=== PATIENT | male | born 1960 | race Hispanic/Latino ===

== ENCOUNTER 2018-05-03 11:16 | Emergency (ER) | payer OTHER ==
--- OUTSIDE RECORDS SUMMARY | 2018-05-03 11:19 | XMS REPORT | Continuity of Care Document ---
:1960 Author Organization Interface Problems Problem Status Onset Classification Date Comments Source Date Reported CVA ISCHEMIC Active 09/13/20 [place] [id number] CVA Active 09/13/[address] Final: Cerebral 09/27/2017 [facility] infarction, unspecified CAD (<span Resolved Problem 09/27/2017 [facility] ID="[id number]">Confirmed</s de la cruz>) Diabetes Resolved Problem 09/27/2017 [facility] mellitus, insulin dependent , controlled(<spa n ID="[id number]">Confirmed&lt ;/span>) Chronic Resolved Problem 09/27/2017 [facility] hypertension Post PTCA Resolved Problem 09/27/2017 [facility] CEREBRAL Active [facility] INFARCTION, UNSPECIFIED Medications Medication Details Route Status Patient Ordering Order Source Instructions Provider Date Metformin 500 mg=1 tab, Active hydrochloride PO, Daily, 2017 [facility] 500 MG Oral take with a Tablet meal, # 30 tab, 1 Refill(s) docusate sodium 100 mg=10 mL, Active 150 mg/15 mL PO, Q12H, # 2016 [facility] oral liquid 600 mL, 0 Refill(s) atorvastatin 40 40 mg=1 tab, Active mg oral tablet PO, Bedtime, # 2016 [facility] 30 tab, 0 Refill(s) Aspirin 81 MG 81 mg=1 tab, Active Chewable Tablet PO, Daily, 2016 [facility] 30 tab, 0 Refill(s) Haldol 2 mg, 0.4 mL, Inactive Route: IV, 2016 [facility] Drug form: INJ, ONCE, Dosing Weight 122.008, kg, Start date: 09/23/17 4:26:00 [employer], Stop date: 09/23/17 4:26:00 CSTNotes: (Same as: Haldol) Omnipaque 350 125 mL, Route: Inactive injectable IVP, Drug 2016 [facility] solution Form: SOLN, Dosing Weight 122.008, kg, ONCALL, For CTA exam with GFR > 45 mL/min, STAT, Start date: 09/22/17 17:14:00 [employer], Duration: 1 doses or timesNotes: (same as:Omnipaque 350). WASTE: F/P - Black; E - Municipal Trash Bin vancomycin 2.5 gm, 500 No Longer mL, Route: Active 2016 [facility] IVPB, Drug form: SOLN, [id number], Start date: 09/22/17 5:00:00 [employer], Stop date: 09/25/17 17:00:00 [employer], ABX Indication: PneumoniaNotes : TIME CRITICAL MEDICATION Same as: Vancocin Infusion rate 2000 mg: infuse over 2.5 hours Haldol 2 mg, 0.4 mL, Inactive Route: IV, 2016 [facility] Drug form: INJ, ONCE, Dosing Weight 122.008, kg, PRN Agitation, Start date: 09/22/17 3:53:00 CSTNotes: (Same as: Haldol) vancomycin + 500 mg, Route: Inactive Sodium Chloride IVPB, ONCE, 2016 [facility] 0.9% IV 100 mL Start date: 09/21/17 17:19:00 [employer], Stop date: 09/21/17 17:19:00 [employer], ABX Indication: PneumoniaNotes : TIME CRITICAL MEDICATION (Same As: Vancocin) vancomycin + 2,500 mg, Inactive Sodium Chloride Route: IVPB, 2016 [facility] 0.9% IV 500 mL [id number], Start date: 09/21/17 5:00:00 [employer], Stop date: 09/25/17 17:00:00 [employer], ABX Indication: PneumoniaNotes : TIME CRITICAL MEDICATION (Same As: Vancocin) Infusion rate 2000 mg: infuse over 2.5 hours MEDICATION WASTE Product Size: 1000 mg Product Wasted: ___ mg vancomycin 2 gm, 500 mL, No Longer Route: IVPB, Active 2016 [facility] Drug form: SOLN, [id number], Start date: 09/20/17 15:00:00 [employer], Duration: 6 day, Stop date: 09/26/17 3:00:00 [employer], ABX Indication: PneumoniaNotes : TIME CRITICAL MEDICATION Same as: Vancocin Infusion rate 2001 mg: infuse over 2.5 hours Ativan 1 mg, 0.5 mL, Inactive Route: IVP, 2016 [facility] Drug form: INJ, ONCE, Dosing Weight 122.008, kg, PRN Agitation, Priority: NOW, Start date: 09/20/17 2:57:00 CSTNotes: (Same as: Ativan) vancomycin + 1,500 mg, No Longer Sodium Chloride Route: IVPB, Active 2016 [facility] 0.9% IV 250 mL [id number], Start date: 09/18/17 14:00:00 [employer], Duration: 7 day, Stop date: 09/25/17 2:00:00 [employer], ABX Indication: PneumoniaNotes : TIME CRITICAL MEDICATION (Same As: Vancocin) Infusion rate 2001 mg: infuse over 2.5 hours MEDICATION WASTE Product Size: 1000 mg Product Wasted: ___ mg Vancomycin Vancomycin No Longer Pharmacy Pharmacy Active 2016 [facility] Protocol Protocol, 1 dose, Drug form: MISC, Route: [place], 09/18/17 12:00:00 [employer], Duration: 7 day, Stop date: 09/25/17 11:59:00 [employer] vancomycin + 1,500 mg, Inactive Sodium Chloride Route: IVPB2016 [facility] 0.9% IV 250 mL [id number], Start date: 09/18/17 12:00:00 [employer], Duration: 7 day, Stop date: 09/25/17 0:00:00 [employer], ABX Indication: PneumoniaNotes : TIME CRITICAL MEDICATION (Same As: Vancocin) Infusion rate 2001 mg: infuse over 2.5 hours MEDICATION WASTE Product Size: 1000 mg Product Wasted: ___ mg NS (Bolus) IV 500 mL, 500 No Longer ml/hr, Infuse Active 2016 [facility] Over: 1 hr, Route: IV, 500, Drug form: INJ, ONCE, Priority: STAT, Dosing Weight 122.008 kg, Start date: 09/18/17 10:01:00 [employer], Stop date: 09/18/17 10:01:00 [employer] Vancomycin 1 ea, Route: Inactive [place], 2016 [facility] Dosing Weight 122.008, kg, Start date: 09/18/17 10:00:00 [employer], Duration: 7 day, Stop date: 09/25/17 9:59:00 [employer], Pharmacy to dose, ABX Indication: Pneumonia Acetaminophen 650 mg, 1 No Longer supp, Route: Active 2016 [facility] MA, Drug form: SUPP, Q6H, Dosing Weight 122.008, kg, PRN For Temp > 100.4 F, Start date: 09/18/17 4:35:00 [employer], Duration: 30 day, Stop date: 10/18/17 4:34:00 CSTNotes: Max acetaminophen= 4000 mg/day (4 gm/day). (Same as: Tylenol) Zosyn 3.375 gm, No Longer Route: IVPB, Active 2016 [facility] [id number], Dosing Weight 122.008, kg, CrCl >=20 ml/min infuse over 4 hours, Start date: 09/17/17 10:00:00 [employer], Duration: 7 day, Stop date: 09/24/17 4:00:00 [employer], ABX Indication: PneumoniaNotes : (Same as: Zosyn) Dosing based on Piperacillin component MEDICATION WASTE Product Size: 3375 mg Product Wasted: ___ mg Rocephin 1 gm, Route: No Longer IVPB, [id number], Active 2016 [facility] Dosing Weight 122.008, kg, Start date: 09/16/17 13:00:00 [employer], Duration: 7 day, Stop date: 09/22/17 13:00:00 [employer], ABX Indication: PneumoniaNotes : (Same As: Rocephin). Use with 100 mL NS and infuse over 30 min MEDICATION WASTE Product Size: 1000 mg Product Wasted: ___ mg Albuterol / 3 mL, Route: No Longer Ipratropium NEB, Drug Active 2016 [facility] Form: SOLN, Dosing Weight 122.008, kg, RQ6H, Start date: 09/15/17 14:00:00 [employer], Duration: 30 day, Stop date: 10/15/17 8:00:00 CSTNotes: (Same as: Duoneb) Lasix 40 mg, 4 mL, Inactive Route: IVP, 2016 [facility] Drug form: INJ, ONCE, Dosing Weight 122.008, kg, Start date: 09/15/17 10:14:00 [employer], Stop date: 09/15/17 10:14:00 CSTNotes: (Same as: Lasix) MEDICATION WASTE Product Size: 40 mg Product Wasted: ___ mg Insulin Lispro 15 unit, 0.15 No Longer mL, Route: Active 2016 [facility] SUB-Q, Drug form: SOLN, Sliding Scale, Dosing Weight 122.008, kg, PRN Blood Glucose Results, Start date: 09/14/17 12:28:00 [employer], Duration: 30 day, Stop date: 10/14/17 12:27:00 CSTNotes: Roll in palms of hands gently; Do not shake `vigorously. (Same as: Humalog ) "Single Patient Use Only " WASTE: F/P - Black; E - Municipal Trash Bin Stable for 28 days at room temperature. Expires in days from Date Dextrose 50% 25 gm, 50 mL, No Longer Syringe Route: IVP, Active 2016 [facility] Drug Form: INJ, Dosing Weight 122.008, kg, PRN, PRN Blood Glucose Results, Start date: 09/14/17 12:28:00 [employer], Duration: 30 day, Stop date: 10/14/17 12:27:00 [employer] Glucagon 1 mg, Route: No Longer IM, Drug form: Active 2016 [facility] PDR/INJ, PRN, Dosing Weight 122.008, kg, PRN Blood Glucose Results, Start date: 09/14/17 12:28:00 [employer], Duration: 30 day, Stop date: 10/14/17 12:27:00 [employer] Docusate 100 mg, 10 mL, No Longer Route: PO, Active 2016 [facility] Drug form: LIQ, Q12H, kg, Start date: 09/13/17 21:00:00 [employer], Stop date: 10/13/17 9:00:00 CSTNotes: (Same as: Colace) atorvastatin 40 mg, 1 tab, No Longer Route: PO, Active 2016 [facility] Drug form: TAB, Bedtime, kg, Start date: 09/13/17 21:00:00 [employer], Stop date: 10/12/17 21:00:00 CSTNotes: (Same as: Lipitor) Saline Flush 10 ml, Route: No Longer 0.9% IVP, Drug Active 2016 [facility] Form: INJ, kg, Q12H, Start date: 09/13/17 21:00:00 [employer], Duration: 30 day, Stop date: 10/13/17 9:00:00 CSTNotes: (Same as: BD Posiflush) Aspirin 81 mg, 1 tab, No Longer Route: PO, Active 2016 [facility] Drug form: CHEWTAB, Daily, Dosing Weight 122.008, kg, Priority: NOW, Start date: 09/13/17 16:57:00 ASS[employer], Duration: 30 day, Stop date: 10/13/17 9:00:00 CSTNotes: Take with food. heparin 7,500 unit, No Longer 1.5 mL, Route: Active 2016 [facility] SUB-Q, Drug form: INJ, Q8H, kg, Start date: 09/13/17 16:00:00 [employer], Duration: 30 day, Stop date: 10/13/17 2:00:00 CSTNotes: porcine heparin Visipaque 320 100 mL, Route: Inactive mg/mL injectable IVP, Drug 2016 [facility] solution Form: SOLN, Dosing Weight 122.008, kg, ONCALL, For CTA exam with GFR Notes: (Same as: Visipaque). WASTE: F/P - Black; E - Municipal Trash Bin Glipizide 10 MG 10 mg=1 tab, No Longer Oral Tablet PO, Before Active 2016 [facility] Breakfast, # 90 tab, 0 Refill(s) Insulin Lispro 2 unit, 0.02 No Longer mL, Route: Active 2016 [facility] SUB-Q, Drug form: SOLN, Sliding Scale, kg, PRN Blood Glucose Results, Start date: 09/13/17 9:09:00 ASS[employer], Duration: 30 day, Stop date: 10/13/17 9:08:00 CSTNotes: Roll in palms of hands gently; Do not shake `vigorously. (Same as: Humalog ) "Single Patient Use Only " WASTE: F/P - Black; E - Municipal Trash Bin Stable for 28 days at room temperature. Expires in days from Date Calcium 1,000 mg, 2 No Longer Carbonate 500 MG tab, Route: Active 2016 [facility] Chewable Tablet PO, Drug form: CHEWTAB, PRN, kg, PRN Abnormal Lab Result, FOR ICU USE ONLY, Start date: 09/13/17 9:09:00 [employer], Duration: 30 day, Stop date: 10/13/17 9:08:00 CSTNotes: (Same As: Tums) Calcium Carbonate 500 cx=805 mg elemental calcium Dose= mg calcium carbonate ( mg elemental calcium) Magnesium Oxide 800 mg, 2 tab, No Longer Route: PO, Active 2016 [facility] Drug form: TAB, PRN, kg, PRN Abnormal Lab Result, FOR ICU USE ONLY, Start date: 09/13/17 9:09:00 ASS[employer], Duration: 30 day, Stop date: 10/13/17 9:08:00 CSTNotes: (Same as: Mag-Ox 400) Magnesium oxide 165te=110ip elemental magnesium Dose=____mg magnesium oxide (___mg elemental magnesium) Calcium 1 gm, 50 mL, No Longer Gluconate Route: IVPB, Active 2016 [facility] Drug form: INJ, PRN, kg, PRN Abnormal Lab Result, Start date: 09/13/17 9:09:00 ASS[employer], Duration: 30 day, Stop date: 10/13/17 9:08:00 ASSISTANT PROF[employer], FOR ICU USE ONLYNotes: WASTE: F/P - Sink; E - Municipal Trash Bin potassium 2 pkt, Route: No Longer phosphate-sodium PO, Drug Form: Active 2016 [facility] phosphate 250 PDR/REC, kg, mg-280 mg-160 mg PRN, PRN oral powder for Abnormal Lab reconstitution Result, FOR ICU USE ONLY, Start date: 09/13/17 9:09:00 ASS[employer], Duration: 30 day, Stop date: 10/13/17 9:08:00 CSTNotes: (Same as: Phos-NaK) Each 1.5 gm pkt has 250mg phosphorous. Mix w/2.5oz water and stir. potassium 30 mmol, 10 No Longer 09/13/ MH phosphate mL, Route: Active 2016 [facility] IVPB, PRN, kg, PRN Abnormal Lab Result, Start date: 09/13/17 9:09:00 ASSISTANT [employer], Duration: 30 day, Stop date: 10/13/17 9:08:00 ASSISTANT PROF[employer], FOR ICU USE ONLYNotes: (Same as: K Phosphate.) 1 mMol phoshate has 1.47 mEq potassium Infuse over 4 hours Magnesium 2 gm, 50 mL, No Longer 09/13/ MH Sulfate Route: IVPB, Active 2016 [facility] Drug form: INJ, PRN, kg, PRN Abnormal Lab Result, Start date: 09/13/17 9:09:00 ASSISTANT PROF[employer], Duration: 30 day, Stop date: 10/13/17 9:08:00 ASSISTANT PROF[employer], FOR ICU USE ONLYNotes: WASTE: F/P - Sink; E - Municipal Trash Bin sodium phosphate 30 mmol, 10 No Longer 09/13/ MH mL, Route: Active 2016 [facility] IVPB, PRN, kg, PRN Abnormal Lab Result, Start date: 09/13/17 9:09:00 ASSISTANT [employer], Duration: 30 day, Stop date: 10/13/17 9:08:00 ASSISTANT PROF[employer], FOR ICU USE ONLY Potassium 20 mEq, 15 mL, No Longer Chloride Route: NJ, Active 2016 [facility] Drug form: LIQ, PRN, kg, PRN Abnormal Lab Result, Start date: 09/13/17 9:09:00 ASSISTANT PROF[employer], Duration: 30 day, Stop date: 10/13/17 9:08:00 ASSISTANT PROF[employer], FOR ICU USE ONLYNotes: (Same as: Potassium Chloride) Dextrose 50% 12.5 gm, 25 No Longer 09/13/ MH Syringe mL, Route: Active 2016 [facility] IVP, Drug Form: INJ, kg, PRN, PRN Blood Glucose Results, Start date: 09/13/17 9:09:00 ASSIST[employer], Duration: 30 day, Stop date: 10/13/17 9:08:00 ASSIST[employer] Glucagon 1 mg, Route: No Longer IM, Drug form: Active 2016 [facility] PDR/INJ, PRN, kg, PRN Blood Glucose Results, Start date: 09/13/17 9:09:00 ASSISTANT [employer], Duration: 30 day, Stop date: 10/13/17 9:08:00 ASSIST[employer] normal saline 1,000 mL, No Longer 0.9% IV 1,000 mL Rate: 75 2016 [facility] ml/hr, Infuse over: 13.3 hr, Route: IV, Total Volume: 1,000, Start date: 09/13/17 9:05:00 ASSISTANT PROF[employer], Duration: 30 day, Stop date: 10/13/17 9:04:00 ASSISTANT PROF[employer] Hydralazine 20 mg, 1 mL, No Longer Route: IVP, 2016 [facility] Drug form: INJ, Q2H, kg, PRN Hypertension, Start date: 09/13/17 9:05:00 ASSISTANT PROF[employer], Duration: 30 day, Stop date: 10/13/17 9:04:00 CSTNotes: (Same as: Apresoline) Push over 5 minutes Labetalol 10 mg, 2 mL, No Longer Route: IVP, 2016 [facility] Drug form: INJ, Q10Min, kg, PRN Hypertension, For SBP > 180 mmHg and/or DBP > 105 mmHg, Priority: Routine, Start date: 09/13/17 9:01:00 ASSISTANT PROF[employer], Duration: 30 day, Stop date: 10/13/17 9:00:00 CSTNotes: (Same as: Normodyne, Trandate) Push over 2 minutes Give bolus over 2-3 minutes. Ondansetron 4 mg, 2 mL, No Longer Route: IVP, 2016 [facility] Drug form: INJ, Q8H, kg, PRN Nausea & Vomiting, Start date: 09/13/17 9:01:00 ASSIST[employer], Duration: 30 day, Stop date: 10/13/17 9:00:00 CSTNotes: (Same as: Zofran) MEDICATION WASTE Product Size: 4 mg Product Wasted: ___ mg Bisacodyl 10 mg, 1 supp, No Longer Route: MA, Active 2016 [facility] Drug form: SUPP, Daily, kg, PRN Constipation, Start date: 09/13/17 9:01:00 ASSIST[employer], Duration: 30 day, Stop date: 10/13/17 9:00:00 CSTNotes: (Same As: Dulcolax, Bisco-Lax) Acetaminophen 650 mg, 2 tab, No Longer Route: PO, Active 2016 [facility] Drug form: TAB, Q4H, kg, PRN Pain 1-3/Temp > 99.5 F, Start date: 09/13/17 9:01:00 ASSISTANT PROF[employer], Duration: 30 day, Stop date: 10/13/17 9:00:00 CSTNotes: Do not exceed 4 gm/day. (Same as: Tylenol) Saline Flush 10 ml, Route: No Longer 0.9% IVP, Drug Active 2016 [facility] Form: INJ, kg, PRN, PRN Line Flush, Start date: 09/13/17 9:01:00 ASSISTANT PROF[employer], Duration: 30 day, Stop date: 10/13/17 9:00:00 CSTNotes: (Same as: BD Posiflush) Allergies, Adverse Reactions, Alerts Substance Category Reaction Severity Reaction Status Date Comments Source type Reported NKDA Assertion No known Drug Active drug allergy [facility] allergies (context-d ependent category) Immunizations Immunization Date Given Site Status Last Updated Comments Source Results Order Name Results Value Reference Date Interpretation Comments Source Range ELECTROLYT AGAP 15.0 meq/L 10.0 - 09/24 ES 20.0 [facility] ELECTROLYT Calcium Lvl 9.1 mg/dL 8.5 - 10.5 09/24 [facility] ELECTROLYT CO2 24 meq/L 24 - 32 09/24 [facility] ELECTROLYT Potassium 4.0 meq/L 3.5 - 5.1 09/24 ES Lvl [facility] ELECTROLYT Chloride Lvl 103 meq/L 95 - 109 09/24 [facility] ELECTROLYT eGFR 98 09/24 Result Comment: The eGFR is calculated using the CKD-EPI formula. In most young, healthy individuals the eGFR will be >90 mL/ min/1.73m2. The eGFR declines with age. An eGFR of 60-89 may be normal in mL/min/1.7 /2016 some populations, particularly the elderly, for whom the CKD-EPI formula has not been extensively validated. Use of the eGFR is not recommended in the following populations: [facility] 3m2 Individuals with unstable creatinine concentrations, including patients and those with serious co-morbid conditions. Patients with extremes in muscle mass or diet. The data above are obtained from the National Kidney Disease Education Program (NKDEP) which additionally recommends that when the eGFR is used in patients with extremes of body mass index for purposes of drug dosing, the eGFR should be multiplied by the estimated BMI. ELECTROLYT BUN 27 mg/dL 7 - 22 09/24 [facility] ELECTROLYT Creatinine 0.80 mg/dL 0.50 - 09/24 ES Lvl 1.40 /2016 [facility] ELECTROLYT Sodium Lvl 138 meq/L 135 - 145 09/24 [facility] ELECTROLYT Glucose Lvl 188 mg/dL 70 - 99 09/24 [facility] HEMATOLOGY RBC Morph Normal 09/24 [facility] (09/24/17 5:19 AM) HEMATOLOGY Plt Morph Normal 09/24 [facility] (09/24/17 5:19 AM) HEMATOLOGY Bands 1.0 % 0.0 - 11.0 09/24 [facility] HEMATOLOGY Lymphocytes 13.0 % 20.0 - 09/24 40.0 [facility] HEMATOLOGY Atypical 2.0 % <=0.0 % 09/24 Lymphs [facility] HEMATOLOGY Eosinophils 3.0 % 0.0 - 4.0 09/24 [facility] HEMATOLOGY Metamyelocyt 5.0 % 0.0 - 1.0 09/24 es [facility] HEMATOLOGY Monocytes 3.0 % 2.0 - 12.0 09/24 [facility] HEMATOLOGY Segs 73.0 % 45.0 - 09/24 75.0 /2017 [facility] HEMATOLOGY Eosinophils 0.5 K/CMM 0.0 - 0.5 09/24 MH # /2017 [facility] HEMATOLOGY Monocytes # 0.5 K/CMM 0.0 - 0.8 09/24 [facility] HEMATOLOGY Lymphocytes 2.6 K/CMM 1.0 - 5.5 09/24 MH # /2016 [facility] HEMATOLOGY Segs-Bands # 12.7 K/CMM 1.5 - 8.1 09/24 [facility] HEMATOLOGY MCV 88.3 fL 80.0 - 09/24 94.0 [facility] HEMATOLOGY Hct 45.4 % 42.0 - 09/24 MH 54.0 /2016 [facility] HEMATOLOGY Hgb 15.0 g/dL 14.0 - 09/24 18.0 [facility] HEMATOLOGY RBC 5.15 M/CMM 4.70 - 09/24 MH 6.10 [facility] HEMATOLOGY MPV 9.2 fL 7.4 - 10.4 09/24 [facility] HEMATOLOGY MCHC 33.0 g/dL 32.0 - 12 MH 36.0 /2016 [facility] HEMATOLOGY MCH 29.2 pg 27.0 - 09/24 MH 31.0 [facility] HEMATOLOGY Platelet 259 K/CMM 133 - 450 09/24 [facility] HEMATOLOGY RDW 14.0 % 11.5 - 09/24 MH 14.5 [facility] HEMATOLOGY WBC 17.1 K/CMM 3.7 - 10.4 09/24 [facility] CHEM PANEL Procalcitoni null 0.00 - 09/23 n Lvl 0.10 [facility] ELECTROLYT AGAP 14.0 meq/L 10.0 - 09/23 ES 20.0 [facility] ELECTROLYT eGFR 94 09/23 Result Comment: The eGFR is calculated using the CKD-EPI formula. In most young, healthy individuals the eGFR will be >90 mL/ min/1.73m2. The eGFR declines with age. An eGFR of 60-89 may be normal in ES mL/min/1.7 some populations, particularly the elderly, for whom the CKD-EPI formula has not been extensively validated. Use of the eGFR is not recommended in the following populations: [facility] 3m2 Individuals with unstable creatinine concentrations, including patients and those with serious co-morbid conditions. Patients with extremes in muscle mass or diet. The data above are obtained from the National Kidney Disease Education Program (NKDEP) which additionally recommends that when the eGFR is used in patients with extremes of body mass index for purposes of drug dosing, the eGFR should be multiplied by the estimated BMI. ELECTROLYT Potassium 4.0 meq/L 3.5 - 5.1 09/23 ES Lvl /2016 [facility] ELECTROLYT Sodium Lvl 139 meq/L 135 - 145 09/23 MH ES [facility] ELECTROLYT BUN 26 mg/dL 7 - 22 09/23 ES [facility] ELECTROLYT Glucose Lvl 188 mg/dL 70 - 99 09/23 ES [facility] ELECTROLYT Creatinine 0.90 mg/dL 0.50 - 09/23 ES Lvl 1.40 /2016 [facility] ELECTROLYT CO2 24 meq/L 24 - 32 09/23 [facility] ELECTROLYT Chloride Lvl 105 meq/L 95 - 109 09/23 [facility] ELECTROLYT Calcium Lvl 9.2 mg/dL 8.5 - 10.5 09/23 [facility] HEMATOLOGY Basophils # 0.1 K/CMM 0.0 - 0.2 09/23 [facility] HEMATOLOGY Eosinophils 0.3 K/CMM 0.0 - 0.5 09/23 # /2016 [facility] HEMATOLOGY Monocytes # 1.3 K/CMM 0.0 - 0.8 09/23 [facility] HEMATOLOGY Lymphocytes 15.8 % 20.0 - 09/23 MH 40.0 [facility] HEMATOLOGY Plt Morph Normal 09/23 [facility] (09/23/17 5:42 AM) HEMATOLOGY RBC Morph Normal 09/23 [facility] (09/23/17 5:42 AM) HEMATOLOGY Monocytes 6.9 % 2.0 - 12.0 09/23 [facility] HEMATOLOGY Basophils 0.5 % 0.0 - 1.0 09/23 [facility] HEMATOLOGY Eosinophils 1.5 % 0.0 - 4.0 09/23 [facility] HEMATOLOGY Segs 75.3 % 45.0 - 09/23 75.0 [facility] HEMATOLOGY Lymphocytes 2.9 K/CMM 1.0 - 5.5 09/23 [facility] HEMATOLOGY Segs-Bands # 13.9 K/CMM 1.5 - 8.1 09/23 [facility] HEMATOLOGY MCH 28.9 pg 27.0 - 09/23 MH 31.0 [facility] HEMATOLOGY MCV 88.9 fL 80.0 - 09/23 94.0 [facility] HEMATOLOGY Hct 46.4 % 42.0 - 12 MH 54.0 [facility] HEMATOLOGY Hgb 15.1 g/dL 14.0 - 09/23 MH 18.0 [facility] HEMATOLOGY RBC 5.22 M/CMM 4.70 - 09/23 MH 6.10 [facility] HEMATOLOGY MPV 9.5 fL 7.4 - 10.4 09/23 [facility] HEMATOLOGY Platelet 269 K/CMM 133 - 450 09/23 [facility] HEMATOLOGY RDW 14.4 % 11.5 - 09/23 MH 14. [facility] HEMATOLOGY MCHC 32.5 g/dL 32.0 - 09/23 MH 36.0 [facility] HEMATOLOGY WBC 18.4 K/CMM 3.7 - 10.4 09/23 [facility] Chest Chest Study: Chest Pulmonary Embolism CTA 09/22 - Pulmonary Pulmonary /2016 - [facility] Embolism Embolism CTA CTA Clinical Indication: - resp failure.sob. injected 100ml of omnipaque 350 via IV. DLP: 847.79 mGy-cm; Read by: Beau Ramirez MD Dictated Date/time: 09/22/17 20:09 Electronically Signed by: Beau Ramirez MD 09/22/17 20:12 FINAL REPORT Comparison: Chest x-ray performed on 09/18/2017 TECHNIQUE: Multiple axial CT images of the chest were acquired following the administration of intravenous contrast according to the pulmonary embolism protocol. Multiplanar and three-dimensional reformatted images were performed. Dose: AXB=228.79 mGy-cm FINDINGS: The cardiac chambers and pericardium are unremarkable. Aortic arch calcification is present. There are no segmental pulmonary emboli noted. The main, right, and left pulmonary arteries are nor mal. No thoracic aortic aneurysm or dissection is seen. No pathologic mediastinal, hilar, or axillary adenopathy is seen. No endobronchial lesions are identified within the central airways. Dependent consolidations in the bilateral lower lobes as well as right middle lobe are seen, compatible with atelectasis. Asymmetric elevation of the right hemidiaphragm is seen.No pleural effusion or pneumothora x is seen. The superficial soft tissues of the chest wall are unremarkable. No suspicious osseous lesions are seen. Limited views of the upper abdomen show a percutaneous gastrostomy tube tip in the stomach. Changes of cholecystectomy are seen. IMPRESSION: 1. No evidence of pulmonary emboli. 2. Bibasilar and right middle lobe atelectasis. SL: SLEE-PC CHEM PANEL Procalcitoni 0.05 ng/mL 0.00 - 09/21 n Lvl 0.10 [facility] ELECTROLYT AGAP 12.1 meq/L 10.0 - 09/21 ES 20.0 [facility] ELECTROLY eGFR 94 09/21 Result Comment: The eGFR is calculated using the CKD-EPI formula. In most young, healthy individuals the eGFR will be >90 mL/ min/1.73m2. The eGFR declines with age. An eGFR of 60-89 may be normal in ES mL/min/1.7 some populations, particularly the elderly, for whom the CKD-EPI formula has not been extensively validated. Use of the eGFR is not recommended in the following populations: [facility] 3m2 Individuals with unstable creatinine concentrations, including patients and those with serious co-morbid conditions. Patients with extremes in muscle mass or diet. The data above are obtained from the National Kidney Disease Education Program (NKDEP) which additionally recommends that when the eGFR is used in patients with extremes of body mass index for purposes of drug dosing, the eGFR should be multiplied by the estimated BMI. ELECTROLYT Chloride Lvl 105 meq/L 95 - 109 09/21 [facility] ELECTROLYT CO2 26 meq/L 24 - 32 09/21 [facility] ELECTROLYT Potassium 4.1 meq/L 3.5 - 5.1 09/21 [facility] Lvl [facility] ELECTROLYT Creatinine 0.90 mg/dL 0.50 - 09/21 [facility] Lvl 1.40 /2016 [facility] ELECTROLYT Sodium Lvl 139 meq/L 135 - 145 09/21 [facility] ELECTROLYT Calcium Lvl 8.8 mg/dL 8.5 - 10.5 09/21 [facility] ELECTROLYT BUN 27 mg/dL 7 - 22 09/21 [facility] ELECTROLYT Glucose Lvl 189 mg/dL 70 - 99 09/21 [facility] HEMATOLOGY RDW 14.6 % 11.5 - 09/21 14. [facility] HEMATOLOGY MPV 9.7 fL 7.4 - 10.4 09/21 [facility] HEMATOLOGY Platelet 238 K/CMM 133 - 450 09/21 [facility] HEMATOLOGY Hgb 15.1 g/dL 14.0 - 09/21 18.0 [facility] HEMATOLOGY Hct 45.7 % 42.0 - 09/21 54.0 [facility] HEMATOLOGY MCHC 33.1 g/dL 32.0 - 09/21 36.0 [facility] HEMATOLOGY MCH 29.5 pg 27.0 - 09/21 31.0 [facility] HEMATOLOGY MCV 89.1 fL 80.0 - 09/21 94.0 [facility] HEMATOLOGY RBC 5.13 M/CMM 4.70 - 09/21 6.10 [facility] HEMATOLOGY WBC 16.7 K/CMM 3.7 - 10.4 09/21 [facility] HEMATOLOGY Basophils # 0.1 K/CMM 0.0 - 0.2 09/21 [facility] HEMATOLOGY Eosinophils 0.2 K/CMM 0.0 - 0.5 09/21 # [facility] HEMATOLOGY Segs 74.2 % 45.0 - 09/21 75.0 /2016 [facility] HEMATOLOGY Eosinophils 1.5 % 0.0 - 4.0 09/21 [facility] HEMATOLOGY Monocytes 7.9 % 2.0 - 12.0 09/21 [facility] HEMATOLOGY Segs-Bands # 12.4 K/CMM 1.5 - 8.1 09/21 [facility] HEMATOLOGY Basophils 0.5 % 0.0 - 1.0 09/21 [facility] HEMATOLOGY Monocytes # 1.3 K/CMM 0.0 - 0.8 09/21 [facility] HEMATOLOGY Lymphocytes 2.7 K/CMM 1.0 - 5.5 09/21 # [facility] HEMATOLOGY Lymphocytes 15.9 % 20.0 - 09/21 40.0 [facility] CHEM PANEL Lactic Acid 1.3 mMol/L 0.5 - 2.2 09/18 [facility] Chest Chest 1view Clinical Indication: Pneumonia - PNA; 09/18 - 1view DX DX - [facility] Comparison: 09/15/2017 Read by: Andrade Hou MD Dictated Date/time: 09/18/17 18:27 FINDINGS: Electronically Signed by: Andrade Hou MD 09/18/17 18:30 FINAL REPORT Single AP chest radiograph shows decreased lung volumes with newly appearing left perihilar opacity. No pleural effusions or pneumothorax. Cardiac silhouette size remains enlarged. The trachea is midline. There are no clinically significant osseous abnormalities noted. Previously described enteric feeding tube has been removed. IMPRESSION: Newly appearing left perihilar opacity. In the appropriate clinical context , infection may be considered SL: SACHI CHEM PANEL Lactic Acid 1.3 mMol/L 0.5 - 2.2 09/18 Lvl [facility] URINE AND UA Blood Moderate Negative 09/16 STOOL [facility] *ABN* (09/15/17 11:10 PM) URINE AND UA Bili Negative Negative 09/16 STOOL [facility] *NA* (09/15/17 11:10 PM) URINE AND UA Glucose Negative Negative 09/16 STOOL mg/dL mg/dL [facility] URINE AND UA Protein 30 mg/dL Negative 09/16 STOOL mg/dL [facility] URINE AND UA Ketones Negative Negative 09/16 STOOL mg/dL mg/dL [facility] URINE AND UA pH 5.0 5.0 - 8.0 09/16 [facility] URINE AND UA Spec Grav 1.021 <=1.030 09/16 [facility] URINE AND UA Turbidity Slight Clear 09/16 [facility] *ABN* (09/15/17 11:10 PM) URINE AND UA Nitrite Negative Negative 09/16 STOOL [facility] (09/15/17 11:10 PM) URINE AND UA 2.0 mg/dL 0.1 - 1.0 09/16 [facility] Urobilinogen [facility] URINE AND UA Leuk Est Negative Negative 09/16 [facility] (09/15/17 11:10 PM) URINE AND UA Color Yellow 09/16 [facility] URINE AND Micro? Performed 09/16 [facility] *NA* (09/15/17 11:10 PM) URINE AND UA Hyal Cast 1 /LPF 0 - 2 09/16 [facility] URINE AND UA RBC 56 /HPF 0 - 2 09/16 [facility] URINE AND UA Mucus Few /LPF None Seen 09/16 STOOL /LPF [facility] URINE AND UA WBC 5 /HPF 0 - 5 09/16 [facility] URINE AND UA Sq Epi Occasional Few /LPF 09/16 STOOL /LPF [facility] Chest Chest 1view Study: Frontal chest x-ray compared to prior study from the same day 09/15 1view DX DX - [facility] History: Abnormal chest sounds Read by: Kayleigh Thomson MD Dictated Date/time: 09/15/17 23:43 Electronically Signed by: Kayleigh Thomson MD 09/15/17 23:44 FINAL REPORT Comments: The trachea is midline. The cardiomediastinal silhouette is enlarged. Perihilar and right lung lung base interstitial opacities are unchanged. No pleural effusions or pneumothorax. Feeding tube tip in the stomach Impression: Perihilar and right lung lung base interstitial opacities are unchanged. Brain wo Brain wo Patient Name: ROBERT HARDY 09/15 - contrast contrast CT /2016 - [facility] CT : 1960; Age: 57 years y/o Male MR: [id number] Read by: Marjorie Lindap Dictated Date/time: 09/15/17 14:10 Electronically Signed by: Marjorie Lind 09/15/17 14:14 FINAL REPORT Study: Brain wo contrast CT 09/15/2017 8:29 AM [employer] Ordering Physician: Flaco Rocha MD Clinical Indication: Stroke, f/u stroke, rt side weakness,hx of CAD, diabetes, [id number] - Stroke, f/u stroke, rt side weakness,hx of CAD, diabetes , [id number]; Comparison: 09/13/2017 TECHNIQUE: CT images were obtained from the foramen magnum to the vertex without the use of intravenous contrast on a multidetector CT. Coronal and sagittal reconstructions were obtained. CT radiation dose DLP: 759 mGy-cm FINDINGS: Evolving nonhemorrhagic infarct in the left MCA distribution involving cortex and white matter of left posterior frontal lobe, left parietal lobe, insula and patchy involvement of the posterior parietal lobe and the temporal lobe. No evidence of hemorrhagic transformation. There are patchy hypodensities in the left caudate head, region of the posterior left lentiform nucleus and internal capsule. Loca l mass effect is seen with sulcal effacement. No midline shift or herniation. The ventricles are stable. The posterior fossa is unremarkable. The paranasal sinuses and mastoids are clear. If there is further concern, reassessment with an MRI of the brain should be considered. IMPRESSION: Evolving large left MCA infarct without hemorrhagic transformation. SL: WR4-M CHEM PANEL Phosphorus 3.1 mg/dL 2.5 - 4.5 09/15 [facility] CHEM PANEL Magnesium 2.1 mg/dL 1.8 - 2.4 09/15 Lvl [facility] HEMATOLOGY Basophils 0.6 % 0.0 - 1.0 09/15 [facility] HEMATOLOGY Basophils # 0.1 K/CMM 0.0 - 0.2 09/15 [facility] PARATHYROI Ca Ion WB 1.02 1.05 - 09/15 D PROFILE mMol/L 1.25 [facility] PARATHYROI Ca Norm WB 1.05 1.05 - 09/15 MH D PROFILE mMol/L . [facility] Chest Chest 1view Patient Name: ROBERT HARDY 09/15 - 1view DX DX /2016 - [facility] : 1960; Age: 57 years Male MR: [id number] Read by: Elder Sifuentes MD Dictated Date/time: 09/15/17 09:19 Study: Chest 1view DX Order Time: 09/15/2017 8:30 AM [employer] Electronically Signed by: Elder Sifuentes MD 09/15/17 09 :20 FINAL REPORT CLINICAL INDICATION: Rhonchi - Rhonchi COMPARISON: Chest radiograph on 09/13/2017 FINDINGS: Lines: Dobbhoff tube tip projects off the [id number]. Lungs: The perihilar and right lung base interstitial opacities are unchanged, which may represent interstitial edema or pneumonia. No significant effusion or pneumothorax. Mediastinum: The cardiac silhouette is moderately enlarged. Midline trachea. Bones and soft tissues: No acute abnormalities. IMPRESSION: Interval placement of a Dobbhoff tube. Otherwise, no significant change since 09/13/2017. SL: [id number] CARDIAC Troponin-I null 0.00 - 09/14 ENZYMES 0.40 [facility] CHEM PANEL Phosphorus 2.8 mg/dL 2.5 - 4.5 09/14 [facility] CHEM PANEL Magnesium 2.3 mg/dL 1.8 - 2.4 09/14 Lvl /2016 [facility] PARATHYROI Ca Norm WB 1.08 1.05 - 09/14 MH D PROFILE mMol/L . [facility] PARATHYROI Ca Ion WB 1.08 1.05 - 09/14 MH D PROFILE mMol/L . [facility] BACTERIAL MRSA by PCR Negative 09/14 MH - SEROLOGY /2016 [facility] (09/13/17 6:11 PM) DRUG U Lisa Scr Negative Negative 09/14 MH SCREEN /2016 [facility] *NA* (09/13/17 6:11 PM) DRUG U Amph Scr Negative Negative 09/14 MH SCREEN /2016 [facility] *NA* (09/13/17 6:11 PM) DRUG U Benzodia Negative Negative 09/14 SCREEN Scr /2016 [facility] *NA* (09/13/17 6:11 PM) DRUG U Opiate Scr Negative Negative 09/14 SCREEN [facility] *NA* (09/13/17 6:11 PM) DRUG U Cannab Scr Negative Negative 09/14 SCREEN [facility] *NA* (09/13/17 6:11 PM) DRUG U Cocaine Positive Negative 09/14 SCREEN Scr [facility] *ABN* (09/13/17 6:11 PM) DRUG UDS Note See Note 09/14 [facility] (09/13/17 6:11 PM) DRUG U Propoxyph Negative Negative 09/14 SCREEN Scr [facility] *NA* (09/13/17 6:11 PM) DRUG U Phencyc Negative Negative 09/14 SCREEN Scr [facility] *NA* (09/13/17 6:11 PM) DRUG U Methadone Negative Negative 09/14 SCREEN Scr [facility] *NA* (09/13/17 6:11 PM) Abdomen AP Abdomen AP Clinical Indication: bee placement - bee placement. 09/13 - [facility] - [facility] Comparison: None. Read by: John Lowe MD Dictated Date/time: 09/13/17 19:45 Electronically Signed by: John Lowe MD 09/13/17 19:45 FINAL REPORT FINDINGS: The AP supine view of the abdomen shows a non-obstructive bowel gas pattern. There is no abnormal dilatation of bowel loops. There is no pneumatosis or mass effect. There are no radiopaque densities not ed. There are no acute osseous abnormalities noted. Feeding tube extends into the gastric fundus. IMPRESSION: 1. Unremarkable 1 view abdomen. SL: MGLASER-M CARDIAC Troponin-I null 0.00 - 09/13 ENZYMES 0.40 /2016 [facility] CHEM PANEL Bili Direct 0.1 mg/dL 0.0 - 0.3 09/13 [facility] CHEM PANEL AST 11 unit/L 0 - 37 09/13 [facility] CHEM PANEL Alk Phos 83 unit/L 39 - 136 09/13 [facility] CHEM PANEL Albumin Lvl 3.2 g/dL 3.5 - 5.0 09/13 [facility] CHEM PANEL Bili Total 0.4 mg/dL 0.2 - 1.3 09/13 [facility] CHEM PANEL ALT 26 unit/L 0 - 65 09/13 [facility] CHEM PANEL Total 7.5 g/dL 6.4 - 8.4 09/13 Protein [facility] CHEM PANEL A/G Ratio 0.7 0.7 - 1.6 09/13 [facility] CHEM PANEL Globulin 4.3 g/dL 2.7 - 4.2 09/13 [facility] CHEM PANEL B/C Ratio 16 6 - 25 09/13 [facility] LIPIDS VLDL 18 09/13 [facility] LIPIDS Chol 118 mg/dL <=199 09/13 mg/dL [facility] LIPIDS HDL 58 mg/dL >=61 mg/dL 09/13 [facility] LIPIDS Trig 92 mg/dL <=149 09/13 mg/dL [facility] LIPIDS LDL 42 mg/dL <=99 mg/dL 09/13 (Calculated) [facility] LIPIDS CHD Risk 2.03 4.00 - 09/13 7.30 [facility] SPECIAL Hgb A1C 8.8 % <=5.6 % 09/13 CHEMISTRY [facility] URINE AND UA Color Ltyellow 09/13 STOOL [facility] URINE AND UA null 0.1 - 1.0 09/13 STOOL Urobilinogen [facility] URINE AND UA Ketones Negative Negative 09/13 STOOL mg/dL mg/dL [facility] URINE AND UA Protein Negative Negative 09/13 STOOL mg/dL mg/dL [facility] URINE AND UA Glucose 500 mg/dL Negative 09/13 STOOL mg/dL [facility] URINE AND UA Spec Grav 1.022 <=1.030 09/13 STOOL [facility] URINE AND UA pH 5.0 5.0 - 8.0 09/13 STOOL [facility] URINE AND UA Turbidity Clear Clear 09/13 STOOL [facility] (09/13/17 10:40 AM) URINE AND UA Mucus Few /LPF None Seen 09/13 STOOL /LPF [facility] URINE AND UA Leuk Est Small Negative 09/13 STOOL [facility] *ABN* (09/13/17 10:40 AM) URINE AND UA Sq Epi Occasional Few /LPF 09/13 STOOL /LPF [facility] URINE AND UA WBC 13 /HPF 0 - 5 09/13 STOOL [facility] URINE AND UA RBC 81 /HPF 0 - 2 09/13 STOOL [facility] URINE AND UA Bili Negative Negative 09/13 STOOL [facility] *NA* (09/13/17 10:40 AM) URINE AND UA Blood Large Negative 09/13 [facility] *ABN* (09/13/17 10:40 AM) URINE AND UA Nitrite Negative Negative 09/13 STOOL /2016 [facility] (09/13/17 10:40 AM) Brain wo Brain wo Patient Name: ROBERT HARDY 09/13 - contrast contrast MRI - [facility] MRI : 1988; Age: 29 years y/o Male MR: [id number] Read by: Shaheed Gonzalez MD Dictated Date/time: 09/13/17 15:02 Electronically Signed by: Shaheed Gonzalez MD 09/13/17 15:08 FINAL REPORT Study: Brain wo contrast MRI 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 Contrast: None. FINDINGS: BRAIN PARENCHYMA: Increased signal is seen about the left sylvian fissure , left lateral temporal lobe and throughout large portion of the left lateral frontal parietal lobe. There are also areas of inc reased signal on diffusion-weighted imaging in the posterior left basal ganglia, posterior lateral left occipital lobe and posterior parietal occipital lobe. Findings are consistent with large area of a cute left MCA infarct. Acute infarction is also seen on diffusion-weighted imaging in the left caudate head. No other evidence for an acute infarction. No other abnormal areas of signal intensity identi fied about the brain. No significant extra-axial fluid collection, mass effect or shift. CEREBELLOPONTINE REGIONS AND SKULL BASE: The craniocervical junction, skull base and pituitary gland are unremarkable. Cerebellar pontine angles unremarkable bilaterally. VENTRICLES: The ventricles are within normal limits for the patient's age. VESSELS: Poor flow void is seen to the left internal carotid artery consistent with slow flow or occlusion. Otherwise normal flow-voids identified in the major vessels at the base of the brain. ORBITS, VISUALIZED PARANASAL SINUSES AND MASTOIDS: Small amount of left maxillary and bilateral ethmoid sinus disease. IMPRESSION: 1. Large acute left MCA infarct with acute infarct to the left caudate head. 2. Poor flow void left internal carotid artery consistent with slow flow or occlusion. 3. Small amount of left maxillary and bilateral ethmoid sinus disease. SL: CSODERSTROM-SHARON Brain/Neck Brain/Neck STUDY: Brain/Neck CTA 09/13/2017 9:01 AM [facility] 09/13 [facility] CTA CTA /2016 - [facility] Ordering Physician: Arnulfo Chun MD Read by: Marvel Ferrari MD Dictated Date/time: 09/13/17 15:14 Patient Name: ROBERT HARDY MR: [id number] Electronically Signed by: Marevl Ferrari MD 09/13/17 15:32 FINAL REPORT : 1988; Age: 29 years y/o Male Clinical Indication: - Acute left MCA stroke. Altered mental status./ DLP 1284.21 mGycm, gave 100 ml visipaque 320 IV injection Comparison: None TECHNIQUE: Sequential trans-axial images of the head and neck were obtained with a multi-detector helical CT after iodinated contrast administration. Additionally, two-dimensional and three-dimensional reformatted images were prepared. CTA NECK: VASCULAR EVALUATION Aortic arch and great vessel origins: No significant atherosclerosis, narrowing, aneurysm, or dissection. Brachiocephalic trunk: No significant atherosclerosis, narrowing, aneurysm , or dissection. Subclavian arteries: No significant narrowing in the visualized portions after accounting for mild artifact. Right carotid artery: Normal caliber right common carotid artery. Mild calcified plaque at the right carotid bifurcation and internal carotid artery origin causing mild narrowing estimated at 20% at max imum. The remaining cervical portions of the right internal carotid artery are normal. Left carotid artery: The left common carotid artery is normal. Mild calcified plaque is seen at the left carotid bifurcation. The left internal carotid artery is occluded at the origin Vertebral arteries: No significant atherosclerosis, narrowing, or dissection. Any reported ICA stenosis directly references the distal internal carotid diameter as the denominator for stenosis measurement. NON-VASCULAR STRUCTURES: Soft tissues: No significant abnormality or mass. Lymphadenopathy: Scattered subcentimeter bilateral cervical lymph nodes without lymphadenopathy. Airway: Clear. Visualized lung apices: Clear. Osseous structures: Moderate cervical spondylosis and facet arthrosis. CTA HEAD: ANTERIOR CIRCULATION Internal carotid arteries: The right internal carotid artery siphon is normal. Mild flow is seen distally in the left carotid siphon likely representing crossflow through the [place] of [place]. Middle cerebral arteries: The right MCA is normal. The M1 segment of the left MCA is smaller in caliber than the right MCA likely related to poor inflow and/or true stenosis. Decreased arborization is s een within the left MCA distribution with occlusion of some small M2 and M3 branches at the site of acute infarction. Anterior cerebral arteries: No focal stenosis or aneurysm. Normal anterior communicating artery. POSTERIOR CIRCULATION Vertebrobasilar system: No focal stenosis or aneurysm. Posterior cerebral arteries: No focal stenosis or aneurysm. Superior cerebellar arteries: Normal in appearance. AICA: Normal in appearance. PICA: Normal in appearance. BRAIN PARENCHYMA: 1. The brain volume and ventricle size remain appropriate for age. A large area of low-attenuation is seen at the site of known acute left MCA distribution infarction confirmed on recent MR. 2. No evidence of acute intracranial hemorrhage, mass lesion, mass effect , midline shift, or extra-axial fluid collection. 3. Postcontrast images demonstrate no abnormal enhancement. VENTRICLES: The lateral ventricles, third ventricle, fourth ventricle, and basilar cisterns are appropriate for degree of atrophy present. PARANASAL SINUSES: Mild mucoperiosteal thickening in the ethmoid sinus and left maxillary. The visualized portions of the remaining paranasal sinuses are clear. MASTOIDS: Clear. ORBITS: The visualized portions of the orbits are normal. SOFT TISSUES: No significant abnormality. SKULL: No acute fracture or suspicious osseous lesion. IMPRESSION: 1. Occlusion of the left internal carotid artery at the origin possibly representing underlying dissection. Mild flow is seen distally in the left internal carotid artery siphon related to cross flow through the [place] of [place]. 2. Reduced size mildly irregular left M1 segment consistent with poor inflow and/or stenosis. Decreased arborization is seen more peripherally in the left MCA with loss of small M2 and M3 branches at the site of known infarction. 3. Acute left MCA distribution infarction. 4. Mild chronic sinusitis. SL: [id number] Chest Chest 1view Clinical Indication: CVA - CVA; 09/13 - 1view DX DX /2016 - [facility] Comparison: None Read by: Sergio Connolly MD Dictated Date/time: 09/13/17 10:26 Electronically Signed by: Sergio Connolly MD 09/13/17 10:27 FINAL REPORT FINDINGS: The portable AP single view radiograph provided for review. The exam demonstrates limited decreased lung volumes with the accentuated vascular as well as bibasilar interstitial hazy opacity right greater than left. No effusions or pneumothorax. Heart appears mil dly enlarged. Osseous structures are unremarkable. IMPRESSION: Limited decreased lung volumes with mild cardiac enlargement and accentuated vascular and bibasilar interstitial opacities right greater than left possibly of atelectasis, correlate for superimposed process SL: [id number] Vital Signs Vital Sign Value Date Comments Source Heart Rate 73 09/24/2017 [facility] Respitory Rate 24 09/24/2017 [facility] Systolic (mm Hg) 135 09/24/2017 [facility] Diastolic (mm Hg) 85 09/24/2017 [facility] Respitory Rate 26 09/24/2017 [facility] Heart Rate 76 09/24/2017 [facility] Systolic (mm Hg) 150 09/24/2017 [facility] Diastolic (mm Hg) 74 09/24/2017 [facility] Systolic (mm Hg) 132 09/24/2017 [facility] Diastolic (mm Hg) 82 09/24/2017 [facility] Heart Rate 71 09/24/2017 [facility] Respitory Rate 18 09/24/2017 [facility] Temperature Oral (F) 98.1 F 09/24/2017 [facility] Temperature Oral (F) 98.6 F 09/24/2017 [facility] Temperature Oral (F) 98.2 F 09/23/2017 [facility] Height 180.34 cm 09/13/2017 [facility] BMI Calculated 37.51 09/13/2017 [facility] Weight 122.008 09/13/2017 [facility] Weight 122.008 09/13/2017 [facility] BMI Calculated 38.59 09/13/2017 [facility] Height 177.8 cm 09/13/2017 [facility] Encounters Location Location Encounter Encounter Reason Attending ADM DC Status Source Details Type Number For Provider Date Date Visit [facility] Inpatient [id number] Murad 09/13 09/25 Michael Aslam /2016 [facility] Procedures Procedure Code Date Perfomer Comments Source Coronary heart [id number] [facility] disease monitoring DIGAMI - diabetes [id number] [facility] mellitus insulin-glucose infusion in acute myocardial infarction On treatment for [id number] [facility] hypertension PTCA - [id number] [facility] Percutaneous transluminal coronary angioplasty
[2018-05-03 12:46] LABS: Absolute Lymphocytes (CBC) 2.6 K/uL (0.7-4.9); Absolute Monocytes 0.6 K/uL (0.1-1.3); Absolute Neutrophil 7.5 K/uL (1.8-8.0); Basophils % 0.2 % (0-1.3); Eosinophils % 0.5 % (0-4.4); Hematocrit 50.4 % (39.6-49.0); Lymphocytes % 23.9 % (15.3-44.8); MCH 31.4 pg (27.0-35.0); MCV 92.9 fL (80-100); MPV 8.9 fL (7.6-11.3); Monocytes % 5.7 % (3.3-12.3); RBC Red Blood Cell Count 5.42 M/uL (4.33-5.43)
[2018-05-03 12:56] LABS: ALT/SGPT 23 U/L (12-78); AST/SGOT 15 U/L (15-37); Albumin 3.7 g/dL (3.4-5.0); Alkaline Phosphatase 79 U/L (45-117); Amylase Level 45 U/L (25-115); BUN Blood Urea Nitrogen 9 mg/dL (7-18); Bicarbonate 27 mmol/L (21-32); Bilirubin Direct 0.3 mg/dL (0-0.2); Bilirubin Total 1.1 mg/dL (0.2-1.0); Glucose Level 87 mg/dL (74-106); Lipase 117 U/L (73-393); Potassium 4.2 mmol/L (3.5-5.1); Protein, Total 7.8 g/dL (6.4-8.2); Sodium Level 131 mmol/L (136-145)
--- NOTE | 2018-05-03 14:33 | RAD REPORT ---
EXAM DESCRIPTION: CT - Abdomen Pelvis W Contrast - 05/03/2018 1:56 pm CLINICAL HISTORY: Abdominal pain, abdominal distention, decreased bowel movement, prior history of P EG tube placement and cholecystectomy COMPARISON: CT study October 2017 TECHNIQUE: Biphasic, helical CT imaging of the abdomen and pelvis was performed following 100 ml non -ionic IV contrast. Oral contrast was given. All CT scans are performed using dose optimization technique as appropriate and may include automated exposure control or mA/KV adjustment according to patient size. FINDINGS: No suspicious findings in the lung bases. The liver, spleen, and pancreas show no suspicious findings. Liver is borderline fatty infiltrated. C holecystectomy clips are present. Biliary tree within normal limits for a post cholecystectomy patien t. Symmetric renal function is seen with no hydronephrosis or suspicious renal mass. No pyelonephritis o r acute renal parenchymal process. No adrenal abnormality. Mostly contracted urinary bladder shows no suspicious finding. PEG tube is in place and appears properly positioned. All contrast remains within the lumen of bowel. No suspicious findings along the course of the PEG tube to the skin surface. No small bowel acute fi ndings. The appendix is normal. Large stool volume is present throughout the colon more pronounced in the rectum sigmoid region. Cesar of the distal rectum are mildly prominent but no masslike thickenin g identifiable. No free air, free fluid or inflammatory stranding in the peritoneal or retroperitoneal spaces. . No hernia, mass or bulky lymphadenopathy. Advanced for age disc and bony degenerative changes are present. There is questionable erosive change in the posterior right aspect of a coccygeal body. There is some stranding in the soft tissues of th is region. Correlation is needed with any decubitus ulcer or skin changes for this patient. On physic al exam this would be approximately 4 cm right lateral to the gluteal crease. IMPRESSION: Large stool volume is present primarily in the rectum and sigmoid portions of the colon. A discrete rectal mass or significant colon wall thickening not identified. Peg tube is well positioned. No extravasation of oral contrast. Advanced for age disc and bony degenerative change. Suspected bone loss change posterior right side of a coccygeal segment. If the patient is non ambula tory, this could be secondary to decubitus ulcer changes and possibly osteomyelitis.
[2018-05-03] MEDS ORDERED: BISACODYL 10 MG RECTAL SUPP ONE ×2 (15:06→16:30)
[2018-05-03] MEDS ORDERED: LACTULOSE 20 GM/30 ML UCUP ONE (15:06)
--- NOTE | 2018-05-03 16:35 | EDPHYS ---
Physician Documentation [facility] Name: El Ventura Age: 57 yrs Sex: Male : 1960 Arrival Date: 05/03/2018 Time: 11:20 Bed 8 Private MD: ED Physician Eliot Washington HPI: 05/03 11:55 This 57 yrs old Male presents to ER via Wheelchair with complaints of jmm Constipation. 11:55 Onset: The symptoms/episode began/occurred 12 day(s) ago. jmm 11:55 This is a 57 year old male with a history of CVA with right sided weakness, DM, HLP, jmm HTN that presents to the ED due to constipation. According to the family the patient has been unable to defecate in 12 days. Denies fever, denies vomiting. Historical: - Allergies: 11:56 PENICILLINS; iw - Home Meds: 11:56 aspirin 81 mg Oral chew 1 tab once daily [Active]; atorvastatin 40 mg Oral tab 1 tab iw nightly [Active]; metformin 500 mg Oral Tb24 1 tab once daily [Active]; Silace 50 mg/5 mL Oral liqd 10 mL 2 times per day [Active]; - PMHx: 11:56 CAD; CVA; Diabetes - NIDDM; heart stents; High Cholesterol; Hypertension; iw - PSHx: 11:56 PEG tube placement; Cholecystectomy; iw - Immunization history:: Adult Immunizations. - Social history:: Smoking status: Patient/guardian denies using tobacco. - Ebola Screening: : Patient negative for fever greater than or equal to 101.5 degrees Fahrenheit, and additional compatible Ebola Virus Disease symptoms Patient denies exposure to infectious person Patient denies travel to an Ebola-affected area in the 21 days before illness onset No symptoms or risks identified at this time. ROS: 13:13 Unable to obtain ROS due to Post CVA, non verbal. [facility] Exam: 13:13 Head/Face: atraumatic. Chest/axilla: Normal chest wall appearance and motion. [facility] Cardiovascular: Regular rate and rhythm. No edema appreciated Respiratory: Normal respirations, no respiratory distress appreciated Abdomen/GI: Non distended, soft 13:13 Constitutional: The patient appears alert, awake. 13:13 Skin: Appearance: Color: normal in color. Vital Signs: 11:56 BP 127 / 96; Pulse 87; Resp 16 S; Temp 97.8(TE); Pulse Ox 97% on R/A; Weight 74.84 kg; iw Height 5 ft. 9 in. (175.26 cm); Pain 7/10; 12:53 BP 122 / 89; Pulse 72; Resp 18 S; Pulse Ox 99% on R/A; aa5 14:00 BP 127 / 85; Pulse 70; Resp 16 S; Pulse Ox 99% on R/A; aa5 15:00 BP 122 / 82; Pulse 76; Resp 18 S; Pulse Ox 97% on R/A; aa5 16:39 BP 122 / 84; Pulse 91; Resp 16 S; Pulse Ox 99% on R/A; aa5 17:45 BP 122 / 82; Pulse 88; Resp 18 S; Temp 97.5(TE); Pulse Ox 99% on R/A; aa5 11:56 Body Mass Index 24.37 (74.84 kg, 175.26 cm) iw Procedures: 16:34 Fecal disimpaction: digital disimpaction was performed, with a moderate amount of stool ricardo expressed. The patient tolerated the intervention well. MDM: 11:55 Patient medically screened. leann 16:31 Data reviewed: vital signs, nurses notes. Counseling: I had a detailed discussion with ricardo the patient and/or guardian regarding: the historical points, exam findings, and any diagnostic results supporting the discharge/admit diagnosis, radiology results, the need for outpatient follow up, to return to the emergency department if symptoms worsen or persist or if there are any questions or concerns that arise at home. 05/03 12:03 Order name: Amylase, Serum; Complete Time: 13:46 [facility] 05/03 12:03 Order name: Basic Metabolic Panel; Complete Time: 13:46 [facility] 05/03 12:03 Order name: CBC with Diff; Complete Time: 13:46 [facility] 05/03 12:03 Order name: Creatinine for Radiology; Complete Time: 13:46 [facility] 05/03 12:03 Order name: Hepatic Function; Complete Time: 13:46 [facility] 05/03 12:03 Order name: Lipase; Complete Time: 13:46 [facility] 05/03 12:03 Order name: IV Saline Lock; Complete Time: 12:19 [facility] 05/03 12:03 Order name: Labs collected and sent; Complete Time: 12:19 [facility] 05/03 12:04 Order name: CT Abd/Pelvis - W/Contrast; Complete Time: 14:37 [facility] Administered Medications: 15:03 Drug: Lactulose 60 grams {Note: given via PEG tube per PA.} Volume: 45 ml; Route: PO; aa5 16:00 Follow up: Response: No adverse reaction aa5 15:03 Drug: Dulcolax Suppository 10 mg Route: HI; aa5 16:00 Follow up: Response: No improvement of symptoms, no BM noted, PA notified aa5 16:30 Drug: Dulcolax Suppository 10 mg {Note: given by PA.} Route: HI; aa5 17:30 Follow up: Response: Marked relief of symptoms aa5 Disposition: 05/04 15:20 Co-signature as Attending Physician, Eliot Washington MD I agree with the assessment and leann plan of care. Disposition: 05/03/18 16:35 Discharged to Home. Impression: Constipation, unspecified. - Condition is Stable. - Discharge Instructions: Constipation, Adult. - Medication Reconciliation Form, Thank You Letter, Antibiotic Education, Prescription Opioid Use form. - Follow up: Private Physician; When: 2 - 3 days; Reason: Continuance of care. Signatures: Dispatcher [employer] EDEliot Yip MD MD cha Mickail, Joel, PA PA Denise Castillo, RN RN Yary Bermudez RN RN aa5 Corrections: (The following items were deleted from the chart) 05/03 16:43 12:03 Urine Dipstick-Ancillary ordered. dany aa 18:06 16:35 05/03/2018 16:35 Discharged to Home. Impression: Constipation, unspecified. aa5 Condition is Stable. Forms are Medication Reconciliation Form, Thank You Letter, Antibiotic Education, Prescription Opioid Use. Follow up: Private Physician; When: 2 - 3 days; Reason: Continuance of care. [facility]
--- NOTE | 2018-05-03 16:35 | ER ---
Nurse's Notes [facility] Name: El Ventura Age: 57 yrs Sex: Male : 1960 Arrival Date: 05/03/2018 Time: 11:20 Bed 8 Private MD: Diagnosis: Constipation, unspecified Presentation: 05/03 11:50 Presenting complaint: states: pt has not had BM in 12 day, hx of CVA in September, iw right sided paralysis, states he has tennis ball sized BM, hard and painful, has been taking milk of Magnesia, no relief. Transition of care: patient was not received from another setting of care. Onset of symptoms was April 21, 2018. Risk Assessment: Do you want to hurt yourself or someone else? Patient reports no desire to harm self or others. Initial Sepsis Screen: Does the patient meet any 2 criteria? No. Patient's initial sepsis screen is negative. Does the patient have a suspected source of infection? No. Patient's initial sepsis screen is negative. Care prior to arrival: None. 11:50 Method Of Arrival: Wheelchair iw 11:50 Acuity: ROBERT 3 iw Historical: - Allergies: 11:56 PENICILLINS; iw - Home Meds: 11:56 aspirin 81 mg Oral chew 1 tab once daily [Active]; atorvastatin 40 mg Oral tab 1 tab iw nightly [Active]; metformin 500 mg Oral Tb24 1 tab once daily [Active]; Silace 50 mg/5 mL Oral liqd 10 mL 2 times per day [Active]; - PMHx: 11:56 CAD; CVA; Diabetes - NIDDM; heart stents; High Cholesterol; Hypertension; iw - PSHx: 11:56 PEG tube placement; Cholecystectomy; iw - Immunization history:: Adult Immunizations. - Social history:: Smoking status: Patient/guardian denies using tobacco. - Ebola Screening: : Patient negative for fever greater than or equal to 101.5 degrees Fahrenheit, and additional compatible Ebola Virus Disease symptoms Patient denies exposure to infectious person Patient denies travel to an Ebola-affected area in the 21 days before illness onset No symptoms or risks identified at this time. Screenin:30 Abuse screen: No signs of abuse noted. aa5 12:30 Nutritional screening: Pt is NPO. Pt's reports all intake is via PEG tube . aa5 Tuberculosis screening: No symptoms or risk factors identified. Fall Risk Fall in past 12 months (25 points). Secondary diagnosis (15 points) CVA, IV access (20 points). Mental Status- Overestimates/Forgets Limitations (15 pts.). Total Perez Fall Scale indicates High Risk Score (45 or more points). Fall prevention measures have been instituted. Side Rails Up X 2 Placed Close to Nursing Station. Assessment: 12:15 General: Appears uncomfortable, Behavior is calm, cooperative. Pain: Unable to use pain aa5 scale. FLACC scale score is 8 out of 10. Neuro: Level of Consciousness is awake, Pt's reports pt is non-verbal but is able to follow some commands. . Oriented to none Sorter/Assay Tech are strong to left hand. 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 Cardiovascular: Heart tones S1 S2 present Rhythm is regular. Respiratory: Airway is patent Respiratory effort is even, unlabored, Respiratory pattern is regular, symmetrical. GI: Abdomen is flat, non-distended, Bowel sounds present X 4 quads. Abd is soft X 4 quads Pt's reports last BM was 12 days ago and it was only a small amount and it was hard. Pt's denies vomiting. : Brief noted, pt's reports urinary incontinence. EENT: No signs and/or symptoms were reported regarding the EENT system. Derm: Skin is pink, warm \\T\\ dry. Musculoskeletal: Right-sided paralysis. 12:20 Reassessment: CT oral contrast given to pt via PEG tube, CT notified . aa5 13:56 Reassessment: Pt currently in CT. Pt's at bedside . aa5 14:15 Reassessment: Patient and/or family updated on plan of care and expected duration. Pain aa5 level reassessed. Neuro: Level of Consciousness is awake, Oriented to none. Respiratory: Airway is patent Respiratory effort is even, unlabored, Respiratory pattern is regular, symmetrical. Derm: Skin is pink, warm \\T\\ dry. 15:20 Reassessment: Patient and/or family updated on plan of care and expected duration. Pain aa5 level reassessed. 15:20 Neuro: Level of Consciousness is awake, Oriented to none. Respiratory: Airway is patent aa5 Respiratory effort is even, unlabored, Respiratory pattern is regular, symmetrical. Derm: Skin is pink, warm \\T\\ dry. 16:30 Reassessment: Fecal disimpaction completed by PA, tennis ball sized stool noted that is aa5 hard and small golf ball sized stool noted. Pt also given another Dulcolax suppository by PA after disimpaction. Pt tolerated poorly. Pt's states "he always fights when people try do a Mooney or something like that, he is very particular" . 17:10 Reassessment: Large BM noted that is light brown and watery. Pt still having BM. Pt's aa5 notified that I will let pt finish and will come to clean him and place clean brief for d/c home after that, pt's verbalized understanding. . 17:30 Reassessment: Pt was cleaned, large amount of watery stool was noted. Clean brief aa5 applied. . 17:55 Neuro: Level of Consciousness is awake, Oriented to none. Respiratory: Airway is patent aa5 Respiratory effort is even, unlabored, Respiratory pattern is regular, symmetrical. Derm: Skin is pink, warm \\T\\ dry. Vital Signs: 11:56 BP 127 / 96; Pulse 87; Resp 16 S; Temp 97.8(TE); Pulse Ox 97% on R/A; Weight 74.84 kg; iw Height 5 ft. 9 in. (175.26 cm); Pain 7/10; 12:53 BP 122 / 89; Pulse 72; Resp 18 S; Pulse Ox 99% on R/A; aa5 14:00 BP 127 / 85; Pulse 70; Resp 16 S; Pulse Ox 99% on R/A; aa5 15:00 BP 122 / 82; Pulse 76; Resp 18 S; Pulse Ox 97% on R/A; aa5 16:39 BP 122 / 84; Pulse 91; Resp 16 S; Pulse Ox 99% on R/A; aa5 17:45 BP 122 / 82; Pulse 88; Resp 18 S; Temp 97.5(TE); Pulse Ox 99% on R/A; aa5 11:56 Body Mass Index 24.37 (74.84 kg, 175.26 cm) iw ED Course: 11:20 Patient arrived in ED. mr 11:50 Arthur Willis PA is PHCP. jmm 11:50 Eliot Washington MD is Attending Physician. jmm 11:54 Triage completed. iw 11:56 Arm band placed on. iw 12:01 Yary Carreon, RN is Primary Nurse. aa5 12:05 Patient has correct armband on for positive identification. Placed in gown. Bed in low aa5 position. Call light in reach. Side rails up X2. Pulse ox on. NIBP on. 12:18 Initial lab(s) drawn, by me, sent to lab. Inserted saline lock: 22 gauge in left jb1 forearm, using aseptic technique. Blood collected. 13:48 CT completed. Patient moved to CT via stretcher. Patient moved back from CT. cw1 13:57 CT Abd/Pelvis - W/Contrast In Process Unspecified. EDMS 17:30 No provider procedures requiring assistance completed. aa5 17:30 IV discontinued, intact, bleeding controlled, No redness/swelling at site. Pressure aa5 dressing applied. Administered Medications: 15:03 Drug: Lactulose 60 grams {Note: given via PEG tube per PA.} Volume: 45 ml; Route: PO; aa5 16:00 Follow up: Response: No adverse reaction aa5 15:03 Drug: Dulcolax Suppository 10 mg Route: [place]; aa5 16:00 Follow up: Response: No improvement of symptoms, no BM noted, PA notified aa5 16:30 Drug: Dulcolax Suppository 10 mg {Note: given by PA.} Route: AZ; aa5 17:30 Follow up: Response: Marked relief of symptoms aa5 Outcome: 16:35 Discharge ordered by . [facility] 17:58 Discharged to home via wheelchair, with significant other. aa5 17:58 Condition: improved 17:58 Discharge instructions given to significant other, Instructed on discharge instructions, follow up and referral plans. Demonstrated understanding of instructions, follow-up care. 18:06 Patient left the ED. aa5 Signatures: Dispatcher [employer] EDMS Eh Carbajal jb1 Arthur Willis PA PA jmm Rivera, Maria mr Williams, Irene, TRI RN Yary Carreon, RN RN aa5 Jo Hernandez cw1 Corrections: (The following items were deleted from the chart) 16:36 16:30 Reassessment: Fecal disimpaction completed by PA, tennis sized stool noted that aa5 is hard and small golf-sized stool noted. Pt also given another Dulcolax suppository by PA after disimpaction. Pt tolerated poorly. Pt's states "he always fights when people try do a Mooney or something like that, he is very particular" . aa5
[2018-05-03 18:16] VITALS: O2SAT 99
[2018-05-03 18:17] VITALS: BP 122/82; TEMP 97.5
== END 2018-05-03 18:06 | disposition home or self-care (01) ==
LOC: ER 11:16
DX: K59.00 Constipation, unspecified (principal); I10 Essential (primary) hypertension; E11.9 Type 2 diabetes mellitus without complications; E78.00 Pure hypercholesterolemia, unspecified; Z79.82 Long term (current) use of aspirin; Z88.0 Allergy status to penicillin; Z86.73 Personal history of transient ischemic attack (TIA), and cerebral infarction without residual deficits; Z95.818 Presence of other cardiac implants and grafts
CPT/HCPCS: 36415; 74177; 80048; 80076; 82150; 83690; 85025; 99284; Q9967

== ENCOUNTER 2019-01-26 13:04 | Emergency (ER) | payer OTHER ==
--- OUTSIDE RECORDS SUMMARY | 2019-01-26 13:08 | XMS REPORT | Continuity of Care Document ---
:1960 Author Organization Interface Problems Problem Status Onset Classification Date Comments Source Date Reported CVA ISCHEMIC Active 09/13/20 [place] [address] CVA Active 09/13/[address] Final: Cerebral 09/27/2017 [facility] infarction, unspecified CAD (<span Resolved Problem 09/27/2017 [facility] ID="[id number]">Confirmed</s de la cruz>) Diabetes Resolved Problem 09/27/2017 [facility] mellitus, insulin dependent , controlled(<spa n ID="[id number]">Confirmed&lt ;/span>) Chronic Resolved Problem 09/27/2017 [facility] hypertension Post PTCA Resolved Problem 09/27/2017 [facility] CEREBRAL Active [facility] INFARCTION, UNSPECIFIED Medications Medication Details Route Status Patient Ordering Order Source Instructions Provider Date Metformin 500 mg=1 tab, Active hydrochloride PO, Daily, 2017 [facility] 500 MG Oral take with a Tablet meal, # 30 tab, 1 Refill(s) docusate sodium 100 mg=10 mL, Active 150 mg/15 mL PO, Q12H, # 2016 [facility] oral liquid 600 mL, 0 Refill(s) atorvastatin 40 40 mg=1 tab, Active mg oral tablet PO, Bedtime, # 2016 [facility] 30 tab, 0 Refill(s) Aspirin 81 MG 81 mg=1 tab, Active Chewable Tablet PO, Daily, 2016 [facility] 30 tab, 0 Refill(s) Haldol 2 mg, 0.4 mL, Inactive Route: IV, 2016 [facility] Drug form: INJ, ONCE, Dosing Weight 122.008, kg, Start date: 09/23/17 4:26:00 INSOLVENCY PRACTITIONER, Stop date: 09/23/17 4:26:00 CSTNotes: (Same as: Haldol) Omnipaque 350 125 mL, Route: Inactive injectable IVP, Drug 2016 [facility] solution Form: SOLN, Dosing Weight 122.008, kg, ONCALL, For CTA exam with GFR > 45 mL/min, STAT, Start date: 09/22/17 17:14:00 INSOLVENCY PRACTITIONER, Duration: 1 doses or timesNotes: (same as:Omnipaque 350). WASTE: F/P - Black; E - Municipal Trash Bin vancomycin 2.5 gm, 500 No Longer mL, Route: Active 2016 [facility] IVPB, Drug form: SOLN, [id number], Start date: 09/22/17 5:00:00 INSOLVENCY PRACTITIONER, Stop date: 09/25/17 17:00:00 INSOLVENCY PRACTITIONER, ABX Indication: PneumoniaNotes : TIME CRITICAL MEDICATION Same as: Vancocin Infusion rate 2000 mg: infuse over 2.5 hours Haldol 2 mg, 0.4 mL, Inactive Route: IV, 2016 [facility] Drug form: INJ, ONCE, Dosing Weight 122.008, kg, PRN Agitation, Start date: 09/22/17 3:53:00 CSTNotes: (Same as: Haldol) vancomycin + 500 mg, Route: Inactive Sodium Chloride IVPB, ONCE, 2016 [facility] 0.9% IV 100 mL Start date: 09/21/17 17:19:00 INSOLVENCY PRACTITIONER, Stop date: 09/21/17 17:19:00 INSOLVENCY PRACTITIONER, ABX Indication: PneumoniaNotes : TIME CRITICAL MEDICATION (Same As: Vancocin) vancomycin + 2,500 mg, Inactive Sodium Chloride Route: IVPB, 2016 [facility] 0.9% IV 500 mL [id number], Start date: 09/21/17 5:00:00 INSOLVENCY PRACTITIONER, Stop date: 09/25/17 17:00:00 INSOLVENCY PRACTITIONER, ABX Indication: PneumoniaNotes : TIME CRITICAL MEDICATION (Same As: Vancocin) Infusion rate 2000 mg: infuse over 2.5 hours MEDICATION WASTE Product Size: 1000 mg Product Wasted: ___ mg vancomycin 2 gm, 500 mL, No Longer Route: IVPB, Active 2016 [facility] Drug form: SOLN, [id number], Start date: 09/20/17 15:00:00 INSOLVENCY PRACTITIONER, Duration: 6 day, Stop date: 09/26/17 3:00:00 INSOLVENCY PRACTITIONER, ABX Indication: PneumoniaNotes : TIME CRITICAL MEDICATION Same as: Vancocin Infusion rate 2001 mg: infuse over 2.5 hours Ativan 1 mg, 0.5 mL, Inactive Route: IVP, 2016 [facility] Drug form: INJ, ONCE, Dosing Weight 122.008, kg, PRN Agitation, Priority: NOW, Start date: 09/20/17 2:57:00 CSTNotes: (Same as: Ativan) vancomycin + 1,500 mg, No Longer Sodium Chloride Route: IVPB, Active 2016 [facility] 0.9% IV 250 mL [id number], Start date: 09/18/17 14:00:00 INSOLVENCY PRACTITIONER, Duration: 7 day, Stop date: 09/25/17 2:00:00 INSOLVENCY PRACTITIONER, ABX Indication: PneumoniaNotes : TIME CRITICAL MEDICATION (Same As: Vancocin) Infusion rate 2001 mg: infuse over 2.5 hours MEDICATION WASTE Product Size: 1000 mg Product Wasted: ___ mg Vancomycin Vancomycin No Longer Pharmacy Pharmacy Active 2016 [facility] Protocol Protocol, 1 dose, Drug form: MISC, Route: [place], 09/18/17 12:00:00 INSOLVENCY PRACTITIONER, Duration: 7 day, Stop date: 09/25/17 11:59:00 INSOLVENCY PRACTITIONER vancomycin + 1,500 mg, Inactive Sodium Chloride Route: IVPB2016 [facility] 0.9% IV 250 mL [id number], Start date: 09/18/17 12:00:00 INSOLVENCY PRACTITIONER, Duration: 7 day, Stop date: 09/25/17 0:00:00 INSOLVENCY PRACTITIONER, ABX Indication: PneumoniaNotes : TIME CRITICAL MEDICATION (Same As: Vancocin) Infusion rate 2001 mg: infuse over 2.5 hours MEDICATION WASTE Product Size: 1000 mg Product Wasted: ___ mg NS (Bolus) IV 500 mL, 500 No Longer ml/hr, Infuse Active 2016 [facility] Over: 1 hr, Route: IV, 500, Drug form: INJ, ONCE, Priority: STAT, Dosing Weight 122.008 kg, Start date: 09/18/17 10:01:00 INSOLVENCY PRACTITIONER, Stop date: 09/18/17 10:01:00 INSOLVENCY PRACTITIONER Vancomycin 1 ea, Route: Inactive [place], 2016 [facility] Dosing Weight 122.008, kg, Start date: 09/18/17 10:00:00 INSOLVENCY PRACTITIONER, Duration: 7 day, Stop date: 09/25/17 9:59:00 INSOLVENCY PRACTITIONER, Pharmacy to dose, ABX Indication: Pneumonia Acetaminophen 650 mg, 1 No Longer supp, Route: Active 2016 [facility] MA, Drug form: SUPP, Q6H, Dosing Weight 122.008, kg, PRN For Temp > 100.4 F, Start date: 09/18/17 4:35:00 INSOLVENCY PRACTITIONER, Duration: 30 day, Stop date: 10/18/17 4:34:00 CSTNotes: Max acetaminophen= 4000 mg/day (4 gm/day). (Same as: Tylenol) Zosyn 3.375 gm, No Longer Route: IVPB, Active 2016 [facility] [id number], Dosing Weight 122.008, kg, CrCl >=20 ml/min infuse over 4 hours, Start date: 09/17/17 10:00:00 INSOLVENCY PRACTITIONER, Duration: 7 day, Stop date: 09/24/17 4:00:00 INSOLVENCY PRACTITIONER, ABX Indication: PneumoniaNotes : (Same as: Zosyn) Dosing based on Piperacillin component MEDICATION WASTE Product Size: 3375 mg Product Wasted: ___ mg Rocephin 1 gm, Route: No Longer IVPB, [id number], Active 2016 [facility] Dosing Weight 122.008, kg, Start date: 09/16/17 13:00:00 INSOLVENCY PRACTITIONER, Duration: 7 day, Stop date: 09/22/17 13:00:00 INSOLVENCY PRACTITIONER, ABX Indication: PneumoniaNotes : (Same As: Rocephin). Use with 100 mL NS and infuse over 30 min MEDICATION WASTE Product Size: 1000 mg Product Wasted: ___ mg Albuterol / 3 mL, Route: No Longer Ipratropium NEB, Drug Active 2016 [facility] Form: SOLN, Dosing Weight 122.008, kg, RQ6H, Start date: 09/15/17 14:00:00 INSOLVENCY PRACTITIONER, Duration: 30 day, Stop date: 10/15/17 8:00:00 CSTNotes: (Same as: Duoneb) Lasix 40 mg, 4 mL, Inactive Route: IVP, 2016 [facility] Drug form: INJ, ONCE, Dosing Weight 122.008, kg, Start date: 09/15/17 10:14:00 INSOLVENCY PRACTITIONER, Stop date: 09/15/17 10:14:00 CSTNotes: (Same as: Lasix) MEDICATION WASTE Product Size: 40 mg Product Wasted: ___ mg Insulin Lispro 15 unit, 0.15 No Longer mL, Route: Active 2016 [facility] SUB-Q, Drug form: SOLN, Sliding Scale, Dosing Weight 122.008, kg, PRN Blood Glucose Results, Start date: 09/14/17 12:28:00 INSOLVENCY PRACTITIONER, Duration: 30 day, Stop date: 10/14/17 12:27:00 CSTNotes: Roll in palms of hands gently; Do not shake `vigorously. (Same as: Humalog ) "Single Patient Use Only " WASTE: F/P - Black; E - Municipal Trash Bin Stable for 28 days at room temperature. Expires in days from Date Dextrose 50% 25 gm, 50 mL, No Longer Syringe Route: IVP, Active 2016 [facility] Drug Form: INJ, Dosing Weight 122.008, kg, PRN, PRN Blood Glucose Results, Start date: 09/14/17 12:28:00 INSOLVENCY PRACTITIONER, Duration: 30 day, Stop date: 10/14/17 12:27:00 INSOLVENCY PRACTITIONER Glucagon 1 mg, Route: No Longer IM, Drug form: Active 2016 [facility] PDR/INJ, PRN, Dosing Weight 122.008, kg, PRN Blood Glucose Results, Start date: 09/14/17 12:28:00 INSOLVENCY PRACTITIONER, Duration: 30 day, Stop date: 10/14/17 12:27:00 INSOLVENCY PRACTITIONER Docusate 100 mg, 10 mL, No Longer Route: PO, Active 2016 [facility] Drug form: LIQ, Q12H, kg, Start date: 09/13/17 21:00:00 INSOLVENCY PRACTITIONER, Stop date: 10/13/17 9:00:00 CSTNotes: (Same as: Colace) atorvastatin 40 mg, 1 tab, No Longer Route: PO, Active 2016 [facility] Drug form: TAB, Bedtime, kg, Start date: 09/13/17 21:00:00 INSOLVENCY PRACTITIONER, Stop date: 10/12/17 21:00:00 CSTNotes: (Same as: Lipitor) Saline Flush 10 ml, Route: No Longer 0.9% IVP, Drug Active 2016 [facility] Form: INJ, kg, Q12H, Start date: 09/13/17 21:00:00 INSOLVENCY PRACTITIONER, Duration: 30 day, Stop date: 10/13/17 9:00:00 CSTNotes: (Same as: BD Posiflush) Aspirin 81 mg, 1 tab, No Longer Route: PO, Active 2016 [facility] Drug form: CHEWTAB, Daily, Dosing Weight 122.008, kg, Priority: NOW, Start date: 09/13/17 16:57:00 INSOLVENCY PRACTITIONER, Duration: 30 day, Stop date: 10/13/17 9:00:00 CSTNotes: Take with food. heparin 7,500 unit, No Longer 1.5 mL, Route: Active 2016 [facility] SUB-Q, Drug form: INJ, Q8H, kg, Start date: 09/13/17 16:00:00 INSOLVENCY PRACTITIONER, Duration: 30 day, Stop date: 10/13/17 2:00:00 CSTNotes: porcine heparin Visipaque 320 100 mL, Route: Inactive mg/mL injectable IVP, Drug 2016 [facility] solution Form: SOLN, Dosing Weight 122.008, kg, ONCALL, For CTA exam with GFR Notes: (Same as: Visipaque). WASTE: F/P - Black; E - Municipal Trash Bin Glipizide 10 MG 10 mg=1 tab, No Longer Oral Tablet PO, Before Active 2016 [facility] Breakfast, # 90 tab, 0 Refill(s) Insulin Lispro 2 unit, 0.02 No Longer mL, Route: Active 2016 [facility] SUB-Q, Drug form: SOLN, Sliding Scale, kg, PRN Blood Glucose Results, Start date: 09/13/17 9:09:00 INSOLVENCY PRACTITIONER, Duration: 30 day, Stop date: 10/13/17 9:08:00 CSTNotes: Roll in palms of hands gently; Do not shake `vigorously. (Same as: Humalog ) "Single Patient Use Only " WASTE: F/P - Black; E - Municipal Trash Bin Stable for 28 days at room temperature. Expires in days from Date Calcium 1,000 mg, 2 No Longer Carbonate 500 MG tab, Route: Active 2016 [facility] Chewable Tablet PO, Drug form: CHEWTAB, PRN, kg, PRN Abnormal Lab Result, FOR ICU USE ONLY, Start date: 09/13/17 9:09:00 INSOLVENCY PRACTITIONER, Duration: 30 day, Stop date: 10/13/17 9:08:00 CSTNotes: (Same As: Tums) Calcium Carbonate 500 rp=048 mg elemental calcium Dose= mg calcium carbonate ( mg elemental calcium) Magnesium Oxide 800 mg, 2 tab, No Longer Route: PO, Active 2016 [facility] Drug form: TAB, PRN, kg, PRN Abnormal Lab Result, FOR ICU USE ONLY, Start date: 09/13/17 9:09:00 INSOLVENCY PRACTITIONER, Duration: 30 day, Stop date: 10/13/17 9:08:00 CSTNotes: (Same as: Mag-Ox 400) Magnesium oxide [id number] elemental magnesium Dose=____mg magnesium oxide (___mg elemental magnesium) Calcium 1 gm, 50 mL, No Longer Gluconate Route: IVPB, Active 2016 [facility] Drug form: INJ, PRN, kg, PRN Abnormal Lab Result, Start date: 09/13/17 9:09:00 INSOLVENCY PRACTITIONER, Duration: 30 day, Stop date: 10/13/17 9:08:00 INSOLVENCY PRACTITIONER, FOR ICU USE ONLYNotes: WASTE: F/P - Sink; E - Municipal Trash Bin potassium 2 pkt, Route: No Longer phosphate-sodium PO, Drug Form: Active 2016 [facility] phosphate 250 PDR/REC, kg, mg-280 mg-160 mg PRN, PRN oral powder for Abnormal Lab reconstitution Result, FOR ICU USE ONLY, Start date: 09/13/17 9:09:00 INSOLVENCY PRACTITIONER, Duration: 30 day, Stop date: 10/13/17 9:08:00 CSTNotes: (Same as: Phos-NaK) Each 1.5 gm pkt has 250mg phosphorous. Mix w/2.5oz water and stir. potassium 30 mmol, 10 No Longer 09/13/ MH phosphate mL, Route: Active 2016 [facility] IVPB, PRN, kg, PRN Abnormal Lab Result, Start date: 09/13/17 9:09:00 INSOLVENCY PRACTITIONER, Duration: 30 day, Stop date: 10/13/17 9:08:00 INSOLVENCY PRACTITIONER, FOR ICU USE ONLYNotes: (Same as: K Phosphate.) 1 mMol phoshate has 1.47 mEq potassium Infuse over 4 hours Magnesium 2 gm, 50 mL, No Longer 09/13/ MH Sulfate Route: IVPB, Active 2016 [facility] Drug form: INJ, PRN, kg, PRN Abnormal Lab Result, Start date: 09/13/17 9:09:00 INSOLVENCY PRACTITIONER, Duration: 30 day, Stop date: 10/13/17 9:08:00 INSOLVENCY PRACTITIONER, FOR ICU USE ONLYNotes: WASTE: F/P - Sink; E - Municipal Trash Bin sodium phosphate 30 mmol, 10 No Longer 09/13/ MH mL, Route: Active 2016 [facility] IVPB, PRN, kg, PRN Abnormal Lab Result, Start date: 09/13/17 9:09:00 INSOLVENCY PRACTITIONER, Duration: 30 day, Stop date: 10/13/17 9:08:00 INSOLVENCY PRACTITIONER, FOR ICU USE ONLY Potassium 20 mEq, 15 mL, No Longer Chloride Route: NJ, Active 2016 [facility] Drug form: LIQ, PRN, kg, PRN Abnormal Lab Result, Start date: 09/13/17 9:09:00 INSOLVENCY PRACTITIONER, Duration: 30 day, Stop date: 10/13/17 9:08:00 INSOLVENCY PRACTITIONER, FOR ICU USE ONLYNotes: (Same as: Potassium Chloride) Dextrose 50% 12.5 gm, 25 No Longer 09/13/ MH Syringe mL, Route: Active 2016 [facility] IVP, Drug Form: INJ, kg, PRN, PRN Blood Glucose Results, Start date: 09/13/17 9:09:00 INSOLVENCY PRACTITIONER, Duration: 30 day, Stop date: 10/13/17 9:08:00 INSOLVENCY PRACTITIONER Glucagon 1 mg, Route: No Longer IM, Drug form: Active 2016 [facility] PDR/INJ, PRN, kg, PRN Blood Glucose Results, Start date: 09/13/17 9:09:00 INSOLVENCY PRACTITIONER, Duration: 30 day, Stop date: 10/13/17 9:08:00 INSOLVENCY PRACTITIONER normal saline 1,000 mL, No Longer 0.9% IV 1,000 mL Rate: 75 2016 [facility] ml/hr, Infuse over: 13.3 hr, Route: IV, Total Volume: 1,000, Start date: 09/13/17 9:05:00 INSOLVENCY PRACTITIONER, Duration: 30 day, Stop date: 10/13/17 9:04:00 INSOLVENCY PRACTITIONER Hydralazine 20 mg, 1 mL, No Longer Route: IVP, 2016 [facility] Drug form: INJ, Q2H, kg, PRN Hypertension, Start date: 09/13/17 9:05:00 INSOLVENCY PRACTITIONER, Duration: 30 day, Stop date: 10/13/17 9:04:00 CSTNotes: (Same as: Apresoline) Push over 5 minutes Labetalol 10 mg, 2 mL, No Longer Route: IVP, 2016 [facility] Drug form: INJ, Q10Min, kg, PRN Hypertension, For SBP > 180 mmHg and/or DBP > 105 mmHg, Priority: Routine, Start date: 09/13/17 9:01:00 INSOLVENCY PRACTITIONER, Duration: 30 day, Stop date: 10/13/17 9:00:00 CSTNotes: (Same as: Normodyne, Trandate) Push over 2 minutes Give bolus over 2-3 minutes. Ondansetron 4 mg, 2 mL, No Longer Route: IVP, 2016 [facility] Drug form: INJ, Q8H, kg, PRN Nausea & Vomiting, Start date: 09/13/17 9:01:00 INSOLVENCY PRACTITIONER, Duration: 30 day, Stop date: 10/13/17 9:00:00 CSTNotes: (Same as: Zofran) MEDICATION WASTE Product Size: 4 mg Product Wasted: ___ mg Bisacodyl 10 mg, 1 supp, No Longer Route: MA, Active 2016 [facility] Drug form: SUPP, Daily, kg, PRN Constipation, Start date: 09/13/17 9:01:00 INSOLVENCY PRACTITIONER, Duration: 30 day, Stop date: 10/13/17 9:00:00 CSTNotes: (Same As: Dulcolax, Bisco-Lax) Acetaminophen 650 mg, 2 tab, No Longer Route: PO, Active 2016 [facility] Drug form: TAB, Q4H, kg, PRN Pain 1-3/Temp > 99.5 F, Start date: 09/13/17 9:01:00 INSOLVENCY PRACTITIONER, Duration: 30 day, Stop date: 10/13/17 9:00:00 CSTNotes: Do not exceed 4 gm/day. (Same as: Tylenol) Saline Flush 10 ml, Route: No Longer 0.9% IVP, Drug Active 2016 [facility] Form: INJ, kg, PRN, PRN Line Flush, Start date: 09/13/17 9:01:00 INSOLVENCY PRACTITIONER, Duration: 30 day, Stop date: 10/13/17 9:00:00 CSTNotes: (Same as: BD Posiflush) Allergies, Adverse Reactions, Alerts Substance Category Reaction Severity Reaction Status Date Comments Source type Reported Immunizations Immunization Date Given Site Status Last Updated Comments Source Results Order Name Results Value Reference Date Interpretation Comments Source Range ELECTROLYT AGAP 15.0 meq/L 10.0 - 09/24 ES 20.0 [facility] ELECTROLYT Calcium Lvl 9.1 mg/dL 8.5 - 10.5 09/24 [facility] ELECTROLYT CO2 24 meq/L 24 - 32 09/24 [facility] ELECTROLYT Potassium 4.0 meq/L 3.5 - 5.1 09/24 ES Lvl [facility] ELECTROLYT Chloride Lvl 103 meq/L 95 - 109 09/24 [facility] ELECTROLYT eGFR 98 09/24 Result Comment: The eGFR is calculated using the CKD-EPI formula. In most young, healthy individuals the eGFR will be >90 mL/ min/1.73m2. The eGFR declines with age. An eGFR of 60-89 may be normal in [place] mL/min/1.7 /2016 some populations, particularly the elderly, for whom the CKD-EPI formula has not been extensively validated. Use of the eGFR is not recommended in the following populations: [facility] 3m2 Individuals with unstable creatinine concentrations, including [...] BUN 27 mg/dL 7 - 22 09/24 [facility] ELECTROLYT Creatinine 0.80 mg/dL 0.50 - 09/24 ES Lvl 1.40 /2016 [facility] ELECTROLYT Sodium Lvl 138 meq/L 135 - 145 09/24 [facility] ELECTROLYT Glucose Lvl 188 mg/dL 70 - 99 09/24 [facility] HEMATOLOGY RBC Morph Normal 09/24 [facility] (09/24/17 5:19 AM) HEMATOLOGY Plt Morph Normal 09/24 [facility] (09/24/17 5:19 AM) HEMATOLOGY Bands 1.0 % 0.0 - 11.0 09/24 [facility] HEMATOLOGY Lymphocytes 13.0 % 20.0 - 09/24 40.0 [facility] HEMATOLOGY Atypical 2.0 % <=0.0 % 09/24 Lymphs [facility] HEMATOLOGY Eosinophils 3.0 % 0.0 - 4.0 09/24 [facility] HEMATOLOGY Metamyelocyt 5.0 % 0.0 - 1.0 09/24 es [facility] HEMATOLOGY Monocytes 3.0 % 2.0 - 12.0 09/24 [facility] HEMATOLOGY Segs 73.0 % 45.0 - 09/24 75.0 [facility] HEMATOLOGY Eosinophils 0.5 K/CMM 0.0 - 0.5 09/24 MH # /2017 [facility] HEMATOLOGY Monocytes # 0.5 K/CMM 0.0 - 0.8 09/24 [facility] HEMATOLOGY Lymphocytes 2.6 K/CMM 1.0 - 5.5 09/24 MH # /2016 [facility] HEMATOLOGY Segs-Bands # 12.7 K/CMM 1.5 - 8.1 09/24 [facility] HEMATOLOGY MCV 88.3 fL 80.0 - 09/24 94.0 [facility] HEMATOLOGY Hct 45.4 % 42.0 - 09/24 54.0 [facility] HEMATOLOGY Hgb 15.0 g/dL 14.0 - 09/24 18.0 /2016 [facility] HEMATOLOGY RBC 5.15 M/CMM 4.70 - 09/24 MH 6.10 [facility] HEMATOLOGY MPV 9.2 fL 7.4 - 10.4 09/24 [facility] HEMATOLOGY MCHC 33.0 g/dL 32.0 - 09/24 MH 36.0 [facility] HEMATOLOGY MCH 29.2 pg 27.0 - 09/24 MH 31.0 [facility] HEMATOLOGY Platelet 259 K/CMM 133 - 450 09/24 [facility] HEMATOLOGY RDW 14.0 % 11.5 - 09/24 MH 14.5 [facility] HEMATOLOGY WBC 17.1 K/CMM 3.7 - 10.4 09/24 [facility] CHEM PANEL Procalcitoni null 0.00 - 09/23 n Lvl 0.10 [facility] ELECTROLYT AGAP 14.0 meq/L 10.0 - 09/23 ES 20.0 [facility] ELECTROLYT eGFR 94 09/23 Result Comment: The [...] is not recommended in the following populations: [facility] 3m2 Individuals with unstable creatinine concentrations, including [...] 3.5 - 5.1 09/23 ES Lvl /2016 [facility] ELECTROLYT Sodium Lvl 139 meq/L 135 - 145 09/23 ES [facility] ELECTROLYT BUN 26 mg/dL 7 - 22 09/23 ES [facility] ELECTROLYT Glucose Lvl 188 mg/dL 70 - 99 09/23 ES [facility] ELECTROLYT Creatinine 0.90 mg/dL 0.50 - 09/23 ES Lvl 1.40 /2016 [facility] ELECTROLYT CO2 24 meq/L 24 - 32 09/23 [facility] ELECTROLYT Chloride Lvl 105 meq/L 95 - 109 09/23 [facility] ELECTROLYT Calcium Lvl 9.2 mg/dL 8.5 - 10.5 09/23 ES /2016 [facility] HEMATOLOGY Basophils # 0.1 K/CMM 0.0 - 0.2 09/23 [facility] HEMATOLOGY Eosinophils 0.3 K/CMM 0.0 - 0.5 09/23 MH # /2016 [facility] HEMATOLOGY Monocytes # 1.3 K/CMM 0.0 - 0.8 09/23 [facility] HEMATOLOGY Lymphocytes 15.8 % 20.0 - 09/23 MH 40.0 [facility] HEMATOLOGY Plt Morph Normal 09/23 [facility] (09/23/17 5:42 AM) HEMATOLOGY RBC Morph Normal 09/23 [facility] (09/23/17 5:42 AM) HEMATOLOGY Monocytes 6.9 % 2.0 - 12.0 09/23 [facility] HEMATOLOGY Basophils 0.5 % 0.0 - 1.0 09/23 [facility] HEMATOLOGY Eosinophils 1.5 % 0.0 - 4.0 09/23 [facility] HEMATOLOGY Segs 75.3 % 45.0 - 09/23 MH 75.0 [facility] HEMATOLOGY Lymphocytes 2.9 K/CMM 1.0 - 5.5 09/23 # /2016 [facility] HEMATOLOGY Segs-Bands # 13.9 K/CMM 1.5 - 8.1 09/23 [facility] HEMATOLOGY MCH 28.9 pg 27.0 - 09/23 MH 31.0 [facility] HEMATOLOGY MCV 88.9 fL 80.0 - 09/23 MH 94.0 [facility] HEMATOLOGY Hct 46.4 % 42.0 - 09/23 MH 54.0 [facility] HEMATOLOGY Hgb 15.1 g/dL 14.0 - 09/23 MH 18.0 [facility] HEMATOLOGY RBC 5.22 M/CMM 4.70 - 09/23 MH 6.10 [facility] HEMATOLOGY MPV 9.5 fL 7.4 - 10.4 09/23 [facility] HEMATOLOGY Platelet 269 K/CMM 133 - 450 09/23 [facility] HEMATOLOGY RDW 14.4 % 11.5 - 09/23 MH 14. [facility] HEMATOLOGY MCHC 32.5 g/dL 32.0 - 09/23 MH 36.0 [facility] HEMATOLOGY WBC 18.4 K/CMM 3.7 - 10.4 09/23 [facility] TOXICOLOGY Vanco Tr TND [id number] 09/22 [facility] TOXICOLOGY Vanco Tr 14.1 ug/ml 09/22 [facility] Chest Chest Study: Chest Pulmonary Embolism CTA 09/22 - Pulmonary Pulmonary /2016 - [facility] Embolism Embolism CTA CTA Clinical Indication: - [...] and three-dimensional reformatted images were performed. Dose: RZC=332.79 mGy-cm FINDINGS: The cardiac chambers and pericardium [...] and right middle lobe atelectasis. SL: [facility] TOXICOLOGY Vanco Tr TND [id number] 09/21 [facility] TOXICOLOGY Vanco Tr 10.3 ug/ml 09/21 [facility] CHEM PANEL Procalcitoni 0.05 ng/mL 0.00 - 09/21 MH n Lvl 0. [facility] ELECTROLYT AGAP 12.1 meq/L 10.0 - 09/21 ES 20.0 [facility] ELECTROLYT eGFR 94 09/21 Result Comment: The eGFR is calculated using the CKD-EPI formula. In most young, healthy individuals the eGFR will be >90 mL/ min/1.73m2. The eGFR declines with age. An eGFR of 60-89 may be normal in [facility] mL/min/1.7 some populations, particularly the elderly, for whom the CKD-EPI formula has not been extensively validated. Use of the eGFR is not recommended in the following populations: [address] Individuals with unstable creatinine concentrations, including patients [...] Lvl 105 meq/L 95 - 109 09/21 [facility] ELECTROLYT CO2 26 meq/L 24 - 32 09/21 [facility] ELECTROLYT Potassium 4.1 meq/L 3.5 - 5.1 09/21 [facility] Lvl [facility] ELECTROLYT Creatinine 0.90 mg/dL 0.50 - 09/21 [facility] Lvl 1.40 [facility] ELECTROLYT Sodium Lvl 139 meq/L 135 - 145 09/21 [facility] ELECTROLYT Calcium Lvl 8.8 mg/dL 8.5 - 10.5 09/21 [facility] ELECTROLYT BUN 27 mg/dL 7 - 22 09/21 [facility] ELECTROLYT Glucose Lvl 189 mg/dL 70 - 99 09/21 [facility] HEMATOLOGY RDW 14.6 % 11.5 - 09/21 14. [facility] HEMATOLOGY MPV 9.7 fL 7.4 - 10.4 09/21 [facility] HEMATOLOGY Platelet 238 K/CMM 133 - 450 09/21 [facility] HEMATOLOGY Hgb 15.1 g/dL 14.0 - 09/21 18.0 [facility] HEMATOLOGY Hct 45.7 % 42.0 - 09/21 54.0 [facility] HEMATOLOGY MCHC 33.1 g/dL 32.0 - 09/21 36.0 [facility] HEMATOLOGY MCH 29.5 pg 27.0 - 09/21 31.0 [facility] HEMATOLOGY MCV 89.1 fL 80.0 - 09/21 94.0 /2016 [facility] HEMATOLOGY RBC 5.13 M/CMM 4.70 - 09/21 MH 6.10 [facility] HEMATOLOGY WBC 16.7 K/CMM 3.7 - 10.4 09/21 [facility] HEMATOLOGY Basophils # 0.1 K/CMM 0.0 - 0.2 09/21 [facility] HEMATOLOGY Eosinophils 0.2 K/CMM 0.0 - 0.5 09/21 # [facility] HEMATOLOGY Segs 74.2 % 45.0 - 09/21 MH 75.0 /2016 [facility] HEMATOLOGY Eosinophils 1.5 % 0.0 - 4.0 09/21 [facility] HEMATOLOGY Monocytes 7.9 % 2.0 - 12.0 09/21 [facility] HEMATOLOGY Segs-Bands # 12.4 K/CMM 1.5 - 8.1 09/21 [facility] HEMATOLOGY Basophils 0.5 % 0.0 - 1.0 09/21 [facility] HEMATOLOGY Monocytes # 1.3 K/CMM 0.0 - 0.8 09/21 [facility] HEMATOLOGY Lymphocytes 2.7 K/CMM 1.0 - 5.5 09/21 # [facility] HEMATOLOGY Lymphocytes 15.9 % 20.0 - 09/21 40.0 [facility] TOXICOLOGY Vanco Tr 9.0 ug/ml 09/20 [facility] TOXICOLOGY Vanco Tr TND [id number] 09/20 [facility] CHEM PANEL Lactic Acid 1.3 mMol/L 0.5 - 2.2 09/18 Lvl [facility] Chest Chest 1view Clinical Indication: Pneumonia - PNA; 09/18 - 1view DX DX /2016 - [facility] Comparison: 09/15/2017 Read by: Andrade Hou MD [...] context , infection may be considered SL: [facility] CHEM PANEL Lactic Acid 1.3 mMol/L 0.5 - 2.2 09/18 Lvl [facility] URINE AND UA Blood Moderate Negative 09/16 STOOL [facility] *ABN* (09/15/17 11:10 PM) URINE AND UA Bili Negative Negative 09/16 [facility] *NA* (09/15/17 11:10 PM) URINE AND UA Glucose Negative Negative 09/16 STOOL mg/dL mg/dL [facility] URINE AND UA Protein 30 mg/dL Negative 09/16 STOOL mg/dL [facility] URINE AND UA Ketones Negative Negative 09/16 STOOL mg/dL mg/dL [facility] URINE AND UA pH 5.0 5.0 - 8.0 09/16 STOOL [facility] URINE AND UA Spec Grav 1.021 <=1.030 09/16 STOOL [facility] URINE AND UA Turbidity Slight Clear 09/16 STOOL [facility] *ABN* (09/15/17 11:10 PM) URINE AND UA Nitrite Negative Negative 09/16 STOOL [facility] (09/15/17 11:10 PM) URINE AND UA 2.0 mg/dL 0.1 - 1.0 09/16 STOOL Urobilinogen [facility] URINE AND UA Leuk Est Negative Negative 09/16 STOOL [facility] (09/15/17 11:10 PM) URINE AND UA Color Yellow 09/16 [facility] URINE AND Micro? Performed 09/16 [facility] *NA* (09/15/17 11:10 PM) URINE AND UA Hyal Cast 1 /LPF 0 - 2 09/16 [facility] URINE AND UA RBC 56 /HPF 0 - 2 09/16 [facility] URINE AND UA Mucus Few /LPF None Seen 09/16 STOOL /LPF [facility] URINE AND UA WBC 5 /HPF 0 - 5 09/16 [facility] URINE AND UA Sq Epi Occasional Few /LPF 09/16 STOOL /LPF [facility] Chest Chest 1view Study: Frontal chest x-ray compared to prior study from the same day 09/15 - 1view DX - [facility] History: Abnormal chest sounds Read by: Kayleigh [...] 09/15 - contrast contrast CT /2016 - [facility] CT : 1960; Age: 57 years y/o Male MR: [id number] Read by: Marjorie Lindap Dictated Date/time: 09/15/17 14:10 Electronically Signed by: Marjorie Lind 09/15/17 14:14 FINAL REPORT Study: Brain wo contrast CT 09/15/2017 8:29 AM INSOLVENCY PRACTITIONER Ordering Physician: Flaco Rocha MD Clinical Indication: Stroke, f/u stroke, rt side weakness,hx of CAD, diabetes, [id number] - Stroke, f/u stroke, rt side weakness,hx of CAD, diabetes , [id number]; Comparison: 09/13/2017 TECHNIQUE: CT images were obtained [...] Phosphorus 3.1 mg/dL 2.5 - 4.5 09/15 [facility] CHEM PANEL Magnesium 2.1 mg/dL 1.8 - 2.4 09/15 Lvl /2017 [facility] HEMATOLOGY Basophils 0.6 % 0.0 - 1.0 09/15 [facility] HEMATOLOGY Basophils # 0.1 K/CMM 0.0 - 0.2 09/15 [facility] PARATHYROI Ca Ion WB 1.02 1.05 - 09/15 MH D PROFILE mMol/L . [facility] PARATHYROI Ca Norm WB 1.05 1.05 - 09/15 MH D PROFILE mMol/L . [facility] Chest Chest 1view Patient Name: ROBERT HARDY 09/15 - 1view DX DX /2016 - [facility] : 1960; Age: 57 years Male MR: [id number] Read by: Elder Sifuentes MD Dictated Date/time: 09/15/17 09:19 Study: Chest 1view DX Order Time: 09/15/2017 8:30 AM INSOLVENCY PRACTITIONER Electronically Signed by: Elder Sifuentes MD 09/15/17 09 :20 FINAL REPORT CLINICAL INDICATION: Rhonchi - Rhonchi COMPARISON: Chest radiograph on 09/13/2017 FINDINGS: Lines: Dobbhoff tube tip projects off the [id number]. Lungs: The perihilar and right lung base interstitial opacities are unchanged, which may represent interstitial edema or pneumonia. No significant effusion or pneumothorax. Mediastinum: The cardiac silhouette is moderately enlarged. Midline trachea. Bones and soft tissues: No acute abnormalities. IMPRESSION: Interval placement of a Dobbhoff tube. Otherwise, no significant change since 09/13/2017. SL: [id number] CARDIAC Troponin-I null 0.00 - 09/14 ENZYMES 0.40 [facility] CHEM PANEL Phosphorus 2.8 mg/dL 2.5 - 4.5 09/14 [facility] CHEM PANEL Magnesium 2.3 mg/dL 1.8 - 2.4 09/14 Lvl [facility] PARATHYROI Ca Norm WB 1.08 1.05 - 09/14 MH D PROFILE mMol/L 11.06 [facility] PARATHYROI Ca Ion WB 1.08 1.05 - 09/14 MH D PROFILE mMol/L . [facility] BACTERIAL MRSA by PCR Negative 09/14 - [facility] (09/13/17 6:11 PM) DRUG U Lisa Scr Negative Negative 09/14 SCREEN [facility] *NA* (09/13/17 6:11 PM) DRUG U Amph Scr Negative Negative 09/14 SCREEN [facility] *NA* (09/13/17 6:11 PM) DRUG U Benzodia Negative Negative 09/14 SCREEN Scr [facility] *NA* (09/13/17 6:11 PM) DRUG U Opiate Scr Negative Negative 09/14 [facility] *NA* (09/13/17 6:11 PM) DRUG U Cannab Scr Negative Negative 09/14 [facility] *NA* (09/13/17 6:11 PM) DRUG U Cocaine Positive Negative 09/14 SCREEN Scr [facility] *ABN* (09/13/17 6:11 PM) DRUG UDS Note See Note 09/14 [facility] (09/13/17 6:11 PM) DRUG U Propoxyph Negative Negative 09/14 SCREEN Scr [facility] *NA* (09/13/17 6:11 PM) DRUG U Phencyc Negative Negative 09/14 SCREEN Scr [facility] *NA* (09/13/17 6:11 PM) DRUG U Methadone Negative Negative 09/14 SCREEN Scr [facility] *NA* (09/13/17 6:11 PM) Abdomen AP Abdomen AP Clinical Indication: bee placement - bee placement. 09/13 - DX - [facility] Comparison: None. Read by: John Lowe MD [...] Troponin-I null 0.00 - 09/13 ENZYMES 0.40 [facility] CHEM PANEL Bili Direct 0.1 mg/dL 0.0 - 0.3 09/13 [facility] CHEM PANEL AST 11 unit/L 0 - 37 09/13 [facility] CHEM PANEL Alk Phos 83 unit/L 39 - 136 09/13 [facility] CHEM PANEL Albumin Lvl 3.2 g/dL 3.5 - 5.0 09/13 [facility] CHEM PANEL Bili Total 0.4 mg/dL 0.2 - 1.3 09/13 [facility] CHEM PANEL ALT 26 unit/L 0 - 65 09/13 [facility] CHEM PANEL Total 7.5 g/dL 6.4 - 8.4 09/13 Protein [facility] CHEM PANEL A/G Ratio 0.7 0.7 - 1.6 09/13 [facility] CHEM PANEL Globulin 4.3 g/dL 2.7 - 4.2 09/13 [facility] CHEM PANEL B/C Ratio 16 6 - 25 09/13 [facility] LIPIDS VLDL 18 09/13 [facility] LIPIDS Chol 118 mg/dL <=199 09/13 mg/dL [facility] LIPIDS HDL 58 mg/dL >=61 mg/dL 09/13 [facility] LIPIDS Trig 92 mg/dL <=149 09/13 mg/dL [facility] LIPIDS LDL 42 mg/dL <=99 mg/dL 09/13 (Calculated) [facility] LIPIDS CHD Risk 2.03 4.00 - 09/13 7.30 [facility] SPECIAL Hgb A1C 8.8 % <=5.6 % 09/13 CHEMISTRY [facility] URINE AND UA Color Ltyellow 09/13 STOOL [facility] URINE AND UA null 0.1 - 1.0 09/13 STOOL Urobilinogen /2016 [facility] URINE AND UA Ketones Negative Negative 09/13 STOOL mg/dL mg/dL [facility] URINE AND UA Protein Negative Negative 09/13 STOOL mg/dL mg/dL [facility] URINE AND UA Glucose 500 mg/dL Negative 09/13 STOOL mg/dL [facility] URINE AND UA Spec Grav 1.022 <=1.030 09/13 STOOL [facility] URINE AND UA pH 5.0 5.0 - 8.0 09/13 STOOL [facility] URINE AND UA Turbidity Clear Clear 09/13 STOOL [facility] (09/13/17 10:40 AM) URINE AND UA Mucus Few /LPF None Seen 09/13 STOOL /LPF /2016 [facility] URINE AND UA Leuk Est Small Negative 09/13 [facility] *ABN* (09/13/17 10:40 AM) URINE AND UA Sq Epi Occasional Few /LPF 09/13 STOOL /LPF /2016 [facility] URINE AND UA WBC 13 /HPF 0 - 5 09/13 [facility] URINE AND UA RBC 81 /HPF 0 - 2 09/13 [facility] URINE AND UA Bili Negative Negative 09/13 [facility] *NA* (09/13/17 10:40 AM) URINE AND UA Blood Large Negative 09/13 [facility] *ABN* (09/13/17 10:40 AM) URINE AND UA Nitrite Negative Negative 09/13 [facility] (09/13/17 10:40 AM) Brain wo Brain wo Patient Name: ROBERT HARDY 09/13 - contrast contrast MRI - [facility] MRI : 1988; Age: 29 years y/o Male MR: [id number] Read by: Shaheed Gonzalez MD Dictated Date/time: 09/13/17 15:02 Electronically Signed by: Shaheed Gonzalez MD 09/13/17 15:08 FINAL REPORT Study: Brain wo contrast MRI 09/13/2017 9:01 AM INSOLVENCY PRACTITIONER Ordering Physician: Arnulfo Chun MD Clinical Indication: [...] maxillary and bilateral ethmoid sinus disease. SL: VALENTINODEVIVEKOM-SHARON Brain/Neck Brain/Neck STUDY: Brain/Neck CTA 09/13/2017 9:01 AM INSOLVENCY PRACTITIONER 09/13 [facility] CTA CTA /2016 - [facility] Ordering Physician: Arnulfo Chun MD Read by: Marvel Ferrari MD Dictated Date/time: 09/13/17 15:14 Patient Name: ROBERT HARDY MR: [id number] Electronically Signed by: Marvel Ferrari MD 09/13/17 15:32 FINAL REPORT : [...] carotid siphon likely representing crossflow through the [place]. Middle cerebral arteries: The right [...] siphon related to cross flow through the [place]. 2. Reduced size mildly irregular left M1 segment consistent with poor inflow and/or stenosis. Decreased arborization is seen more peripherally in the left MCA with loss of small M2 and M3 branches at the site of known infarction. 3. Acute left MCA distribution infarction. 4. Mild chronic sinusitis. SL: [id number] Chest Chest 1view Clinical Indication: CVA - CVA; 09/13 - 1view DX DX - [facility] Comparison: None Read by: Sergio Connolly MD [...] of atelectasis, correlate for superimposed process SL: [id number] Vital Signs Vital Sign Value Date Comments Source Heart Rate 73 09/24/2017 [facility] Respitory Rate 24 09/24/2017 [facility] Systolic (mm Hg) 135 09/24/2017 [facility] Diastolic (mm Hg) 85 09/24/2017 [facility] Respitory Rate 26 09/24/2017 [facility] Heart Rate 76 09/24/2017 [facility] Systolic (mm Hg) 150 09/24/2017 [facility] Diastolic (mm Hg) 74 09/24/2017 [facility] Systolic (mm Hg) 132 09/24/2017 [facility] Diastolic (mm Hg) 82 09/24/2017 [facility] Heart Rate 71 09/24/2017 [facility] Respitory Rate 18 09/24/2017 [facility] Temperature Oral (F) 98.1 F 09/24/2017 [facility] Temperature Oral (F) 98.6 F 09/24/2017 [facility] Temperature Oral (F) 98.2 F 09/23/2017 [facility] Height 180.34 cm 09/13/2017 [facility] BMI Calculated 37.51 09/13/2017 [facility] Weight 122.008 09/13/2017 [facility] Weight 122.008 09/13/2017 [facility] BMI Calculated 38.59 09/13/2017 [facility] Height 177.8 cm 09/13/2017 [facility] Encounters Location Location Encounter Encounter Reason Attending ADM DC Status Source Details Type Number For Provider Date Date Visit [facility] Inpatient [id number] [place] 09/13 09/25 Michael Aslam /2016 [facility] Procedures Procedure Code Date Perfomer Comments Source Coronary heart [id number] [facility] disease monitoring DIGAMI - diabetes [id number] [facility] mellitus insulin-glucose infusion in acute myocardial infarction On treatment for [id number] [facility] hypertension PTCA - [id number] [facility] Percutaneous transluminal coronary angioplasty
--- OUTSIDE RECORDS SUMMARY | 2019-01-26 13:10 | XMS REPORT ---
:1960 Author Organization eClinicalWorks Care Team Providers Name Role Phone Ajay Hdz Provider Role Unavailable Allergies, Adverse Reactions, Alerts Substance Reaction Event Type PCN Info Not Available Drug Allergy Problems Problem Type Condition Code Onset Dates Condition Status Assessment Pure hypercholesterolemia E78.00 Active Assessment PEG (percutaneous endoscopic Z93.1 Active gastrostomy) status Assessment Essential hypertension I10 Active Problem Pure hypercholesterolemia E78.00 Active Problem PEG (percutaneous endoscopic Z93.1 Active gastrostomy) status Problem Essential hypertension I10 Active Assessment 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) Assessment Diabetes 1.5, 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 Problem Diabetes 1.5, 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 Problem 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) Medications Medication Code Code Instructions Start End Status Dosage System Date Date Omeprazole [facility] 59804265538 40 MG Orally Active 1 capsule Once a day Aspirin ND 01790363876 81 MG Orally Active 1 tablet Once a day Lisinopril ND 79277305869 5 MG Orally Once March 30, Active 1 tablet a day 2017 atorvastatin ND 86616335828 20mg orally March 30Sep 26, Active 1 tablet before bed 2017 2018 by mouth at bedtime Metformin HCl ND 04769827162 500 MG Orally Active 1 tablet Once a day with a meal Silace [facility] 09530529165 60 MG/15ML via G Active 7.5 ml as tube Twice a day needed Results No Known Results Summary Purpose eClinicalWorks Submission
--- OUTSIDE RECORDS SUMMARY | 2019-01-26 13:10 | XMS REPORT ---
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) Problem Essential hypertension I10 Active Problem Type 2 diabetes mellitus without E11.9 Active complication, without long-term current use of insulin Problem Diabetes 1.5, 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 Assessment Other sequelae of cerebral I69.398 Active infarction Assessment 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 Assessment Cerebrovascular accident (CVA), I63.9 Active unspecified mechanism Assessment Diabetes 1.5, 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 Assessment Pure hypercholesterolemia E78.00 Active Assessment 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) Assessment PEG (percutaneous endoscopic Z93.1 Active gastrostomy) status Assessment Essential (primary) hypertension I10 Active Medications Medication Code Code Instructions Start End Status Dosage System Date Date atorvastatin ND 32960873634 20mg orally March 30Sep 26, Active 1 tablet before bed 2017 2017 by mouth at bedtime Aspirin ND 67325389918 81 MG Orally Active 1 tablet Once a day Omeprazole ND 81773455849 40 MG Orally Active 1 capsule Once a day Lisinopril ND 70881372988 5 MG Orally March 30, Active 1 tablet Once a day 2017 Metformin HCl ND 55564897512 500 MG Orally Inactive 1 tablet Once a day with a meal Seroquel ND 77722914199 25 MG Orally May 29, Active 1 tablet Once a day 2017 Silace ND 09946260658 60 MG/15ML via Active 7.5 ml as G tube Twice a needed day Results No Known Results Summary Purpose eClinicalWorks Submission
--- OUTSIDE RECORDS SUMMARY | 2019-01-26 13:10 | XMS REPORT ---
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) Problem Other sequelae of cerebral I69.398 Active infarction Problem Cerebrovascular accident (CVA), I63.9 Active unspecified mechanism Problem Essential (primary) hypertension I10 Active Problem 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) Problem Essential hypertension I10 Active Problem Type 2 diabetes mellitus without E11.9 Active complication, without long-term current use of insulin Problem Diabetes 1.5, 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 Medications Medication Code Code Instructions Start End Status Dosage System Date Date Bactroban [facility] 05849018658 2 % Externally Oct 24 Apply to BID 2018 affected area Lisinopril ND 14000872123 5 Orally Once a Active 1 tablet day Silace ND 99217647533 60 MG/15ML via Active 7.5 ml as G tube Twice a needed day Aspirin ND 14256010080 81 MG Orally Active 1 tablet Once a day Lisinopril ND 14190797576 5 MG Orally March 30, Active 1 tablet Once a day 2017 Seroquel ND 69905950115 25 MG Orally May 29, Active 1 tablet Once a day 2017 Atorvastatin ND 97817660496 20 Active TAKE 1 Calcium TABLET BY MOUTH AT BEDTIME BEFORE BEDTIME Omeprazole ND 38644148337 40 MG Orally Active 1 capsule Once a day Results No Known Results Summary Purpose eClinicalWorks Submission
--- OUTSIDE RECORDS SUMMARY | 2019-01-26 13:10 | XMS REPORT ---
:1960 Author Organization eClinicalWorks Care Team Providers Name Role Phone Richy Valeria Provider Role Unavailable Allergies, Adverse Reactions, Alerts Substance Reaction Event Type PCN Info Not Available Drug Allergy Problems Problem Type Condition Code Onset Dates Condition Status Problem PEG (percutaneous endoscopic Z93.1 Active gastrostomy) status Problem Pure hypercholesterolemia E78.00 Active Assessment Superficial abrasion T14.8XXA Active Problem Other sequelae of cerebral I69.398 [...] Start End Status Dosage System Date Date Aspirin ND 38519431575 81 MG Orally Active 1 tablet Once a day Omeprazole ND 88871176731 40 MG Orally Active 1 capsule Once a day Lisinopril ND 09718538605 5 MG Orally March 30, Active 1 tablet Once a day 2018 Seroquel ND 27522361756 25 MG Orally May 29, Active 1 tablet Once a day 2018 Lisinopril ND 55885435093 5 Orally Once a Active 1 tablet day Bactroban ND 74679128993 2 % Externally Oct 24, Active Apply to BID 2019 affected area Silace ND 39438709810 60 MG/15ML via Active 7.5 ml as G tube Twice a needed day Atorvastatin ND 18290349554 20 Active TAKE 1 Calcium TABLET BY MOUTH AT BEDTIME BEFORE BEDTIME Results No Known Results Summary Purpose eClinicalWorks Submission
--- OUTSIDE RECORDS SUMMARY | 2019-01-26 13:10 | XMS REPORT ---
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
--- OUTSIDE RECORDS SUMMARY | 2019-01-26 13:10 | XMS REPORT ---
[...] 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 Medications No Known Medications Results No Known Results Summary Purpose eClinicalWorks Submission
--- OUTSIDE RECORDS SUMMARY | 2019-01-26 13:10 | XMS REPORT ---
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 81095664345 60 MG/15ML via Active 7.5 ml as G tube Twice a needed day Aspirin ND 00965107699 81 MG Orally Active 1 tablet Once a day Metformin HCl ND 53347694019 500 MG Orally December Active 1 tablet Once a day 2018 with a meal Bactroban ND 78959886856 2 % Externally Oct 24, Active Apply to BID 2019 affected area Atorvastatin ND 33290402452 20 Active TAKE 1 Calcium TABLET BY MOUTH AT BEDTIME BEFORE BEDTIME Lisinopril ND 10766034456 5 MG Orally March 30, Active 1 tablet Once a day 2017 Omeprazole ND 50611723629 40 MG Orally Active 1 capsule Once a day Lisinopril ND 62432450709 5 Orally Once a Active 1 tablet day Seroquel ND 07232780221 25 MG Orally May 29, Active 1 tablet Once a day 2017 Results No Known Results Summary Purpose eClinicalWorks Submission
--- OUTSIDE RECORDS SUMMARY | 2019-01-26 13:10 | XMS REPORT ---
:1960 Author Organization eClinicalWorks Care Team Providers Name Role Phone Valeria Salgado Provider Role Unavailable Allergies No Known Allergies [...]
[2019-01-26 14:23] LABS: Absolute Lymphocytes (CBC) 2.3 K/uL (0.7-4.9); Absolute Monocytes 0.6 K/uL (0.1-1.3); Absolute Neutrophil 4.7 K/uL (1.8-8.0); Basophils % 0.4 % (0-1.3); Eosinophils % 0.8 % (0-4.4); Hematocrit 44.1 % (39.6-49.0); Lymphocytes % 30.3 % (15.3-44.8); MPV 9.5 fL (7.6-11.3); Monocytes % 7.2 % (3.3-12.3)
[2019-01-26 14:24] LABS: Protime INR 0.99
--- NOTE | 2019-01-26 14:39 | RAD REPORT ---
EXAM DESCRIPTION: Steven Single View01/26/2019 2:32 pm CLINICAL HISTORY: Chest pain COMPARISON: October 2017 FINDINGS: The lungs appear clear of acute infiltrate. The heart is normal size IMPRESSION: No acute abnormalities displayed
[2019-01-26 14:49] LABS: ALT/SGPT 50 U/L (12-78); AST/SGOT 27 U/L (15-37); Albumin 3.7 g/dL (3.4-5.0); Alkaline Phosphatase 114 U/L (45-117); BUN Blood Urea Nitrogen 12 mg/dL (7-18); Bicarbonate 30 mmol/L (21-32); Bilirubin Direct 0.3 mg/dL (0-0.2); Glucose Level 72 mg/dL (74-106); Magnesium 2.3 mg/dL (1.8-2.4); NT PRO-BNP 180 pg/mL (<125); Potassium 4.4 mmol/L (3.5-5.1); Protein, Total 7.6 g/dL (6.4-8.2); Sodium Level 134 mmol/L (136-145); Troponin (Emerg Dept Use Only) < 0.02 ng/mL (0.0-0.045)
[2019-01-26] MEDS ORDERED: NA CHLORIDE 0.9% 1,000 ML ONE (15:40)
--- NOTE | 2019-01-26 16:40 | ER ---
Nurse's Notes [facility] Name: El Ventura Age: 58 yrs Sex: Male : 1960 Arrival Date: 01/26/2019 Time: 13:12 Bed 19 Private MD: Diagnosis: Syncope and collapse Presentation: 01/26 13:13 Presenting complaint: EMS states: family called because he wasn't breathing, states she tw2 did mouth to mouth and then he started breathing, when we arrived he was as he is now, his baseline, he is non verbal but will respond with grunts and eye movements, states he might have had a seizure, for our exam he was not postictal, his BGL was 67, we gave 1 tab of oral glucose. Transition of care: patient was not received from another setting of care. Onset of symptoms was January 26, 2019. Risk Assessment: Do you want to hurt yourself or someone else? Patient reports no desire to harm self or others. Initial Sepsis Screen: Does the patient meet any 2 criteria? No. Patient's initial sepsis screen is negative. Does the patient have a suspected source of infection? No. Patient's initial sepsis screen is negative. Care prior to arrival: Glucose check: 67. 13:13 Method Of Arrival: EMS: [facility] tw2 13:13 Acuity: ROBERT 3 tw2 Triage Assessment: 13:15 General: Appears in no apparent distress. Behavior is cooperative. Neuro: Level of tw2 Consciousness is awake, alert, obeys commands, Oriented to person. 15:26 Neuro: Reports. tw2 Historical: - Allergies: 15:24 PENICILLINS; tw2 - Home Meds: 15:24 aspirin 81 mg Oral chew 1 tab once daily [Active]; atorvastatin 40 mg Oral tab 1 tab tw2 nightly [Active]; metformin 500 mg Oral Tb24 1 tab once daily [Active]; Silace 50 mg/5 mL Oral liqd 10 mL 2 times per day [Active]; - PMHx: 15:24 CAD; CVA; Diabetes - NIDDM; heart stents; High Cholesterol; Hypertension; tw2 - PSHx: 15:24 PEG tube placement; Cholecystectomy; tw2 - Immunization history:: Adult Immunizations. - Social history:: Smoking status: . - Ebola Screening: : Patient denies travel to an Ebola-affected area in the 21 days before illness onset. Screenin:26 Abuse screen: Denies threats or abuse. Nutritional screening: No deficits noted. tw2 Tuberculosis screening: No symptoms or risk factors identified. Fall Risk Secondary diagnosis (15 points) impaired mobility, CVA. Assessment: 13:30 General: Appears in no apparent distress. Behavior is cooperative. Pain: Denies pain. tw2 Neuro: Level of Consciousness is awake, alert, obeys commands, Oriented to person. Cardiovascular: Heart tones S1 S2 Capillary refill < 3 seconds Patient's skin is warm and dry. Rhythm is regular. Respiratory: Airway is patent Respiratory effort is even, unlabored, Respiratory pattern is regular, symmetrical, Breath sounds are clear bilaterally. GI: No signs and/or symptoms were reported involving the gastrointestinal system. peg tube in place for feedings. : No signs and/or symptoms were reported regarding the genitourinary system. EENT: No signs and/or symptoms were reported regarding the EENT system. Derm: No signs and/or symptoms reported regarding the dermatologic system. Musculoskeletal: Range of motion: intact in all extremities. 14:06 Reassessment: Patient appears in no apparent distress at this time. No changes from tw2 previously documented assessment. Patient and/or family updated on plan of care and expected duration. Pain level reassessed. 15:22 Reassessment: Patient appears in no apparent distress at this time. No changes from tw2 previously documented assessment. Patient and/or family updated on plan of care and expected duration. Pain level reassessed. 16:22 Reassessment: Patient appears in no apparent distress at this time. No changes from tw2 previously documented assessment. Patient and/or family updated on plan of care and expected duration. Pain level reassessed. 17:23 Reassessment: Patient appears in no apparent distress at this time. No changes from tw2 previously documented assessment. Patient and/or family updated on plan of care and expected duration. Pain level reassessed. Vital Signs: 13:15 BP 126 / 73; Pulse 72; Resp 17; Temp 98(TE); Pulse Ox 100% on R/A; tw2 14:06 BP 102 / 63; Pulse 73; Resp 22; Pulse Ox 96% on R/A; tw2 15:22 BP 93 / 56 Supine; Pulse 91; Resp 17; Pulse Ox 100% on R/A; tw2 16:23 BP 110 / 70; Pulse 76; Resp 17; Pulse Ox 100% on R/A; tw2 17:23 BP 104 / 66; Pulse 79; Resp 17; Pulse Ox 97% on R/A; tw2 ED Course: 13:12 Patient arrived in ED. tw2 13:13 Ashish Palmer MD is Attending Physician. gs 13:15 Triage completed. tw2 13:15 Bed in low position. Call light in reach. Side rails up X2. court monitor on. Pulse tw2 ox on. NIBP on. Warm blanket given. 13:44 Michell Pacheco, RN is Primary Nurse. tw2 14:14 Initial lab(s) drawn, by me, sent to lab. EKG done, by ED staff, reviewed by Ashish Palmer MD. Inserted saline lock: 22 gauge in left antecubital area, using aseptic technique. Blood collected. 14:18 XRAY Chest (1 view) In Process Unspecified. EDMS 14:19 EKG done, by tree trimming line technician. reviewed by Ashish Palmer MD. 3 14:20 X-ray completed. Portable x-ray completed in exam room. Patient tolerated procedure jb2 well. 15:26 Arm band placed on. tw2 17:22 No provider procedures requiring assistance completed. IV discontinued, intact, tw2 bleeding controlled, No redness/swelling at site. Pressure dressing applied. Administered Medications: 15:32 Drug: NS 0.9% 1000 ml Route: IV; Rate: 1 bolus; Site: left antecubital; tw2 16:30 Follow up: Response: No adverse reaction; IV Status: Completed infusion; IV Intake: tw2 1000ml Point of Care Testing: Blood Glucose: 13:15 Blood Glucose: 93 mg/dL; tw2 Ranges: Intake: 16:30 IV: 1000ml; Total: 1000ml. tw2 Outcome: 16:39 Discharge ordered by . gs 17:22 Discharged to home via wheelchair, with family. tw2 17:22 Condition: stable 17:22 Discharge instructions given to patient, family, Instructed on discharge instructions, follow up and referral plans. Demonstrated understanding of instructions, follow-up care. 17:24 Patient left the ED. tw2 Signatures: Dispatcher [employer] EDMS Eh Carbajal Jesse jb2 Wise, Tara, RN RN tw2 Ashish Palmer MD MD Antonina Garcia 3 Corrections: (The following items were deleted from the chart) 13:44 13:15 BP 126 / 73; Pulse 72bpm; Resp 17bpm; Pulse Ox 100% RA; tw2 tw2 17:23 17:22 Discharge instructions given to patient, family, Instructed on discharge tw2 instructions, follow up and referral plans. Demonstrated understanding of instructions, follow-up care, medications, tw2
--- NOTE | 2019-01-26 16:40 | EDPHYS ---
Physician Documentation [facility] Name: El Ventura Age: 58 yrs Sex: Male : 1960 Arrival Date: 01/26/2019 Time: 13:12 Bed 19 Private MD: ED Physician Ashish Palmer HPI: 01/26 16:36 This 58 yrs old Male presents to ER via EMS with complaints of Syncope. gs 16:36 Onset: The symptoms/episode began/occurred acutely, just prior to arrival. Duration: gs This was a single episode, that lasted 1 minute(s). Associated injury: The patient did not suffer any apparent associated injury. Associated signs and symptoms: Pertinent negatives: abdominal pain. Current symptoms: Currently, the patient is not experiencing any symptoms, the patient feels back to baseline. The patient has experienced similar episodes in the past, a few times. Historical: - Allergies: 15:24 PENICILLINS; tw2 - Home Meds: 15:24 aspirin 81 mg Oral chew 1 tab once daily [Active]; atorvastatin 40 mg Oral tab 1 tab tw2 nightly [Active]; metformin 500 mg Oral Tb24 1 tab once daily [Active]; Silace 50 mg/5 mL Oral liqd 10 mL 2 times per day [Active]; - PMHx: 15:24 CAD; CVA; Diabetes - NIDDM; heart stents; High Cholesterol; Hypertension; tw2 - PSHx: 15:24 PEG tube placement; Cholecystectomy; tw2 - Immunization history:: Adult Immunizations. - Social history:: Smoking status: . - Ebola Screening: : Patient denies travel to an Ebola-affected area in the 21 days before illness onset. ROS: 16:36 All other systems are negative. gs Exam: 16:36 Head/Face: Normocephalic, atraumatic. Eyes: Pupils equal round and reactive to light, gs extra-ocular motions intact. Lids and lashes normal. Conjunctiva and sclera are non-icteric and not injected. Cornea within normal limits. Periorbital areas with no swelling, redness, or edema. ENT: Nares patent. No nasal discharge, no septal abnormalities noted. Tympanic membranes are normal and external auditory canals are clear. Oropharynx with no redness, swelling, or masses, exudates, or evidence of obstruction, uvula midline. Mucous membranes moist. Neck: Trachea midline, no thyromegaly or masses palpated, and no cervical lymphadenopathy. Supple, full range of motion without nuchal rigidity, or vertebral point tenderness. No Meningismus. Chest/axilla: Normal chest wall appearance and motion. Nontender with no deformity. No lesions are appreciated. Cardiovascular: Regular rate and rhythm with a normal S1 and S2. No gallops, murmurs, or rubs. Normal PMI, no JVD. No pulse deficits. Respiratory: Lungs have equal breath sounds bilaterally, clear to auscultation and percussion. No rales, rhonchi or wheezes noted. No increased work of breathing, no retractions or nasal flaring. Abdomen/GI: Soft, non-tender, with normal bowel sounds. No distension or tympany. No guarding or rebound. No evidence of tenderness throughout. Back: No spinal tenderness. No costovertebral tenderness. Full range of motion. Skin: Warm, dry with normal turgor. Normal color with no rashes, no lesions, and no evidence of cellulitis. MS/ Extremity: Pulses equal, no cyanosis. Neurovascular intact. Full, normal range of motion. 16:36 Constitutional: The patient appears awake. 16:36 Neuro: Exam negative for acute changes, Orientation: to person, Mentation: does talk much, sp cva. 16:36 ECG was reviewed by the Attending Physician. Vital Signs: 13:15 BP 126 / 73; Pulse 72; Resp 17; Temp 98(TE); Pulse Ox 100% on R/A; tw2 14:06 BP 102 / 63; Pulse 73; Resp 22; Pulse Ox 96% on R/A; tw2 15:22 BP 93 / 56 Supine; Pulse 91; Resp 17; Pulse Ox 100% on R/A; tw2 16:23 BP 110 / 70; Pulse 76; Resp 17; Pulse Ox 100% on R/A; tw2 17:23 BP 104 / 66; Pulse 79; Resp 17; Pulse Ox 97% on R/A; tw2 MDM: 14:23 Patient medically screened. 16:36 Differential Diagnosis: cardiac arrhythmia, idiopathic syncope, vasovagal episode. Data reviewed: vital signs, nurses notes, lab test result(s), EKG, radiologic studies. Counseling: I had a detailed discussion with the patient and/or guardian regarding: the historical points, exam findings, and any diagnostic results supporting the discharge/admit diagnosis. Response to treatment: the patient's symptoms have markedly improved after treatment, the patient's condition has returned to base line, and as a result, I will discharge patient. 01/26 13:41 Order name: Basic Metabolic Panel; Complete Time: 15:01 01/26 13:41 Order name: CBC with Diff; Complete Time: 15: 01/26 13:41 Order name: LFT's; Complete Time: 15: 01/26 13:41 Order name: Magnesium; Complete Time: 15: 01/26 13:41 Order name: NT PRO-BNP; Complete Time: 15: 01/26 13:41 Order name: PT-INR; Complete Time: 15: 01/26 13:41 Order name: Troponin (emerg Dept Use Only); Complete Time: 15: 01/26 13:41 Order name: XRAY Chest (1 view); Complete Time: 15: 01/26 13:41 Order name: EKG; Complete Time: 13:42 01/26 13:41 Order name: Cardiac monitoring; Complete Time: 13:44 01/26 13:41 Order name: EKG - Nurse/Tech; Complete Time: 13:44 01/26 13:41 Order name: IV Saline Lock; Complete Time: 14:15 01/26 15:32 Order name: Glucose, Ancillary Testing; Complete Time: 15:56 EDMS 01/26 13:41 Order name: Labs collected and sent; Complete Time: 14:15 01/26 13:41 Order name: O2 Per Protocol; Complete Time: 13:44 01/26 13:41 Order name: O2 Sat Monitoring; Complete Time: 13:44 gs EC:36 Rate is 68 beats/min. Rhythm is regular. MA interval is normal. QRS interval is gs prolonged. T waves are Normal. No ST changes noted. Clinical impression: Abnormal EKG without significant change. Interpreted by me. Administered Medications: 15:32 Drug: NS 0.9% 1000 ml Route: IV; Rate: 1 bolus; Site: left antecubital; tw2 16:30 Follow up: Response: No adverse reaction; IV Status: Completed infusion; IV Intake: tw2 1000ml Point of Care Testing: Blood Glucose: 13:15 Blood Glucose: 93 mg/dL; tw2 Ranges: Critical Glucose Levels:Adult <50 mg/dl or >400 mg/dl <40 mg/dl or >180 mg/dl Disposition: 01/26/19 16:39 Discharged to Home. Impression: Syncope and collapse. - Condition is Stable. - Discharge Instructions: Syncope. - Work release form, Medication Reconciliation Form, Thank You Letter, Antibiotic Education, Prescription Opioid Use form. - Follow up: Private Physician; When: 1 - 2 days; Reason: Re-evaluation by your physician. Signatures: Dispatcher [employer] EDMichell Anne RN RN tw2 Ashish Palmer MD MD gs Corrections: (The following items were deleted from the chart) 17:24 16:39 01/26/2019 16:39 Discharged to Home. Impression: Syncope and collapse. Condition tw2 is Stable. Forms are Medication Reconciliation Form, Thank You Letter, Antibiotic Education, Prescription Opioid Use. Follow up: Private Physician; When: 1 - 2 days; Reason: Re-evaluation by your physician. gs
--- NOTE | 2019-01-26 17:10 | EKG ---
Test Date: 2019-01-26 Test Time: 13:53:44 Settlement Agent: RENETTA MEASUREMENT RESULTS: Intervals: Rate: 68 SC: 152 QRSD: 134 QT: 428 QTc: 455 [place]: P: 68 SC: 152 QRS: -70 T: 56 INTERPRETIVE STATEMENTS: Normal sinus rhythm Right bundle branch block Left axis Septal infarct, age undetermined Abnormal ECG Compared to ECG 10/23/2017 14:55:10 Myocardial infarct finding now present Electronically Signed On 01-26-19 17:10:17 CDT by Sergio Harden
[2019-01-26 17:33] VITALS: TEMP 98
[2019-01-26 17:37] VITALS: BP 104/66; O2SAT 97
== END 2019-01-26 17:24 | disposition home or self-care (01) ==
LOC: ER 13:04
DX: R55 Syncope and collapse (principal); I10 Essential (primary) hypertension; E78.00 Pure hypercholesterolemia, unspecified; E11.9 Type 2 diabetes mellitus without complications; I25.10 Atherosclerotic heart disease of native coronary artery without angina pectoris; Z79.82 Long term (current) use of aspirin; Z88.0 Allergy status to penicillin; Z95.818 Presence of other cardiac implants and grafts
CPT/HCPCS: 36415; 71045; 80048; 80076; 82962; 83735; 83880; 84484; 85025; 85610; 93005; 96360; 99285; J7030

== ENCOUNTER 2020-02-21 12:06 | Emergency (ER) | payer OTHER ==
--- OUTSIDE RECORDS SUMMARY | 2020-02-21 12:11 | XMS REPORT | Continuity of Care Document ---
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/27/2017 arteriosclerosis [facility] (disorder) Diabetes mellitus Resolved Problem 09/27/2017 M H (disorder) [facility] Hypertensive Resolved Problem 09/27/2017 disorder, systemic [place] arterial (disorder) Patient post Resolved Problem 09/27/2017 percutaneous [facility] transluminal coronary angioplasty (finding) CEREBRAL Active INFARCTION, [facility] t UNSPECIFIED Medications Medication Details Route Status Patient Ordering Order Source Instructions Provider Date Metformin 500 mg = 1 tab, Active hydrochloride PO, Daily, take 2017 [place] 500 MG Oral with a meal, # Tablet 30 tab, 1 Refill(s) docusate sodium 100 mg = 10 mL, Active 150 mg/15 mL PO, Q12H, # 600 2017 [facility] oral liquid mL, 0 Refill(s) atorvastatin 40 40 mg = 1 tab, Active H mg oral tablet PO, Bedtime, # 2017 [place] 30 tab, 0 Refill(s) Aspirin 81 MG 81 mg = 1 tab, Active Chewable Tablet PO, Daily, # 30 2017 [facility] tab, 0 Refill(s) Haldol Notes: (Same Inactive as: Haldol) 2016 [facility] Omnipaque 350 Notes: (same Inactive injectable as:Omnipaque 2016 solution 350). WASTE: F/P - Black; E - [facility] vancomycin 2001 mg: No Longer infuse over 2.5 Active 2016 [facility] hours Haldol Notes: (Same Inactive as: Haldol) 2016 [facility] vancomycin + Notes: TIME Inactive Sodium Chloride CRITICAL 2016 [facility] 0.9% IV 100 mL MEDICATION (Same As: Vancocin) vancomycin + 2001 mg: Inactive Sodium Chloride infuse over 2.5 2016 [facility] 0.9% IV 500 mL hours MEDICATION WASTE Product Size: 1000 mg Product Wasted: ___ mg vancomycin 2001 mg: No Longer infuse over 2.5 Active 2016 [facility] t hours Ativan Notes: (Same Inactive as: Ativan) 2016 [facility] vancomycin + 2001 mg: No Longer Sodium Chloride infuse over 2.5 Active 2016 [facility] 0.9% IV 250 mL hours MEDICATION WASTE Product Size: 1000 mg Product Wasted: ___ mg Vancomycin Vancomycin No Longer Pharmacy Pharmacy Active 2016 [facility] Protocol Protocol, 1 dose, Drug form: MISC, Route: [place]ENG [place], 09/18/17 12:00:00 CUSTOMS DIRECTOR, Duration: 7 day, Stop date: 09/25/17 11:59:00 CUSTOMS DIRECTOR vancomycin + 2001 mg: Inactive Sodium Chloride infuse over 2.5 2016 [facility] 0.9% IV 250 mL hours MEDICATION WASTE Product Size: 1000 mg Product Wasted: ___ mg NS (Bolus) IV 500 mL, 500 No Longer ml/hr, Infuse Active 2016 [facility] Over: 1 hr, Route: IV, 500, Drug form: INJ, ONCE, Priority: STAT, Dosing Weight 122.008 kg, Start date: 09/18/17 10:01:00 CUSTOMS DIRECTOR, Stop date: 09/18/17 10:01:00 CUSTOMS DIRECTOR Vancomycin 1 ea, Route: Inactive PENG [place], 2016 [facility] Dosing Weight 122.008, kg, Start date: 09/18/17 10:00:00 CUSTOMS DIRECTOR, Duration: 7 day, Stop date: 09/25/17 9:59:00 CUSTOMS DIRECTOR, Pharmacy to dose, ABX Indication: Pneumonia Acetaminophen Notes: Max No Longer acetaminophen = Active 2016 [facility] t 4000 mg/day (4 gm/day). (Same as: Tylenol) Zosyn Notes: (Same No Longer as: Zosyn) Active 2016 [facility] Dosing based on Piperacillin component MEDICATION WASTE Product Size: 3375 mg Product Wasted: ___ mg Rocephin Notes: (Same No Longer As: Rocephin). Active 2016 [facility] Use with 100 mL NS and infuse over 30 min MEDICATION WASTE Product Size: 1000 mg Product Wasted: ___ mg Albuterol / Notes: (Same No Longer Ipratropium as: Duoneb) [facility] Lasix Notes: (Same Inactive as: Lasix) 2016 [facility] MEDICATION WASTE Product Size: 40 mg Product Wasted: ___ mg Insulin Lispro Notes: Roll in No Longer palms of hands Active 2016 [facility] gently; Do not shake `vigorously. (Same as: Humalog ) "Single Patient Use Only " WASTE: F/P - Black; E - Municipal Trash Bin Stable for 28 days at room temperature. Expires in days from D ate Dextrose 50% 25 gm, 50 mL, No Longer Syringe Route: IVP, Active 2016 [facility] Drug Form: INJ, Dosing Weight 122.008, kg, PRN, PRN Blood Glucose Results, Start date: 09/14/17 12:28:00 CUSTOMS DIRECTOR, Duration: 30 day, Stop date: 10/14/17 12:27:00 CUSTOMS DIRECTOR Glucagon 1 mg, Route: No Longer IM, Drug form: Active 2016 [facility] PDR/INJ, PRN, Dosing Weight 122.008, kg, PRN Blood Glucose Results, Start date: 09/14/17 12:28:00 CUSTOMS DIRECTOR, Duration: 30 day, Stop date: 10/14/17 12:27:00 CUSTOMS DIRECTOR Docusate Notes: (Same No Longer as: Colace) Active 2016 [facility] atorvastatin Notes: (Same No Longer as: Lipitor) Active 2016 [facility] Saline Flush Notes: (Same No Longer 0.9% as: BD Active 2016 [facility] Posiflush) Aspirin Notes: Take No Longer with food. Active 2016 [facility] heparin Notes: porcine No Longer heparin Active 2016 [facility] Visipaque 320 Notes: (Same Inactive mg/mL injectable as: Visipaque). 2016 [facility] solution WASTE: F/P - Black; E - Municipal Trash Bin Glipizide 10 MG 10 mg = 1 tab, No Longer Oral Tablet PO, Before Active 2016 [facility] Breakfast, # 90 tab, 0 Refill(s) Insulin Lispro Notes: Roll in No Longer palms of hands Active 2016 [facility] gently; Do not shake `vigorously. (Same as: Humalog ) "Single Patient Use Only " WASTE: F/P - Black; E - Municipal Trash Bin Stable for 28 days at room temperature. Expires in days from D ate Calcium Notes: (Same No Longer Carbonate 500 MG As: Tums) Active 2016 [facility] Chewable Tablet Calcium Carbonate 500 mg = 200 mg elemental calcium Dose = mg calcium carbonate ( mg elemental calcium) Magnesium Oxide Notes: (Same No Longer 09/13/ H as: Mag-Ox 400) Active 2016 [facility] Magnesium oxide [id number] elemental magnesium Dose=____mg magnesium oxide (___mg elemental magnesium) Calcium Notes: WASTE: No Longer Gluconate F/P - Sink; E - Active 2016 [facility] Municipal Trash Bin potassium Notes: (Same No Longer phosphate-sodium as: Phos-NaK) Active 2016 [place] phosphate 250 Each 1.5 gm pkt mg-280 mg-160 mg has 250mg oral powder for phosphorous. reconstitution Mix w/2.5oz water and stir. potassium Notes: (Same No Longer phosphate as: K Active 2016 [facility] Phosphate.) 1 mMol phoshate has 1.47 mEq potassium Infuse over 4 hours Magnesium Notes: WASTE: No Longer Sulfate F/P - Sink; E - Active 2016 [facility] Municipal Trash Bin sodium phosphate 30 mmol, 10 mL, No Longer 09/13 Route: IVPB, Active 2016 [facility] PRN, kg, PRN Abnormal Lab Result, Start date: 09/13/17 9:09:00 CUSTOMS DIRECTOR, Duration: 30 day, Stop date: 10/13/17 9:08:00 CUSTOMS DIRECTOR, FOR ICU USE ONLY Potassium Notes: (Same No Longer Chloride as: Potassium Active 2016 [facility] Chloride) Dextrose 50% 12.5 gm, 25 mL, No Longer 12/ H Syringe Route: IVP, Active 2016 [facility] Drug Form: INJ, kg, PRN, PRN Blood Glucose Results, Start date: 09/13/17 9:09:00 CUSTOMS DIRECTOR, Duration: 30 day, Stop date: 10/13/17 9:08:00 CUSTOMS DIRECTOR Glucagon 1 mg, Route: No Longer IM, Drug form: [facility] 2016 [facility] PDR/INJ, PRN, kg, PRN Blood Glucose Results, Start date: 09/13/17 9:09:00 CUSTOMS DIRECTOR, Duration: 30 day, Stop date: 10/13/17 9:08:00 CUSTOMS DIRECTOR normal saline 1,000 mL, Rate: No Longer 0.9% IV 1,000 mL 75 ml/hr, Active 2016 [facility] Infuse over: 13.3 hr, Route: IV, Total Volume: 1,000, Start date: 09/13/17 9:05:00 CUSTOMS DIRECTOR, Duration: 30 day, Stop date: 10/13/17 9:04:00 CUSTOMS DIRECTOR Hydralazine Notes: (Same No Longer as: Apresoline) Active 2016 [facility] t Push over 5 minutes Labetalol Notes: (Same No Longer as: Normodyne, 2016 [facility] Trandate) Push over 2 minutes Give bolus over 2-3 minutes. Ondansetron Notes: (Same No Longer as: Zofran) [facility] 2016 [facility] MEDICATION WASTE Product Size: 4 mg Product Wasted: ___ mg Bisacodyl Notes: (Same No Longer As: Dulcolax, [facility] 2016 [facility] Bisco-Lax) Acetaminophen Notes: Do not No Longer exceed 4 Active 2016 [facility] gm/day. (Same as: Tylenol) Saline Flush Notes: (Same No Longer 0.9% as: BD Active 2017 [facility] Posiflush) Allergies, Adverse Reactions, Alerts No Known Medication Allergies Immunizations No Data Provided for This Section Results Order Name Results Value Reference Date Interpretation Comments Shana rce Range ELECTROLYT AGAP 15.0 10.0 - 09/24 ES 20.0 [facility] ELECTROLYT Calcium Lvl 9.1 8.5 - 10.5 09/24 [facility] ELECTROLYT CO2 24 24 - 32 09/24 [facility] ELECTROLYT Potassium 4.0 3.5 - 5.1 09/24 ES Lvl /2016 [facility] ELECTROLYT Chloride Lvl 103 95 - 109 09/24 [facility] ELECTROLYT eGFR 98 09/24 Comment: The [facility] eGFR is calculated using the CKD-EPI formula. In most young, healthy individuals the eGFR will be >90 mL/min/1.73m2 . The eGFR declines with age. An eGFR of 60-89 may be normal in some populations, particularly the elderly, for whom the CKD-EPI formula has not been extensively validated. Use of the eGFR is not recommended in the following populations:< br/>
Padmini viduals with unstable creatinine concentration s, including patients and those with serious co-morbid conditions.<b r/>
Patie nts with extremes in muscle mass or diet.

The data above are obtained from the National Kidney Disease Education Program (NKDEP) which additionally recommends that when the eGFR is used in patients with extremes of body mass index for purposes of drug dosing, the eGFR should be multiplied by the estimated BMI. ELECTROLYT BUN 27 7 - 22 09/24 [facility] ELECTROLYT Creatinine 0.80 0.50 - 09/24 ES Lvl 1.40 [facility] ELECTROLYT Sodium Lvl 138 135 - 145 09/24 ES [facility] ELECTROLYT Glucose Lvl 188 70 - 99 09/24 [facility] HEMATOLOGY RBC Morph Normal 09/24 (09/24/17 5:19 AM) [facility] HEMATOLOGY Plt Morph Normal 09/24 (09/24/17 5:19 AM) [facility] HEMATOLOGY Bands 1.0 0.0 - 11.0 09/24 [facility] HEMATOLOGY Lymphocytes 13.0 20.0 - 09/24 MH 40.0 [facility] HEMATOLOGY Atypical 2.0 <=0.0 % 09/24 Lymphs /2016 [facility] HEMATOLOGY Eosinophils 3.0 0.0 - 4.0 09/24 [facility] HEMATOLOGY Metamyelocyt 5.0 0.0 - 1.0 09/24 es /2016 [facility] HEMATOLOGY Monocytes 3.0 2.0 - 12.0 09/24 [facility] HEMATOLOGY Segs 73.0 45.0 - 09/24 MH 75.0 /2016 [facility] HEMATOLOGY Eosinophils 0.5 0.0 - 0.5 09/24 MH # /2017 [facility] HEMATOLOGY Monocytes # 0.5 0.0 - 0.8 09/24 [facility] HEMATOLOGY Lymphocytes 2.6 1.0 - 5.5 09/24 MH # /2016 [facility] HEMATOLOGY Segs-Bands # 12.7 1.5 - 8.1 09/24 [facility] HEMATOLOGY MCV 88.3 80.0 - 09/24 94.0 [facility] HEMATOLOGY Hct 45.4 42.0 - 09/24 MH 54.0 /2016 [facility] HEMATOLOGY Hgb 15.0 14.0 - 09/24 18.0 [facility] HEMATOLOGY RBC 5.15 4.70 - 09/24 MH 6.10 [facility] HEMATOLOGY MPV 9.2 7.4 - 10.4 09/24 [facility] HEMATOLOGY MCHC 33.0 32.0 - 09/24 36.0 /2016 [facility] HEMATOLOGY MCH 29.2 27.0 - 09/24 31.0 [facility] HEMATOLOGY Platelet 259 133 - 450 09/24 [facility] HEMATOLOGY RDW 14.0 11.5 - 09/24 14.5 [facility] HEMATOLOGY WBC 17.1 3.7 - 10.4 09/24 [facility] CHEM PANEL Procalcitoni <0.05 0.00 - 09/23 n Lvl 0.10 [facility] ELECTROLYT AGAP 14.0 10.0 - 09/23 ES 20.0 [facility] ELECTROLYT eGFR 94 09/23 ES Comment: The [facility] eGFR is calculated using the CKD-EPI formula. In most young, healthy individuals the eGFR will be >90 mL/min/1.73m2 . The eGFR declines with age. An eGFR of 60-89 may be normal in some populations, particularly the elderly, for whom the CKD-EPI formula has not been extensively validated. Use of the eGFR is not recommended in the following populations:< br/>
Padmini viduals with unstable creatinine concentration s, including patients and those with serious co-morbid conditions.<b r/>
Patie nts with extremes in muscle mass or diet.

The data above are obtained from the National Kidney Disease Education Program (NKDEP) which additionally recommends that when the eGFR is used in patients with extremes of body mass index for purposes of drug dosing, the eGFR should be multiplied by the estimated BMI. ELECTROLYT Potassium 4.0 3.5 - 5.1 / MH ES Lvl /2017 [facility] ELECTROLYT Sodium Lvl 139 135 - 145 09/23 ES /2016 [facility] ELECTROLYT BUN 26 7 - 22 09/23 ES /2016 [facility] ELECTROLYT Glucose Lvl 188 70 - 99 09/23 ES [facility] ELECTROLYT Creatinine 0.90 0.50 - 09/23 MH ES Lvl 1.40 /2016 [facility] ELECTROLYT CO2 24 24 - 32 09/23 ES /2016 [facility] ELECTROLYT Chloride Lvl 105 95 - 109 09/23 ES [facility] ELECTROLYT Calcium Lvl 9.2 8.5 - 10.5 09/23 ES [facility] HEMATOLOGY Basophils # 0.1 0.0 - 0.2 09/23 [facility] HEMATOLOGY Eosinophils 0.3 0.0 - 0.5 09/23 MH # /2016 [facility] HEMATOLOGY Monocytes # 1.3 0.0 - 0.8 09/23 [facility] HEMATOLOGY Lymphocytes 15.8 20.0 - 09/23 MH 40.0 /2017 [facility] HEMATOLOGY Plt Morph Normal 09/23 (09/23/17 5:42 AM) [facility] HEMATOLOGY RBC Morph Normal 09/23 (09/23/17 5:42 AM) [facility] HEMATOLOGY Monocytes 6.9 2.0 - 12.0 09/23 [facility] HEMATOLOGY Basophils 0.5 0.0 - 1.0 09/23 [facility] HEMATOLOGY Eosinophils 1.5 0.0 - 4.0 09/23 [facility] HEMATOLOGY Segs 75.3 45.0 - / MH 75.0 /2017 [facility] HEMATOLOGY Lymphocytes 2.9 1.0 - 5.5 09/23 MH # /2016 [facility] HEMATOLOGY Segs-Bands # 13.9 1.5 - 8.1 09/23 [facility] HEMATOLOGY MCH 28.9 27.0 - 09/23 MH 31.0 [facility] HEMATOLOGY MCV 88.9 80.0 - 12 MH 94.0 [facility] HEMATOLOGY Hct 46.4 42.0 - 12 MH 54.0 [facility] HEMATOLOGY Hgb 15.1 14.0 - 09/23 MH 18.0 [facility] HEMATOLOGY RBC 5.22 4.70 - 12 MH 6.10 [facility] HEMATOLOGY MPV 9.5 7.4 - 10.4 09/23 [facility] HEMATOLOGY Platelet 269 133 - 450 09/23 [facility] HEMATOLOGY RDW 14.4 11.5 - 09/23 MH 14. [facility] HEMATOLOGY MCHC 32.5 32.0 - 09/23 MH 36.0 [facility] HEMATOLOGY WBC 18.4 3.7 - 10.4 09/23 [facility] TOXICOLOGY Vanco Tr TND [id number] 09/22 [facility] TOXICOLOGY Vanco Tr 14.1 09/22 [facility] TOXICOLOGY Vanco Tr TND [id number] 09/21 [facility] TOXICOLOGY Vanco Tr 10.3 09/21 [facility] CHEM PANEL Procalcitoni 0.05 0.00 - 09/21 n Lvl 0.10 [facility] ELECTROLYT AGAP 12.1 10.0 - 09/21 MH ES 20.0 [facility] ELECTROLYT eGFR 94 09/21 Comment: The [facility] eGFR is calculated using the CKD-EPI formula. In most young, healthy individuals the eGFR will be >90 mL/min/1.73m2 . The eGFR declines with age. An eGFR of 60-89 may be normal in some populations, particularly the elderly, for whom the CKD-EPI formula has not been extensively validated. Use of the eGFR is not recommended in the following populations:< br/>
Padmini viduals with unstable creatinine concentration s, including patients and those with serious co-morbid conditions.<b r/>
Patie nts with extremes in muscle mass or diet.

The data above are obtained from the National Kidney Disease Education Program (NKDEP) which additionally recommends that when the eGFR is used in patients with extremes of body mass index for purposes of drug dosing, the eGFR should be multiplied by the estimated BMI. ELECTROLYT Chloride Lvl 105 95 - 109 / ES /2016 [facility] ELECTROLYT CO2 26 24 - 32 12/ ES /2016 [facility] ELECTROLYT Potassium 4.1 3.5 - 5.1 12/10 ES Lvl /2016 [facility] ELECTROLYT Creatinine 0.90 0.50 - 09/21 ES Lvl 1.40 /2016 [facility] ELECTROLYT Sodium Lvl 139 135 - 145 / ES /2016 [facility] ELECTROLYT Calcium Lvl 8.8 8.5 - 10.5 12 ES /2016 [facility] ELECTROLYT BUN 27 7 - 22 12/ ES /2016 [facility] ELECTROLYT Glucose Lvl 189 70 - 99 09/21 ES /2016 [facility] HEMATOLOGY RDW 14.6 11.5 - 09/21 14.5 /2016 [facility] HEMATOLOGY MPV 9.7 7.4 - 10.4 09/21 [facility] HEMATOLOGY Platelet 238 133 - 450 09/21 [facility] HEMATOLOGY Hgb 15.1 14.0 - 09/21 18.0 /2016 [facility] HEMATOLOGY Hct 45.7 42.0 - 12 54.0 /2017 [facility] HEMATOLOGY MCHC 33.1 32.0 - 12 36.0 /2016 [facility] HEMATOLOGY MCH 29.5 27.0 - 09/21 31.0 /2017 [facility] HEMATOLOGY MCV 89.1 80.0 - 09/21 94.0 /2017 [facility] HEMATOLOGY RBC 5.13 4.70 - 09/21 MH 6.10 /2016 [facility] HEMATOLOGY WBC 16.7 3.7 - 10.4 09/21 [facility] HEMATOLOGY Basophils # 0.1 0.0 - 0.2 09/21 [facility] HEMATOLOGY Eosinophils 0.2 0.0 - 0.5 /10 MH # /2017 [facility] HEMATOLOGY Segs 74.2 45.0 - 12 MH 75.0 /2016 [facility] HEMATOLOGY Eosinophils 1.5 0.0 - 4.0 09/21 [facility] HEMATOLOGY Monocytes 7.9 2.0 - 12.0 09/21 [facility] HEMATOLOGY Segs-Bands # 12.4 1.5 - 8.1 09/21 [facility] HEMATOLOGY Basophils 0.5 0.0 - 1.0 09/21 [facility] HEMATOLOGY Monocytes # 1.3 0.0 - 0.8 09/21 [facility] HEMATOLOGY Lymphocytes 2.7 1.0 - 5.5 09/21 # /2017 [facility] HEMATOLOGY Lymphocytes 15.9 20.0 - 09/21 40.0 /2017 [facility] TOXICOLOGY Vanco Tr 9.0 09/20 [facility] TOXICOLOGY Vanco Tr TND [id number] 09/20 [facility] CHEM PANEL Lactic Acid 1.3 0.5 - 2.2 09/18 Lvl [facility] CHEM PANEL Lactic Acid 1.3 0.5 - 2.2 09/18 Lvl [facility] URINE AND UA Blood Moderate Negative 09/16 STOOL *ABN* /2016 [facility] (09/15/17 11:10 PM) URINE AND UA Bili Negative Negative 09/16 STOOL *NA* /2016 [facility] (09/15/17 11:10 PM) URINE AND UA Glucose Negative Negative 09/16 STOOL mg/dL mg/dL [facility] URINE AND UA Protein 30 mg/dL Negative 09/16 STOOL mg/dL [facility] URINE AND UA Ketones Negative Negative 09/16 STOOL mg/dL mg/dL [facility] URINE AND UA pH 5.0 5.0 - 8.0 09/16 STOOL [facility] URINE AND UA Spec Grav 1.021 <=1.030 09/16 STOOL [facility] URINE AND UA Turbidity Slight Clear 09/16 STOOL *ABN* /2016 [facility] (09/15/17 11:10 PM) URINE AND UA Nitrite Negative Negative 09/16 STOOL (09/15/17 11:10 PM) [facility] URINE AND UA 2.0 0.1 - 1.0 09/16 STOOL Urobilinogen /2016 [facility] URINE AND UA Leuk Est Negative Negative 09/16 STOOL (09/15/17 11:10 PM) /2016 [facility] URINE AND UA Color Yellow 09/16 STOOL [facility] URINE AND Micro? Performed 09/16 STOOL *NA* /2016 [facility] (09/15/17 11:10 PM) URINE AND UA Hyal Cast 1 0 - 2 09/16 STOOL [facility] URINE AND UA RBC 56 0 - 2 09/16 STOOL [facility] URINE AND UA Mucus Few /LPF None Seen 09/16 STOOL /LPF /2016 [facility] URINE AND UA WBC 5 0 - 5 09/16 MH STOOL [facility] URINE AND UA Sq Epi Occasional Few /LPF 09/16 MH STOOL /LPF /2016 [facility] CHEM PANEL Phosphorus 3.1 2.5 - 4.5 09/15 [facility] CHEM PANEL Magnesium 2.1 1.8 - 2.4 09/15 MH Lvl [facility] HEMATOLOGY Basophils 0.6 0.0 - 1.0 09/15 [facility] HEMATOLOGY Basophils # 0.1 0.0 - 0.2 09/15 [facility] PARATHYROI Ca Ion WB 1.02 1.05 - 09/15 MH D PROFILE . [facility] PARATHYROI Ca Norm WB 1.05 1.05 - 09/15 MH D PROFILE 11.06 [facility] CARDIAC Troponin-I <0.02 0.00 - 09/14 MH ENZYMES 0. [facility] CHEM PANEL Phosphorus 2.8 2.5 - 4.5 09/14 [facility] CHEM PANEL Magnesium 2.3 1.8 - 2.4 09/14 Lvl [facility] PARATHYROI Ca Norm WB 1.08 1.05 - 09/14 MH D PROFILE . [facility] PARATHYROI Ca Ion WB 1.08 1.05 - 09/14 MH D PROFILE . [facility] BACTERIAL MRSA by PCR Negative 09/14 MH - SEROLOGY (09/13/17 6:11 PM) /2016 [facility] DRUG U Lisa Scr Negative Negative 09/14 MH SCREEN *NA* [facility] (09/13/17 6:11 PM) DRUG U Amph Scr Negative Negative 09/14 MH SCREEN *NA* [facility] (09/13/17 6:11 PM) DRUG U Benzodia Negative Negative 09/14 MH SCREEN Scr *NA* [facility] (09/13/17 6:11 PM) DRUG U Opiate Scr Negative Negative 09/14 MH SCREEN *NA* [facility] (09/13/17 6:11 PM) DRUG U Cannab Scr Negative Negative 09/14 MH SCREEN *NA* [facility] (09/13/17 6:11 PM) DRUG U Cocaine Positive Negative 09/14 MH SCREEN Scr *ABN* [facility] (09/13/17 6:11 PM) DRUG UDS Note See Note 09/14 MH SCREEN (09/13/17 6:11 PM) /[facility] [place] [facility] Propoxyph Negative Negative 09/14 SCREEN Scr *NA* /2016 [facility] (09/13/17 6:11 PM) DRUG U Phencyc Negative Negative 09/14 SCREEN Scr *NA* /2016 [facility] (09/13/17 6:11 PM) DRUG U Methadone Negative Negative 09/14 SCREEN Scr *NA* /2016 [facility] (09/13/17 6:11 PM) CARDIAC Troponin-I <0.02 0.00 - 09/13 ENZYMES 0.40 [facility] CHEM PANEL Bili Direct 0.1 0.0 - 0.3 09/13 [facility] CHEM PANEL AST 11 0 - 37 09/13 [facility] CHEM PANEL Alk Phos 83 39 - 136 09/13 [facility] CHEM PANEL Albumin Lvl 3.2 3.5 - 5.0 09/13 [facility] CHEM PANEL Bili Total 0.4 0.2 - 1.3 09/13 [facility] CHEM PANEL ALT 26 0 - 65 09/13 [facility] CHEM PANEL Total 7.5 6.4 - 8.4 09/13 Protein [facility] CHEM PANEL A/G Ratio 0.7 0.7 - 1.6 09/13 [facility] CHEM PANEL Globulin 4.3 2.7 - 4.2 09/13 [facility] CHEM PANEL B/C Ratio 16 6 - 25 09/13 [facility] LIPIDS VLDL 18 09/13 [facility] LIPIDS Chol 118 <=199 09/13 mg/dL [facility] LIPIDS HDL 58 >=61 mg/dL 09/13 [facility] LIPIDS Trig 92 <=149 09/13 mg/dL [facility] LIPIDS LDL 42 <=99 mg/dL 09/13 (Calculated) [facility] LIPIDS CHD Risk 2.03 4.00 - 09/13 7.30 /2016 [facility] SPECIAL Hgb A1C 8.8 <=5.6 % 09/13 CHEMISTRY /2016 [facility] URINE AND UA Color Ltyellow 09/13 STOOL [facility] URINE AND UA <=1.0 0.1 - 1.0 09/13 STOOL Urobilinogen [facility] URINE AND UA Ketones Negative Negative 09/13 STOOL mg/dL mg/dL [facility] URINE AND UA Protein Negative Negative 09/13 STOOL mg/dL mg/dL [facility] URINE AND UA Glucose 500 mg/dL Negative 09/13 STOOL mg/dL [facility] URINE AND UA Spec Grav 1.022 <=1.030 09/13 STOOL [facility] URINE AND UA pH 5.0 5.0 - 8.0 09/13 STOOL [facility] URINE AND UA Turbidity Clear Clear 09/13 STOOL (09/13/17 10:40 AM) [facility] URINE AND UA Mucus Few /LPF None Seen 09/13 STOOL /LPF [facility] URINE AND UA Leuk Est Small Negative 09/13 STOOL *ABN* /2016 [facility] [facility] (09/13/17 10:40 AM) URINE AND UA Sq Epi Occasional Few /LPF 09/13 STOOL /LPF [facility] URINE AND UA WBC 13 0 - 5 09/13 STOOL [facility] URINE AND UA RBC 81 0 - 2 09/13 [facility] URINE AND UA Bili Negative Negative 09/13 STOOL *NA* [facility] (09/13/17 10:40 AM) URINE AND UA Blood Large Negative 09/13 STOOL *ABN* [facility] (09/13/17 10:40 AM) URINE AND UA Nitrite Negative Negative 09/13 [facility] (09/13/17 10:40 AM) [facility] Pathology Reports No Data Provided for This Section Diagnostic Reports Report Value Date Source Chest Pulmonary Study: Chest Pulmonary Embolism CTA 09/22/2017 [facility] Embolism CTA Clinical Indication: - resp failure.sob. injected 100ml of omnipaque 350 via IV. DLP: 847.79 mGy-cm; Comparison: Chest x-ray performed on 09/18/2017 TECHNIQUE: Multiple axial CT images of the chest were acquired following the administration of intravenous contrast according to the pulmonary embolism protocol. Multiplanar and three-dimensional reformatted images were performed. Dose: DLP = 847.79 mGy-cm FINDINGS: The cardiac chambe rs and pericardium are unremarkable. Aortic arch calcification is present. There are no segmental pulmonary emboli noted. The main, right, and left pulmonary arteries are nor mal. No thoracic aortic ane urysm or dissection is seen. No pathologic mediastinal, hilar, or axillary adenopathy is seen. No endobronchial lesions are identified within the central airways. Dependent consolidations in the bilate ral lower lobes as well as right middle lobe are seen, compatible with atelectasis. Asymmetric elevation of the right hemidiaphragm is seen.No pleural effusion or pneumothora x is seen. The superficial s oft tissues of the chest wall are unremarkable. No suspicious osseous lesions are seen. Limited views of the upper a bdomen show a percutaneous gastrostomy tube tip in the stomach. Changes of cholecystectomy are seen. IMPRESSION: 1. No evidence of pulmonary emboli. 2. Bibasilar and right middle lobe atelectasis. SL: SLEE-PC Chest 1view DX Clinical Indication: Pneumonia - PNA; 09/18/2017 [facility] Comparison: 09/15/2017 FINDINGS: Single AP chest radiograph s hows decreased lung volumes with newly appearing left perihilar opacity. No pleural effusions or pneumothorax. Cardiac silhouette size chloé ins enlarged. The trachea is midline. There are no clinically significant osseous abnormalities noted. Previously described enteric feeding tube has been removed. IMPRESSION: Newly appearing left perihil ar opacity. In the appropriate clinical context, infection may be considered SL: WHWANG-PC Chest 1view DX Study: Frontal chest x-ray c ompared to prior study from the same day 09/15/2017 [facility] History: Abnormal chest sounds Comments: The trachea is midline. The cardiomediastinal si lhouette is enlarged. Perihilar and right lung lung base interstitial opacities are unchanged. No pleural effusions or pneumothorax. Feeding tu be tip in the stomach Impression: Perihilar and right lung lung base interstitial opacities are unchanged. Brain wo contrast CT Patient Name: ROBERT HARDY 09/15/2017 [facility] : 1960; Age: 57 years y/o Male MR: [id number] Study: Brain wo contrast CT 09/15/2017 8:29 AM CS T Ordering Physician: Flaco Rocha MD Clinical Indication: Stroke, f/u stroke, rt side weakness,hx of CAD, diabetes, [id number] - Stroke, f/u stroke, rt side weakness,hx of CAD, diabetes, [id number]; Comparison: 09/13/2017 TECHNIQUE: CT images were ob tained from the foramen magnum to the vertex without the use of intravenous contrast on a multidetector CT. Coronal and sagittal reconstructions were obtained. CT radiation dose DLP: 759 mGy-cm FINDINGS: Evolving nonhemorrhagic infa rct in the left MCA distribution involving cortex [...] The ventricles are stable. The posterior fossa i s unremarkable. The paranasal sinuses and mastoids are clear. If there is further concern, reassessment with an MRI of the brain should be considered. IMPRESSION: Evolving large left MCA infarct without hemorrha gic transformation. 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 Lungs: The perihilar and rig ht lung base interstitial opacities are unchanged, which may represent interstitial edema or pneumonia. No significant effusion or pneumothorax. Mediastinum: The cardiac silhouette is moderatel y enlarged. Midline trachea. Bones and soft tissues: No acute abnormalities. IMPRESSION: Interval placement of a Dobb bee tube. Otherwise, no significant change since 09/13/2017. SL: [id number] Abdomen AP DX Clinical Indication: bee placement - bee placement. 09/13/2017 [facility] Comparison: None. FINDINGS: The AP supine view of the ab domen shows a non-obstructive bowel gas pattern. There is no abnormal dilatation of bowel loops. There is no pneumatosis or mass effect. There are no radiopaque densities not ed. There are no acute osseo us abnormalities noted. Feeding tube extends into the gastric fundus. IMPRESSION: 1. Unremarkable 1 view abdomen. SL: MGLASER-M Brain wo contrast MRI Patient Name: ROBERT HARDY 09/13/2017 [facility] : 1988; Age: 29 years y/o Male MR: [id number] Study: Brain wo contrast MRI 09/13/2017 9:[address] Ordering Physician: Arnulfo Chun MD Clinical Indication: stroke; pt confused, pt moved, repeated Sag T1 Flair Blade Comparison: None TECHNIQUE: Multiplanar MRI o f the brain is performed on a 1.5 Rosa magnet. Contrast: None. FINDINGS: BRAIN PARENCHYMA: Increased signal is seen about the left sylvian fissure, left lateral temporal lobe and throughout large portion of the left lateral frontal parietal lobe. There are also areas of inc reased signal on diffusion-w eighted imaging in the posterior left basal ganglia, posterior lateral left occipital lobe and posterior parietal occipital lobe. Findings are consistent with large area of a cute left MCA infarct. Acute infarction is also seen on diffusion-weighted imaging in the left caudate head. No other evidence for an acute infarction. No other abnormal areas of signal intensity identi fied about the brain. No si gnificant extra-axial fluid collection, mass effect or shift. CEREBELLOPONTINE REGIONS AND SKULL BASE: The craniocervical junction, skull base and pituitary gland are unremarkable. Cerebellar pontine angles unremarkable bilaterally. VENTRICLES: The ventricles are within normal [place] its for the patient's age. VESSELS: Poor flow void is s een to the left internal carotid artery consistent with slow flow or occlusion. Otherwise normal flow-voids identified in the major vessels at the base of the brain. ORBITS, VISUALIZED PARANASAL SINUSES AND MASTOIDS: Small amount of left maxillary and bilateral ethmoid sinus disease. IMPRESSION: 1. Large acute left MCA infarct with acute infar ct to the left caudate head. 2. Poor flow void left inter nal carotid artery consistent with slow flow or occlusion. 3. Small amount of left maxillary and bilateral ethmoid sinus disease. SL: CSODERSBRITTANYOM-SHARON Brain/Neck CTA STUDY: Brain/Neck CTA 09/13/2017 9:01 AM CUSTOMS DIRECTOR 11/2016 [facility] Ordering Physician: Arnulfo Chun MD Patient Name: ROBERT HARDY MR: [id number] : 1988; Age: 29 years y/o Male Clinical Indication: - Acut e left MCA stroke. Altered mental status./ DLP 1284.21 mGycm, gave 100 ml visipaque 320 IV injection Comparison: None TECHNIQUE: Sequential trans- axial images of the head and neck were obtained with a multi-detector helical CT after iodinated contrast administration. Additionally, two-dimensional and three-dimensional reformatted images were prepared. CTA NECK: VASCULAR EVALUATION Aortic arch and great vessel origins: No significant atherosclerosis, narrowing, aneurysm, or dissection. Brachiocephalic trunk: No si gnificant atherosclerosis, narrowing, aneurysm, or dissection. Subclavian arteries: No sign ificant narrowing in the visualized portions after accounting for mild artifact. Right carotid artery: Normal caliber right common carotid artery. Mild calcified plaque at the right carotid bifurcation and internal carotid artery origin causing mild narrowing estimated at 20% at max imum. The remaining cervical portions of the right internal carotid artery are normal. Left carotid artery: The lef t common carotid artery is normal. Mild calcified plaque is seen at the left carotid bifurcation. The left internal carotid artery is occluded at the origin Vertebral arteries: No significant atheroscleros is, narrowing, or dissection. Any reported ICA stenosis di rectly references the distal internal carotid diameter as the denominator for stenosis measurement. NON-VASCULAR STRUCTURES: Soft tissues: No significant abnormality or mass . Lymphadenopathy: Scattered s ubcentimeter bilateral cervical lymph nodes without lymphadenopathy. Airway: Clear. Visualized lung apices: Clear. Osseous structures: Moderate cervical spondylosi s and facet arthrosis. CTA HEAD: ANTERIOR CIRCULATION Internal carotid arteries: T he right internal carotid artery siphon is normal. Mild flow is seen distally in the left carotid siphon likely representing crossflow through the [place] of [place]. Middle cerebral arteries: Th e right MCA is normal. The M1 segment of the left MCA is smaller in caliber than the right MCA likely related to poor inflow and/or true stenosis. Decreased arborization is s een within the left MCA dist ribution with occlusion of some small M2 and M3 branches at the site of acute infarction. Anterior cerebral arteries: No focal stenosis or aneurysm. Normal anterior communicating artery. POSTERIOR CIRCULATION Vertebrobasilar system: No focal stenosis or ane urysm. Posterior cerebral arteries: No focal stenosis o r aneurysm. Superior cerebellar arteries: Normal in appearan ce. AICA: Normal in appearance. PICA: Normal in appearance. BRAIN PARENCHYMA: 1. The brain volume and davon tricle size remain appropriate for age. A large area of low-attenuation is seen at the site of known acute left MCA distribution infarction confirmed on recent MR. 2. No evidence of acute int racranial hemorrhage, mass lesion, mass effect, midline shift, or extra-axial fluid collection. 3. Postcontrast images demonstrate no abnormal enhancement. VENTRICLES: The lateral vent ricles, third ventricle, fourth ventricle, and basilar cisterns are appropriate for degree of atrophy present. PARANASAL SINUSES: Mild muco periosteal thickening in the ethmoid sinus and left maxillary. The visualized portions of the remaining paranasal sinuses are clear. MASTOIDS: Clear. ORBITS: The visualized portions of the orbits ar e normal. SOFT TISSUES: No significant abnormality. SKULL: No acute fracture or suspicious osseous l esion. IMPRESSION: 1. Occlusion of the left in ternal carotid artery at the origin possibly representing underlying dissection. Mild flow is seen distally in the left internal carotid artery siphon related to cross flow through the [place] of [place]. 2. Reduced size mildly irre gular left M1 segment consistent with poor inflow and/or stenosis. Decreased arborization is seen more peripherally in the left MCA with loss of small M2 and M3 branches at the site of known infarction. 3. Acute left MCA distribution infarction. 4. Mild chronic sinusitis. SL: [id number] Chest 1view DX Clinical Indication: CVA - CVA; 09/13/2017 [facility] Comparison: None FINDINGS: The portable AP single view radiograph provided for review. The exam demonstrates limite d decreased lung volumes with the accentuated vascular as well as bibasilar interstitial hazy opacity right greater than left. No effusions or pneumothorax. Heart appears mil dly enlarged. Osseous structures are unremarkabl e. IMPRESSION: Limited decreased lung volum es with mild cardiac enlargement and accentuated vascular and bibasilar interstitial opacities right greater than left possibly of atelectasis, correlate for superimposed process SL: [id number] Consultation Notes No Data Provided for This Section Discharge Summaries No Data Provided for This Section History and Physicals No Data Provided for This Section Vital Signs Vital Sign Value Date Comments Source Heart Rate 73 09/24/2017 [facility] Respitory Rate 24 09/24/2017 [facility] Systolic (mm Hg) 135 09/24/2017 [facility] Diastolic (mm Hg) 85 09/24/2017 [facility] Respitory Rate 26 09/24/2017 [facility] Heart Rate 76 09/24/2017 [facility] Systolic (mm Hg) 150 09/24/2017 [facility] Diastolic (mm Hg) 74 09/24/[address] [facility] Systolic (mm Hg) 132 09/24/2017 [facility] t Diastolic (mm Hg) 82 09/24/2017 [facility] Heart Rate 71 09/24/2017 [facility] Respitory Rate 18 09/24/2017 [facility] Temperature Oral (F) 98.1 F 09/24/2017 [facility] Temperature Oral (F) 98.6 F 09/24/2017 [facility] Temperature Oral (F) 98.2 F 09/23/2017 [facility] Height 180.34 cm 09/13/2017 [facility] BMI Calculated 37.51 09/13/2017 [facility] Weight 122.008 09/13/2017 [facility] Weight 122.008 09/13/2017 [facility] BMI Calculated 38.59 09/13/2017 [facility] Height 177.8 cm 09/13/2017 [facility] Encounters Location Location Encounter Encounter Reason Attending ADM DC Stat us Source Details Type Number For Provider Date Date Visit [facility] [id number] [place] 09/13 09/25 [place] [facility]2016 [facility] Procedures Procedure Code Date Perfomer Comments Source Coronary heart [id number] [facility] disease monitoring DIGAMI - diabetes [id number] [facility] mellitus insulin-glucose infusion in acute myocardial infarction On treatment for [id number] [facility] hypertension PTCA - [id number] [facility] Percutaneous transluminal coronary angioplasty Assessment and Plan Assessment and Plan Date Source Extracted from:Title: Clinical Document 09/25/2017 [facility] Author: Eric Dukes MD Date: 09/24/17 * Final Report * Interval hx: Discussed with spouse at bedside No vomiting Tolerating tube feeds. HISTORY OF PRESENT ILLNESS: Patient is a 57-year-old male with past medical history of hypertension, morbid obesity, PTCA with stent, who was brought in because of right-sided extremity weakness. Patient was noted to have slow sp eech. Initially EMS was called and arri hal, the patient was to be taken to the hospital. He refused to go to the ER. The , while he slept, he had another episode of slow speech and weakness of th e extremities. He therefore called 911 and was brought into the hospital. Reason for GI consult is PEG tube placement, dysphagia. The patient has no fever, no chills, no overt bleed. PAST MEDICAL HISTORY: Hypertension, diabetes, PTCA with stent. MEDICATIONS: Hydralazine, insulin, labetalol. FAMILY HISTORY: None. SOCIAL HISTORY: No history of smoking or alcohol abuse. REVIEW OF SYSTEMS: A 14-point review normal except as documented. PHYSICAL EXAMINATION: GENERAL: He was afebrile. HEENT: Anic teric. No jugular venous distention. OROPHARYNX AND NECK: Supple. CHEST: Clear. CARDIOVASCULAR SYSTEM: S1, S2. ABDOMEN: Soft, nondistended, no organomegaly. CENTRAL NERVOUS SYSTEM: Alert. LABORATORY DATA: Hemoglobin was 16.1, hematocrit 48.0, wh ite count of 17.9. Repeat white count was 15.5 . ASSESSMENT AND PLAN: 1. Patient is a 57-year-old male with h istory of drug abuse. The patient's cocaine was positive in the urine, comes in with acute CVA. S/p pEG 2. Hypertension. Continue antihypertensives. 3. Diabetes mellitus. Continue current management. : Extracted from:Title: neuro ICU HPI Author: Radha Artis MD Date: 09/13/17 Impression and Plan IMPRESSION: Acute left MCA ischemic stroke L ICA occlusion Cerebral edema Brain compression R hemiparesis Global aphasia Hypertension CAD s/p stents DM, uncontrolled Medication noncompliance Cocaine abuse Obesity NEURO: - Close neuromonitoring in ICU - At risk for life threatening neurologic deterioration - Q1H neurochecks - start HTS if develops worsening cerebral edema - HOB elevated - premissive HTN <220/120 - MRI brain - CTA head/neck - Aspirin - statin - PT/OT/ Speech - EKG/CE X 2/ ECHO - lIPID PANEL/ Hba1c CV: h/o cardiac stents, not compliant with aspirin HTN Cocaine abuse - Permissive HTN - BP goal < 220/120 mm hg - Labetalol prn - ekg/ echo Resp: - Maintaining good O2 sats on RA - o2 per protocol - monitor airway protection, at risk for intubation GI: - DHT - Speech eval - start TF - bowel regimen Renal: - Na 139 - Cr 1.1 - IVF 75/hr - maintain normonatremia Heme: - Hgb 15.5 - sq heparin ID: - afebrile - No abx Endo: - HgbA1C - SSI - normoglycemia goal The patient is critically ill and at [facility] for life threatening organ failure. I personally spent 85 minutes examining, assessing, reviewing labs and images, discussing with family and administering treatment. Plan of Care No Data Provided for This Section Social History Social History Date Source Social History TypeResponse 09/13/2017 [facility] Alcohol Never Smoking Status Heavy tobacco smoker; Type: Cigarettes; Previous treatment: None; Ready to change: No; Concerns about tobacco use in household: No; Exposure to Tobacco Smoke None; Cigarette Smoking Last 365 Days Yes; R eg Smoking Cessation Counseling No; Number of years: 20; Family History No Data Provided for This Section Advance Directives No Data Provided for This Section Functional Status No Data Provided for This Section
--- OUTSIDE RECORDS SUMMARY | 2020-02-21 12:12 | XMS REPORT ---
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 Problem Pure hypercholesterolemia E78.00 Ac tive Problem History of CVA (cerebrovascular Z86.73 Active accident) Problem Urinary incontinence, unspecified R32 Active type Problem Elevated alkaline phosphatase level R74.8 Active Problem Pressure injury of right ankle, L89.512 Active stage 2 Problem Type 2 diabetes mellitus without E11.9 Active complication, without long-term current use of insulin Problem Incontinence of feces, unspecified R15.9 Active fecal incontinence type Problem Abnormal liver function tests R94.5 Active Medications Medication Code Code Instructions Start End Date Status Dosage System Date Lancets [facility] [id number] - as directed Oct 21, Active as dir ected test bs once 2019 daily Blood Glucose ND 87885282138 w/Device use Oct 21, Active as directed Monitor System once daily 2019 blood glucose ND 0 n/s as directed Oct 21January Active on e test strip once a day 2019 Results No Known Results Summary Purpose [employer] Submission
--- OUTSIDE RECORDS SUMMARY | 2020-02-21 12:12 | XMS REPORT ---
:1960 Author Organization [employer] Care Team Providers Name Role Phone Valeria Salgado Provider Role Unavailable Allergies, Adverse Reactions, Alerts Substance Reaction Event Type PCN Info Not Available Drug Allergy Problems Problem Type Condition Code Onset Dates Condition Statu s Problem Essential hypertension I10 Activ e Problem Cerebrovascular accident (CVA), I63.9 Active unspecified mechanism Problem Other sequelae of cerebral I69.398 A ctive infarction Problem History of CVA (cerebrovascular Z86.73 Active accident) Assessment Incontinence of feces, unspecified R15.9 Active fecal incontinence type Problem Urinary incontinence, unspecified R32 Active type Assessment Hemiplegia following CVA I69.359 Act diana (cerebrovascular accident) Assessment History of CVA (cerebrovascular Z86.73 Active accident) Problem Elevated alkaline phosphatase level R74.8 Active Problem Pressure injury of right ankle, L89.512 Active stage 2 Problem Type 2 diabetes mellitus without E11.9 Active complication, without long-term current use of insulin Problem Incontinence of feces, unspecified R15.9 Active fecal incontinence type Problem Abnormal liver function tests R94.5 Active Assessment Abnormal liver function tests R94.5 Active Assessment Type 2 diabetes mellitus without E11.9 Active complication, without long-term current use of insulin Assessment Urinary incontinence, unspecified R32 Active type Assessment Elevated alkaline phosphatase level R74.8 Active Problem PEG (percutaneous endoscopic Z93.1 Active gastrostomy) status Problem Hemiplegia following CVA I69.359 Act diana (cerebrovascular accident) Assessment Essential hypertension I10 Activ e Problem Diabetes 1.5, 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 Assessment Other sequelae of cerebral I69.398 A ctive infarction Problem Pure hypercholesterolemia E78.00 Ac tive Medications Medication Code Code Instructions Start End Status Dosage System Date Date Lisinopril ND 02153752237 5 Orally Once a Active 1 tablet day Bactroban ND 93763421895 2 % Externally Oct 24, Active Jeremie ly to BID 2018 affected area Atorvastatin ND 15060960638 20 mg Active TAKE 1 Calcium TABLET BY MOUTH EVERY NIGHT AT BEDTIME Aspirin ND 31069875634 81 MG Orally Active 1 table t Once a day Silace [facility][NOTE 3] 89936747510 60 MG/15ML via Active 7.5 m l as G tube Twice a needed day Lisinopril [facility][NOTE 3] 30477880749 5 MG Orally March 30, Active 1 ta blet Once a day 2018 Seroquel [facility][NOTE 3] 49198098264 25 MG Orally May 29, Active 1 tabl et Once a day in 2018 evening Atorvastatin [facility][NOTE 3] 55093059549 20 MG Orally Active 1 tablet Calcium Once daily in evening Omeprazole [facility][NOTE 3] 02168681407 40 MG Orally Active 1 ca psule Once a day Results Name Result Date Reference Range Unit Abnormali ty Flag GLUCOSE FINGER ----Result 81--RBS [id number] Summary Purpose eClinicalWorks Submission
--- OUTSIDE RECORDS SUMMARY | 2020-02-21 12:12 | XMS REPORT ---
[...] function tests R94.5 Active Medications Medication Code System Code Instructions Start Date End Date Status Dosage Glucometer [facility] [id number] n/s n/s use as Oct 15, Active on e 2019 Results No Known Results Summary Purpose [facility]
--- OUTSIDE RECORDS SUMMARY | 2020-02-21 12:12 | XMS REPORT ---
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 Problem Hemiplegia following CVA I69.359 Act diana (cerebrovascular accident) Assessment Type 2 diabetes mellitus without E11.9 Active complication, without long-term current use of insulin Assessment Essential (primary) hypertension I10 Active Assessment Hemiplegia following CVA I69.359 Act diana (cerebrovascular accident) Assessment Cerebrovascular accident (CVA), I63.9 Active unspecified mechanism Problem Type 2 diabetes mellitus without E11.9 Active complication, without long-term current use of insulin Problem Essential (primary) hypertension I10 Active Problem Pressure injury of right ankle, L89.512 Active stage 2 Problem PEG (percutaneous endoscopic Z93.1 Active gastrostomy) status Problem Pure hypercholesterolemia E78.00 Ac tive Problem Other sequelae of cerebral I69.398 A ctive infarction Problem Cerebrovascular accident (CVA), I63.9 Active unspecified mechanism Medications Medication Code Code Instructions Start End Status Dosage System Date Date Lisinopril ND 44381466721 5 Orally Once a Active 1 tablet day Atorvastatin ND 12474893134 20 Active TAKE 1 Calcium TABLET BY MOUTH AT BEDTIME BEFORE BEDTIME Aspirin ND 91048208889 81 MG Orally Active 1 table t Once a day Bactroban ND 26981606387 2 % Externally Oct 24, Active Jeremie ly to BID 2019 affected area Omeprazole ND 94026716019 40 MG Orally Active 1 ca psule Once a day Seroquel ND 76042483755 25 MG Orally May 29, Active 1 tabl et Once a day 2018 Silace ND 19212437917 60 MG/15ML via Active 7.5 m l as G tube Twice a needed day Lisinopril ND 61465482007 5 MG Orally March 30, Active 1 ta blet Once a day 2018 Results No Known Results Summary Purpose eClinicalWorks Submission
--- OUTSIDE RECORDS SUMMARY | 2020-02-21 12:12 | XMS REPORT ---
:1960 Author Organization [facility] t Address [facility] [address] [place] [address] Care Team Providers Name Role Phone Unavailable Unavailable Unavailable Problems Condition Condition Condition Status Onset Resolution Last Treatin g Comments Name Details Category Date Date Treatment Clinician Date Pure Pure Problem Active hypercholes hypercholes terolemia terolemia PEG PEG Problem Active (percutaneo (percutaneo 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 Other Other Problem Active sequelae of sequelae of cerebral cerebral infarction infarction Cerebrovasc Cerebrovasc Problem Active ular ular accident accident (CVA), (CVA), unspecified unspecified mechanism mechanism Type 2 Type 2 Diagnosis Active diabetes diabetes mellitus mellitus without without complicatio complicatio n, without n, without long-term long-term current use current use of insulin of insulin Pressure Pressure Problem Active injury of injury of right right ankle, ankle, stage 2 stage 2 History of History of Problem Active CVA CVA (cerebrovas (cerebrovas cular cular accident) accident) Incontinenc Incontinenc Problem Active e of feces, e of feces, unspecified unspecified fecal fecal incontinenc incontinenc e type e type Urinary Urinary Problem Active incontinenc incontinenc e, e, unspecified unspecified type type Elevated Elevated Problem Active alkaline alkaline phosphatase phosphatase level level Abnormal Abnormal Problem Active liver liver function function tests tests Discolorati Discolorati Diagnosis Active on of skin on of skin of foot of foot Onychomycos Onychomycos Problem Active is is Cold feet Cold feet Problem Active Allergies, Adverse Reactions, Alerts Allergy Allergy Status Severity Reaction(s) Onset Inactive Treating C omments Name Type Date Date Clinician PCN Adverse Active Info Not Reaction Available Medications Ordered Filled Start Stop Current Ordering Indication Dosage Frequency Signature Comments Components Medication Medication Date Date Medication? Clinician (SIG) Name Name Metformin Metformin Yes Valeria 1 tablet HCl HCl 1-31 Millender with a 00:00: meal 00 Lancets Lancets Yes Valeria as 1-09 Millender directed 00:00: 00 Blood Blood 2019-0 Yes Valeria as Glucose Glucose 1-09 Millender directed Monitor Monitor 00:00: System System 00 blood blood 2019-0 2020- No Valeria one glucose glucose 10-21 04-03 Millender test strip test strip 00:00: 00:00 00 :00 Glucometer Glucometer 2019-0 Yes Valeria one 1-03 Millender 00:00: 00 Bactroban Bactroban 2018-0 Yes Valeria Apply to 1-12 Millender affected 00:00: area 00 Seroquel Seroquel 2018-0 Yes Valeria 1 tablet 8-17 Millender 00:00: 00 Lisinopril Lisinopril 2017-0 Yes Valeria 1 tablet 6-18 Millender 00:00: 00 Aspirin Aspirin Yes Valeria 1 tablet Millender Silace Silace Yes Vaelria 7.5 ml as Millender needed Omeprazole Omeprazole Yes Valeria 1 capsule Millender Lisinopril Lisinopril Yes Valeria 1 tablet Millender Atorvastati Atorvastati Yes Valeria TAKE 1 n Calcium n Calcium Millender TABLET B Y MOUTH EVERY NIGHT AT BEDTIME Atorvastati Atorvastati Yes Valeria 1 tablet n Calcium n Calcium Millender Encounters Start End Encounter Admission Attending Care Care Encounter Date/Time Date/Time Type Type Clinicians Facility Department ID 2019-12-15 2019-12-15 [id number] 11:30:00 11:30:00 [facility] 2019-11-30 2019-11-30 [id number] 10:40:00 10:40:00 [facility] 2019-11-29 2019-11-29 [facility] [id number] 02:06:00 02:06:00 [facility] 2019-11-09 2019-11-09 [facility] [id number] 10:00:00 10:00:00 [facility] 2019-11-05 2019-11-05 [facility] [id number] 10:15:00 10:15:00 [facility] 2019-10-21 2019-10-21 [facility] [id number] 15:46:00 15:46:00 [facility] 2019-10-20 2019-10-20 [facility] [id number] 10:55:00 10:55:00 [facility] 2019-10-14 2019-10-14 [facility] [id number] 13:30:00 13:30:00 [facility] 2019-10-10 2019-10-10 [facility] [id number] 18:31:00 18:31:00 [facility] 2019-10-08 2019-10-08 [facility] [id number] 14:30:00 14:30:00 [facility] 2019-08-09 2019-08-09 [id number] 09:45:00 09:45:00 [facility] 2019-07-06 2019-07-06 [facility] [id number] 10:45:00 10:45:00 [facility] 2019-04-02 2019-04-02 [facility] [id number] 13:15:00 13:15:00 [facility] 2018-12-11 2018-12-11 [facility] [id number] 10:30:00 10:30:00 [facility] 2018-10-30 2018-10-30 [facility] [id number] 10:15:00 10:15:00 [facility] 2018-10-24 2018-10-24 [facility] [id number] 17:45:00 17:45:00 [facility] 2018-09-24 2018-09-24 [facility] [id number] 13:30:00 13:30:00 [facility] 2018-07-21 2018-07-21 [facility] [id number] 10:13:00 10:13:00 [facility] 2018-05-29 2018-05-29 [facility] [id number] 09:00:00 09:00:00 [facility] 2018-04-07 2018-04-07 [facility] [id number] 13:04:00 13:04:00 [facility] 2018-03-30 2018-03-30 [facility] [id number] 09:30:00 09:30:00 [facility]
--- OUTSIDE RECORDS SUMMARY | 2020-02-21 12:13 | XMS REPORT ---
:1960 Author Organization eClinicalWorks Care Team Providers Name Role Phone Damian Valeria Provider Role Unavailable Allergies No Known Allergies [...] Abnormal liver function tests R94.5 Active Medications No Known Medications Results No Known Results Summary Purpose eClinicalWorks Submission
--- OUTSIDE RECORDS SUMMARY | 2020-02-21 12:13 | XMS REPORT ---
:1960 Author Organization eClinicalWorks Care Team Providers Name Role Phone Valeria Salgado Provider Role Unavailable Allergies No Known Allergies Problems Problem Type Condition Code Onset Dates Condition Statu s Problem Type 2 diabetes mellitus without E11.9 Active complication, without long-term current use of insulin Problem Abnormal liver function tests R94.5 Active Problem Pressure injury of right ankle, L89.512 Active stage 2 Problem Discoloration of skin of foot L81.9 Active Problem Cold feet R20.9 Active Problem Onychomycosis B35.1 Active Problem Elevated alkaline phosphatase level R74.8 Active Problem History of CVA (cerebrovascular Z86.73 Active accident) Problem Urinary incontinence, unspecified R32 Active type Problem Incontinence of feces, unspecified R15.9 Active fecal incontinence type Problem 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
--- OUTSIDE RECORDS SUMMARY | 2020-02-21 12:13 | XMS REPORT ---
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 00710796958 - as directed Oct 21, Active as dir ected test bs once 2019 daily blood glucose NDC 0 n/s as directed Oct 21January Active on e test strip once a day 2019 Bactroban ND 28807737287 2 % Externally Oct 24, Active Jeremie ly to BID 2018 affected area Metformin HCl ND 88858761869 500 MG Orally Nov 12, Active 1 tablet Once a day 2019 with a meal Aspirin ND 21304842384 81 MG Orally Active 1 table t Once a day Silace [facility] 12814489840 60 MG/15ML via Active 7.5 m l as G tube Twice a needed day Omeprazole [facility] 66838717488 40 MG Orally Active 1 ca psule Once a day Lisinopril [facility] 98160781310 5 MG Orally March 30, Active 1 ta blet Once a day 2018 Lisinopril [facility] 27035137079 5 Orally Once a Active 1 tablet day Atorvastatin [facility] 30040355666 20 mg Active TAKE 1 Calcium TABLET BY MOUTH EVERY NIGHT AT BEDTIME Atorvastatin [facility] 20041892211 20 MG Orally Active 1 tablet Calcium Once daily in evening Seroquel [facility] 24800958290 25 MG Orally May 29, Active 1 tabl et Once a day in 2017 evening Glucometer [facility] 81473035080 n/s n/s use as Oct 15, Active on e directed 2019 Blood Glucose [facility] 35574744981 w/Device use Oct 21, Active as directed Monitor System once daily 2019 Results Name Result Date Reference Range Unit Abnormali ty Flag HEMOGLOBIN A1C ----A1C 5.0% [id number] GLUCOSE FINGER ----Result 74--RBS [id number] Summary Purpose eClinicalWorks Submission
--- OUTSIDE RECORDS SUMMARY | 2020-02-21 12:13 | XMS REPORT ---
[...] Start End Date Status Dosage System Date Metformin HCl [facility] 78533408891 500 MG Orally Nov 12, Active 1 tablet Once a day 2019 with a meal Results No Known Results Summary Purpose eClinicalWorks Submission
--- OUTSIDE RECORDS SUMMARY | 2020-02-21 12:13 | XMS REPORT ---
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 Act diana (cerebrovascular accident) Assessment Cold feet R20.9 Active Assessment Discoloration of skin of foot L81.9 [...] Start End Date Status Dosage System Date Lisinopril ND 71043027768 5 Orally Once a Active 1 tablet day Lisinopril ND 87269745835 5 MG Orally March 30, Active 1 ta blet Once a day 2017 Glucometer [facility] 88154715452 n/s n/s use as Oct 15, Active on e directed 2019 Aspirin ND 40566026683 81 MG Orally Active 1 table t Once a day Omeprazole ND 27117406207 40 MG Orally Active 1 ca psule Once a day Bactroban ND 56508705038 2 % Externally Oct 24, Active Jeremie ly to BID 2019 affected area Atorvastatin [facility] 65736913589 20 mg Active TAKE 1 Calcium TABLET BY MOUTH EVERY NIGHT AT BEDTIME Blood Glucose [facility] 62637233071 w/Device use Oct 21, Active as directed Monitor System once daily 2019 Lancets ND 04335557535 - as directed Oct 21, Active as dir ected test bs once 2019 daily Seroquel [facility] 89040424767 25 MG Orally May 29, Active 1 tabl et Once a day in 2017 evening Silace [facility] 66331790381 60 MG/15ML via Active 7.5 m l as G tube Twice a needed day blood glucose ND 0 n/s as directed Oct 21January Active on e test strip once a day 2019 Atorvastatin [facility] 78760481845 20 MG Orally Active 1 tablet Calcium Once daily in evening Results No Known Results Summary Purpose eClinicalWorks Submission
--- OUTSIDE RECORDS SUMMARY | 2020-02-21 12:13 | XMS REPORT ---
:1960 Author Organization eClinicalWorks Care Team Providers Name Role Phone Kian Salgadoen Provider Role Unavailable Allergies No Known Allergies [...]
[2020-02-21 14:54] LABS: Absolute Lymphocytes (CBC) 1.9 K/uL (0.7-4.9); Basophils % 0.4 % (0-1.3); Hematocrit 49.5 % (39.6-49.0); Lymphocytes % 23.2 % (15.3-44.8); MPV 9.8 fL (7.6-11.3); RBC Red Blood Cell Count 5.27 M/uL (4.33-5.43)
[2020-02-21 15:01] LABS: ALT/SGPT 22 U/L (12-78); AST/SGOT 18 U/L (15-37); Alkaline Phosphatase 143 U/L (45-117); BUN Blood Urea Nitrogen 11 mg/dL (7-18); Bicarbonate 29 mmol/L (21-32); Bilirubin Direct 0.3 mg/dL (0-0.2); Glucose Level 73 mg/dL (74-106); Lipase 79 U/L (73-393); Protein, Total 9.2 g/dL (6.4-8.2); Sodium Level 137 mmol/L (136-145)
--- NOTE | 2020-02-21 16:14 | RAD REPORT ---
EXAM DESCRIPTION: CT - Abdomen Pelvis W Contrast - 02/21/2020 3:42 pm CLINICAL HISTORY: Abdominal pain COMPARISON: 2017 TECHNIQUE: Computed axial tomography of the abdomen pelvis was obtained. 100 cc Isovue-300 was admin istered intravenously. Oral contrast was not requested which limits evaluation of bowel. All CT scans are performed using dose optimization technique as appropriate and may include automated exposure control or mA/KV adjustment according to patient size. FINDINGS: The liver, spleen, pancreas, adrenal and kidneys appear unremarkable. There is no evidence of diverticulitis. Normal appendix. Prostate gland is moderately to markedly enlarged . Spondylosis involves lumbar spine resulting in spinal stenosis The wall of the rectum appears thickened Cholecystectomy. Percutaneous tube within stomach IMPRESSION: Apparent rectal wall thickening may be secondary to incomplete distention or pathology s uch as colitis
--- NOTE | 2020-02-21 16:30 | ER ---
Nurse's Notes [facility] Name: El Ventura Age: 59 yrs Sex: Male : 1960 Arrival Date: 02/21/2020 Time: 12:08 Bed 20 Private MD: Diagnosis: Constipation;Colitis Presentation: 02/20 12:23 Chief complaint: Spouse and/or significant other states: He's had a blockage before ca1 about 2 years ago. Medication and water goes through his peg tube. He eats through his mouth. He has had a BM x 10 days. Denies N.V. Denies abdl pain. Coronavirus screen: Proceed with normal triage. Patient denies a cough. Patient denies shortness of breath or difficulty breathing. Patient denies measured and/or subjective temperature greater than 100.4F prior to today's visit. Patient denies travel on a cruise ship or to a country the [facility] currently lists as an affected area. Patient denies contact with known and/or suspected case of COVID-19. Ebola Screen: Patient negative for fever greater than or equal to 101.5 degrees Fahrenheit, and additional compatible Ebola Virus Disease symptoms Patient denies exposure to infectious person. Patient denies travel to an Ebola-affected area in the 21 days before illness onset. No symptoms or risks identified at this time. Initial Sepsis Screen: Does the patient meet any 2 criteria? No. Patient's initial sepsis screen is negative. Does the patient have a suspected source of infection? No. Patient's initial sepsis screen is negative. Risk Assessment: Do you want to hurt yourself or someone else? Patient reports no desire to harm self or others. Onset of symptoms was February 21, 2020. 12:23 Method Of Arrival: Wheelchair ca1 12:23 Acuity: ROBERT 3 ca1 Historical: - Allergies: 12:26 PENICILLINS; ca1 - PMHx: 12:26 CAD; CVA; Diabetes - NIDDM; heart stents; High Cholesterol; Hypertension; ca1 - PSHx: 12:26 PEG tube placement; Cholecystectomy; ca1 - Immunization history:: Adult Immunizations up to date. - Social history:: Smoking status: Patient/guardian denies using tobacco, the patient reports quitting approximately 3 years ago. Screenin:53 Abuse screen: Denies threats or abuse. Denies injuries from another. Nutritional ls4 screening: No deficits noted. Tuberculosis screening: No symptoms or risk factors identified. Fall Risk None identified. Assessment: 14:00 General: Appears in no apparent distress. well groomed, Behavior is cooperative, spouse tw2 and caregiver reports "he normally doesn't talk after his stroke but we communicate and he lets me know what he wants by shaking his head". Pain: Noted to be quiet/stoic. Neuro: Level of Consciousness is awake, alert, Oriented to person. Cardiovascular: Heart tones S1 S2 Patient's skin is warm and dry. Respiratory: Airway is patent Respiratory effort is even, unlabored, Respiratory pattern is regular, symmetrical, Breath sounds are clear bilaterally. GI: PEG tube present, no s/s of infection noted around insertion site Bowel sounds present X 4 quads. Abd is soft X 4 quads Parent/caregiver reports the patient having constipation, "no BM in 10 days besides a small amount". : No signs and/or symptoms were reported regarding the genitourinary system. EENT: No signs and/or symptoms were reported regarding the EENT system. Derm: Skin is fragile, is thin, with poor turgor Skin is dry. Musculoskeletal: Circulation, motion, and sensation intact. Range of motion: limited in right shoulder, right elbow, right wrist, right hip and right knee. 15:55 Reassessment: Patient appears in no apparent distress at this time. No changes from tw2 previously documented assessment. Patient and/or family updated on plan of care and expected duration. Pain level reassessed. 16:54 Reassessment: Patient appears in no apparent distress at this time. No changes from tw2 previously documented assessment. Patient and/or family updated on plan of care and expected duration. Pain level reassessed. pt spouse states "i think he may have had a bm but i will clean him up", offered assistance at this time, pts spouse refused, "no honey thank you but i got it". Vital Signs: 12:23 BP 129 / 73; Pulse 64; Resp 18 S; Temp 98.6(TE); Pulse Ox 100% on R/A; Weight 68.04 kg ca1 (R); Height 5 ft. 8 in. (172.72 cm) (R); Pain 0/10; 15:55 BP 128 / 71; Pulse 68; Resp 16; Pulse Ox 100% on R/A; tw2 16:55 BP 133 / 66; Pulse 69; Resp 17; Pulse Ox 100% on R/A; tw2 12:23 Body Mass Index 22.81 (68.04 kg, 172.72 cm) ca1 ED Course: 12:08 Patient arrived in ED. ag5 12:26 Triage completed. ca1 12:26 Arm band placed on right wrist. ca1 13:50 Rudy Zapata NP is PHCP. pm1 13:50 Eliot [place] MD is Attending Physician. pm1 13:53 Patient has correct armband on for positive identification. Bed in low position. Call ls4 light in reach. Side rails up X 1. 14:32 Initial lab(s) drawn, by me, sent to lab. Inserted saline lock: 20 gauge in left lt1 forearm, using aseptic technique. 15:42 CT Abd/Pelvis - IV Contrast Only In Process Unspecified. EDMS 15:44 Michell Pacheco RN is Primary Nurse. tw2 17:26 No provider procedures requiring assistance completed. IV discontinued, intact, tw2 bleeding controlled, No redness/swelling at site. Pressure dressing applied. Administered Medications: 16:45 Drug: Cipro 500 mg {Note: via peg tube at this time, flushed with 500 ml water after tw2 administration..} Route: PO; 19:39 Follow up: Response: No adverse reaction tw2 16:52 Drug: Flagyl 500 mg Volume: 100 ml; Route: IVPB; Rate: 200 ml/hr; Infused Over: 30 tw2 mins; Site: left hand; 17:22 Follow up: Response: No adverse reaction; IV Status: Completed infusion tw2 16:54 Not Given (Duplicate Order; via peg): Cipro 500 mg PO once tw2 Outcome: 16:30 Discharge ordered by . pm1 17:26 Discharged to home via wheelchair, with family. tw2 17:26 Condition: stable 17:26 Discharge instructions given to patient, family, Instructed on discharge instructions, follow up and referral plans. medication usage, Demonstrated understanding of instructions, follow-up care, medications, Prescriptions given X 3. 17:27 Patient left the ED. tw2 Signatures: Dispatcher [employer] EDMS Rudy Zapata NP [employer] pm1 Michell Pacheco RN RN tw2 Leyla Yip RN RN ls4 Carlene Gilbert RN RN ca1 Adi, Beba ag5 Moira Eason lt1
--- NOTE | 2020-02-21 16:31 | EDPHYS ---
Physician Documentation [facility] Name: El Ventura Age: 59 yrs Sex: Male : 1960 Arrival Date: 02/21/2020 Time: 12:08 Bed 20 Private MD: SHANNAN Physician Eliot Washington HPI: 02/20 14:09 This 59 yrs old Male presents to ER via Wheelchair with complaints of pm1 Constipation. 14:09 The patient presents with Constipation. Onset: The symptoms/episode began/occurred 10 pm1 day(s) ago. Associated signs and symptoms: Pertinent negatives: nausea, vomiting, and diarrhea, chest pain, dysuria, fever, headache, shortness of breath, Abdominal pain. Modifying factors: The symptoms are alleviated by nothing, the symptoms are aggravated by nothing. Severity of pain: At its worst the pain was a 0 / 10 in the emergency department the pain is a 0 / 10. Patient eats food by mouth and takes medications and fluids by PEG tube. Reports constipation for 10 days. Patient is eating well and has good appetite per . No abdominal pain. Patient has been having small pellets of feces for the past few days. Historical: - Allergies: 12:26 PENICILLINS; ca1 - PMHx: 12:26 CAD; CVA; Diabetes - NIDDM; heart stents; High Cholesterol; Hypertension; ca1 - PSHx: 12:26 PEG tube placement; Cholecystectomy; ca1 - Immunization history:: Adult Immunizations up to date. - Social history:: Smoking status: Patient/guardian denies using tobacco, the patient reports quitting approximately 3 years ago. ROS: 14:09 Constitutional: Negative for fever, chills, and weight loss, Cardiovascular: Negative pm1 for chest pain, palpitations, and edema, Respiratory: Negative for shortness of breath, cough, wheezing, and pleuritic chest pain. 14:09 Back: Negative for injury and pain, MS/Extremity: Negative for injury and deformity, Skin: Negative for injury, rash, and discoloration, Neuro: Negative for headache, weakness, numbness, tingling, and seizure. 14:09 Abdomen/GI: Positive for constipation, Negative for abdominal pain, nausea and vomiting, diarrhea. Exam: 14:09 Constitutional: This is a well developed, well nourished patient who is awake, alert, pm1 and in no acute distress. Head/Face: Normocephalic, atraumatic. Neck: Trachea midline, no thyromegaly or masses palpated, and no cervical lymphadenopathy. Supple, full range of motion without nuchal rigidity, or vertebral point tenderness. No Meningismus. Chest/axilla: Normal chest wall appearance and motion. Nontender with no deformity. No lesions are appreciated. 14:09 Back: No spinal tenderness. No costovertebral tenderness. Full range of motion. Skin: Warm, dry with normal turgor. Normal color with no rashes, no lesions, and no evidence of cellulitis. MS/ Extremity: Pulses equal, no cyanosis. Neurovascular intact. 14:09 Cardiovascular: Exam negative for acute changes, Rate: normal, Rhythm: regular, Pulses: no pulse deficits are appreciated. 14:09 Respiratory: Exam negative for acute changes, respiratory distress, shortness of breath. 14:09 Abdomen/GI: Exam negative for acute changes, Inspection: abdomen appears normal, Palpation: abdomen is soft and non-tender, in all quadrants, mass, is not appreciated, rebound tenderness, is not appreciated. Vital Signs: 12:23 BP 129 / 73; Pulse 64; Resp 18 S; Temp 98.6(TE); Pulse Ox 100% on R/A; Weight 68.04 kg ca1 (R); Height 5 ft. 8 in. (172.72 cm) (R); Pain 0/10; 15:55 BP 128 / 71; Pulse 68; Resp 16; Pulse Ox 100% on R/A; tw2 16:55 BP 133 / 66; Pulse 69; Resp 17; Pulse Ox 100% on R/A; tw2 12:23 Body Mass Index 22.81 (68.04 kg, 172.72 cm) ca1 MDM: 13:50 Patient medically screened. pm1 16:28 Data reviewed: vital signs. Data interpreted: Pulse oximetry: on room air is 100 %. pm1 Interpretation: normal. Counseling: I had a detailed discussion with the patient and/or guardian regarding: the historical points, exam findings, and any diagnostic results supporting the discharge/admit diagnosis, lab results, radiology results, the need for outpatient follow up, a family practitioner, a applications systems analyst, to return to the emergency department if symptoms worsen or persist or if there are any questions or concerns that arise at home. 02/20 14:01 Order name: Basic Metabolic Panel; Complete Time: 15:04 pm1 02/20 14:01 Order name: CBC with Diff; Complete Time: 14:59 pm1 02/20 14:01 Order name: Creatinine for Radiology; Complete Time: 15:04 pm1 02/20 14:01 Order name: Hepatic Function; Complete Time: 15:04 pm1 02/20 14:01 Order name: Lipase; Complete Time: 15:04 pm1 02/20 14:01 Order name: CT Abd/Pelvis - IV Contrast Only; Complete Time: 16:24 pm1 02/20 14:01 Order name: IV Saline Lock; Complete Time: 14:35 pm1 02/20 14:01 Order name: Labs collected and sent; Complete Time: 14:35 pm1 Administered Medications: 16:45 Drug: Cipro 500 mg {Note: via peg tube at this time, flushed with 500 ml water after tw2 administration..} Route: PO; 19:39 Follow up: Response: No adverse reaction tw2 16:52 Drug: Flagyl 500 mg Volume: 100 ml; Route: IVPB; Rate: 200 ml/hr; Infused Over: 30 tw2 mins; Site: left hand; 17:22 Follow up: Response: No adverse reaction; IV Status: Completed infusion tw2 16:54 Not Given (Duplicate Order; via peg): Cipro 500 mg PO once tw2 Disposition: 20:10 Co-signature as Attending Physician, Eliot COPELAND I agree with the assessment and leann plan of care. Disposition: 02/21/20 16:30 Discharged to Home. Impression: Constipation, Colitis. - Condition is Stable. - Discharge Instructions: Constipation, Adult, Colitis. - Prescriptions for Flagyl 500 mg Oral Tablet - take 1 tablet by ORAL route every 8 hours for 10 days; 30 tablet. Cipro 500 mg Oral Tablet - take 1 tablet by ORAL route every 12 hours for 10 days; 20 tablet. Miralax 17 gram/dose Oral - take 1 packet by ORAL route once daily As needed dilute powder in 8 ounces of water or juice; 7 packet. - Medication Reconciliation Form, Thank You Letter, Antibiotic Education, Prescription Opioid Use form. - Follow up: Emergency Department; When: As needed; Reason: Worsening of condition. Follow up: Private Physician; When: 2 - 3 days; Reason: Recheck today's complaints, Continuance of care, Re-evaluation by your physician. - Problem is new. - Symptoms have improved. Signatures: Dispatcher [employer] EDEliot Yip, Rudy Zayas MD, cha, [employer] pm1 Michell Pacheco, TRI RN tw2 Carlene Gilbert RN RN ca1 Corrections: (The following items were deleted from the chart) 17:27 16:30 02/21/2020 16:30 Discharged to Home. Impression: Constipation; Colitis. Condition tw2 is Stable. Forms are Medication Reconciliation Form, Thank You Letter, Antibiotic Education, Prescription Opioid Use. Follow up: Emergency Department; When: As needed; Reason: Worsening of condition. Follow up: Private Physician; When: 2 - 3 days; Reason: Recheck today's complaints, Continuance of care, Re-evaluation by your physician. Problem is new. Symptoms have improved. pm1
[2020-02-21] MEDS ORDERED: METRONIDAZOLE 500mg IVPB 500 MG/100 ML BAG IV ONE (16:47)
[2020-02-21] MEDS ORDERED: CIPROFLOXACIN HCL 500 MG TAB ONE (16:47)
[2020-02-21 17:35] VITALS: TEMP 98.6; O2SAT 100
[2020-02-21 17:38] VITALS: BP 133/66
== END 2020-02-21 17:27 | disposition home or self-care (01) ==
LOC: ER 12:06
DX: K52.9 Noninfective gastroenteritis and colitis, unspecified (principal); I10 Essential (primary) hypertension; Z95.818 Presence of other cardiac implants and grafts; Z88.0 Allergy status to penicillin; Z86.73 Personal history of transient ischemic attack (TIA), and cerebral infarction without residual deficits
CPT/HCPCS: 96365; 85025; 80048; 36415; 80076; 83690; 74177; 99284; Q9967

== ENCOUNTER 2020-06-13 08:44 | Emergency (ER) | payer OTHER ==
--- OUTSIDE RECORDS SUMMARY | 2020-06-13 20:48 | XMS REPORT | Continuity of Care Document ---
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 arteriosclerosis [facility] (disorder) Diabetes mellitus Resolved Problem 09/27/2017 M H (disorder) [facility] Hypertensive Resolved Problem 09/27/2017 disorder, systemic [place] arterial (disorder) Patient post Resolved Problem 09/27/2017 percutaneous [facility] transluminal coronary angioplasty (finding) CEREBRAL Active INFARCTION, [facility] t UNSPECIFIED Medications Medication Details Route [...] Chewable Tablet PO, Daily, # 30 2017 [facility] tab, 0 Refill(s) Haldol Notes: (Same Inactive as: Haldol) 2016 [facility] Omnipaque 350 Notes: (same Inactive injectable as:Omnipaque 2016 solution 350). WASTE: F/P - Black; E - Municipal Trash Bin vancomycin 2001 mg: No Longer infuse over 2.5 Active 2016 [facility] hours Haldol Notes: (Same Inactive as: Haldol) 2016 [facility] vancomycin + Notes: TIME Inactive Sodium Chloride CRITICAL 2016 [facility] 0.9% IV 100 mL MEDICATION (Same As: Vancocin) vancomycin + 2001 mg: Inactive Sodium Chloride infuse over 2.5 2016 [facility] 0.9% IV 500 mL hours MEDICATION WASTE Product Size: 1000 mg Product Wasted: ___ mg vancomycin 2001 mg: No Longer infuse over 2.5 Active 2016 [facility] t hours Ativan Notes: (Same Inactive as: Ativan) 2016 [facility] vancomycin + 2001 mg: No Longer Sodium Chloride infuse over 2.5 Active 2016 [facility] 0.9% IV 250 mL hours MEDICATION WASTE Product Size: 1000 mg Product Wasted: ___ mg Vancomycin Vancomycin No Longer Pharmacy Pharmacy Active 2016 [facility] Protocol Protocol, 1 dose, Drug form: MISC, Route: [place]ENG [place], 09/18/17 12:00:00 [facility], Duration: 7 day, Stop date: 09/25/17 11:59:00 [facility] vancomycin + 2001 mg: Inactive Sodium Chloride infuse over 2.5 2016 [facility] 0.9% IV 250 mL hours MEDICATION WASTE Product Size: 1000 mg Product Wasted: ___ mg NS (Bolus) IV 500 mL, 500 No Longer ml/hr, Infuse Active 2016 [facility] Over: 1 hr, Route: IV, 500, Drug form: INJ, ONCE, Priority: STAT, Dosing Weight 122.008 kg, Start date: 09/18/17 10:01:00 [facility], Stop date: 09/18/17 10:01:00 [facility] Vancomycin 1 ea, Route: Inactive [place]ENG [place], 2016 [facility] Dosing Weight 122.008, kg, Start date: 09/18/17 10:00:00 [facility] HAND, Duration: 7 day, Stop date: 09/25/17 9:59:00 [facility], Pharmacy to dose, ABX Indication: Pneumonia Acetaminophen Notes: Max No Longer acetaminophen = Active 2016 [facility] t 4000 mg/day (4 gm/day). (Same as: Tylenol) Zosyn Notes: (Same No Longer as: Zosyn) Active 2016 [facility] Dosing based on Piperacillin component MEDICATION WASTE Product Size: 3375 mg Product Wasted: ___ mg Rocephin Notes: (Same No Longer As: Rocephin). Active 2016 [facility] Use with 100 mL NS and infuse over 30 min MEDICATION WASTE Product Size: 1000 mg Product Wasted: ___ mg Albuterol / Notes: (Same No Longer Ipratropium as: Duoneb) Active 2016 [facility] t Lasix Notes: (Same Inactive as: Lasix) 2016 [facility] MEDICATION WASTE Product Size: 40 mg Product Wasted: ___ mg Insulin Lispro Notes: Roll in No Longer palms of hands Active 2016 [facility] gently; Do not shake `vigorously. (Same as: Humalog ) "Single Patient Use Only " WASTE: F/P - Black; E - Municipal Trash Bin Stable for 28 days at room temperature. Expires in days from D ate Dextrose 50% 25 gm, 50 mL, No Longer Syringe Route: IVP, Active 2016 [facility] Drug Form: INJ, Dosing Weight 122.008, kg, PRN, PRN Blood Glucose Results, Start date: 09/14/17 12:28:00 RO[facility], Duration: 30 day, Stop date: 10/14/17 12:27:00 [facility] Glucagon 1 mg, Route: No Longer IM, Drug form: Active 2016 [facility] PDR/INJ, PRN, Dosing Weight 122.008, kg, PRN Blood Glucose Results, Start date: 09/14/17 12:28:00 RO[facility] HAND, Duration: 30 day, Stop date: 10/14/17 12:27:00 [facility] Docusate Notes: (Same No Longer as: Colace) Active 2016 [facility] atorvastatin Notes: (Same No Longer as: Lipitor) Active 2016 [facility] Saline Flush Notes: (Same No Longer 0.9% as: BD Active 2016 [facility] Posiflush) Aspirin Notes: Take No Longer with food. Active 2016 [facility] heparin Notes: porcine No Longer heparin Active 2016 [facility] Visipaque 320 Notes: (Same Inactive mg/mL injectable as: Visipaque). 2016 [facility] solution WASTE: F/P - Black; E - Municipal Trash Bin Glipizide 10 MG 10 mg = 1 tab, No Longer Oral Tablet PO, Before Active 2016 [facility] Breakfast, # 90 tab, 0 Refill(s) Insulin Lispro Notes: Roll in No Longer palms of hands Active 2016 [facility] gently; Do not shake `vigorously. (Same as: Humalog ) "Single Patient Use Only " WASTE: F/P - Black; E - Municipal Trash Bin Stable for 28 days at room temperature. Expires in days from D ate Calcium Notes: (Same No Longer Carbonate 500 MG As: Tums) Active 2016 [facility] Chewable Tablet Calcium Carbonate 500 mg = 200 mg elemental calcium Dose = mg calcium carbonate ( mg elemental calcium) Magnesium Oxide Notes: (Same No Longer 09/13/ H as: Mag-Ox 400) Active 2016 [facility] Magnesium oxide [id number] elemental magnesium Dose=____mg magnesium oxide (___mg elemental magnesium) Calcium Notes: WASTE: No Longer Gluconate F/P - Sink; E - Active 2016 [facility] Municipal Trash Bin potassium Notes: (Same No Longer phosphate-sodium as: Phos-NaK) Active 2016 [place] phosphate 250 Each 1.5 gm pkt mg-280 mg-160 mg has 250mg oral powder for phosphorous. reconstitution Mix w/2.5oz water and stir. potassium Notes: (Same No Longer phosphate as: K Active 2016 [facility] Phosphate.) 1 mMol phoshate has 1.47 mEq potassium Infuse over 4 hours Magnesium Notes: WASTE: No Longer Sulfate F/P - Sink; E - Active 2016 [facility] Municipal Trash Bin sodium phosphate 30 mmol, 10 mL, No Longer 09/13 Route: IVPB, Active 2016 [facility] PRN, kg, PRN Abnormal Lab Result, Start date: 09/13/17 9:09:00 ROLLER HAND, Duration: 30 day, Stop date: 10/13/17 9:08:00 ROLLER HAND, FOR ICU USE ONLY Potassium Notes: (Same No Longer Chloride as: Potassium Active 2016 [facility] Chloride) Dextrose 50% 12.5 gm, 25 mL, No Longer 12/ H Syringe Route: IVP, Active 2016 [facility] Drug Form: INJ, kg, PRN, PRN Blood Glucose Results, Start date: 09/13/17 9:09:00 ROLLER HAND, Duration: 30 day, Stop date: 10/13/17 9:08:00 [facility] Glucagon 1 mg, Route: No Longer IM, Drug form: [facility] 2016 [facility] PDR/INJ, PRN, kg, PRN Blood Glucose Results, Start date: 09/13/17 9:09:00 ROLLER HAND, Duration: 30 day, Stop date: 10/13/17 9:08:00 ROLLER HAND normal saline 1,000 mL, Rate: No Longer 0.9% IV 1,000 mL 75 ml/hr, Active 2016 [facility] Infuse over: 13.3 hr, Route: IV, Total Volume: 1,000, Start date: 09/13/17 9:05:00 ROLLER HAND, Duration: 30 day, Stop date: 10/13/17 9:04:00 [facility] Hydralazine Notes: (Same No Longer as: Apresoline) Active 2016 [facility] t Push over 5 minutes Labetalol Notes: (Same No Longer as: Normodyne, 2016 [facility] Trandate) Push over 2 minutes Give bolus over 2-3 minutes. Ondansetron Notes: (Same No Longer as: Zofran) [facility] 2016 [facility] MEDICATION WASTE Product Size: 4 mg Product Wasted: ___ mg Bisacodyl Notes: (Same No Longer As: Dulcolax, [facility] 2016 [facility] Bisco-Lax) Acetaminophen Notes: Do not No Longer exceed 4 Active 2016 [facility] gm/day. (Same as: Tylenol) Saline Flush Notes: (Same No Longer 0.9% as: BD Active 2017 [facility] Posiflush) Allergies, Adverse Reactions, Alerts No Known Medication Allergies Immunizations No Data Provided for This Section Results Order Name Results Value Reference Date Interpretation Comments Shana rce Range ELECTROLYT AGAP 15.0 10.0 - 09/24 ES 20.0 [facility] ELECTROLYT Calcium Lvl 9.1 8.5 - 10.5 09/24 [facility] ELECTROLYT CO2 24 24 - 32 09/24 [facility] ELECTROLYT Potassium 4.0 3.5 - 5.1 09/24 ES Lvl /2016 [facility] ELECTROLYT Chloride Lvl 103 95 - 109 09/24 [facility] ELECTROLYT eGFR 98 09/24 Comment: The [facility] eGFR is calculated using the CKD-EPI [...] ELECTROLYT BUN 27 7 - 22 09/24 [facility] ELECTROLYT Creatinine 0.80 0.50 - 09/24 ES Lvl 1.40 [facility] ELECTROLYT Sodium Lvl 138 135 - 145 09/24 ES [facility] ELECTROLYT Glucose Lvl 188 70 - 99 09/24 [facility] HEMATOLOGY RBC Morph Normal 09/24 (09/24/17 5:19 AM) [facility] HEMATOLOGY Plt Morph Normal 09/24 (09/24/17 5:19 AM) [facility] HEMATOLOGY Bands 1.0 0.0 - 11.0 09/24 [facility] HEMATOLOGY Lymphocytes 13.0 20.0 - 09/24 MH 40.0 [facility] HEMATOLOGY Atypical 2.0 <=0.0 % 09/24 Lymphs /2016 [facility] HEMATOLOGY Eosinophils 3.0 0.0 - 4.0 09/24 [facility] HEMATOLOGY Metamyelocyt 5.0 0.0 - 1.0 09/24 es /2016 [facility] HEMATOLOGY Monocytes 3.0 2.0 - 12.0 09/24 [facility] HEMATOLOGY Segs 73.0 45.0 - 09/24 MH 75.0 /2016 [facility] HEMATOLOGY Eosinophils 0.5 0.0 - 0.5 09/24 MH # /2017 [facility] HEMATOLOGY Monocytes # 0.5 0.0 - 0.8 09/24 [facility] HEMATOLOGY Lymphocytes 2.6 1.0 - 5.5 09/24 MH # /2016 [facility] HEMATOLOGY Segs-Bands # 12.7 1.5 - 8.1 09/24 [facility] HEMATOLOGY MCV 88.3 80.0 - 09/24 94.0 [facility] HEMATOLOGY Hct 45.4 42.0 - 09/24 MH 54.0 /2016 [facility] HEMATOLOGY Hgb 15.0 14.0 - 09/24 18.0 [facility] HEMATOLOGY RBC 5.15 4.70 - 09/24 MH 6.10 [facility] HEMATOLOGY MPV 9.2 7.4 - 10.4 09/24 [facility] HEMATOLOGY MCHC 33.0 32.0 - 09/24 36.0 /2016 [facility] HEMATOLOGY MCH 29.2 27.0 - 09/24 31.0 [facility] HEMATOLOGY Platelet 259 133 - 450 09/24 [facility] HEMATOLOGY RDW 14.0 11.5 - 09/24 14.5 [facility] HEMATOLOGY WBC 17.1 3.7 - 10.4 09/24 [facility] CHEM PANEL Procalcitoni <0.05 0.00 - 09/23 n Lvl 0.10 [facility] ELECTROLYT AGAP 14.0 10.0 - 09/23 ES 20.0 [facility] ELECTROLYT eGFR 94 09/23 ES Comment: The [facility] eGFR is calculated using the CKD-EPI [...] - 5.1 / MH ES Lvl /2017 [facility] ELECTROLYT Sodium Lvl 139 135 - 145 09/23 ES /2016 [facility] ELECTROLYT BUN 26 7 - 22 09/23 ES /2016 [facility] ELECTROLYT Glucose Lvl 188 70 - 99 09/23 ES [facility] ELECTROLYT Creatinine 0.90 0.50 - 09/23 MH ES Lvl 1.40 /2016 [facility] ELECTROLYT CO2 24 24 - 32 09/23 ES /2016 [facility] ELECTROLYT Chloride Lvl 105 95 - 109 09/23 ES [facility] ELECTROLYT Calcium Lvl 9.2 8.5 - 10.5 09/23 ES [facility] HEMATOLOGY Basophils # 0.1 0.0 - 0.2 09/23 [facility] HEMATOLOGY Eosinophils 0.3 0.0 - 0.5 09/23 MH # /2016 [facility] HEMATOLOGY Monocytes # 1.3 0.0 - 0.8 09/23 [facility] HEMATOLOGY Lymphocytes 15.8 20.0 - 09/23 MH 40.0 /2017 [facility] HEMATOLOGY Plt Morph Normal 09/23 (09/23/17 5:42 AM) [facility] HEMATOLOGY RBC Morph Normal 09/23 (09/23/17 5:42 AM) [facility] HEMATOLOGY Monocytes 6.9 2.0 - 12.0 09/23 [facility] HEMATOLOGY Basophils 0.5 0.0 - 1.0 09/23 [facility] HEMATOLOGY Eosinophils 1.5 0.0 - 4.0 09/23 [facility] HEMATOLOGY Segs 75.3 45.0 - / MH 75.0 /2017 [facility] HEMATOLOGY Lymphocytes 2.9 1.0 - 5.5 09/23 MH # /2016 [facility] HEMATOLOGY Segs-Bands # 13.9 1.5 - 8.1 09/23 [facility] HEMATOLOGY MCH 28.9 27.0 - 09/23 MH 31.0 [facility] HEMATOLOGY MCV 88.9 80.0 - 12 MH 94.0 [facility] HEMATOLOGY Hct 46.4 42.0 - 12 MH 54.0 [facility] HEMATOLOGY Hgb 15.1 14.0 - 09/23 MH 18.0 [facility] HEMATOLOGY RBC 5.22 4.70 - 12 MH 6.10 [facility] HEMATOLOGY MPV 9.5 7.4 - 10.4 09/23 [facility] HEMATOLOGY Platelet 269 133 - 450 09/23 [facility] HEMATOLOGY RDW 14.4 11.5 - 09/23 MH 14. [facility] HEMATOLOGY MCHC 32.5 32.0 - 09/23 MH 36.0 [facility] HEMATOLOGY WBC 18.4 3.7 - 10.4 09/23 [facility] TOXICOLOGY Vanco Tr TND [id number] 09/22 [facility] TOXICOLOGY Vanco Tr 14.1 09/22 [facility] TOXICOLOGY Vanco Tr TND [id number] 09/21 [facility] TOXICOLOGY Vanco Tr 10.3 09/21 [facility] CHEM PANEL Procalcitoni 0.05 0.00 - 09/21 n Lvl 0.10 [facility] ELECTROLYT AGAP 12.1 10.0 - 09/21 MH ES 20.0 [facility] ELECTROLYT eGFR 94 09/21 Comment: The [facility] eGFR is calculated using the CKD-EPI [...] 105 95 - 109 / ES /2016 [facility] ELECTROLYT CO2 26 24 - 32 12/ ES /2016 [facility] ELECTROLYT Potassium 4.1 3.5 - 5.1 12/10 ES Lvl /2016 [facility] ELECTROLYT Creatinine 0.90 0.50 - 09/21 ES Lvl 1.40 /2016 [facility] ELECTROLYT Sodium Lvl 139 135 - 145 / ES /2016 [facility] ELECTROLYT Calcium Lvl 8.8 8.5 - 10.5 12 ES /2016 [facility] ELECTROLYT BUN 27 7 - 22 12/ ES /2016 [facility] ELECTROLYT Glucose Lvl 189 70 - 99 09/21 ES /2016 [facility] HEMATOLOGY RDW 14.6 11.5 - 09/21 14.5 /2016 [facility] HEMATOLOGY MPV 9.7 7.4 - 10.4 09/21 [facility] HEMATOLOGY Platelet 238 133 - 450 09/21 [facility] HEMATOLOGY Hgb 15.1 14.0 - 09/21 18.0 /2016 [facility] HEMATOLOGY Hct 45.7 42.0 - 12 54.0 /2017 [facility] HEMATOLOGY MCHC 33.1 32.0 - 12 36.0 /2016 [facility] HEMATOLOGY MCH 29.5 27.0 - 09/21 31.0 /2017 [facility] HEMATOLOGY MCV 89.1 80.0 - 09/21 94.0 /2017 [facility] HEMATOLOGY RBC 5.13 4.70 - 09/21 MH 6.10 /2016 [facility] HEMATOLOGY WBC 16.7 3.7 - 10.4 09/21 [facility] HEMATOLOGY Basophils # 0.1 0.0 - 0.2 09/21 [facility] HEMATOLOGY Eosinophils 0.2 0.0 - 0.5 /10 MH # /2017 [facility] HEMATOLOGY Segs 74.2 45.0 - 12 MH 75.0 /2016 [facility] HEMATOLOGY Eosinophils 1.5 0.0 - 4.0 09/21 [facility] HEMATOLOGY Monocytes 7.9 2.0 - 12.0 09/21 [facility] HEMATOLOGY Segs-Bands # 12.4 1.5 - 8.1 09/21 [facility] HEMATOLOGY Basophils 0.5 0.0 - 1.0 09/21 [facility] HEMATOLOGY Monocytes # 1.3 0.0 - 0.8 09/21 [facility] HEMATOLOGY Lymphocytes 2.7 1.0 - 5.5 09/21 # /2017 [facility] HEMATOLOGY Lymphocytes 15.9 20.0 - 09/21 40.0 /2017 [facility] TOXICOLOGY Vanco Tr 9.0 09/20 [facility] TOXICOLOGY Vanco Tr TND [id number] 09/20 [facility] CHEM PANEL Lactic Acid 1.3 0.5 - 2.2 09/18 Lvl [facility] CHEM PANEL Lactic Acid 1.3 0.5 - 2.2 09/18 Lvl [facility] URINE AND UA Blood Moderate Negative 09/16 STOOL *ABN* /2016 [facility] (09/15/17 11:10 PM) URINE AND UA Bili Negative Negative 09/16 STOOL *NA* /2016 [facility] (09/15/17 11:10 PM) URINE AND UA Glucose Negative Negative 09/16 STOOL mg/dL mg/dL [facility] URINE AND UA Protein 30 mg/dL Negative 09/16 STOOL mg/dL [facility] URINE AND UA Ketones Negative Negative 09/16 STOOL mg/dL mg/dL [facility] URINE AND UA pH 5.0 5.0 - 8.0 09/16 STOOL [facility] URINE AND UA Spec Grav 1.021 <=1.030 09/16 STOOL [facility] URINE AND UA Turbidity Slight Clear 09/16 STOOL *ABN* /2016 [facility] (09/15/17 11:10 PM) URINE AND UA Nitrite Negative Negative 09/16 STOOL (09/15/17 11:10 PM) [facility] URINE AND UA 2.0 0.1 - 1.0 09/16 STOOL Urobilinogen /2016 [facility] URINE AND UA Leuk Est Negative Negative 09/16 STOOL (09/15/17 11:10 PM) /2016 [facility] URINE AND UA Color Yellow 09/16 STOOL [facility] URINE AND Micro? Performed 09/16 STOOL *NA* /2016 [facility] (09/15/17 11:10 PM) URINE AND UA Hyal Cast 1 0 - 2 09/16 STOOL [facility] URINE AND UA RBC 56 0 - 2 09/16 STOOL [facility] URINE AND UA Mucus Few /LPF None Seen 09/16 STOOL /LPF /2016 [facility] URINE AND UA WBC 5 0 - 5 09/16 MH STOOL [facility] URINE AND UA Sq Epi Occasional Few /LPF 09/16 MH STOOL /LPF /2016 [facility] CHEM PANEL Phosphorus 3.1 2.5 - 4.5 09/15 [facility] CHEM PANEL Magnesium 2.1 1.8 - 2.4 09/15 MH Lvl [facility] HEMATOLOGY Basophils 0.6 0.0 - 1.0 09/15 [facility] HEMATOLOGY Basophils # 0.1 0.0 - 0.2 09/15 [facility] PARATHYROI Ca Ion WB 1.02 1.05 - 09/15 MH D PROFILE . [facility] PARATHYROI Ca Norm WB 1.05 1.05 - 09/15 MH D PROFILE 11.06 [facility] CARDIAC Troponin-I <0.02 0.00 - 09/14 MH ENZYMES 0. [facility] CHEM PANEL Phosphorus 2.8 2.5 - 4.5 09/14 [facility] CHEM PANEL Magnesium 2.3 1.8 - 2.4 09/14 Lvl [facility] PARATHYROI Ca Norm WB 1.08 1.05 - 09/14 MH D PROFILE . [facility] PARATHYROI Ca Ion WB 1.08 1.05 - 09/14 MH D PROFILE . [facility] BACTERIAL MRSA by PCR Negative 09/14 MH - SEROLOGY (09/13/17 6:11 PM) /2016 [facility] DRUG U Lisa Scr Negative Negative 09/14 MH SCREEN *NA* [facility] (09/13/17 6:11 PM) DRUG U Amph Scr Negative Negative 09/14 MH SCREEN *NA* [facility] (09/13/17 6:11 PM) DRUG U Benzodia Negative Negative 09/14 MH SCREEN Scr *NA* [facility] (09/13/17 6:11 PM) DRUG U Opiate Scr Negative Negative 09/14 MH SCREEN *NA* [facility] (09/13/17 6:11 PM) DRUG U Cannab Scr Negative Negative 09/14 MH SCREEN *NA* [facility] (09/13/17 6:11 PM) DRUG U Cocaine Positive Negative 09/14 MH SCREEN Scr *ABN* [facility] (09/13/17 6:11 PM) DRUG UDS Note See Note 09/14 MH SCREEN (09/13/17 6:11 PM) /2016 [place] [facility] Propoxyph Negative Negative 09/14 SCREEN Scr *NA* /2016 [facility] (09/13/17 6:11 PM) DRUG U Phencyc Negative Negative 09/14 SCREEN Scr *NA* /2016 [facility] (09/13/17 6:11 PM) DRUG U Methadone Negative Negative 09/14 SCREEN Scr *NA* /2016 [facility] (09/13/17 6:11 PM) CARDIAC Troponin-I <0.02 0.00 - 09/13 ENZYMES 0.40 [facility] CHEM PANEL Bili Direct 0.1 0.0 - 0.3 09/13 [facility] CHEM PANEL AST 11 0 - 37 09/13 [facility] CHEM PANEL Alk Phos 83 39 - 136 09/13 [facility] CHEM PANEL Albumin Lvl 3.2 3.5 - 5.0 09/13 [facility] CHEM PANEL Bili Total 0.4 0.2 - 1.3 09/13 [facility] CHEM PANEL ALT 26 0 - 65 09/13 [facility] CHEM PANEL Total 7.5 6.4 - 8.4 09/13 Protein [facility] CHEM PANEL A/G Ratio 0.7 0.7 - 1.6 09/13 [facility] CHEM PANEL Globulin 4.3 2.7 - 4.2 09/13 [facility] CHEM PANEL B/C Ratio 16 6 - 25 09/13 [facility] LIPIDS VLDL 18 09/13 [facility] LIPIDS Chol 118 <=199 09/13 mg/dL [facility] LIPIDS HDL 58 >=61 mg/dL 09/13 [facility] LIPIDS Trig 92 <=149 09/13 mg/dL [facility] LIPIDS LDL 42 <=99 mg/dL 09/13 (Calculated) [facility] LIPIDS CHD Risk 2.03 4.00 - 09/13 7.30 /2016 [facility] SPECIAL Hgb A1C 8.8 <=5.6 % 09/13 CHEMISTRY /2016 [facility] URINE AND UA Color Ltyellow 09/13 STOOL [facility] URINE AND UA <=1.0 0.1 - 1.0 09/13 STOOL Urobilinogen [facility] URINE AND UA Ketones Negative Negative 09/13 STOOL mg/dL mg/dL [facility] URINE AND UA Protein Negative Negative 09/13 STOOL mg/dL mg/dL [facility] URINE AND UA Glucose 500 mg/dL Negative 09/13 STOOL mg/dL [facility] URINE AND UA Spec Grav 1.022 <=1.030 09/13 STOOL [facility] URINE AND UA pH 5.0 5.0 - 8.0 09/13 STOOL [facility] URINE AND UA Turbidity Clear Clear 09/13 STOOL (09/13/17 10:40 AM) [facility] URINE AND UA Mucus Few /LPF None Seen 09/13 STOOL /LPF [facility] URINE AND UA Leuk Est Small Negative 09/13 STOOL *ABN* /2016 [facility] (09/13/17 10:40 AM) URINE AND UA Sq Epi Occasional Few /LPF 09/13 STOOL /LPF [facility] URINE AND UA WBC 13 0 - 5 09/13 STOOL [facility] URINE AND UA RBC 81 0 - 2 09/13 [facility] URINE AND UA Bili Negative Negative 09/13 STOOL *NA* [facility] (09/13/17 10:40 AM) URINE AND UA Blood Large Negative 09/13 STOOL *ABN* [facility] (09/13/17 10:40 AM) URINE AND UA Nitrite Negative Negative 09/13 [facility] (09/13/17 10:40 AM) [facility] Pathology Reports No Data Provided for This Section Diagnostic Reports Report Value Date Source Chest Pulmonary Study: Chest Pulmonary Embolism CTA 09/22/2017 [facility] Embolism CTA Clinical Indication: - resp [...] DX Clinical Indication: Pneumonia - PNA; 09/18/2017 [facility] Comparison: 09/15/2017 FINDINGS: Single AP chest [...] prior study from the same day 09/15/2017 [facility] History: Abnormal chest sounds Comments: The trachea is midline. The cardiomediastinal si lhouette is enlarged. Perihilar and right lung lung base interstitial opacities are unchanged. No pleural effusions or pneumothorax. Feeding tu be tip in the stomach Impression: Perihilar and right lung lung base interstitial opacities are unchanged. Brain wo contrast CT Patient Name: ROBERT HARDY 09/15/2017 [facility] : 1960; Age: 57 years y/o Male MR: [id number] Study: Brain wo contrast CT 09/15/2017 8:29 AM CS T Ordering Physician: Flaco Rocha MD Clinical Indication: Stroke, f/u stroke, rt side weakness,hx of CAD, diabetes, [id number] - Stroke, f/u stroke, rt side weakness,hx of CAD, diabetes, [id number]; Comparison: 09/13/2017 TECHNIQUE: CT images were ob [...] 1view DX Patient Name: ROBERT HARDY 09/15/2017 [facility] : 1960; Age: 57 years Male MR: [id number] Study: Chest 1view DX Order Time: 09/15/2017 8:3 0 AM [facility] CLINICAL INDICATION: Rhonchi - Rhonchi COMPARISON: Chest [...] Otherwise, no significant change since 09/13/2017. SL: [id number] Abdomen AP DX Clinical Indication: bee placement - bee placement. 09/13/2017 [facility] Comparison: None. FINDINGS: The AP supine [...] contrast MRI Patient Name: ROBERT HARDY 09/13/2017 [facility] : 1988; Age: 29 years y/o Male MR: [id number] Study: Brain wo contrast MRI 09/13/2017 9:01 [...] CTA STUDY: Brain/Neck CTA 09/13/2017 9:01 AM [facility] 11/2016 [facility] Ordering Physician: Arnulfo Chun MD Patient Name: ROBERT HARDY MR: [id number] : 1988; Age: 29 years y/o Male [...] carotid siphon likely representing crossflow through the [place] de[place] of [place]. Middle cerebral arteries: Th e [...] siphon related to cross flow through the [place] de[place] of [place]. 2. Reduced size mildly irre gular left M1 segment consistent with poor inflow and/or stenosis. Decreased arborization is seen more peripherally in the left MCA with loss of small M2 and M3 branches at the site of known infarction. 3. Acute left MCA distribution infarction. 4. Mild chronic sinusitis. SL: [id number] Chest 1view DX Clinical Indication: CVA - CVA; 09/13/2017 [facility] Comparison: None FINDINGS: The portable AP [...] of atelectasis, correlate for superimposed process SL: [id number] Consultation Notes No Data Provided for This Section Discharge Summaries No Data Provided for This Section History and Physicals No Data Provided for This Section Vital Signs Vital Sign Value Date Comments Source Heart Rate 73 09/24/2017 [facility] Respitory Rate 24 09/24/2017 [facility] Systolic (mm Hg) 135 09/24/2017 [facility] Diastolic (mm Hg) 85 09/24/2017 [facility] Respitory Rate 26 09/24/2017 [facility] Heart Rate 76 09/24/2017 [facility] Systolic (mm Hg) 150 09/24/2017 [facility] Diastolic (mm Hg) 74 09/24/[address] [address] Systolic (mm Hg) 132 09/24/2017 [facility] t Diastolic (mm Hg) 82 09/24/2017 [facility] Heart Rate 71 09/24/2017 [facility] Respitory Rate 18 09/24/2017 [facility] Temperature Oral (F) 98.1 F 09/24/2017 [facility] Temperature Oral (F) 98.6 F 09/24/2017 [facility] Temperature Oral (F) 98.2 F 09/23/2017 [facility] Height 180.34 cm 09/13/2017 [facility] BMI Calculated 37.51 09/13/2017 [facility] Weight 122.008 09/13/2017 [facility] Weight 122.008 09/13/2017 [facility] BMI Calculated 38.59 09/13/2017 [facility] Height 177.8 cm 09/13/2017 [facility] Encounters Location Location Encounter Encounter Reason Attending ADM DC Stat us Source Details Type Number For Provider Date Date [facility] [id number] [place] 09/13 09/25 Michael Asl /2016 [facility] Procedures Procedure Code Date Perfomer Comments Source Coronary heart [id number] [facility] disease monitoring DIGAMI - diabetes [id number] [facility] mellitus insulin-glucose infusion in acute myocardial infarction On treatment for [id number] [facility] hypertension PTCA - [id number] [facility] Percutaneous transluminal coronary angioplasty Assessment and Plan Assessment and Plan Date Source Extracted from:Title: Clinical Document 09/25/2017 [facility] Author: Eric Dukes MD Date: 09/24/17 [...] The patient is critically ill and at [facility] for life threatening organ failure. I personally spent 85 minutes examining, assessing, reviewing labs and images, discussing with family and administering treatment. Plan of Care No Data Provided for This Section Social History Social History Date Source Social History TypeResponse 09/13/2017 [facility] Alcohol Never Smoking Status Heavy tobacco [...]
--- OUTSIDE RECORDS SUMMARY | 2020-06-13 20:49 | XMS REPORT | Continuity of Care Document ---
:1960 Author Organization [facility] Address [address] [place] [address] Care Team Providers Name Role Phone Aslam Attending Clinician Aslam Admitting Clinician Problems Condition Condition Condition Status Onset Resolution Last Treating Co mments Source Name Details Category Date Date Treatment Clinician Date CVA Diagnosis Active 2016-102017-09-13 Mem oria 2-02 05:31:00 l CVA 00:00: Valentine 00 Active 09/13/2017 [facility] CVA Diagnosis Active 2016-102018-03-11 Mem oria ISCHEMIC 2- 13:29:00 l CVA 00:00: Valentine ISCHEMIC 00 Active 09/13/2017 [facility] Pure Pure Problem Active [facility]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 Celeste kes - sterolemia sterolemia Me moria l Outpati ent Clinics PEG PEG Problem Active [facility] (percutane (percutane Celeste kes - ous ous Memoria endoscopic endoscopic l gastrostom gastrostom Ou tpati y) status y) status ent Clinics Essential Essential Problem Active [facility] hypertensi hypertensi Celeste kes - on on Memoria l Outpati ent Clinics Hemiplegia Hemiplegia Problem Active [facility] following following Luke s - CVA CVA Memoria (cerebrova (cerebrova l scular scular Outpati accident) accident) ent Clinics 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 Outpati ent Clinics Other Other Problem Active [facility] sequelae sequelae [facility] - of of Memoria cerebral cerebral l infarction infarction Ou tpati ent Clinics Cerebrovas Cerebrovas Problem Active [facility] cular cular [facility] - accident accident Memori a (CVA), (CVA), l unspecifie unspecifie Ou tpati d d ent mechanism mechanism Clin ics Type 2 Type [address] [facility] diabetes diabetes [facility] - mellitus mellitus Memori a without without l complicati complicati Ou tpati on, on, ent without without Clinics long-term long-term current current use of use of insulin insulin Pressure Pressure Problem [facility] injury of injury of Luke s - right right Memoria ankle, ankle, l stage 2 stage 2 Outpati ent Clinics History of History of Problem Active [facility] CVA CVA [facility] - (cerebrova (cerebrova Me moria scular scular l accident) accident) Outp ati ent Clinics Incontinen Incontinen Problem Active [facility] ce of ce of [facility]ukes - feces, feces, Memoria unspecifie unspecifie l d fecal d fecal Outpati incontinen incontinen en t ce type ce type Clinics Urinary Urinary Problem Active [facility] incontinen incontinen Celeste kes - ce, ce, Memoria unspecifie unspecifie l d type d type Outpati ent Clinics Elevated Elevated Problem Active [facility] alkaline alkaline [facility] - phosphatas phosphatas Me moria e level e level l Outpati ent Clinics Abnormal Abnormal Problem Active [facility] liver liver [facility] - function function Memori a tests tests l Outpati ent Clinics Discolorat Discolorat Problem Active [facility] ion of ion of [facility] - skin of skin of Memoria foot foot l Outpati ent Clinics Onychomyco Onychomyco Problem Active [facility] sis sis [facility] Clinics Cold feet Cold feet Problem Active [facility] Encounter Encounter Diagnosis Active [facility] for other for other Luke s - preprocedu preprocedu Me moria ral ral l examinatio examinatio Ou tpati n n ent Clinics Cerebral Problem 2017-09-27 Mem oria infarction 02:25:05 l , Cerebral Edvin harper unspecifie infarction d , unspecifie d 09/27/2017 [facility] Coronary Problem Resolve 2017-09-27 Nh moria arterioscl d 02:25:05 l erosis Coronary Edvin n (disorder) arterioscl erosis (disorder) Resolved Problem 09/27/2017 [facility] Diabetes Problem Resolve 2017-09-27 Nh moria mellitus d 02:25:05 l (disorder) Diabetes He rmann mellitus (disorder) Resolved Problem 09/27/2017 [facility] Hypertensi Problem Resolve 2017-09-27 Memoria ve d 02:25:05 l disorder, Michael systemic Hypertensi arterial ve (disorder) disorder, systemic arterial (disorder) Resolved Problem 09/27/2017 [facility] Patient Problem Resolve 2017-09-27 Mem oria post d 02:25:05 l percutaneo Patient Her veronica us post translumin percutaneo al us coronary translumin angioplast al y coronary (finding) angioplast y (finding) Resolved Problem 09/27/2017 [facility] CEREBRAL Diagnosis Active 2018-03-11 M emoria INFARCTION 13:29:00 l , CEREBRAL Edvin n UNSPECIFIE INFARCTION D , UNSPECIFIE D Active [facility] Allergies, Adverse Reactions, Alerts Allergy Allergy Status Severity Reaction(s) Onset Inactive Treating Comm ents Source Name Type Date Date Clinician PCN Adverse Active Info Not [facility] Reaction Available [facility] - Memoria [facility] Social History Social Habit Start Date Stop Date Quantity Comments Source Social History 2017-09-13 2017-09-13 Marycarmen draper 19:10:21 19:10:21 Medications Ordered Filled Start Stop Current Ordering Indication Dosage Frequency Signature Comments Components Source Medication Medication Date Date Medication? Clinician (SIG) Name Name Metformin Metformin Yes Valeria [address] [facility] HCl HCl 1-31 Millender with a [facility] - 00:00: meal Memoria 00 [facility] Blood Blood 2020-0 Yes Valeria as [facility] Glucose Glucose 1-09 Millender directed [facility] - Monitor Monitor 00:00: [facility] System 00 [facility] Lancets Lancets 2019-0 Yes Valeria as [facility] 1-09 Millender directed [facility] - 00:00: Memoria 00 [facility] blood blood 2020-0 2020- No Valeria one [facility] glucose glucose 1-09 04-03 Millender Pauline es - test strip test strip 00:00: 00:00 Memoria 00 :00 [facility] Glucometer Glucometer 2019-0 Yes Valeria one [facility] 1-03 Millender [facility] - 00:00: Memoria 00 [facility] Bactroban Bactroban Yes Valeria Apply to [facility] 1-12 Millender affected [facility] - 00:00: area Memoria 00 l Outpati ent Clinics Seroquel Seroquel Yes Valeria [address] [facility] 8-17 Millender [facility] - 00:00: Memoria 00 l Outpati ent Clinics Lisinopril Lisinopril Yes Valeria [address] [facility] 6-18 Millender [facility] - 00:00: Memoria 00 l Outpati ent Clinics Metformin 2016-10 Yes 500 mg = 1 Me moria hydrochlori 2-12 tab, PO, l de 500 MG 21:28: Daily, Edvin n Oral Tablet 00 take with a meal, # 30 tab, 1 Refill(s) docusate 2016-10 Yes 100 mg = Memor ia sodium 150 2-12 10 mL, PO, l mg/15 mL 21:28: Q12H, # Edvin n oral liquid 00 600 mL, 0 Refill(s) atorvastati 2016-10 Yes 40 mg = 1 M emoria n 40 mg 2-12 tab, PO, l oral tablet 21:28: Bedtime, # Michael 00 30 tab, 0 Refill(s) Aspirin 81 2016-10 Yes 81 mg = 1 Me moria MG Chewable 2-12 tab, PO, l Tablet 21:28: Daily, # Valentine 00 30 tab, 0 Refill(s) Haldol 2016-10 No Notes: Memoria 2-12 (Same as: l 10:26: Haldol) Michael 00 Omnipaque 2016-10 No Notes: Memori a 350 2-11 (same l injectable 23:14: as:Omnipaq H ermann solution 00 ue 350). WASTE: F/P - Black; E - Municipal Trash Bin vancomycin 2016-10 No 2000 mg: Me moria 2-11 infuse l 11:00: over 2.5 Valentine 00 hours Haldol 2016-10 No Notes: Memoria 2-11 (Same as: l 09:53: Haldol) Valentine 00 vancomycin 2016-10 No Notes: Memor ia + Sodium 2-10 TIME l Chloride 23:19: CRITICAL Tahira nn 0.9% IV 100 00 MEDICATION mL (Same As: Vancocin) vancomycin 2016-10 No 2000 mg: Me moria + Sodium 2-10 infuse l Chloride 11:00: over 2.5 Tahira nn 0.9% IV 500 00 hours mL MEDICATION WASTE Product Size: 1000 mg Product Wasted: ___ mg vancomycin 2016-10 No 2000 mg: Me moria 2- infuse l 21:00: over 2.5 Valentine 00 hours Ativan 2016-10 No Notes: Memoria 2- (Same as: l 08:57: Ativan) Valentine vancomycin 2016-10 No 2001 mg: Me moria + Sodium 2-07 infuse l Chloride 20:00: over 2.5 Tahira nn 0.9% IV 250 00 hours mL MEDICATION WASTE Product Size: 1000 mg Product Wasted: ___ mg Vancomycin 2016-10 No Vancomycin M [facility] 11-19 Pharmacy l Protocol 18:00: Protocol, Herm bhavana 1 dose, Drug form: MISC, Route: MISC, ONCALL, 09/18/17 12:00:00 [employer]CHE[employer], Duration: 7 day, Stop date: 09/25/17 11:59:00 [employer] TE[employer] vancomycin 2016-10 No 2000 mg: Me moria + Sodium 2 infuse l Chloride 18:00: over 2.5 Tahira nn 0.9% IV 250 00 hours mL MEDICATION WASTE Product Size: 1000 mg Product Wasted: ___ mg NS (Bolus) 2016-10 No 500 mL, Zohaib jacqueline IV 07 500 ml/hr, l 16:01: Infuse Michael 00 Over: 1 hr, Route: IV, 500, Drug form: INJ, ONCE, Priority: STAT, Dosing Weight 122.008 kg, Start date: 09/18/17 10:01:00 [employer]CHESTRA TE[employer]ER, Stop date: 09/18/17 10:01:00 [employer]CHE[employer] TE[employer] Vancomycin 2016-10 No 1 ea, Memori a 11-19 Route: l 16:00: MISC, Michael 00 ONCALL, Dosing Weight 122.008, kg, Start date: 09/18/17 10:00:00 [employer]CHESTRA TEACHER, Duration: 7 day, Stop date: 09/25/17 9:59:00 [employer]CHESTRA TEACHER, Pharmacy to dose, ABX Indication : Pneumonia Acetaminoph 2016-10 No Notes: Max Memoria en 11-19 acetaminop l 10:35: hen = 4000 Valentine 00 mg/day (4 gm/day). (Same as: Tylenol) Zosyn 2016-10 No Notes: Memoria 2-06 (Same as: l 16:00: Zosyn) Dosing based on Piperacill in component MEDICATION WASTE Product Size: 3375 mg Product Wasted: ___ mg Rocephin 2016-10 No Notes: Memoria 2-05 (Same As: l 19:00: Rocephin). Use with 100 mL NS and infuse over 30 min MEDICATION WASTE Product Size: 1000 mg Product Wasted: ___ mg Albuterol / 2016-10 No Notes: Zohaib jacqueline Ipratropium 2- (Same as: l 20:00: Duoneb) Lasix 2016-10 No Notes: Memoria 2-04 (Same as: l 16:14: Lasix) MEDICATION WASTE Product Size: 40 mg Product Wasted: ___ mg Insulin 2016-10 No Notes: Memoria Lispro 2-03 Roll in l 18:28: palms of hands gently; Do not shake `vigorousl y. (Same as: Humalog ) "Single Patient Use Only " WASTE: F/P - Black; E - Municipal Trash Bin Stable for 28 days at room temperatur e. Expires in days from ____Date Dextrose 2016-10 No 25 gm, 50 Zohaib jacqueline 50% Syringe 2-03 mL, Route: l 18:28: IVP, Drug Form: INJ, Dosing Weight 122.008, kg, PRN, PRN Blood Glucose Results, Start date: 09/14/17 12:28:00 [employer]CHESTRA TEACHER, Duration: 30 day, Stop date: 10/14/17 12:27:00 [employer]CHESTRA TEACHER Glucagon 2016-10 No 1 mg, Memoria 2 Route: IM, l 18:28: Drug form: PDR/INJ, PRN, Dosing Weight 122.008, kg, PRN Blood Glucose Results, Start date: 09/14/17 12:28:00 [employer]CHESTRA TEACHER, Duration: 30 day, Stop date: 10/14/17 12:27:00 [employer]CHESTRA TEACHER Docusate 2016-10 No Notes: Memoria 2-03 (Same as: l 03:00: Colace) atorvastati 2016-10 No Notes: Zohaib jacqueline n 2- (Same as: l 03:00: Lipitor) Saline 2016-10 No Notes: Memoria Flush 0.9% 2- (Same as: l 03:00: BD Posiflush) Aspirin 2016-10 No Notes: Memoria 2- Take with l 22:57: food. heparin 2016-10 No Notes: Memoria 2- porcine l 22:00: heparin Visipaque 2016-10 No Notes: Memori a 320 mg/mL - (Same as: l injectable 19:37: Visipaque) H ermann solution . WASTE: F/P - Black; E - Municipal Trash Bin Glipizide 2016-10 No 10 mg = 1 Mem oria 10 MG Oral 2- tab, PO, l Tablet 19:17: Before Breakfast, # 90 tab, 0 Refill(s) Insulin 2016-10 No Notes: Memoria Lispro 2- Roll in l 15:09: palms of hands gently; Do not shake `vigorousl y. (Same as: Humalog ) "Single Patient Use Only " WASTE: F/P - Black; E - Municipal Trash Bin Stable for 28 days at room temperatur e. Expires in days from ____Date Calcium 2016-10 No Notes: Memoria Carbonate 2- (Same As: l 500 MG 15:09: Tums) Chewable 00 Calcium Tablet Carbonate 500 mg = 200 mg elemental calcium Dose = mg calcium carbonate ( mg elemental calcium) Magnesium 2016-10 No Notes: Memori a Oxide 2- (Same as: l 15:09: Mag-Ox Valentine 00 400) Magnesium oxide [id number] g elemental magnesium Dose=____m g magnesium oxide (___mg elemental magnesium) Calcium 2016-10 No Notes: Memoria Gluconate 2- WASTE: F/P l 15:09: - Sink; E Michael - Municipal Trash Bin potassium 2016-10 No Notes: Memori a phosphate-s 2- (Same as: l odium 15:09: Phos-NaK) phosphate 00 Each 1.5 250 mg-280 gm pkt has mg-160 mg 250mg oral powder phosphorou for s. Mix reconstitut w/2.5oz ion water and stir. potassium 2016-10 No Notes: Memori a phosphate 2-02 (Same as: l 15:09: K Phosphate. ) 1 mMol phoshate has 1.47 mEq potassium Infuse over 4 hours Magnesium 2016-10 No Notes: Memori a Sulfate - WASTE: F/P l 15:09: - Sink; E - Municipal Trash Bin sodium 2016-10 No 30 mmol, Memoria phosphate 2-02 10 mL, l 15:09: Route: IVPB, PRN, kg, PRN Abnormal Lab Result, Start date: 09/13/17 9:09:00 ORCHESTRA TEACHER, Duration: 30 day, Stop date: 10/13/17 9:08:00 ORCHESTRA TEACHER, FOR ICU USE ONLY Potassium 2016-10 No Notes: Memori a Chloride 2-02 (Same as: l 15:09: Potassium Chloride) Dextrose 2016-10 No 12.5 gm, Memor ia 50% Syringe 2-02 25 mL, l 15:09: Route: IVP, Drug Form: INJ, kg, PRN, PRN Blood Glucose Results, Start date: 09/13/17 9:09:00 ORCHESTRA TEACHER, Duration: 30 day, Stop date: 10/13/17 9:08:00 [employer]CHESTRA TEACHER Glucagon 2016-10 No 1 mg, Memoria 2-02 Route: IM, l 15:09: Drug form: PDR/INJ, PRN, kg, PRN Blood Glucose Results, Start date: 09/13/17 9:09:00 ORCHESTRA TEACHER, Duration: 30 day, Stop date: 10/13/17 9:08:00 ORCHESTRA TEACHER normal 2016-10 No 1,000 mL, Memori a saline 0.9% 2-02 Rate: 75 l IV 1,000 mL 15:05: ml/hr, Infuse over: 13.3 hr, Route: IV, Total Volume: 1,000, Start date: 09/13/17 9:05:00 ORCHESTRA TEACHER, Duration: 30 day, Stop date: 10/13/17 9:04:00 ORCHESTRA TEACHER Hydralazine 2016-10 No Notes: Zohaib jacqueline 2- (Same as: l 15:05: Apresoline ) Push over 5 minutes Labetalol 2016-10 No Notes: Memori a - (Same as: l 15:01: Normodyne, Trandate) Push over 2 minutes Give bolus over 2-3 minutes. Ondansetron 2016-10 No Notes: Zohaib jacqueline - (Same as: l 15:01: Zofran) MEDICATION WASTE Product Size: 4 mg Product Wasted: ___ mg Bisacodyl 2016-10 No Notes: Memori a - (Same As: l 15:01: Dulcolax, Bisco-Lax) Acetaminoph 2016-10 No Notes: Do M emoria en 11-14 not exceed l 15:01: 4 gm/day. (Same as: Tylenol) Saline 2016-10 No Notes: Memoria Flush 0.9% 11-14 (Same as: l 15:01: BD Posiflush) Omeprazole Omeprazole Yes Valeria [address] [facility] Silace Silace Yes Valeria 7.5 ml [facility] Aspirin Aspirin Yes Valeria [address] [facility] Lisinopril Lisinopril Yes Valeria [address] [facility] Atorvastati Atorvastati Yes Valeria [address] [facility] n Calcium n Calcium Millender [facility] Atorvastati Atorvastati Yes Valeria TAKE [address] [facility] n Calcium n Calcium Millender TABLET BY [facility] - MOUTH Memoria EVERY l NIGHT AT Outpati BEDTIME ent Clinics Vital Signs Vital Name Observation Time Observation Value Comments Source Heart Rate 2017-09-24 19:04:00 [facility] Valentine Respitory Rate 2017-09-24 19:04:00 Ravin Justin Systolic (mm Hg) 2017-09-24 19:04:00 Zohaib Rodriguez Diastolic (mm Hg) 2017-09-24 19:04:00 Mem orial Valentine Respitory Rate 2017-09-24 14:22:00 Memori al Valentine Heart Rate 2017-09-24 14:22:00 [facility] Valentine Systolic (mm Hg) 2017-09-24 14:22:00 Zohaib rial Michael Diastolic (mm Hg) 2017-09-24 14:22:00 Mem orial Michael Systolic (mm Hg) 2017-09-24 10:00:00 Zohaib rial Michael Diastolic (mm Hg) 2017-09-24 10:00:00 Mem orial Michael Heart Rate 2017-09-24 10:00:00 [facility] Valentine Respitory Rate 2017-09-24 10:00:00 Memori al Michael Temperature Oral (F) 2017-09-24 06:00:00 98.1 F [facility] Valentine Temperature Oral (F) 2017-09-24 02:00:00 98.6 F [facility] Valentine Temperature Oral (F) 2017-09-23 21:00:00 98.2 F [facility] Michael Height 2017-09-13 19:18:00 180.34 cm Memorial Valentine BMI Calculated 2017-09-13 19:18:00 Memori al Michael Weight 2017-09-13 19:18:00 [facility] Michael Weight 2017-09-13 16:10:00 [facility] Michael BMI Calculated 2017-09-13 16:10:00 Memori al Michael Height 2017-09-13 16:10:00 177.8 cm [facility] Michael Procedures Procedure Date / Time Performed Performing Clinician [facility] e Coronary heart disease Memorial Valentine monitoring DIGAMI - diabetes Memorial Tahira nn mellitus insulin-glucose infusion in acute myocardial infarction On treatment for Memorial Edvin n hypertension PTCA - Percutaneous [facility] transluminal coronary angioplasty Encounters Start End Encounter Admission Attending Care Care Encounter Source Date/Time Date/Time Type Type Clinicians Facility Department ID 2020-06-06 2020-06-06 [facility] [id number] [facility] 15:15:00 15:15:00 [facility] 2020-04-03 2020-04-03 [facility] [id number] 14:25:00 14:25:00 [facility] 2020-02-16 2020-02-16 [facility] [id number] 14:12:00 14:12:[address] [facility] Medicine Medicine Outpati ent Clinics 2019-12-15 2019-12-15 [facility] [id number] [facility] 11[facility]30:00 11:30:00 t [facility] Medicine l Medicine Outpati ent Clinics 2019-11-30 2019-11-30 [facility] [id number] 10:40:00 10:40:[address] [facility] Medicine l Medicine Outpati ent Clinics 2019-11-29 2019-11-29 [facility] [id number] [facility] 02:06:00 02:06:[address] [facility] Medicine l Medicine Outpati ent Clinics 2019-11-09 2019-11-09 [facility] [id number] [address] 10:00:00 10:00:[address] [facility] Medicine l Medicine Outpati ent Clinics 2019-11-05 2019-11-05 [facility] [id number] [address] 10:15:00 10:15:[address] [facility] Medicine l Medicine Outpati ent Clinics 2019-10-21 2019-10-21 [facility] [id number] 15[facility]46:00 15:46:[address] [facility] Medicine l Medicine Outpati ent Clinics 2019-10-20 2019-10-20 [facility] [id number] 10:55:00 10:55:[address] [facility] Medicine l Medicine Outpati ent Clinics 2019-10-14 2019-10-14 [facility] [id number] [facility] [address] 13:30:00 13:30:[address] [facility] Medicine l Medicine Outpati ent Clinics 2019-10-10 2019-10-10 [facility] [id number] [address] 18:31:00 18:31:[address] [facility] Medicine l Medicine Outpati ent Clinics 2019-10-08 2019-10-08 [facility] [id number] [address] 14:30:00 14:30:[address] [facility] Medicine l Medicine Outpati ent Clinics 2019-08-09 2019-08-09 [facility] [id number] 09:45:00 09:45:00 t [facility] Medicine Outpati ent Clinics 2019-07-06 2019-07-06 [facility] [id number] 10:45:00 10:45:[address] [facility] Medicine Medicine Outpati ent Clinics 2019-04-02 2019-04-02 [facility] [id number] 13:15:00 13:15:00 t [facility] Medicine Outpati ent Clinics 2018-12-11 2018-12-11 [facility] [id number] [address] 10:30:00 10:30:[address] [facility] Medicine Medicine Outpati ent Clinics 2018-10-30 2018-10-30 [facility] [id number] 10:15:00 10:15:00 t [facility] l Medicine Outpati ent Clinics 2018-10-24 2018-10-24 [facility] [id number] 17:45:00 17:45:00 t [facility] l Outpati ent Clinics 2018-09-24 2018-09-24 [facility] [id number] 13:30:00 13:30:[address] [facility] Medicine Medicine Outpati ent Clinics 2018-07-21 2018-07-21 [facility] [id number] 10:13:00 10:13:[address] [facility] Medicine l Medicine Outpati ent Clinics 2018-05-29 2018-05-29 [facility] [id number] 09:00:00 09:00:00 [facility] Clin[facility] 2018-04-07 2018-04-07 [facility] [id number] 13:04:00 13:04:00 [facility] 2018-03-30 2018-03-30 [facility] [id number] 09:30:00 09:30:00 [facility] 2017-09-13 2017-09-24 [facility] [id number] 08:34:00 18:40:00 Murad 36 Results Test Description Test Time Test Comments Results Result Comments Source ELECTROLYTES 2017-09-24 15.0 Memorial 11:19:00 Michael ELECTROLYTES 2017-09-24 9.1 Memorial 11:19:00 Valentine ELECTROLYTES 2017-09-24 24 Memorial 11:19:00 Valentine ELECTROLYTES 2017-09-24 4.0 Memorial 11:19:00 Valentine ELECTROLYTES 2017-09-24 103 Memorial 11:19:00 Michael ELECTROLYTES 2017-09-24 98 Memorial 11:19:00 Michael ELECTROLYTES 2017-09-24 27 Memorial 11:19:00 Michael ELECTROLYTES 2017-09-24 0.80 Memorial 11:19:00 Valentine ELECTROLYTES 2017-09-24 138 Memorial 11:19:00 Michael ELECTROLYTES 2017-09-24 188 Memorial 11:19:00 Valentine HEMATOLOGY 2017-09-24 Normal Memorial 11:19:00 (09/24/17 5:19 Michael AM) HEMATOLOGY 2017-09-24 Normal Memorial 11:19:00 (09/24/17 5:19 Michael AM) HEMATOLOGY 2017-09-24 1.0 Memorial 11:19:00 Valentine HEMATOLOGY 2017-09-24 13.0 Memorial 11:19:00 Valentine HEMATOLOGY 2017-09-24 2.0 Memorial 11:19:00 Michael HEMATOLOGY 2017-09-24 3.0 Memorial 11:19:00 Michael HEMATOLOGY 2017-09-24 5.0 Memorial 11:19:00 Valentine HEMATOLOGY 2017-09-24 3.0 Memorial 11:19:00 Valentine HEMATOLOGY 2017-09-24 73.0 Memorial 11:19:00 Michael HEMATOLOGY 2017-09-24 0.5 Memorial 11:19:00 Valentine HEMATOLOGY 2017-09-24 0.5 Memorial 11:19:00 Michael HEMATOLOGY 2017-09-24 2.6 Memorial 11:19:00 Valentine HEMATOLOGY 2017-09-24 12.7 Memorial 11:19:00 Michael HEMATOLOGY 2017-09-24 88.3 Memorial 11:19:00 Valentine HEMATOLOGY 2017-09-24 45.4 Memorial 11:19:00 Valentine HEMATOLOGY 2017-09-24 15.0 Memorial 11:19:00 Valentine HEMATOLOGY 2017-09-24 5.15 Memorial 11:19:00 Valentine HEMATOLOGY 2017-09-24 9.2 Memorial 11:19:00 Valentine HEMATOLOGY 2017-09-24 33.0 Memorial 11:19:00 Michael HEMATOLOGY 2017-09-24 11:19:00 Test Item Value Reference Range Interpretation Comme nts MCH (test code = MCH) 29.2 pg 27.0-31.0 [facility] [id number] 11:19:63632Mrlyexvi HermannHEMATOLOGY 2017-09-24 11:19:0014.0[facility] WmpduxxVXYFDMUCBB5000-83-26 11:19:0017.1[facility] HermannCHEM DVNIT0653-60-96 11:42:00<0.05[facility] HermannELECTROLYTES 2017-09-23 11:42:0014.0[facility]orial LqzycxlVNMIACQFYMWV6871-38-68 11:42:0094[facility] AhkrpklLFDYSFAKXQQM3994-12-84 11:42:004.0[facility]orial XhrlwzySLWXVADJNSIP2619-83-86 11:42:35971Dwnsgxjw TqbpqzmTDBFEXPLBFAB9977-26-30 11:42:0026[facility] Michael YPDXDDWDFGOC3809-28-31 11:42:93130Ywewupuc IfaugiaGADHXGXBNCLL7714-47-41 11:42:000.90Memorial JtfzidpAUXMTKPLMZGV0355-26-48 11:42:0024[facility] Valentine TTMIFXHSMBVT9804-50-78 11:42:73619Dsrcmmjx ApkpkemEXPCKKWSAOTG0406-81-01 11:42:009.2[facility] FrbwmglJCNDRWLBGQ6205-89-86 11:42:000.1[facility] Michael HGVMCZZTAS5384-11-72 11:42:000.3[facility]orial OjibcmxZOBFXFJYLP7312-89-64 11:42:001.3 Memorial JyfwavpWCFVXISJUN6109-42-17 11:42:0015.8[facility] HermannHEMATOLOGY 2017-09-23 11:42:00Normal (09/23/17 5:42 AM)[facility] PybfjnnPAYEIQKNGZ2723-52-76 11:42:00Normal (09/23/17 5:42 AM)[facility] ZmquerrHEUTJLFFRE5463-83-03 11:42:00 6.9[facility]orial TdkmnchOHYEDHHGWP7357-45-22 11:42:000.5[facility] HermannHEMATOLOGY 2017-09-23 11:42:001.5[facility] LlqlnzjMIFODHHPVC7416-10-68 11:42:0075.3[facility]orial LscmaxdTSPJRQTPHT9524-19-85 11:42:002.9[facility] HulhicsCGQOZZHQVM6177-87-38 11:42:0013.9[facility] DzdwbpkMYAVSEGHOV6101-19-73 11:42:00 Test Item Value Reference Range Interpretation Comments MCH (test code = MCH) 28.9 pg 27.0-31.0 Memorial ZoedxtsQYNJEFIZJA6939-35-07 11:42:0088.9[facility] HermannHEMATOLOGY 2017-09-23 11:42:0046.4[facility] FlmayroRMKXYTQMYA4296-21-27 11:42:0015.1[facility] DtkyeioJACLLIRKVT7290-92-63 11:42:005.22[facility] CiwjqmpJOJFPDVSFE8956-44-08 11:42:009.5[facility]orial QymcoajTPYDRYJZSG0156-32-02 11:42:30975Vmzzrkbv Michael CYZCSRWGVO6190-88-43 11:42:0014.4[facility] GphbuwlRDUZNECTYH2794-34-23 11:42:00 32.5[facility] OdzzxaqNBQGPXZZPN3990-67-18 11:42:0018.4[facility]annTOXICOLOGY 2017-09-22 21:13:7272091355Xrvqfoai ZqvcmnfCVXJRAVZPT5161-16-83 21:13:0014.1 [facility] JeganliFCILWPZFVL3764-12-62 21:50:5643051123Fhuedjwa HermannTOXICOLOGY 2017-09-21 21:50:0010.3[facility] HermannCHEM BSTTX6678-19-99 09:47:000.05[facility] OimmjpdYPUSOFUNYGHJ7031-69-77 09:47:0012.1[facility] WldfatvKOSIITVJYOHE2727-34-62 09:47:0094[facility] UrkyekvRHIKZGPLAXKA1517-26-75 09:47:29270Vxozbsgz [facility] FVXABLEBLLTW1498-94-06 09:47:0026[facility] ZhorfljJDCOLSCRDDIT7054-39-12 09:47:00 4.1[facility] OpivgduPGGCDRGMJEMA5733-97-44 09:47:000.90[facility] BYZWYFIMEISU9618-64-30 09:47:45634Lyuvjqrr HnshnsqGABUNKYKWYPI4429-15-74 09:47:008.8[facility] MzqzsepDIROJMRWBOMW6798-35-07 09:47:0027[facility] QFELJVFIZJNY0491-77-35 09:47:05030Nuqgxaka NnycleaIGYVHXCJYY7521-92-41 09:47:00 14.6[facility] NbxktvwHZGZNCYTAV8841-53-79 09:47:009.7[facility] HermannHEMATOLOGY 2017-09-21 09:47:26927Dbftmpvo HwtedjaCSCTXJZBLR1777-92-91 09:47:0015.1[facility] RgtumfcZOCXUYZULA3376-87-24 09:47:0045.7[facility] EkblzgeAMQYZXUROB5979-25-14 09:47:0033.1[facility] HqtrmohBFBOKXZPFX8689-58-95 09:47:00 Test Item Value Reference Range Interpretation Comments MCH (test code = MCH) 29.5 pg 27.0-31.0 [facility] HutbypsXPSFKSFVVD0238-07-17 09:47:0089.1[facility] HermannHEMATOLOGY 2017-09-21 09:47:005.13[facility] FkirjwoTHEGAYUKVU9662-69-20 09:47:0016.7[facility] JulgbygUWFRNTNSPY4430-41-62 09:47:000.1[facility] TgzbkelIJVJGXIIYP4138-99-33 09:47:000.2[facility] PhjizdnUXTPXHBALV2811-69-50 09:47:0074.2[facility] XFLACRHXPU3320-11-64 09:47:001.5[facility] CdyxzfrUIBWQULAJN7185-13-49 09:47:007.9 [facility] HaufqzhMQXJWKHWOL3655-21-11 09:47:0012.4[facility] HermannHEMATOLOGY 2017-09-21 09:47:000.5[facility] IvdmptoWKNQGARPEP6516-34-10 09:47:001.3[facility] IpxzojjNZLJZVBWJM0647-22-40 09:47:002.7[facility] SoxmwdbLECMJVUSPN9172-12-49 09:47:0015.9[facility] PxacpdsXURIIZBZJV7520-00-57 07:33:009.0[facility] BGEFJPSPET7771-83-59 07:33:7766526713Udfrbrcx HermannCHEM WBZSB5950-89-65 20:40:001.3[facility] HermannCHEM VLNZT8764-02-19 11:49:001.3[facility]annURINE AND JCHDZ3106-19-66 05:10:00Moderate *ABN*(09/15/17 11:10 PM)[facility] URINE AND SQLVO2843-25-45 05:10:00Negative *NA*(09/15/17 11:10 PM)[facility] AND XIJVD4466-65-07 05:10:005.0[facility]annUR[facility] AND STOOL 2017-09-16 05:10:001.021[facility]UR[facility] AND XDEOM0856-26-59 05:10:00Slight *ABN*(09/15/17 11:10 PM)[facility] PWRNX0238-64-31 05:10:00 Negative (09/15/17 11:10 PM)[facility] AND BXSRP9268-33-04 05:10:002.0 [facility] AND PQUVE0630-96-49 05:10:00Negative (09/15/17 11:10 PM) [facility] AND GTWAY3401-34-69 05:10:00Performed *NA*(09/15/17 11:10 PM)[facility] WHOSQ6718-78-81 05:10:001[facility] AND EHVQQ8286-12-14 05:10:0056[facility]UR[facility] AND ZKQYH7710-87-82 05:10:005 [facility]annCHEM CKRRI6799-49-45 10:35:003.1[facility] HermannCHEM PANEL 2017-09-15 10:35:002.1[facility] KgvyuolHRPWZQGPSW0901-25-35 10:35:000.6[facility] HyddivnVKSVPFVQKT9706-91-39 10:35:000.1[facility] HermannPARATHYROID PROFILE 2017-09-15 10:35:001.02[facility] HermannPARATHYROID WSXWKFY9552-69-49 10:35:00 1.05[facility] HermannCARDIAC EJBUPQQ1180-95-09 09:53:00<0.02[facility] CHEM NYYUW5848-29-32 09:53:002.8[facility] HermannCHEM ZYZMU7694-59-31 09:53:002.3 [facility]annPARATHYROID PGAAUIJ2354-03-77 09:53:001.08[facility] PARATHYROID VVSJSGM2585-70-08 09:53:001.08[facility] HermannBACTERIAL - SEROLOGY 2017-09-14 00:11:00Negative (09/13/17 6:11 PM)[facility]annDRUG SCREEN 2017-09-14 00:11:00Negative *NA*(09/13/17 6:11 PM)[facility]annDRUG SCREEN 2017-09-14 00:11:00Negative *NA*(09/13/17 6:11 PM)[facility]annDRUG SCREEN 2017-09-14 00:11:00Negative *NA*(09/13/17 6:11 PM)[facility]annDRUG SCREEN 2017-09-14 00:11:00Negative *NA*(09/13/17 6:11 PM)[facility]annDRUG SCREEN 2017-09-14 00:11:00Negative *NA*(09/13/17 6:11 PM)[facility]annDRUG SCREEN 2017-09-14 00:11:00Positive *ABN*(09/13/17 6:11 PM)[facility]annDRUG SCREEN 2017-09-14 00:11:00See Note (09/13/17 6:11 PM)[facility]annDRUG SCREEN 2017-09-14 00:11:00Negative *NA*(09/13/17 6:11 PM)[facility]annDRUG SCREEN 2017-09-14 00:11:00Negative *NA*(09/13/17 6:11 PM)[facility] HermannDRUG SCREEN 2017-09-14 00:11:00Negative *NA*(09/13/17 6:11 PM)[facility] HermannCARDIAC ENZYMES 2017-09-13 16:40:00<0.02[facility] HermannCHEM SAPKW0933-80-29 16:40:000.1 [facility]annCHEM JMPVB9211-97-64 16:40:0011[facility] HermannCHEM PANEL 2017-09-13 16:40:0083[facility] HermannCHEM UTRVU1708-63-25 16:40:003.2[facility] HermannCHEM CWVIY3602-35-55 16:40:000.4[facility] HermannCHEM CFARX1805-81-60 16:40:0026[facility] HermannCHEM HTAOA1360-21-65 16:40:007.5[facility] HermannCHEM HHHUK4630-95-06 16:40:000.7[facility] HermannCHEM TBCFU7057-72-92 16:40:004.3 [facility]annCHEM SYBGV6771-58-93 16:40:0016[facility] KcbkpvqOLLNQW6927-95-20 16:40:0018[facility] BqzmgpiWOVHQS5485-29-45 16:40:69891Llhnomoh HermannLIPIDS 2017-09-13 16:40:0058[facility] TshjthnWMLQJN8202-91-35 16:40:0092[facility] OLYJBD5785-19-08 16:40:0042[facility] GdsbppbIEASJZ2785-86-74 16:40:002.03[facility] HermannSPECIAL HUQIUWAVE6069-92-70 16:40:008.8[facility]annURINE AND STOOL 2017-09-13 16:40:00<=1.0[facility]annUR[facility] AND IEEVA4784-00-12 16:40:00 1.022[facility]annUR[facility] AND NDJBR1419-86-01 16:40:005.0[facility]UR[facility] AND RNXMW8689-48-49 16:40:00Clear (09/13/17 10:40 AM)[facility] AND DZXTN0439-77-10 16:40:00Small *ABN*(09/13/17 10:40 AM)[facility]UR[facility] AND XAVKO0017-19-85 16:40:0013[facility]annURINE AND GUWJW6027-06-82 16:40:0081 [facility]UR[facility] AND UTNSH6185-40-19 16:40:00Negative *NA*(09/13/17 10:40 AM)[facility]annUR[facility] AND ZASCK5409-82-96 16:40:00Large *ABN*(09/13/17 10:40 AM)[facility]UR[facility] AND OYXOE6169-39-14 16:40:00Negative (09/13/17 10:40 AM) [facility]
--- OUTSIDE RECORDS SUMMARY | 2020-06-13 20:50 | XMS REPORT ---
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
--- OUTSIDE RECORDS SUMMARY | 2020-06-13 20:50 | XMS REPORT ---
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 infarction Problem Pure hypercholesterolemia E78.00 Ac tive Problem Cerebrovascular accident (CVA), I63.9 Active unspecified mechanism Medications Medication Code Code Instructions Start End Date Status Dosage System Date Omeprazole NDC 91912942780 40 MG Orally Active 1 ca psule Once a day Silace ND 13000370758 60 MG/15ML via Active 7.5 m l as G tube Twice a needed day Lisinopril ND 39445087694 5 MG Orally March 30, Active 1 ta blet Once a day 2017 Bactroban NDC 26855720538 2 % Externally Oct 24, Active Jeremie ly to BID 2018 affected area Aspirin NDC 18771406144 81 MG Orally Active 1 table t Once a day blood glucose NDC 0 n/s as directed Oct 21January Active on e test strip once a day 2020 03, 2021 Metformin HCl NDC 97775395172 500 MG Orally Nov 12, Active 1 tablet twice a day 2019 with a meal Lisinopril [facility] 15180226162 5 Orally Once a Active 1 tablet day Atorvastatin [facility] 73492976349 20 MG Orally Active 1 tablet Calcium Once daily in evening Atorvastatin [facility] 17919573057 20 mg Active TAKE 1 Calcium TABLET BY MOUTH EVERY NIGHT AT BEDTIME Seroquel [facility] 50523832695 25 MG Orally May 29, Active 1 tabl et Once a day in 2017 evening Blood Glucose [facility] 29942918714 w/Device use Oct 21, Active as directed Monitor System once daily [address] [facility] 55882204939 n/s n/s use as Oct 15, Active on e directed [address] [facility] 86712042570 - as directed Oct 21, Active as dir ected test bs once 2019 daily Results No Known Results Summary Purpose eClinicalWorks Submission
--- NOTE | 2020-06-13 22:09 | ER ---
Nurse's Notes [facility] Name: El Ventura Age: 59 yrs Sex: Male : 1960 Arrival Date: 06/13/2020 Time: 20:49 Bed 19 Private MD: Diagnosis: Irritant contact dermatitis Presentation: 06/13 20:54 Chief complaint: Spouse and/or significant other states: Eating through his PEG tube ca1 since September 2017 until September 2019. He is now taking food orally, PEG tube is just used for medication and water. Peg tube fell off a week ago, appointment with GI doctor tomorrow at 1000. Reports clear liquid, dark brown drainage from the peg tube stoma since yesterday, more today. And passing of gas through the stoma. Denies vomiting. Denies abdominal pain. Denies fever. Denies diarrhea. Coronavirus screen: Client denies travel out of the [place] in the last 14 days. At this time, the client does not indicate any symptoms associated with coronavirus-19. Ebola Screen: Patient negative for fever greater than or equal to 101.5 degrees Fahrenheit, and additional compatible Ebola Virus Disease symptoms Patient denies exposure to infectious person. Patient denies travel to an Ebola-affected area in the 21 days before illness onset. No symptoms or risks identified at this time. Initial Sepsis Screen: Does the patient meet any 2 criteria? No. Patient's initial sepsis screen is negative. Does the patient have a suspected source of infection? No. Patient's initial sepsis screen is negative. Risk Assessment: Do you want to hurt yourself or someone else? Patient reports no desire to harm self or others. Onset of symptoms was June 13, 2020. 20:54 Method Of Arrival: Wheelchair ca1 20:54 Acuity: ROBERT 3 ca1 Triage Assessment: 21:20 General: Appears in no apparent distress. comfortable, Behavior is calm, cooperative. rr5 GI: Reports PEG tube removed stated by the family member. Historical: - Allergies: 21: PENICILLINS; ca1 - PMHx: 21:01 CAD; CVA; Diabetes - NIDDM; heart stents; High Cholesterol; Hypertension; ca1 - PSHx: 21:01 PEG tube placement; Cholecystectomy; ca1 - Immunization history:: Adult Immunizations up to date. - Social history:: Smoking status: Patient/guardian denies using tobacco, the patient reports quitting approximately 3 years ago. Screenin:35 Abuse screen: Denies threats or abuse. Denies injuries from another. Nutritional rr5 screening: No deficits noted. Tuberculosis screening: No symptoms or risk factors identified. Fall Risk Fall in past 12 months (25 points). Secondary diagnosis (15 points) impaired mobility, CVA, Gait- Impaired (20 pts.). Total Perez Fall Scale indicates High Risk Score (45 or more points). Fall prevention measures have been instituted. Side Rails Up X 2 Placed Close to Nursing Station Frequent Obs/Assessments Occuring Family Present and informed to notify staff if the need to leave the bedside As available patient and family educated on Fall Prevention Program and Strategies. Assessment: 21:20 General: Appears in no apparent distress. comfortable, Behavior is calm, cooperative. rr5 21:20 Pain: Unable to use pain scale. Patient appears quiet. Neuro: Level of Consciousness is rr5 awake, alert, obeys commands, Oriented to person, place, situation. Cardiovascular: Capillary refill < 3 seconds Patient's skin is warm and dry. Respiratory: Airway is patent Respiratory effort is even, unlabored, Respiratory pattern is regular, symmetrical. GI: Abdomen is round non-distended, ostomy from PEG tube mild redness around the area noted. Parent/caregiver reports the patient having. : No signs and/or symptoms were reported regarding the genitourinary system. EENT: No signs and/or symptoms were reported regarding the EENT system. Derm: Skin is intact, is healthy with good turgor, Skin temperature is warm. Musculoskeletal: Capillary refill < 3 seconds, Parent/caregiver report the patient having right sided paralysis. 22:20 Reassessment: Patient appears in no apparent distress at this time. No changes from rr5 previously documented assessment. 22:50 Reassessment: Patient appears in no apparent distress at this time. Patient is alert, rr5 oriented x 3, equal unlabored respirations, skin warm/dry/pink. discharge instruction given and explained without complaints made. Vital Signs: 20:54 BP 136 / 81; Pulse 87; Resp 16 S; Temp 98.9(TE); Pulse Ox 99% on R/A; Weight 72.57 kg ca1 (R); Height 5 ft. 9 in. (175.26 cm) (R); Pain 0/10; 22:35 BP 141 / 75; Pulse 80; Resp 19; Pulse Ox 99% ; rr5 20:54 Body Mass Index 23.63 (72.57 kg, 175.26 cm) ca1 ED Course: 20:49 Patient arrived in ED. cl3 21:00 Triage completed. ca1 21:01 Arm band placed on right wrist. ca1 21:17 Sudeep Xiao, RN is Primary Nurse. rr5 21:20 Patient has correct armband on for positive identification. Bed in low position. Call rr5 light in reach. 21:20 Repositioned patient. Cleaned of incontinence. Linen changed. rr5 21:27 Rudy Zapata NP is PHCP. pm1 21:27 Eliot Washington MD is Attending Physician. pm1 22:35 Cleaned of incontinence. rr5 22:40 No provider procedures requiring assistance completed. Patient did not have IV access rr5 during this emergency room visit. 22:40 Wound care: to ostomy from PEG located on abdomen was cleaned with Hibiclens, dressed rr5 with Neosporin, 4X4s, Patient tolerated well. Administered Medications: No medications were administered Outcome: 22:08 Discharge ordered by . pm1 22:50 Discharged to home via wheelchair, with family. rr5 22:50 Condition: stable 22:50 Discharge instructions given to patient, family, Instructed on discharge instructions, follow up and referral plans. Demonstrated understanding of instructions, follow-up care. 22:54 Patient left the ED. rr5 Signatures: Rudy Zapata, [employer] DIRECTOR pm1 Sudeep Xiao RN RN rr5 Carlene Gilbert RN RN ca1 Cornelio Pastrana cl3
--- NOTE | 2020-06-13 22:09 | EDPHYS ---
Physician Documentation [facility] Name: El Ventura Age: 59 yrs Sex: Male : 1960 Arrival Date: 06/13/2020 Time: 20:49 Bed 19 Private MD: SHANNAN Physician Eliot Washington HPI: 06/13 22:08 This 59 yrs old Male presents to ER via Wheelchair with complaints of PEG Tube pm1 fell out. 22:08 The patient presents with PEG tube came out 1 week ago. Patient has been eating by pm1 mouth since September of 2019 and he had just been using his PEG tube for fluids and medications. His PEG tube came out 1 week ago for unknown reason and he has been eating and drinking by mouth without any difficulty. He reports that he has had some drainage from the stoma. No abdominal pain, nausea, vomiting, or diarrhea. No fevers. Patient has an appointment with Dr. Baker/Betsy tomorrow at 1000. Historical: - Allergies: 21:01 PENICILLINS; ca1 - PMHx: 21:01 CAD; CVA; Diabetes - NIDDM; heart stents; High Cholesterol; Hypertension; ca1 - PSHx: 21:01 PEG tube placement; Cholecystectomy; ca1 - Immunization history:: Adult Immunizations up to date. - Social history:: Smoking status: Patient/guardian denies using tobacco, the patient reports quitting approximately 3 years ago. ROS: 22:08 Constitutional: Negative for fever, chills, and weight loss, Cardiovascular: Negative pm1 for chest pain, palpitations, and edema, Respiratory: Negative for shortness of breath, cough, wheezing, and pleuritic chest pain, Abdomen/GI: Negative for abdominal pain, nausea, vomiting, diarrhea, and constipation, Back: Negative for injury and pain, MS/Extremity: Negative for injury and deformity, Skin: Negative for injury, rash, and discoloration, Neuro: Negative for headache, weakness, numbness, tingling, and seizure. Exam: 22:08 Constitutional: This is a well developed, well nourished patient who is awake, alert, pm1 and in no acute distress. Head/Face: Normocephalic, atraumatic. Neck: Trachea midline, no thyromegaly or masses palpated, and no cervical lymphadenopathy. Supple, full range of motion without nuchal rigidity, or vertebral point tenderness. No Meningismus. 22:08 Back: No spinal tenderness. No costovertebral tenderness. Full range of motion. Skin: Warm, dry with normal turgor. Normal color with no rashes, no lesions, and no evidence of cellulitis. MS/ Extremity: Pulses equal, no cyanosis. Neurovascular intact. Full, normal range of motion. 22:08 Cardiovascular: Exam negative for acute changes, Rate: normal, Rhythm: regular, Pulses: no pulse deficits are appreciated. 22:08 Respiratory: Exam negative for acute changes, respiratory distress, shortness of breath. 22:08 Abdomen/GI: Inspection: stoma without any signs of infection. No erythema or purulent discharge. small area of contact dermatitis apparently caused by dressing to the area, Palpation: abdomen is soft and non-tender, in all quadrants, no crepitus. 22:08 Neuro: Exam negative for acute changes, Motor: moves all fours. Vital Signs: 20:54 BP 136 / 81; Pulse 87; Resp 16 S; Temp 98.9(TE); Pulse Ox 99% on R/A; Weight 72.57 kg ca1 (R); Height 5 ft. 9 in. (175.26 cm) (R); Pain 0/10; 22:35 BP 141 / 75; Pulse 80; Resp 19; Pulse Ox 99% ; rr5 20:54 Body Mass Index 23.63 (72.57 kg, 175.26 cm) ca1 MDM: 21:28 Patient medically screened. [facility] 22:08 Data reviewed: vital signs. Data interpreted: Pulse oximetry: on room air is 99 %. pm1 Interpretation: normal. 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 Administered Medications: No medications were administered Disposition: 06/14 16:41 Co-signature as Attending Physician, Eliot Washington MD I agree with the assessment and [facility] plan of care. Disposition: 06/13/20 22:08 Discharged to Home. Impression: Irritant contact dermatitis. - Condition is Stable. - Discharge Instructions: Contact Dermatitis. - Medication Reconciliation Form, Thank You Letter, Antibiotic Education, Prescription Opioid Use form. - Follow up: Emergency Department; When: As needed; Reason: Worsening of condition. Follow up: Private Physician; When: 2 - 3 days; Reason: Recheck today's complaints, Continuance of care, Re-evaluation by your physician. - Problem is new. - Symptoms have improved. Signatures: Eliot Washington MD MD cha Marinas, Patrick APPEALS EXAMINER APPEALS EXAMINER pm1 Sudeep Xiao RN RN rr5 Carlene Gilbert RN RN ca1 Corrections: (The following items were deleted from the chart) 06/13 22:54 22:08 06/13/2020 22:08 Discharged to Home. Impression: Irritant contact dermatitis. rr5 Condition is Stable. Forms are Medication Reconciliation Form, Thank You Letter, Antibiotic Education, Prescription Opioid Use. Follow up: Emergency Department; When: As needed; Reason: Worsening of condition. Follow up: Private Physician; When: 2 - 3 days; Reason: Recheck today's complaints, Continuance of care, Re-evaluation by your physician. Problem is new. Symptoms have improved. pm1
== END 2020-06-13 22:54 | disposition home or self-care (01) ==
LOC: ER 08:44
DX: L24.9 Irritant contact dermatitis, unspecified cause (principal); Z88.0 Allergy status to penicillin
CPT/HCPCS: 99284

== ENCOUNTER 2020-08-05 20:48 | Emergency (ER) | payer OTHER ==
--- OUTSIDE RECORDS SUMMARY | 2020-08-05 20:52 | XMS REPORT | Continuity of Care Document ---
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 arteriosclerosis [facility] (disorder) Diabetes mellitus Resolved Problem 09/27/2017 M H (disorder) [facility] Hypertensive Resolved Problem 09/27/2017 disorder, systemic [place] arterial (disorder) Patient post Resolved Problem 09/27/2017 percutaneous [facility] transluminal coronary angioplasty (finding) CEREBRAL Active INFARCTION, [facility] t UNSPECIFIED Medications Medication Details Route [...] Chewable Tablet PO, Daily, # 30 2017 [facility] tab, 0 Refill(s) Haldol Notes: (Same Inactive as: Haldol) 2016 [facility] Omnipaque 350 Notes: (same Inactive injectable as:Omnipaque 2016 solution 350). WASTE: F/P - Black; E - Municipal Trash Bin vancomycin 2001 mg: No Longer infuse over 2.5 Active 2016 [facility] hours Haldol Notes: (Same Inactive as: Haldol) 2016 [facility] vancomycin + Notes: TIME Inactive Sodium Chloride CRITICAL 2016 [facility] 0.9% IV 100 mL MEDICATION (Same As: Vancocin) vancomycin + 2001 mg: Inactive Sodium Chloride infuse over 2.5 2016 [facility] 0.9% IV 500 mL hours MEDICATION WASTE Product Size: 1000 mg Product Wasted: ___ mg vancomycin 2001 mg: No Longer infuse over 2.5 Active 2016 [facility] t hours Ativan Notes: (Same Inactive as: Ativan) 2016 [facility] vancomycin + 2001 mg: No Longer Sodium Chloride infuse over 2.5 Active 2016 [facility] 0.9% IV 250 mL hours MEDICATION WASTE Product Size: 1000 mg Product Wasted: ___ mg Vancomycin Vancomycin No Longer Pharmacy Pharmacy Active 2016 [facility] Protocol Protocol, 1 dose, Drug form: MISC, Route: PENG [place]STER, 09/18/17 12:00:00 FRUIT THINNER, Duration: 7 day, Stop date: 09/25/17 11:59:00 [facility] vancomycin + 2001 mg: Inactive Sodium Chloride infuse over 2.5 2016 [facility] 0.9% IV 250 mL hours MEDICATION WASTE Product Size: 1000 mg Product Wasted: ___ mg NS (Bolus) IV 500 mL, 500 No Longer ml/hr, Infuse Active 2016 [facility] Over: 1 hr, Route: IV, 500, Drug form: INJ, ONCE, Priority: STAT, Dosing Weight 122.008 kg, Start date: 09/18/17 10:01:00 FRUIT THINNER, Stop date: 09/18/17 10:01:00 [facility] Vancomycin 1 ea, Route: Inactive PENG [place], 2016 [facility] Dosing Weight 122.008, kg, Start date: 09/18/17 10:00:00 FRUIT THINNER, Duration: 7 day, Stop date: 09/25/17 9:59:00 FRUIT THINNER, Pharmacy to dose, ABX Indication: Pneumonia Acetaminophen Notes: Max No Longer acetaminophen = Active 2016 [facility] t 4000 mg/day (4 gm/day). (Same as: Tylenol) Zosyn Notes: (Same No Longer as: Zosyn) Active 2016 [facility] Dosing based on Piperacillin component MEDICATION WASTE Product Size: 3375 mg Product Wasted: ___ mg Rocephin Notes: (Same No Longer As: Rocephin). Active 2016 [facility] Use with 100 mL NS and infuse over 30 min MEDICATION WASTE Product Size: 1000 mg Product Wasted: ___ mg Albuterol / Notes: (Same No Longer Ipratropium as: Duoneb) [facility] Las[facility] Notes: (Same Inactive as: Lasix) 2016 [facility] MEDICATION WASTE Product Size: 40 mg Product Wasted: ___ mg Insulin Lispro Notes: Roll in No Longer palms of hands Active 2016 [facility] gently; Do not shake `vigorously. (Same as: Humalog ) "Single Patient Use Only " WASTE: F/P - Black; E - Municipal Trash Bin Stable for 28 days at room temperature. Expires in days from D ate Dextrose 50% 25 gm, 50 mL, No Longer Syringe Route: IVP, Active 2016 [facility] Drug Form: INJ, Dosing Weight 122.008, kg, PRN, PRN Blood Glucose Results, Start date: 09/14/17 12:28:00 FRUIT THINNER, Duration: 30 day, Stop date: 10/14/17 12:27:00 [facility]NER Glucagon 1 mg, Route: No Longer IM, Drug form: Active 2016 [facility] PDR/INJ, PRN, Dosing Weight 122.008, kg, PRN Blood Glucose Results, Start date: 09/14/17 12:28:00 FRUIT THINNER, Duration: 30 day, Stop date: 10/14/17 12:27:00 [facility] [facility]INNER Docusate Notes: (Same No Longer as: Colace) Active 2016 [facility] atorvastatin Notes: (Same No Longer as: Lipitor) Active 2016 [facility] Saline Flush Notes: (Same No Longer 0.9% as: BD Active 2016 [facility] Posiflush) Aspirin Notes: Take No Longer with food. Active 2016 [facility] heparin Notes: porcine No Longer heparin Active 2016 [facility] Visipaque 320 Notes: (Same Inactive mg/mL injectable as: Visipaque). 2016 [facility] solution WASTE: F/P - Black; E - Municipal Trash Bin Glipizide 10 MG 10 mg = 1 tab, No Longer Oral Tablet PO, Before Active 2016 [facility] Breakfast, # 90 tab, 0 Refill(s) Insulin Lispro Notes: Roll in No Longer palms of hands Active 2016 [facility] gently; Do not shake `vigorously. (Same as: Humalog ) "Single Patient Use Only " WASTE: F/P - Black; E - Municipal Trash Bin Stable for 28 days at room temperature. Expires in days from D ate Calcium Notes: (Same No Longer Carbonate 500 MG As: Tums) Active 2016 [facility] Chewable Tablet Calcium Carbonate 500 mg = 200 mg elemental calcium Dose = mg calcium carbonate ( mg elemental calcium) Magnesium Oxide Notes: (Same No Longer 09/13/ H as: Mag-Ox 400) Active 2016 [facility] Magnesium oxide [id number] elemental magnesium Dose=____mg magnesium oxide (___mg elemental magnesium) Calcium Notes: WASTE: No Longer Gluconate F/P - Sink; E - Active 2016 [facility] Municipal Trash Bin potassium Notes: (Same No Longer phosphate-sodium as: Phos-NaK) Active 2016 [place] phosphate 250 Each 1.5 gm pkt mg-280 mg-160 mg has 250mg oral powder for phosphorous. reconstitution Mix w/2.5oz water and stir. potassium Notes: (Same No Longer phosphate as: K Active 2016 [facility] Phosphate.) 1 mMol phoshate has 1.47 mEq potassium Infuse over 4 hours Magnesium Notes: WASTE: No Longer Sulfate F/P - Sink; E - Active 2016 [facility] Municipal Trash Bin sodium phosphate 30 mmol, 10 mL, No Longer 09/13 Route: IVPB, Active 2016 [facility] PRN, kg, PRN Abnormal Lab Result, Start date: 09/13/17 9:09:00 FRUIT THINNER, Duration: 30 day, Stop date: 10/13/17 9:08:00 FRUIT THINNER, FOR ICU USE ONLY Potassium Notes: (Same No Longer Chloride as: Potassium Active 2016 [facility] Chloride) Dextrose 50% 12.5 gm, 25 mL, No Longer 12/ H Syringe Route: IVP, Active 2016 [facility] Drug Form: INJ, kg, PRN, PRN Blood Glucose Results, Start date: 09/13/17 9:09:00 FRUIT THINNER, Duration: 30 day, Stop date: 10/13/17 9:08:00 FRUIT THINNER Glucagon 1 mg, Route: No Longer IM, Drug form: [facility] 2016 [facility] PDR/INJ, PRN, kg, PRN Blood Glucose Results, Start date: 09/13/17 9:09:00 FRUIT THINNER, Duration: 30 day, Stop date: 10/13/17 9:08:00 FRUIT THINNER normal saline 1,000 mL, Rate: No Longer 0.9% IV 1,000 mL 75 ml/hr, Active 2016 [facility] Infuse over: 13.3 hr, Route: IV, Total Volume: 1,000, Start date: 09/13/17 9:05:00 FRUIT THINNER, Duration: 30 day, Stop date: 10/13/17 9:04:00 FRUIT THINNER Hydralazine Notes: (Same No Longer as: Apresoline) Active 2016 [facility] t Push over 5 minutes Labetalol Notes: (Same No Longer as: Normodyne, 2016 [facility] Trandate) Push over 2 minutes Give bolus over 2-3 minutes. Ondansetron Notes: (Same No Longer as: Zofran) [facility] 2016 [facility] MEDICATION WASTE Product Size: 4 mg Product Wasted: ___ mg Bisacodyl Notes: (Same No Longer As: Dulcolax, [facility] 2016 [facility] Bisco-Lax) Acetaminophen Notes: Do not No Longer exceed 4 Active 2016 [facility] gm/day. (Same as: Tylenol) Saline Flush Notes: (Same No Longer 0.9% as: BD Active 2017 [facility] Posiflush) Allergies, Adverse Reactions, Alerts No Known Medication Allergies Immunizations No Data Provided for This Section Results Order Name Results Value Reference Date Interpretation Comments Shana rce Range ELECTROLYT AGAP 15.0 10.0 - 09/24 ES 20.0 [facility] ELECTROLYT Calcium Lvl 9.1 8.5 - 10.5 09/24 [facility] ELECTROLYT CO2 24 24 - 32 09/24 [facility] ELECTROLYT Potassium 4.0 3.5 - 5.1 09/24 ES Lvl /2016 [facility] ELECTROLYT Chloride Lvl 103 95 - 109 09/24 [facility] ELECTROLYT eGFR 98 09/24 Comment: The [facility] eGFR is calculated using the CKD-EPI formula. [...] ELECTROLYT BUN 27 7 - 22 09/24 [facility] ELECTROLYT Creatinine 0.80 0.50 - 09/24 ES Lvl 1.40 [facility] ELECTROLYT Sodium Lvl 138 135 - 145 09/24 ES [facility] ELECTROLYT Glucose Lvl 188 70 - 99 09/24 [facility] HEMATOLOGY RBC Morph Normal 09/24 (09/24/17 5:19 AM) [facility] HEMATOLOGY Plt Morph Normal 09/24 (09/24/17 5:19 AM) [facility] HEMATOLOGY Bands 1.0 0.0 - 11.0 09/24 [facility] HEMATOLOGY Lymphocytes 13.0 20.0 - 09/24 MH 40.0 [facility] HEMATOLOGY Atypical 2.0 <=0.0 % 09/24 Lymphs /2016 [facility] HEMATOLOGY Eosinophils 3.0 0.0 - 4.0 09/24 [facility] HEMATOLOGY Metamyelocyt 5.0 0.0 - 1.0 09/24 es /2016 [facility] HEMATOLOGY Monocytes 3.0 2.0 - 12.0 09/24 [facility] HEMATOLOGY Segs 73.0 45.0 - 09/24 MH 75.0 /2016 [facility] HEMATOLOGY Eosinophils 0.5 0.0 - 0.5 09/24 MH # /2017 [facility] HEMATOLOGY Monocytes # 0.5 0.0 - 0.8 09/24 [facility] HEMATOLOGY Lymphocytes 2.6 1.0 - 5.5 09/24 MH # /2016 [facility] HEMATOLOGY Segs-Bands # 12.7 1.5 - 8.1 09/24 [facility] HEMATOLOGY MCV 88.3 80.0 - 09/24 94.0 [facility] HEMATOLOGY Hct 45.4 42.0 - 09/24 MH 54.0 /2016 [facility] HEMATOLOGY Hgb 15.0 14.0 - 09/24 18.0 [facility] HEMATOLOGY RBC 5.15 4.70 - 09/24 MH 6.10 [facility] HEMATOLOGY MPV 9.2 7.4 - 10.4 09/24 [facility] HEMATOLOGY MCHC 33.0 32.0 - 09/24 36.0 /2016 [facility] HEMATOLOGY MCH 29.2 27.0 - 09/24 31.0 [facility] HEMATOLOGY Platelet 259 133 - 450 09/24 [facility] HEMATOLOGY RDW 14.0 11.5 - 09/24 14.5 [facility] HEMATOLOGY WBC 17.1 3.7 - 10.4 09/24 [facility] CHEM PANEL Procalcitoni <0.05 0.00 - 09/23 n Lvl 0.10 [facility] ELECTROLYT AGAP 14.0 10.0 - 09/23 ES 20.0 [facility] ELECTROLYT eGFR 94 09/23 ES Comment: The [facility] eGFR is calculated using the CKD-EPI formula. [...] - 5.1 / MH ES Lvl /2017 [facility] ELECTROLYT Sodium Lvl 139 135 - 145 09/23 ES /2016 [facility] ELECTROLYT BUN 26 7 - 22 09/23 ES /2016 [facility] ELECTROLYT Glucose Lvl 188 70 - 99 09/23 ES [facility] ELECTROLYT Creatinine 0.90 0.50 - 09/23 MH ES Lvl 1.40 /2016 [facility] ELECTROLYT CO2 24 24 - 32 09/23 ES /2016 [facility] ELECTROLYT Chloride Lvl 105 95 - 109 09/23 ES [facility] ELECTROLYT Calcium Lvl 9.2 8.5 - 10.5 09/23 ES [facility] HEMATOLOGY Basophils # 0.1 0.0 - 0.2 09/23 [facility] HEMATOLOGY Eosinophils 0.3 0.0 - 0.5 09/23 MH # /2016 [facility] HEMATOLOGY Monocytes # 1.3 0.0 - 0.8 09/23 [facility] HEMATOLOGY Lymphocytes 15.8 20.0 - 09/23 MH 40.0 /2017 [facility] HEMATOLOGY Plt Morph Normal 09/23 (09/23/17 5:42 AM) [facility] HEMATOLOGY RBC Morph Normal 09/23 (09/23/17 5:42 AM) [facility] HEMATOLOGY Monocytes 6.9 2.0 - 12.0 09/23 [facility] HEMATOLOGY Basophils 0.5 0.0 - 1.0 09/23 [facility] HEMATOLOGY Eosinophils 1.5 0.0 - 4.0 09/23 [facility] HEMATOLOGY Segs 75.3 45.0 - / MH 75.0 /2017 [facility] HEMATOLOGY Lymphocytes 2.9 1.0 - 5.5 09/23 MH # /2016 [facility] HEMATOLOGY Segs-Bands # 13.9 1.5 - 8.1 09/23 [facility] HEMATOLOGY MCH 28.9 27.0 - 09/23 MH 31.0 [facility] HEMATOLOGY MCV 88.9 80.0 - 12 MH 94.0 [facility] HEMATOLOGY Hct 46.4 42.0 - 12 MH 54.0 [facility] HEMATOLOGY Hgb 15.1 14.0 - 09/23 MH 18.0 [facility] HEMATOLOGY RBC 5.22 4.70 - 12 MH 6.10 [facility] HEMATOLOGY MPV 9.5 7.4 - 10.4 09/23 [facility] HEMATOLOGY Platelet 269 133 - 450 09/23 [facility] HEMATOLOGY RDW 14.4 11.5 - 09/23 MH 14. [facility] HEMATOLOGY MCHC 32.5 32.0 - 09/23 MH 36.0 [facility] HEMATOLOGY WBC 18.4 3.7 - 10.4 09/23 [facility] TOXICOLOGY Vanco Tr TND [id number] 09/22 [facility] TOXICOLOGY Vanco Tr 14.1 09/22 [facility] TOXICOLOGY Vanco Tr TND [id number] 09/21 [facility] TOXICOLOGY Vanco Tr 10.3 09/21 [facility] CHEM PANEL Procalcitoni 0.05 0.00 - 09/21 n Lvl 0.10 [facility] ELECTROLYT AGAP 12.1 10.0 - 09/21 MH ES 20.0 [facility] ELECTROLYT eGFR 94 09/21 Comment: The [facility] eGFR is calculated using the CKD-EPI formula. [...] 105 95 - 109 / ES /2016 [facility] ELECTROLYT CO2 26 24 - 32 12/ ES /2016 [facility] ELECTROLYT Potassium 4.1 3.5 - 5.1 12/10 ES Lvl /2016 [facility] ELECTROLYT Creatinine 0.90 0.50 - 09/21 ES Lvl 1.40 /2016 [facility] ELECTROLYT Sodium Lvl 139 135 - 145 / ES /2016 [facility] ELECTROLYT Calcium Lvl 8.8 8.5 - 10.5 12 ES /2016 [facility] ELECTROLYT BUN 27 7 - 22 12/ ES /2016 [facility] ELECTROLYT Glucose Lvl 189 70 - 99 09/21 ES /2016 [facility] HEMATOLOGY RDW 14.6 11.5 - 09/21 14.5 /2016 [facility] HEMATOLOGY MPV 9.7 7.4 - 10.4 09/21 [facility] HEMATOLOGY Platelet 238 133 - 450 09/21 [facility] HEMATOLOGY Hgb 15.1 14.0 - 09/21 18.0 /2016 [facility] HEMATOLOGY Hct 45.7 42.0 - 12 54.0 /2017 [facility] HEMATOLOGY MCHC 33.1 32.0 - 12 36.0 /2016 [facility] HEMATOLOGY MCH 29.5 27.0 - 09/21 31.0 /2017 [facility] HEMATOLOGY MCV 89.1 80.0 - 09/21 94.0 /2017 [facility] HEMATOLOGY RBC 5.13 4.70 - 09/21 MH 6.10 /2016 [facility] HEMATOLOGY WBC 16.7 3.7 - 10.4 09/21 [facility] HEMATOLOGY Basophils # 0.1 0.0 - 0.2 09/21 [facility] HEMATOLOGY Eosinophils 0.2 0.0 - 0.5 /10 MH # /2017 [facility] HEMATOLOGY Segs 74.2 45.0 - 12 MH 75.0 /2016 [facility] HEMATOLOGY Eosinophils 1.5 0.0 - 4.0 09/21 [facility] HEMATOLOGY Monocytes 7.9 2.0 - 12.0 09/21 [facility] HEMATOLOGY Segs-Bands # 12.4 1.5 - 8.1 09/21 [facility] HEMATOLOGY Basophils 0.5 0.0 - 1.0 09/21 [facility] HEMATOLOGY Monocytes # 1.3 0.0 - 0.8 09/21 [facility] HEMATOLOGY Lymphocytes 2.7 1.0 - 5.5 09/21 # /2017 [facility] HEMATOLOGY Lymphocytes 15.9 20.0 - 09/21 40.0 /2017 [facility] TOXICOLOGY Vanco Tr 9.0 09/20 [facility] TOXICOLOGY Vanco Tr TND [id number] 09/20 [facility] CHEM PANEL Lactic Acid 1.3 0.5 - 2.2 09/18 Lvl [facility] CHEM PANEL Lactic Acid 1.3 0.5 - 2.2 09/18 Lvl [facility] URINE AND UA Blood Moderate Negative 09/16 STOOL *ABN* /2016 [facility] (09/15/17 11:10 PM) URINE AND UA Bili Negative Negative 09/16 STOOL *NA* /2016 [facility] (09/15/17 11:10 PM) URINE AND UA Glucose Negative Negative 09/16 STOOL mg/dL mg/dL [facility] URINE AND UA Protein 30 mg/dL Negative 09/16 STOOL mg/dL [facility] URINE AND UA Ketones Negative Negative 09/16 STOOL mg/dL mg/dL [facility] URINE AND UA pH 5.0 5.0 - 8.0 09/16 STOOL [facility] URINE AND UA Spec Grav 1.021 <=1.030 09/16 STOOL [facility] URINE AND UA Turbidity Slight Clear 09/16 STOOL *ABN* /2016 [facility] (09/15/17 11:10 PM) URINE AND UA Nitrite Negative Negative 09/16 STOOL (09/15/17 11:10 PM) [facility] URINE AND UA 2.0 0.1 - 1.0 09/16 STOOL Urobilinogen /2016 [facility] URINE AND UA Leuk Est Negative Negative 09/16 STOOL (09/15/17 11:10 PM) /2016 [facility] URINE AND UA Color Yellow 09/16 STOOL [facility] URINE AND Micro? Performed 09/16 STOOL *NA* /2016 [facility] (09/15/17 11:10 PM) URINE AND UA Hyal Cast 1 0 - 2 09/16 STOOL [facility] URINE AND UA RBC 56 0 - 2 09/16 STOOL [facility] URINE AND UA Mucus Few /LPF None Seen 09/16 STOOL /LPF /2016 [facility] URINE AND UA WBC 5 0 - 5 09/16 MH STOOL [facility] URINE AND UA Sq Epi Occasional Few /LPF 09/16 MH STOOL /LPF /2016 [facility] CHEM PANEL Phosphorus 3.1 2.5 - 4.5 09/15 [facility] CHEM PANEL Magnesium 2.1 1.8 - 2.4 09/15 MH Lvl [facility] HEMATOLOGY Basophils 0.6 0.0 - 1.0 09/15 [facility] HEMATOLOGY Basophils # 0.1 0.0 - 0.2 09/15 [facility] PARATHYROI Ca Ion WB 1.02 1.05 - 09/15 MH D PROFILE . [facility] PARATHYROI Ca Norm WB 1.05 1.05 - 09/15 MH D PROFILE 11.06 [facility] CARDIAC Troponin-I <0.02 0.00 - 09/14 MH ENZYMES 0. [facility] CHEM PANEL Phosphorus 2.8 2.5 - 4.5 09/14 [facility] CHEM PANEL Magnesium 2.3 1.8 - 2.4 09/14 Lvl [facility] PARATHYROI Ca Norm WB 1.08 1.05 - 09/14 MH D PROFILE . [facility] PARATHYROI Ca Ion WB 1.08 1.05 - 09/14 MH D PROFILE . [facility] BACTERIAL MRSA by PCR Negative 09/14 MH - SEROLOGY (09/13/17 6:11 PM) /2016 [facility] DRUG U Lisa Scr Negative Negative 09/14 MH SCREEN *NA* [facility] (09/13/17 6:11 PM) DRUG U Amph Scr Negative Negative 09/14 MH SCREEN *NA* [facility] (09/13/17 6:11 PM) DRUG U Benzodia Negative Negative 09/14 MH SCREEN Scr *NA* [facility] (09/13/17 6:11 PM) DRUG U Opiate Scr Negative Negative 09/14 MH SCREEN *NA* [facility] (09/13/17 6:11 PM) DRUG U Cannab Scr Negative Negative 09/14 MH SCREEN *NA* [facility] (09/13/17 6:11 PM) DRUG U Cocaine Positive Negative 09/14 MH SCREEN Scr *ABN* [facility] (09/13/17 6:11 PM) DRUG UDS Note See Note 09/14 MH SCREEN (09/13/17 6:11 PM) /2016 [place] Propoxyph Negative Negative 09/14 SCREEN Scr *NA* /2016 [facility] (09/13/17 6:11 PM) DRUG U Phencyc Negative Negative 09/14 SCREEN Scr *NA* /2016 [facility] (09/13/17 6:11 PM) DRUG U Methadone Negative Negative 09/14 SCREEN Scr *NA* /2016 [facility] (09/13/17 6:11 PM) CARDIAC Troponin-I <0.02 0.00 - 09/13 ENZYMES 0.40 [facility] CHEM PANEL Bili Direct 0.1 0.0 - 0.3 09/13 [facility] CHEM PANEL AST 11 0 - 37 09/13 [facility] CHEM PANEL Alk Phos 83 39 - 136 09/13 [facility] CHEM PANEL Albumin Lvl 3.2 3.5 - 5.0 09/13 [facility] CHEM PANEL Bili Total 0.4 0.2 - 1.3 09/13 [facility] CHEM PANEL ALT 26 0 - 65 09/13 [facility] CHEM PANEL Total 7.5 6.4 - 8.4 09/13 Protein [facility] CHEM PANEL A/G Ratio 0.7 0.7 - 1.6 09/13 [facility] CHEM PANEL Globulin 4.3 2.7 - 4.2 09/13 [facility] CHEM PANEL B/C Ratio 16 6 - 25 09/13 [facility] LIPIDS VLDL 18 09/13 [facility] LIPIDS Chol 118 <=199 09/13 mg/dL [facility] LIPIDS HDL 58 >=61 mg/dL 09/13 [facility] LIPIDS Trig 92 <=149 09/13 mg/dL [facility] LIPIDS LDL 42 <=99 mg/dL 09/13 (Calculated) [facility] LIPIDS CHD Risk 2.03 4.00 - 09/13 7.30 /2016 [facility] SPECIAL Hgb A1C 8.8 <=5.6 % 09/13 CHEMISTRY /2016 [facility] URINE AND UA Color Ltyellow 09/13 STOOL [facility] URINE AND UA <=1.0 0.1 - 1.0 09/13 STOOL Urobilinogen [facility] URINE AND UA Ketones Negative Negative 09/13 STOOL mg/dL mg/dL [facility] URINE AND UA Protein Negative Negative 09/13 STOOL mg/dL mg/dL [facility] URINE AND UA Glucose 500 mg/dL Negative 09/13 STOOL mg/dL [facility] URINE AND UA Spec Grav 1.022 <=1.030 09/13 STOOL [facility] URINE AND UA pH 5.0 5.0 - 8.0 09/13 STOOL [facility] URINE AND UA Turbidity Clear Clear 09/13 STOOL (09/13/17 10:40 AM) [facility] URINE AND UA Mucus Few /LPF None Seen 09/13 STOOL /LPF [facility] URINE AND UA Leuk Est Small Negative 09/13 STOOL *ABN* /2016 [facility] (09/13/17 10:40 AM) URINE AND UA Sq Epi Occasional Few /LPF 09/13 STOOL /LPF [facility] URINE AND UA WBC 13 0 - 5 09/13 STOOL [facility] URINE AND UA RBC 81 0 - 2 09/13 [facility] URINE AND UA Bili Negative Negative 09/13 STOOL *NA* [facility] (09/13/17 10:40 AM) URINE AND UA Blood Large Negative 09/13 STOOL *ABN* [facility] (09/13/17 10:40 AM) URINE AND UA Nitrite Negative Negative 09/13 [facility] (09/13/17 10:40 AM) [facility] Pathology Reports No Data Provided for This Section Diagnostic Reports Report Value Date Source Chest Pulmonary Study: Chest Pulmonary Embolism CTA 09/22/2017 [facility] Embolism CTA Clinical Indication: - resp [...] DX Clinical Indication: Pneumonia - PNA; 09/18/2017 [facility] Comparison: 09/15/2017 FINDINGS: Single AP chest [...] prior study from the same day 09/15/2017 [facility] History: Abnormal chest sounds Comments: The trachea is midline. The cardiomediastinal si lhouette is enlarged. Perihilar and right lung lung base interstitial opacities are unchanged. No pleural effusions or pneumothorax. Feeding tu be tip in the stomach Impression: Perihilar and right lung lung base interstitial opacities are unchanged. Brain wo contrast CT Patient Name: ROBERT HARDY 09/15/2017 [facility] : 1960; Age: 57 years y/o Male MR: [id number] Study: Brain wo contrast CT 09/15/2017 8:29 AM CS T Ordering Physician: Flaco Rocha MD Clinical Indication: Stroke, f/u stroke, rt side weakness,hx of CAD, diabetes, [id number] - Stroke, f/u stroke, rt side weakness,hx of CAD, diabetes, [id number]; Comparison: 09/13/2017 TECHNIQUE: CT images were ob [...] 1view DX Patient Name: ROBERT HARDY 09/15/2017 [facility] : 1960; Age: 57 years Male MR: [id number] Study: Chest 1view DX Order Time: 09/15/2017 8:3 0 AM [facility] CLINICAL INDICATION: Rhonchi - Rhonchi COMPARISON: Chest [...] Otherwise, no significant change since 09/13/2017. SL: [id number] Abdomen AP DX Clinical Indication: bee placement - bee placement. 09/13/2017 [facility] Comparison: None. FINDINGS: The AP supine [...] contrast MRI Patient Name: ROBERT HARDY 09/13/2017 [facility] : 1988; Age: 29 years y/o Male MR: [id number] Study: Brain wo contrast MRI 09/13/2017 9:01 [...] CTA STUDY: Brain/Neck CTA 09/13/2017 9:01 AM [facility] 11/2016 [facility] Ordering Physician: Arnulfo Chun MD Patient Name: ROBERT HARDY MR: [id number] : 1988; Age: 29 years y/o Male [...] carotid siphon likely representing crossflow through the craig of [place]. Middle cerebral arteries: Th e [...] siphon related to cross flow through the craig of [place]. 2. Reduced size mildly irre gular left M1 segment consistent with poor inflow and/or stenosis. Decreased arborization is seen more peripherally in the left MCA with loss of small M2 and M3 branches at the site of known infarction. 3. Acute left MCA distribution infarction. 4. Mild chronic sinusitis. SL: [id number] Chest 1view DX Clinical Indication: CVA - CVA; 09/13/2017 [facility] Comparison: None FINDINGS: The portable AP [...] of atelectasis, correlate for superimposed process SL: [id number] Consultation Notes No Data Provided for This Section Discharge Summaries No Data Provided for This Section History and Physicals No Data Provided for This Section Vital Signs Vital Sign Value Date Comments Source Heart Rate 73 09/24/2017 [facility] Respitory Rate 24 09/24/2017 [facility] Systolic (mm Hg) 135 09/24/2017 [facility] Diastolic (mm Hg) 85 09/24/2017 [facility] Respitory Rate 26 09/24/2017 [facility] Heart Rate 76 09/24/2017 [facility] Systolic (mm Hg) 150 09/24/2017 [facility] Diastolic (mm Hg) 74 09/24/[address] [facility] Systolic (mm Hg) 132 09/24/2017 [facility] t Diastolic (mm Hg) 82 09/24/2017 [facility] Heart Rate 71 09/24/2017 [facility] Respitory Rate 18 09/24/2017 [facility] Temperature Oral (F) 98.1 F 09/24/2017 [facility] Temperature Oral (F) 98.6 F 09/24/2017 [facility] Temperature Oral (F) 98.2 F 09/23/2017 [facility] Height 180.34 cm 09/13/2017 [facility] BMI Calculated 37.51 09/13/2017 [facility] Weight 122.008 09/13/2017 [facility] Weight 122.008 09/13/2017 [facility] BMI Calculated 38.59 09/13/2017 [facility] Height 177.8 cm 09/13/2017 [facility] Encounters Location Location Encounter Encounter Reason Attending ADM DC Stat us Source Details Type Number For Provider Date Date [facility] [id number] [facility] 09/13 09[facility]25 [facility] Procedures Procedure Code Date Perfomer Comments Source Coronary heart [id number] [facility] disease monitoring DIGAMI - diabetes [id number] [place] mellitus insulin-glucose infusion in acute myocardial infarction On treatment for [id number] [facility] hypertension PTCA - [id number] [facility] Percutaneous transluminal coronary angioplasty Assessment and Plan Assessment and Plan Date Source Extracted from:Title: Clinical Document 09/25/2017 [facility] Author: Eric Dukes MD Date: 09/24/17 [...] The patient is critically ill and at [facility] for life threatening organ failure. I personally spent 85 minutes examining, assessing, reviewing labs and images, discussing with family and administering treatment. Plan of Care No Data Provided for This Section Social History Social History Date Source Social History TypeResponse 09/13/2017 [facility] Alcohol Never Smoking Status Heavy tobacco [...]
--- OUTSIDE RECORDS SUMMARY | 2020-08-05 20:54 | XMS REPORT ---
:1960 [facility] Team Providers Name Role [...] Date Status Dosage System Date Omeprazole NDC 66384860280 40 MG Orally Active 1 ca psule Once a day Silace ND 59446850952 60 MG/15ML via Active 7.5 m l as G tube Twice a needed day Lisinopril ND 64731779754 5 MG Orally March 30, Active 1 ta blet Once a day 2017 Bactroban NDC 41706125400 2 % Externally Oct 24, Active Jeremie ly to BID 2018 affected area Aspirin NDC 69276137278 81 MG Orally Active 1 table t Once a day blood glucose NDC 0 n/s as directed Oct 21January Active on e test strip once a day 2020 03, 2021 Metformin HCl NDC 80983212012 500 MG Orally Nov 12, Active 1 tablet twice a day 2019 with a meal Lisinopril [facility] 60944484305 5 Orally Once a Active 1 tablet day Atorvastatin [facility] 94885261528 20 MG Orally Active 1 tablet Calcium Once daily in evening Atorvastatin [facility] 99335686217 20 mg Active TAKE 1 Calcium TABLET BY MOUTH EVERY NIGHT AT BEDTIME Seroquel [facility] 80650148003 25 MG Orally May 29, Active 1 tabl et Once a day in 2017 evening Blood Glucose [facility] 20007599351 w/Device use Oct 21, Active as directed Monitor System once daily 2019 Glucometer [facility] 68105897799 n/s n/s use as Oct 15, Active on e directed 2019 Lancets [facility] 52102872970 - as directed Oct 21, Active as dir ected test bs once 2019 daily Results No Known Results Summary Purpose eClinicalWorks Submission
--- OUTSIDE RECORDS SUMMARY | 2020-08-05 20:54 | XMS REPORT | Continuity of Care Document ---
:[address] [facility] t Address [address] [place] [address] Care Team Providers Name Role Phone Aslam Attending Clinician Aslam Admitting Clinician Problems Condition Condition Condition Status Onset Resolution Last Treating Co mments Source Name Details Category Date Date Treatment Clinician Date CVA Diagnosis Active 2016-102017-09-13 Mem oria 2-02 05:31:00 l CVA 00:00: [facility] 00 Active 09/13/2017 [facility] CVA Diagnosis Active 2016-102018-03-11 Mem oria ISCHEMIC 2- 13:29:00 l CVA 00:00: Michael ISCHEMIC 00 Active 09/13/2017 [facility] Pure Pure Problem Active [facility] [...] unspecifie infarction d , unspecifie d 09/27/2017 [facility] Coronary Problem Resolve 2017-09-27 Co moria arterioscl d 02:25:05 l erosis Coronary Edvin n (disorder) arterioscl erosis (disorder) Resolved Problem 09/27/2017 [facility] Diabetes Problem Resolve 2017-09-27 Co moria mellitus d 02:25:05 l (disorder) Diabetes He rmann mellitus (disorder) Resolved Problem 09/27/2017 [facility] Hypertensi Problem Resolve 2017-09-27 Memoria ve d 02:25:05 l disorder, [facility] systemic Hypertensi arterial ve (disorder) disorder, systemic arterial (disorder) Resolved Problem 09/27/2017 [facility] Patient Problem Resolve 2017-09-27 Mem oria post d 02:25:05 l percutaneo Patient Her veronica us post translumin percutaneo al us coronary translumin angioplast al y coronary (finding) angioplast y (finding) Resolved Problem 09/27/2017 [facility] CEREBRAL Diagnosis Active 2018-03-11 M emoria INFARCTION 13:29:00 l , CEREBRAL Edvin n UNSPECIFIE INFARCTION D , UNSPECIFIE D Active [facility] Allergies, Adverse Reactions, Alerts Allergy Allergy Status Severity Reaction(s) Onset Inactive Treating Comm ents Source Name Type Date Date Clinician PCN Adverse Active Info Not [facility] Reaction Available [facility] Social History Social Habit Start Date Stop Date Quantity Comments Source Social History 2017-09-13 2017-09-13 Marycarmen draper 19:10:21 19:10:21 Medications Ordered Filled Start Stop Current Ordering Indication Dosage Frequency Signature Comments Components Source Medication Medication Date Date Medication? Clinician (SIG) Name Name Metformin Metformin Yes Valeria [address] [facility] HCl HCl 1-31 Millender with a [facility] - 00:00: meal [facility]oria 00 [facility] Blood Blood 2019-0 Yes Valeria as [facility] Glucose Glucose 1-09 Millender directed [facility] Monitor Monitor 00:00: [facility] 00 [facility] Lancets Lancets Yes Valeria as [facility] 1-09 Millender directed [facility] - 00:[facility]: [facility]oria 00 [facility] blood blood 2020-0 2020- No Valeria one [facility] glucose glucose 1-09 04-03 Millender Pauline es - test strip test strip 00:00: 00:00 Memoria 00 :00 [facility] Glucometer Glucometer 2019-0 Yes Valeria one [facility] 1-03 [facility]ender [facility] - 00:[facility]: [facility] 00 [facility] Bactroban Bactroban Yes Valeria Apply to [facility] 1-12 Millender affected [facility] 00:[facility]: area [facility] Seroquel Seroquel Yes Valeria [address] [facility] 8-17 Millender [facility]: [facility] Lisinopril Lisinopril Yes Valeria [address] [facility] 6-18 Millender [facility] Metformin 2016-10 Yes 500 mg [...] tab, PO, l Tablet 21:28: Daily, # Michael 00 30 tab, 0 Refill(s) Haldol 2016-10 No Notes: Memoria 2-12 (Same as: l 10:26: Haldol) [facility] 00 Omnipaque 2016-10 No Notes: Memori a 350 2-11 (same l injectable 23:14: as:Omnipaq H ermann solution 00 ue 350). WASTE: F/P - Black; E - Municipal Trash Bin vancomycin 2016-10 No 2000 mg: Me moria 2-11 infuse l 11:00: over 2.5 [facility] 00 hours Haldol 2016-10 No Notes: Memoria 2-11 (Same as: l 09:53: Haldol) [facility] 00 vancomycin 2016-10 No Notes: Memor ia [...] moria 2- infuse l 21:00: over 2.5 [facility] 00 hours Ativan 2016-10 No Notes: Memoria 2- (Same as: l 08:57: Ativan) Michael 00 vancomycin 2016-10 No 2000 mg: Me moria + Sodium 207 infuse l Chloride 20:00: over 2.5 Tahira nn 0.9% IV 250 00 hours mL MEDICATION WASTE Product Size: 1000 mg Product Wasted: ___ mg Vancomycin 2016-10 No Vancomycin [facility] 11-19 Pharmacy l Protocol 18:00: Protocol, Herm bhavana 1 dose, Drug form: MISC, Route: MISC, ONCALL, 09/18/17 12:00:00 ORDNANCE KEEPER, Duration: 7 day, Stop date: 09/25/17 11:59:00 ORDNANCE KEEPER vancomycin 2016-10 No 2000 mg: Me moria + Sodium 2 infuse l Chloride 18:00: over 2.5 Tahira nn 0.9% IV 250 00 hours mL MEDICATION WASTE Product Size: 1000 mg Product Wasted: ___ mg NS (Bolus) 2016-10 No 500 mL, Zohaib jacqueline IV 11-19 500 ml/hr, l 16:01: Infuse [facility] 00 Over: 1 hr, Route: IV, 500, Drug form: INJ, ONCE, Priority: STAT, Dosing Weight 122.008 kg, Start date: 09/18/17 10:01:00 ORDNANCE KEEPER, Stop date: 09/18/17 10:01:00 ORDNANCE KEEPER Vancomycin 2016-10 No 1 ea, Memori a 11-19 Route: l 16:00: MISC, [facility] 00 ONCALL, Dosing Weight 122.008, kg, Start date: 09/18/17 10:00:00 ORDNANCE KEEPER, Duration: 7 day, Stop date: 09/25/17 9:59:00 ORDNANCE KEEPER, Pharmacy to dose, ABX Indication : Pneumonia Acetaminoph 2016-10 No Notes: Max Memoria en 11-19 acetaminop l 10:35: hen = 4000 Michael 00 mg/day (4 gm/day). (Same as: Tylenol) [...] / 2016-10 No Notes: Zohaib jacqueline Ipratropium 2-04 (Same as: l 20:00: Duoneb) Lasix 2016-10 [...] Blood Glucose Results, Start date: 09/14/17 12:28:00 ORDNANCE KEEPER, Duration: 30 day, Stop date: 10/14/17 12:27:00 ORDNANCE KEEPER Glucagon 2016-10 No 1 mg, Memoria 2 Route: IM, l 18:28: Drug form: PDR/INJ, PRN, Dosing Weight 122.008, kg, PRN Blood Glucose Results, Start date: 09/14/17 12:28:00 ORDNANCE KEEPER, Duration: 30 day, Stop date: 10/14/17 12:27:00 ORDNANCE KEEPER Docusate 2016-10 No Notes: Memoria 2-03 (Same as: l 03:00: Colace) atorvastati 2016-10 No Notes: Zohaib jacqueline n 2-03 (Same as: l 03:00: Lipitor) Saline 2016-10 [...] Oxide 2- (Same as: l 15:09: Mag-Ox Michael 00 400) Magnesium oxide 740ww=326w g elemental magnesium Dose=____m g magnesium oxide (___mg elemental magnesium) Calcium 2016-10 No Notes: Memoria Gluconate 2- WASTE: F/P l 15:09: - Sink; E [facility] - Municipal Trash Bin potassium 2016-10 No [...] Magnesium 2016-10 No Notes: Memori a Sulfate 2- WASTE: F/P l 15:09: - Sink; E - Municipal Trash Bin sodium 2016-10 No 30 mmol, Memoria phosphate 2-02 10 mL, l 15:09: Route: IVPB, PRN, kg, PRN Abnormal Lab Result, Start date: 09/13/17 9:09:00 ORDNANCE KEEPER, Duration: 30 day, Stop date: 10/13/17 9:08:00 ORDNANCE KEEPER, FOR ICU USE ONLY Potassium 2016-10 No Notes: Memori a Chloride 2-02 (Same as: l 15:09: Potassium Chloride) Dextrose 2016-10 No 12.5 gm, Memor ia 50% Syringe 2-02 25 mL, l 15:09: Route: IVP, Drug Form: INJ, kg, PRN, PRN Blood Glucose Results, Start date: 09/13/17 9:09:00 ORDNANCE KEEPER, Duration: 30 day, Stop date: 10/13/17 9:08:00 ORDNANCE KEEPER Glucagon 2016-10 No 1 mg, Memoria 2-02 Route: IM, l 15:09: Drug form: PDR/INJ, PRN, kg, PRN Blood Glucose Results, Start date: 09/13/17 9:09:00 ORDNANCE KEEPER, Duration: 30 day, Stop date: 10/13/17 9:08:00 ORDNANCE KEEPER normal 2016-10 No 1,000 mL, Memori a saline 0.9% 2-02 Rate: 75 l IV 1,000 mL 15:05: ml/hr, Infuse over: 13.3 hr, Route: IV, Total Volume: 1,000, Start date: 09/13/17 9:05:00 ORDNANCE KEEPER, Duration: 30 day, Stop date: 10/13/17 9:04:00 ORDNANCE KEEPER Hydralazine 2016-10 No Notes: Zohaib jacqueline 2- [...] Value Comments Source Heart Rate 2017-09-24 19:04:00 [facility] Michael Respitory Rate 2017-09-24 19:04:00 Ravin Justin Systolic (mm Hg) 2017-09-24 19:04:00 Zohaib Rodriguez Diastolic (mm Hg) 2017-09-24 19:04:00 Mem orial Michael Respitory Rate 2017-09-24 14:22:00 Memori al Michael Heart Rate 2017-09-24 14:22:00 [facility] Systolic (mm Hg) 2017-09-24 14:22:00 Zohaib rial [facility] Diastolic (mm Hg) 2017-09-24 14:22:00 Mem orial Michael Systolic (mm Hg) 2017-09-24 10:00:00 Zohaib rial [facility] Diastolic (mm Hg) 2017-09-24 10:00:00 Mem orial [facility] Heart Rate 2017-09-24 10:00:00 [facility] Michael Respitory Rate 2017-09-24 10:00:00 Memori al [facility] Temperature Oral (F) 2017-09-24 06:00:00 98.1 F [facility] Michael Temperature Oral (F) 2017-09-24 02:00:00 98.6 F [facility] Michael Temperature Oral (F) 2017-09-23 21:00:00 98.2 F [facility] Mihcael Height 2017-09-13 19:18:00 180.34 cm [facility] BMI Calculated 2017-09-13 19:18:00 Memori al Michael Weight 2017-09-13 19:18:00 [facility] Weight 2017-09-13 16:10:00 [facility] Michael BMI Calculated 2017-09-13 16:10:00 Memori al [facility] Height 2017-09-13 16:10:00 177.8 cm [facility] Procedures Procedure Date / Time Performed Performing Clinician [facility] e Coronary heart disease [facility] Michael monitoring DIGAMI - diabetes [facility] Tahira nn mellitus insulin-glucose infusion in acute myocardial infarction On treatment for [facility] Edvin n hypertension PTCA - Percutaneous [facility] transluminal coronary angioplasty Encounters Start End Encounter Admission Attending Care Care Encounter Source Date/Time Date/Time Type Type Clinicians Facility Department ID 2020-06-06 2020-06-06 [facility] [id number] [facility] 15:15:00 15:15:00 [facility] 2020-04-03 2020-04-03 [facility] [id number] 14:25:00 14:25:00 [facility] 2020-02-16 2020-02-16 [facility] [id number] 14:12:00 14:12:00 t [facility] Medicine l Medicine Outpati ent Clinics 2019-12-15 2019-12-15 [facility] [id number] [facility] 11:30:00 11:30:00 t [facility] Medicine l Medicine Outpati ent Clinics 2019-11-30 2019-11-30 [facility] [id number] [facility] 10:40:00 10:40:00 t [facility] Medicine l Medicine Outpati ent Clinics 2019-11-29 2019-11-29 [facility] [id number] 02:06:00 02:06:00 t [facility] Medicine l Medicine Outpati ent Clinics 2019-11-09 2019-11-09 [facility] [id number] [facility] 10:00:00 10:00:00 t [facility] Medicine l Medicine Outpati ent Clinics 2019-11-05 2019-11-05 [facility] [id number] 10:15:00 10:15:00 t [facility] Medicine l Medicine Outpati ent Clinics 2019-10-21 2019-10-21 [facility] [id number] 15:46:00 15:46:00 t [facility] Medicine l Medicine Outpati ent Clinics 2019-10-20 2019-10-20 [facility] [id number] 10:55:00 10:55:00 t [facility] Medicine l Medicine Outpati ent Clinics 2019-10-14 2019-10-14 [facility] [id number] 13:30:00 13:30:00 t [facility] Medicine l Medicine Outpati ent Clinics 2019-10-10 2019-10-10 [facility] [id number] 18:31:00 18:31:00 t [facility] Medicine l Medicine Outpati ent Clinics 2019-10-08 2019-10-08 [facility] [id number] [facility] 14:30:00 14:30:00 t [facility] Medicine l Medicine Outpati ent Clinics 2019-08-09 2019-08-09 [facility] [id number] [facility] 09:45:00 09:45:00 t [facility] Medicine Outpati ent Clinics 2019-07-06 2019-07-06 [facility] [id number] 10:45:00 10:45:00 t [facility] Medicine Medicine Outpati ent Clinics 2019-04-02 2019-04-02 [facility] [id number] [facility] 13:15:00 13:15:00 t [facility] Medicine Outpati ent Clinics 2018-12-11 2018-12-11 [facility] [id number] [facility] 10:30:00 10:30:00 t [facility] Medicine l Medicine Outpati ent Clinics 2018-10-30 2018-10-30 [facility] [id number] 10:15:00 10:15:00 t [facility] Medicine Outpati ent Clinics 2018-10-24 2018-10-24 [facility] [id number] [facility] 17:45:00 17:45:00 t [facility] Clinic l Outpati ent Clinics 2018-09-24 2018-09-24 [facility] [id number] 13:30:00 13:30:00 t [facility] Medicine l Medicine Outpati ent Clinics 2018-07-21 2018-07-21 [facility] [id number] 10:13:00 10:13:00 t [facility] Medicine l Medicine Outpati ent Clinics 2018-05-29 2018-05-29 [facility] [id number] 09:00:00 09:00:00 [facility] 2018-04-07 2018-04-07 [facility] [id number] 13:04:00 13:04:00 [facility] 2018-03-30 2018-03-30 [facility] [id number] 09:30:00 09:30:00 [facility] 2017-09-13 2017-09-24 Outpatient Aslam, [facility] [id number] 08:34:00 18:40:00 Murad 36 Results Test Description Test Time Test Comments Results Result Comments Source ELECTROLYTES 2017-09-24 15.0 [facility] 11:19:00 [facility] ELECTROLYTES 2017-09-24 9.1 [facility] 11:19:00 Michael ELECTROLYTES 2017-09-24 24 [facility] 11:19:00 Michael ELECTROLYTES 2017-09-24 4.0 [facility] 11:19:00 [facility] ELECTROLYTES 2017-09-24 103 [facility] 11:19:00 Michael ELECTROLYTES 2017-09-24 98 [facility] 11:19:00 [facility] ELECTROLYTES 2017-09-24 27 Memorial 11:19:00 Michael ELECTROLYTES 2017-09-24 0.80 [facility] 11:19:00 Michael ELECTROLYTES 2017-09-24 138 [facility] 11:19:00 [facility] ELECTROLYTES 2017-09-24 188 [facility] 11:19:00 Michael HEMATOLOGY 2017-09-24 Normal [facility] 11:19:00 (09/24/17 5:19 Michael AM) HEMATOLOGY 2017-09-24 Normal [facility] 11:19:00 (09/24/17 5:19 Michael AM) HEMATOLOGY 2017-09-24 1.0 [facility] 11:19:00 [facility] HEMATOLOGY 2017-09-24 13.0 [facility] 11:19:00 [facility] HEMATOLOGY 2017-09-24 2.0 [facility] 11:19:00 [facility] HEMATOLOGY 2017-09-24 3.0 [facility] 11:19:00 Michael HEMATOLOGY 2017-09-24 5.0 [facility] 11:19:00 Michael HEMATOLOGY 2017-09-24 3.0 [facility] 11:19:00 [facility] HEMATOLOGY 2017-09-24 73.0 [facility] 11:19:00 [facility] HEMATOLOGY 2017-09-24 0.5 [facility] 11:19:00 [facility] HEMATOLOGY 2017-09-24 0.5 Memorial 11:19:00 Michael HEMATOLOGY 2017-09-24 2.6 [facility] 11:19:00 [facility] HEMATOLOGY 2017-09-24 12.7 Memorial 11:19:00 [facility] HEMATOLOGY 2017-09-24 88.3 [facility] 11:19:00 [facility] HEMATOLOGY 2017-09-24 45.4 Memorial 11:19:00 [facility] HEMATOLOGY 2017-09-24 15.0 Memorial 11:19:00 Michael HEMATOLOGY 2017-09-24 5.15 [facility] 11:19:00 Michael HEMATOLOGY 2017-09-24 9.2 [facility] 11:19:00 Michael HEMATOLOGY 2017-09-24 33.0 [facility] 11:19:00 Michael HEMATOLOGY 2017-09-24 11:19:00 Test Item Value Reference Range Interpretation Comme nts MCH (test code = MCH) 29.2 pg 27.0-31.0 [facility] UvogijmEQDNAQFTGO9986-20-96 11:19:90274Udokzhxb HermannHEMATOLOGY 2017-09-24 11:19:0014.0[facility] GtcoxqpAGPSYZSPXW0560-60-90 11:19:0017.1[facility] HermannCHEM NNWTT7418-58-89 11:42:00<0.05[facility] HermannELECTROLYTES 2017-09-23 11:42:0014.0[facility] CmbvtblBBJYHQHNGTCG2268-57-40 11:42:0094[facility] PcbqvunCNZCKCYFJUCU4303-49-64 11:42:004.0[facility] MyttpljSDLMSTEGNRLA8178-83-14 11:42:80804Qwjfkenf OarkuyvIJVOHBTOPHWX4312-52-68 11:42:0026[facility] COYVBADZWFCN3674-98-44 11:42:64147Dinzsrzf CynpbefNEZHSATMQJDN4226-02-77 11:42:000.90[facility] QivohxyESBQUKAGKNMJ0123-51-68 11:42:0024[facility] Michael AGYFAVTKZZFY8571-67-38 11:42:97988Iqikskfa JyimjewKBNSKJMRADAA7465-37-50 11:42:009.2[facility] JhhjguqQBOIJISTHP8028-67-65 11:42:000.1[facility] DWXZRBEUNE6108-81-33 11:42:000.3[facility] XtqszimCQCYHLRFID9528-70-81 11:42:001.3 Memorial XnexhvfJDOYKURGQJ9066-73-47 11:42:0015.8[facility] HermannHEMATOLOGY 2017-09-23 11:42:00Normal (09/23/17 5:42 AM)[facility] BavgrghBMHHUMVLGV7176-19-74 11:42:00Normal (09/23/17 5:42 AM)[facility] CuujjvtNYCVVXFJBE6632-21-67 11:42:00 6.9[facility] IschabfEAQEGISUIE8701-60-16 11:42:000.5[facility] HermannHEMATOLOGY 2017-09-23 11:42:001.5[facility] RzcvjnzJRFAVFGSYI1356-55-49 11:42:0075.3[facility] NmbcwavPZXMOFBWYC3385-65-57 11:42:002.9[facility] UxjrvorLADFFDMBRY5452-58-57 11:42:0013.9[facility] BirtycyNXJYSSRGKA8398-68-17 11:42:00 Test Item Value Reference Range Interpretation Comments MCH (test code = MCH) 28.9 pg 27.0-31.0 Memorial IkihpfcHKJVPJFHKU9722-47-54 11:42:0088.9[facility] HermannHEMATOLOGY 2017-09-23 11:42:0046.4[facility] WwdpmmuICECGUJGUD6303-39-31 11:42:0015.1[facility] AvrvxnbSGDZBOHYMT4223-83-94 11:42:005.22[facility] YlupojoFSKNOVEHJB4051-39-78 11:42:009.5[facility] RknoikhSCYWFVRGCD0133-05-87 11:42:69909Cxpesrtg Michael OCXRRWDXOV5928-35-73 11:42:0014.4[facility] CrtquxeBLMKSDWLGQ2757-19-77 11:42:00 32.5[facility] EvjovvzGCTMYCTVDI9077-08-05 11:42:0018.4[facility] HermannTOXICOLOGY 2017-09-22 21:13:0082421613Ehgiuedz EzvgirrADDAUBGUVZ7838-24-10 21:13:0014.1 [facility] NibzsvjMIOXEKCGXK9249-59-51 21:50:4491396321Ljoylimh HermannTOXICOLOGY 2017-09-21 21:50:0010.3[facility] HermannCHEM YEKJN9542-43-68 09:47:000.05[facility] EniaaukQPPSIKNRGQLU8898-35-08 09:47:0012.1[facility] WannhjsDVOSVOPAOHAR3271-95-27 09:47:0094[facility] AcqwgrjZXANZNEULGEE7776-38-36 09:47:70409Tslnvebi Michael KJPUNXYWDPQX2419-89-72 09:47:0026[facility] BzltgwjPGRIYXQNLEXP8895-82-97 09:47:00 4.1[facility] KdvemihECRPIRBUURJR3859-58-50 09:47:000.90[facility] Michael WCPKRDDCPDEM0319-16-92 09:47:08021Bxwopxay VnlcytjWYYXESDXMULY7451-43-01 09:47:008.8[facility] SukfhmxYOUFCBZESNCB8394-01-48 09:47:0027[facility] MFRDLOBAHFRV7886-54-73 09:47:49194Oduhcabq KlrncffKRDYFVWSBP6752-06-89 09:47:00 14.6[facility] NnafxiqOPLVGAOMIH2523-97-74 09:47:009.7[facility] HermannHEMATOLOGY 2017-09-21 09:47:94972Mrjknmdd KkabqcnBXSAPMPLZW0444-09-43 09:47:0015.1[facility] ContlrlLJGDYUESFA0105-89-45 09:47:0045.7[facility] LncpirvXCOVRRFMGQ4351-46-99 09:47:0033.1[facility] ZthbqqoKAOXNQKRNH8942-88-71 09:47:00 Test Item Value Reference Range Interpretation Comments MCH (test code = MCH) 29.5 pg 27.0-31.0 [facility] GhedjydGOEXJXWAUH7831-05-34 09:47:0089.1[facility] HermannHEMATOLOGY 2017-09-21 09:47:005.13[facility] IhzdnckNPSZKQPJMT5033-29-57 09:47:0016.7[facility] KttdvzdKRQXTROLIQ1483-13-57 09:47:000.1[facility] YsfekzbONYRBOROFO9282-36-97 09:47:000.2[facility] UnphiafZJTINZBBKA4381-91-79 09:47:0074.2[facility] Michael PHNFHKFZHO1139-58-80 09:47:001.5[facility] PmkrltwWNKZPMQASJ2164-71-26 09:47:007.9 Memorial QtbkvwjBPKKARKUXZ8303-92-88 09:47:0012.4[facility] HermannHEMATOLOGY 2017-09-21 09:47:000.5[facility] KrlqhfjGJUGJJJIDG3247-62-59 09:47:001.3[facility] MznsoqnPNJPWABGZW2933-84-19 09:47:002.7[facility] CtubftfEFFDPTOTII1814-47-58 09:47:0015.9[facility] BxehikuNYRABRZARI8228-35-32 07:33:009.0[facility] Michael VEDNAOULUX6761-26-95 07:33:2981435699Zlawmjvp HermannCHEM CNRNW7161-86-06 20:40:001.3[facility] HermannCHEM XVRAI9245-51-61 11:49:001.3[facility] HermannURINE AND HUZPT4327-61-47 05:10:00Moderate *ABN*(09/15/17 11:10 PM)[facility] URINE AND EZWFX2745-65-07 05:10:00Negative *NA*(09/15/17 11:10 PM)[facility] HermannURINE AND FDSBX5606-84-82 05:10:005.0[facility] HermannURINE AND STOOL 2017-09-16 05:10:001.021[facility] HermannURINE AND BXPNW5033-66-09 05:10:00Slight *ABN*(09/15/17 11:10 PM)[facility] HermannURINE AND EKEWD0412-17-45 05:10:00 Negative (09/15/17 11:10 PM)[facility] HermannURINE AND UBFLN6704-30-40 05:10:002.0 [facility] HermannURINE AND QALFT2594-01-11 05:10:00Negative (09/15/17 11:10 PM) [facility] HermannURINE AND DCMPH1935-94-35 05:10:00Performed *NA*(09/15/17 11:10 PM)[facility] HermannURINE AND TDNYM3529-12-08 05:10:001[facility] HermannURINE AND SLBTD4146-52-75 05:10:0056[facility] HermannURINE AND LAVTI4835-33-52 05:10:005 [facility] HermannCHEM YIIPX6822-65-00 10:35:003.1[facility] HermannCHEM PANEL 2017-09-15 10:35:002.1[facility] HnpjkvbZHAORNZSTJ3697-61-58 10:35:000.6[facility] CtsdqpsMUMGDBLBOS6032-28-73 10:35:000.1[facility] HermannPARATHYROID PROFILE 2017-09-15 10:35:001.02[facility] HermannPARATHYROID NMMUJNM3615-52-58 10:35:00 1.05[facility] HermannCARDIAC FHICKQQ5524-95-97 09:53:00<0.02[facility] CHEM XYFQE9529-96-47 09:53:002.8[facility] HermannCHEM QRWIQ3577-08-44 09:53:002.3 [facility] HermannPARATHYROID MSEWNFW3498-43-61 09:53:001.08[facility] PARATHYROID WZJEOHE0468-25-13 09:53:001.08[facility] HermannBACTERIAL - SEROLOGY 2017-09-14 00:11:00Negative (09/13/17 [...] 6:11 PM)[facility] HermannCARDIAC ENZYMES 2017-09-13 16:40:00<0.02[facility] HermannCHEM DDIXB1227-80-97 16:40:000.1 [facility] HermannCHEM DSTFY7871-66-53 16:40:0011[facility] HermannCHEM PANEL 2017-09-13 16:40:0083[facility] HermannCHEM JGBUN4628-22-32 16:40:003.2[facility] HermannCHEM HAYPW6185-92-55 16:40:000.4[facility] HermannCHEM TIWZF5741-43-29 16:40:0026[facility] HermannCHEM CAPWS6285-38-30 16:40:007.5[facility] HermannCHEM BADTE2345-76-65 16:40:000.7[facility] HermannCHEM QXHPC6583-48-42 16:40:004.3 [facility] HermannCHEM XWMAW8985-19-91 16:40:0016[facility] VdknprfUKZBDV9770-37-61 16:40:0018[facility] EqmihkbYGXAPI2595-71-93 16:40:73312Erjycqdi HermannLIPIDS 2017-09-13 16:40:0058[facility] XaouumnUKYUGU6476-91-74 16:40:0092[facility] Michael CHNYKJ0363-13-32 16:40:0042[facility] BzdleahVFVUXQ5601-97-35 16:40:002.03[facility] HermannSPECIAL YHHEULAMG0638-66-03 16:40:008.8[facility] HermannURINE AND STOOL 2017-09-13 16:40:00<=1.0[facility] HermannURINE AND MAEDH3987-58-04 16:40:00 1.022[facility] HermannURINE AND PAZRI4099-64-48 16:40:005.0[facility] HermannURINE AND BUFLA7975-73-45 16:40:00Clear (09/13/17 10:40 AM)[facility] HermannURINE AND MEORA0729-11-92 16:40:00Small *ABN*(09/13/17 10:40 AM)[facility]annURINE AND ZPVUV4294-14-57 16:40:0013[facility] HermannURINE AND IYRWI7443-98-30 16:40:0081 [facility]annURINE AND BSCGL5794-69-45 16:40:00Negative *NA*(09/13/17 10:40 AM)[facility]annURINE AND ZQYCF9469-07-40 16:40:00Large *ABN*(09/13/17 10:40 AM)[facility] HermannURINE AND FZXWE6829-79-48 16:40:00Negative (09/13/17 10:40 AM) [facility]
[2020-08-05 21:32] LABS: Absolute Lymphocytes (CBC) 2.8 K/uL (0.7-4.9); Basophils % 0.3 % (0-1.3); Hematocrit 45.9 % (39.6-49.0); Lymphocytes % 25.5 % (15.3-44.8); MPV 9.6 fL (7.6-11.3); RBC Red Blood Cell Count 4.99 M/uL (4.33-5.43)
[2020-08-05 21:33] LABS: Protime INR 0.97
[2020-08-05] MEDS ORDERED: PANTOPRAZOLE 40 MG INJ ONE (21:42)
[2020-08-05] MEDS ORDERED: NA CHLORIDE 0.9% 1,000 ML ONE (21:42)
[2020-08-05 21:43] LABS: ALT/SGPT 34 U/L (12-78); AST/SGOT 21 U/L (15-37); Albumin 3.8 g/dL (3.4-5.0); Alkaline Phosphatase 129 U/L (45-117); BUN Blood Urea Nitrogen 18 mg/dL (7-18); Bicarbonate 29 mmol/L (21-32); Bilirubin Direct 0.2 mg/dL (0-0.2); Bilirubin Total 0.8 mg/dL (0.2-1.0); Glucose Level 79 mg/dL (74-106); Lipase 102 U/L (73-393); Potassium 3.9 mmol/L (3.5-5.1); Protein, Total 8.4 g/dL (6.4-8.2); Sodium Level 141 mmol/L (136-145)
--- NOTE | 2020-08-06 00:07 | ER ---
Nurse's Notes [facility] Name: El Ventura Age: 59 yrs Sex: Male : 1960 Arrival Date: 08/05/2020 Time: 20:49 Bed 19 Private MD: Diagnosis: Unspecified abdominal pain Presentation: 08/05 21:03 Chief complaint: Spouse and/or significant other states: Old PEG tube entrance site ll1 started bleeding bright red blood today. Patient reports left sided abdominal pain today. States there was clear drainage for the past two months. Has CT result in hand from 06/30. No known fever today. States he has been eating orally for about 1 year. Coronavirus screen: Client denies travel out of the [place] in the last 14 days. At this time, the client does not indicate any symptoms associated with coronavirus-19. The client reports previous COVID testing was negative. Ebola Screen: Patient denies travel to an Ebola-affected area in the 21 days before illness onset. Initial Sepsis Screen: Does the patient meet any 2 criteria? No. Patient's initial sepsis screen is negative. Does the patient have a suspected source of infection? Yes: Acute abdominal pain. Risk Assessment: Do you want to hurt yourself or someone else? Patient reports no desire to harm self or others. Onset of symptoms was August 05, 2020. 21:03 Method Of Arrival: Wheelchair ll1 21:03 Acuity: ROBERT 3 ll1 Historical: - Allergies: 21:06 PENICILLINS; ll1 - PMHx: 21:06 CAD; CVA; Diabetes - NIDDM; heart stents; High Cholesterol; Hypertension; ll1 - PSHx: 21:06 PEG tube placement; Cholecystectomy; ll1 - Immunization history:: Flu vaccine is not up to date. - Social history:: Smoking status: Patient/guardian denies using tobacco, the patient reports quitting approximately 3 years ago. Screenin:15 Abuse screen: Denies threats or abuse. Denies injuries from another. Nutritional wh screening: No deficits noted. Tuberculosis screening: No symptoms or risk factors identified. Fall Risk Secondary diagnosis (15 points) CVA. Assessment: 21:09 General: Appears in no apparent distress. Behavior is calm, cooperative. Pain: wh Complains of pain in right upper quadrant and left upper quadrant. Neuro: Level of Consciousness is awake, alert, obeys commands. Cardiovascular: Heart tones S1 S2. Respiratory: Airway is patent Respiratory effort is even, unlabored, Respiratory pattern is regular, symmetrical, Breath sounds are clear bilaterally. GI: Abdomen is flat, non-distended, Open ostomy from PEG placement that was accidentally removed 3 months ago Bowel sounds present X 4 quads. Abd is soft Abdomen is tender to palpation in right upper quadrant and left upper quadrant Parent/caregiver reports the patient having blood coming out from the ostomy. : No signs and/or symptoms were reported regarding the genitourinary system. EENT: No signs and/or symptoms were reported regarding the EENT system. Derm: Skin is intact, is healthy with good turgor, Skin is pink, warm \T\ dry. normal. Musculoskeletal: Circulation, motion, and sensation intact. 22:03 Reassessment: Patient appears in no apparent distress at this time. No changes from previously documented assessment. Patient and/or family updated on plan of care and expected duration. Pain level reassessed. Patient is alert, oriented x 3, equal unlabored respirations, skin warm/dry/pink. 23:45 Reassessment: Patient appears in no apparent distress at this time. Patient and/or family updated on plan of care and expected duration. Pain level reassessed. Patient is alert, oriented x 3, equal unlabored respirations, skin warm/dry/pink. Vital Signs: 21:03 BP 181 / 101; Pulse 76; Resp 18; Temp 98.7; Pulse Ox 100% ; Pain 6/10; ll1 21:15 BP 168 / 83; wh 22:04 BP 144 / 73; Pulse 69; Resp 18; Pulse Ox 100% on R/A; wh 23:45 BP 145 / 81; Pulse 72; Resp 18; Pulse Ox 99% on R/A; wh ED Course: 20:49 Patient arrived in ED. ag3 20:51 Arin Hartman is Primary Nurse. wh 20:55 Eliot Bui PA is PHCP. cp 20:55 Eliot Washington MD is Attending Physician. cp 21:06 Triage completed. ll1 21:06 Arm band placed on Patient placed in an exam room, on a stretcher. ll1 21:15 Patient has correct armband on for positive identification. Placed in gown. Bed in low wh position. Call light in reach. Side rails up X 1. Pulse ox on. NIBP on. 21:15 Inserted saline lock: 18 gauge in right forearm, using aseptic technique. Blood collected. 22:31 CT Abd/Pelvis - IV Contrast Only In Process Unspecified. EDFL 08/06 00:05 Desmond Garcia MD is Referral Physician. 00:17 No provider procedures requiring assistance completed. IV discontinued, intact, wh bleeding controlled, No redness/swelling at site. Administered Medications: 08/05 21:35 Drug: NS 0.9% 1000 ml Route: IV; Rate: 1 bolus; Site: left forearm; 08/06 00:17 Follow up: Response: No adverse reaction; IV Status: Completed infusion 08/05 21:35 Drug: ProTONIX 40 mg Route: IVP; Site: left forearm; 08/06 00:16 Follow up: Response: No adverse reaction Outcome: 00:06 Discharge ordered by MD. cp 00:17 Discharged to home via wheelchair, with family. 00:17 Condition: stable 00:17 Discharge instructions given to patient, family, Instructed on discharge instructions, follow up and referral plans. medication usage, wound care, POC Demonstrated understanding of instructions, follow-up care, medications, wound care, POC Prescriptions given X 1, Awaiting daughter for transport 00:29 Patient left the ED. Signatures: Dispatcher [employer] EDFL Eliot Bui PA PA cp [place], Winsy Kelin Jaimes3 Malick Pastrana, RN RN ll1
[2020-08-06 00:08] LABS: Urine Blood NEGATIVE (NEG); Urine Glucose NEGATIVE (NEG); Urine Protein NEGATIVE (NEG); Urine Specific Gravity 1.015 (1.005-1.030); Urine pH 7.5 (5.0-7.0)
--- NOTE | 2020-08-06 00:08 | EDPHYS ---
Physician Documentation [facility] Name: El Ventura Age: 59 yrs Sex: Male : 1960 Arrival Date: 08/05/2020 Time: 20:49 Bed 19 Private MD: ED Physician Eliot Washington HPI: 08/05 21:20 This 59 yrs old Male presents to ER via Wheelchair with complaints of cp Abdominal Pain. 21:20 The patient presents with abdominal pain in the upper abdomen. cp 21:20 Onset: The symptoms/episode began/occurred today. cp 21:20 The symptoms do not radiate. cp 21:20 Associated signs and symptoms: Pertinent positives: noticed bloody drainage from cp gastrostomy site today, Pertinent negatives: nausea and vomiting, anorexia, chest pain, constipation, diarrhea, dysuria, fever. Historical: - Allergies: 21:06 PENICILLINS; ll1 - PMHx: 21:06 CAD; CVA; Diabetes - NIDDM; heart stents; High Cholesterol; Hypertension; ll1 - PSHx: 21:06 PEG tube placement; Cholecystectomy; ll1 - Immunization history:: Flu vaccine is not up to date. - Social history:: Smoking status: Patient/guardian denies using tobacco, the patient reports quitting approximately 3 years ago. ROS: 21:25 Constitutional: Negative for body aches, chills, fever, poor PO intake. cp 21:25 Eyes: Negative for injury, pain, redness, and discharge. cp 21:25 Cardiovascular: Negative for chest pain. 21:25 Respiratory: Negative for cough, shortness of breath, wheezing. 21:25 Abdomen/GI: Positive for abdominal pain, Negative for vomiting, diarrhea, constipation. 21:25 : Negative for urinary symptoms. 21:25 Neuro: Negative for altered mental status, headache, weakness. cp 21:25 All other systems are negative. cp Exam: 21:35 Constitutional: The patient appears in no acute distress, alert, awake, cp non-diaphoretic, non-toxic, well developed, well nourished. 21:35 Head/Face: Normocephalic, atraumatic. cp 21:35 Eyes: Periorbital structures: appear normal, Conjunctiva: normal, no exudate, no injection, Sclera: no appreciated abnormality, Lids and lashes: appear normal, bilaterally. 21:35 ENT: External ear(s): are unremarkable, Nose: is normal, Posterior pharynx: Airway: no evidence of obstruction, patent. 21:35 Chest/axilla: Inspection: normal, Palpation: is normal, no crepitus, no tenderness. 21:35 Cardiovascular: Rate: normal, Rhythm: regular. 21:35 Respiratory: the patient does not display signs of respiratory distress, Respirations: normal, no use of accessory muscles, no retractions, labored breathing, is not present, Breath sounds: are clear throughout, no decreased breath sounds, no stridor, no wheezing. 21:35 Abdomen/GI: Inspection: gastric stoma noted LUQ with mild bleeding from site, Bowel sounds: active, all quadrants, Palpation: soft, in all quadrants, mild abdominal tenderness, in the right upper quadrant and left upper quadrant, rebound tenderness, is not appreciated, voluntary guarding, is elicited in the right upper quadrant and left upper quadrant. 21:35 Back: pain, is absent, ROM is normal. 21:35 Musculoskeletal/extremity: Extremities: grossly normal except: noted in the right arm: partially contracted. Vital Signs: 21:03 BP 181 / 101; Pulse 76; Resp 18; Temp 98.7; Pulse Ox 100% ; Pain 6/10; ll1 21:15 BP 168 / 83; wh 22:04 BP 144 / 73; Pulse 69; Resp 18; Pulse Ox 100% on R/A; wh 23:45 BP 145 / 81; Pulse 72; Resp 18; Pulse Ox 99% on R/A; wh MDM: 20:57 Patient medically screened. leann 22:00 Differential diagnosis: gastritis, GI Bleed, pancreatitis, Peptic Ulcer Disease, Perf. cp Duodenal Ulcer, Perf. Gastric Ulcer. 08/06 00:05 Data reviewed: vital signs, nurses notes, lab test result(s), radiologic studies, CT cp scan, and as a result, I will discharge patient. 00:05 Special discussion: Based on the patient's Hx, exam, and Dx evaluation, there is no cp indication for emergent surgery or inpatient Tx. It is understood by the patient/guardian that if the Sx's persist or worsen they need to return immediately for re-evaluation. 08/05 21:15 Order name: Basic Metabolic Panel; Complete Time: 21:56 cp 08/05 21:15 Order name: CBC with Diff; Complete Time: 21:56 cp 08/05 21:56 Interpretation: Normal except: WBC 11.1. cp 08/05 21:15 Order name: Hepatic Function; Complete Time: 21:56 cp 08/06 00:00 Interpretation: Normal except: ALK 129; TP 8.4; GLOB 4.6; A/G 0.8. 08/05 21:15 Order name: Lipase; Complete Time: 21:56 cp 08/05 21:15 Order name: PT-INR; Complete Time: 21:56 cp 08/05 21:15 Order name: Ptt, Activated; Complete Time: 21:56 cp 08/06 00:01 Interpretation: Abnormal: PTT 41.8. 08/05 21:15 Order name: IV Saline Lock; Complete Time: 21:16 cp 08/05 21:15 Order name: CT Abd/Pelvis - IV Contrast Only 08/05 23:24 Order name: Urine Microscopic Only 08/05 23:25 Order name: Urine Microscopic Only [facility] 08/06 00:05 Order name: Urine Dipstick--Ancillary (enter results) [facility] 08/06 00:18 Order name: Urine Culture [facility] 08/05 21:15 Order name: Labs collected and sent; Complete Time: 21:16 08/05 23:24 Order name: Urine Dipstick-Ancillary (obtain specimen); Complete Time: 00:00 08/05 23:43 Order name: Wound dressing: please clean and dress stoma; Complete Time: 00:07 cp Administered Medications: 08/05 21:35 Drug: NS 0.9% 1000 ml Route: IV; Rate: 1 bolus; Site: left forearm; 08/06 00:17 Follow up: Response: No adverse reaction; IV Status: Completed infusion 08/05 21:35 Drug: ProTONIX 40 mg Route: IVP; Site: left forearm; 08/06 00:16 Follow up: Response: No adverse reaction Disposition: 06:46 Co-signature as Attending Physician, Eliot Washington MD I agree with the assessment and leann plan of care. Disposition: 08/06/20 00:06 Discharged to Home. Impression: Unspecified abdominal pain. - Condition is Stable. - Discharge Instructions: Abdominal Pain, Adult. - Prescriptions for Bactrim DS 800- 160 mg Oral Tablet - take 1 tablet by ORAL route every 12 hours for 10 days; 20 tablet. - Medication Reconciliation Form, Thank You Letter, Antibiotic Education, Prescription Opioid Use form. - Follow up: Desmond Garcia MD; When: 2 - 3 days; Reason: Wound Recheck. - Problem is new. - Symptoms have improved. Signatures: Dispatcher [employer] EDMS Eliot Washington MD MD cha Page, Corey, PA PA Arin Hartman Malick Pastrana RN RN ll1 Corrections: (The following items were deleted from the chart) 00:29 00:06 08/06/2020 00:06 Discharged to Home. Impression: Unspecified abdominal pain. Condition is Stable. Forms are Medication Reconciliation Form, Thank You Letter, Antibiotic Education, Prescription Opioid Use. Follow up: Desmond Garcia; When: 2 - 3 days; Reason: Wound Recheck. Problem is new. Symptoms have improved. cp
[2020-08-06 00:16] LABS: Urine Bacteria 20-50 /HPF (NONE SEEN); Urine RBC NONE SEEN /HPF (NONE SEEN)
[2020-08-06 00:17] LABS: Urine Culture Reflex Order REFLEXED
[2020-08-06 01:10] VITALS: BP 145/81; TEMP 98.7; O2SAT 99
--- NOTE | 2020-08-07 11:14 | RAD REPORT ---
EXAM DESCRIPTION: CT - Abdomen Pelvis W Contrast - 08/06/2020 6:59 am CLINICAL HISTORY: 59 years Male ABD PAIN COMPARISON: Prior study dated June 30, 2020. TECHNIQUE: Images were obtained in axial, sagittal, and coronal planes. This exam was performed according to our departmental dose-optimization program which includes use of Automated Exposure Control, adjustment of the mA and/or kV according to patient size and/or use o f iterative reconstruction technique. FINDINGS: No abnormality involving the liver, spleen, pancreas, or adrenal glands bilaterally. Prior cholecystectomy. Anterior gastric body is again tethered to the anterior peritoneum and anterior abd ominal wall at the site of prior percutaneous gastrostomy tube placement. 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 The finding is best identified on axial series 501 image 31. The appearance is unch anged when correlated with the prior study. No associated abnormal fluid collections. No obstructing renal or ureteral calculi bilaterally. No hydronephrosis bilaterally. Left renal cyst. Unremarkable bladder. Enlarged prostate gland. Appendix within normal limits. No bowel obstruction, perforation, or inflammation. Elevation right he midiaphragm. Air space attenuation posterior lower lobes bilaterally right greater than left. No acute osseous abnormality. Marked degenerative change lumbar spine. 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 No abnormal fluid collections seen. No acute intra-abdominal abnormality. Enlarged prostate gland. Atelectatic change versus infiltrate lower lungs bilaterally right greater than left. Electronically signed by: Karie Carpenter MD 08/05/2020 11:04 PM CDT Due to temporary technical issues with the PACS/Fluency reporting system, reports are being signed by the in house radiologist without review as a courtesy to ensure prompt reporting. The interpreting r adiologist is fully responsible for the content of the report.
== END 2020-08-06 00:29 | disposition home or self-care (01) ==
LOC: ER 20:48
DX: R10.10 Upper abdominal pain, unspecified (principal); I10 Essential (primary) hypertension; Z88.0 Allergy status to penicillin; Z86.73 Personal history of transient ischemic attack (TIA), and cerebral infarction without residual deficits; Z95.818 Presence of other cardiac implants and grafts
CPT/HCPCS: 96361; 87088; 85025; 87086; 80048; 36415; 85610; 80076; 85730; 81003; 81015; 83690; 74177; 96374; 99284; Q9967; C9113; J7030

== ENCOUNTER 2022-11-04 17:41 | Emergency (ER) | payer OTHER ==
--- OUTSIDE RECORDS SUMMARY | 2022-11-04 17:49 | XMS REPORT | Continuity of Care Document ---
:1960 Author Organization [facility] t Address [address] [place] [address] Care Team Providers Name Role Phone Goldy Jazmine Attending Clinician Unavailable Casper Avilez Attending Clinician Unavailable Valeria Salgado Attending Clinician Unavailable Abi Diallo MD Attending Clinician ABI DIALLO Attending Clinician Unavailable Doctor Unassigned, [place] Attending Clinician Unavailable Mica Goins Attending Clinician Mica Goins Admitting Clinician Payers Payer Name Policy Type Policy Number Effective Date Expiration Date Grace salazar [place] [address] [id number] 2020 Common HEALTHCARE 00:00:00 [facility] Problems Condition Condition Condition Status Onset Resolution Last Treating Co mments Source Name Details Category Date Date Treatment Clinician Date CVA CVA Diagnosis Active 2016-102017-09-13 Mem oria Active 11-14 05:31:00 l 09/13/2017 00:00: Edvin BROWN [address] CVA CVA Diagnosis Active 2016-102018-03-11 Mem oria ISCHEMIC ISCHEMIC 11-14 13:29:00 l Active 00:00: Michael 09/13/2017 00 [facility] [id number] Fever in Problem Comm on other [facility] [id number] Primary Problem Common insomnia [facility] [id number] COVID-19 Problem Comm on Spirit - [facility] [id number] Hemiplegia Problem Com mon following Spirit CVA - [facility] (cerebrova [facility] [id number] PEG Problem Common (percutane Spirit ous - CHI endoscopic St gastrostom [facility] y) status Medical Center [id number] Pure Problem Common hyperchole Spirit sterolemia - [facility] [id number] Other Problem Common sequelae Spirit of - CHI cerebral St infarction [facility] [id number] Essential Problem Comm on hypertensi Spirit on - [facility] [id number] Pressure Problem Comm on injury of Spirit right - CHI ankle, St stage 2 [facility] 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 without without St complicati complicati Celeste kes on on, Medical without Center long-term current use of insulin [id number] Abnormal Problem Comm on liver Spirit function - [facility] tests [facility] [id number] History of Problem Co mmon CVA Spirit (cerebrova - CHI scular St accident) [facility] [id number] Elevated Problem Comm on alkaline Spirit phosphatas - [facility] e level [facility] [id number] Frequent Problem Comm on urinary Spirit incontinen - CHI ce [facility] [id number] Current Problem Common mild Spirit episode of - [facility] major [facility] Medical [facility] Center prior episode [id number] Incontinen Problem Com mon ce of Spirit feces, - CHI unspecifie St d fecal [facility] incontinen Medica l ce type Center [id number] Onychomyco Problem Co mmon sis Spirit - [facility] [id number] Discolorat Problem Co mmon ion of Spirit skin of - CHI foot [facility] [id number] Cold feet Problem Com mon Spirit - [facility] [id number] Inability Problem Com mon to speak Spirit - [facility] CEREBRAL CEREBRAL Diagnosis Active 2018-03-11 Memoria INFARCTION INFARCTION 13:29:00 l , Michael UNSPECIFIE UNSPECIFIE D D Active [facility] Cerebral Cerebral Problem 2017-09-27 Memoria infarction infarction 02:25:05 l , , [place] unspecifie unspecifie d d 09/27/2017 [facility] 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 02:25:05 l erosis erosis [place] (disorder) (disorder) Resolved Problem 09/27/2017 [facility] Diabetes Diabetes Problem Resolve 2017-09-27 Memoria mellitus mellitus d 02:25:05 l (disorder) (disorder) He rmann Resolved Problem 09/27/2017 [facility] Hypertensi Hypertens Problem Resolve 2017-09-27 Memoria ve diana d 02:25:05 l disorder, disorder, Herm bhavana systemic systemic arterial arterial (disorder) (disorder) Resolved Problem 09/27/2017 [facility] Patient Patient Problem Resolve 2017-09-27 M emoria post post d 02:25:05 l percutaneo percutaneo Esua rmann us translumin translumin al al coronary coronary angioplast angioplast y y (finding) (finding) Resolved Problem 09/27/2017 [facility] Allergies, Adverse Reactions, Alerts Allergy Allergy Status Severity Reaction(s) Onset Inactive Treating Comm ents Source Name Type Date Date Clinician Penicill Propensi Active Unknown - 2019-10 Uni vers ins ty to See comments 0-30 ity of adverse 00:00: [place] reaction 00 Medical s Branch PENICILL Drug Active Unknown-Cmnt 2019-10 Un gilberto INS Class 0-30 ity of 00:00: [place] 00 Medical Branch 0 Drug Active Unknown Common allergy Spirit - [facility] NO KNOWN Drug Active Univers ALLERGIE Class ity of [facility] Social History Social Habit Start Date Stop Date Quantity Comments Source Exposure to Not sure [facility] SARS-CoV-2 (event) Medica l Branch History of Tobacco Common Spirit - [facility] Use [facility] Sex Assigned At Common Sp madhuri - [facility] Social History 2017-09-13 2017-09-13 Marycarmen draper 19:10:21 19:10:21 Smoking Status Start Date Stop Date Source Former Smoker 2022-06-04 00:00:00 2022-06-04 00:00:00 Common S pirit - [facility] Ce nter Unknown if ever smoked [facility] Medications Ordered Filled Start Stop Current Ordering Indication Dosage Frequency Signature Comments Components Source Medication Medication Date Date Medication? Clinician (SIG) Name Name predniSONE predniSONE 2021-0 2021- No 1{table QD predniSONE 10 MG (21) 10 MG (21) 8-26 09-05 t} 10 MG (21) 00:00: 00:00 00 :00 Benzonatate Benzonatate 2-0 2- No 1{capsu BID Benzonatat 100 MG 100 MG 05-31 le_as_n e 100 MG 00:00: 00:00 eeded} 00 :00 Benzonatate Benzonatate 2-0 2022- No 1{capsu BID Benzonatat 100 MG 100 MG 05-31 le_as_n e 100 MG 00:00: 00:00 eeded} 00 :00 Benzonatate Benzonatate 2-0 2022- No 1{capsu BID Benzonatat 100 MG 100 MG 05-31 le_as_n e 100 MG 00:00: 00:00 eeded} 00 :00 Sertraline Sertraline 1-0 No 1{table QD Sertraline HCl 25 MG HCl 25 MG 7-08 t} HCl 25 MG 00:00: 00 Sertraline Sertraline 2021-0 No 1{table QD Sertraline HCl 25 MG HCl 25 MG 7-08 t} HCl 25 MG 00:00: 00 Sertraline Sertraline 2021-0 No 1{table QD Sertraline HCl 25 MG HCl 25 MG 7-08 t} HCl 25 MG 00:00: 00 Sertraline Sertraline 2021-0 No 1{table QD Sertraline HCl 25 MG HCl 25 MG 7-08 t} HCl 25 MG 00:00: 00 Sertraline Sertraline 2021-0 No 1{table QD Sertraline HCl 25 MG HCl 25 MG 7-08 t} HCl 25 MG 00:00: 00 Sertraline Sertraline 2021-0 No 1{table QD Sertraline HCl 25 MG HCl 25 MG 7-08 t} HCl 25 MG 00:00: 00 Sertraline Sertraline 2021-0 No 1{table QD Sertraline HCl 25 MG HCl 25 MG 7-08 t} HCl 25 MG 00:00: 00 Sertraline Sertraline 2021-0 No 1{table QD Sertraline HCl 25 MG HCl 25 MG 7-08 t} HCl 25 MG 00:00: 00 Sertraline Sertraline 2021-0 No 1{table QD Sertraline HCl 25 MG HCl 25 MG 7-08 t} HCl 25 MG 00:00: 00 Sertraline Sertraline 2021-0 No 1{table QD Sertraline HCl 25 MG HCl 25 MG 7-08 t} HCl 25 MG 00:00: 00 Sertraline Sertraline 0 No 1{table QD Sertraline HCl 25 MG HCl 25 MG 7-08 t} HCl 25 MG 00:00: 00 Sertraline Sertraline 0 No 1{table QD Sertraline HCl 25 MG HCl 25 MG 7-08 t} HCl 25 MG 00:00: 00 Sertraline Sertraline 0 No 1{table QD Sertraline HCl 25 MG HCl 25 MG 7-08 t} HCl 25 MG 00:00: 00 Tamsulosin Tamsulosin 202- No 1{capsu QD Tamsulosin HCl 0.4 MG HCl 0.4 MG - 10- le} HCl 0.4 MG 00:00: 00:00 00 :00 atorvastati 2019-10 Yes Take by Uni vers n calcium 0-30 mouth. ity of (ATORVASTAT 16:47: [place] IN ORAL) [facility] BABY 2019-10 Yes Take by Univers ASPIRIN 0-30 mouth. ity of ORAL 16:47: [place] [facility] atorvastati 2019-10 Yes Take by Uni vers n calcium 0-30 mouth. ity of (ATORVASTAT 16:47: [place] IN ORAL) [facility] [place] BABY 2019-10 Yes Take by Univers ASPIRIN 0-30 mouth. ity of ORAL 16:47: [place] [facility] atorvastati 2019-10 Yes Take by Uni vers n calcium 0-30 mouth. ity of (ATORVASTAT 16:47: [place] IN ORAL) Medical Branch BABY 2019-10 Yes Take by Univers ASPIRIN 0-30 mouth. ity of ORAL 16:47: [place] [facility] Branch atorvastati 2019-10 Yes Take by Uni vers n calcium 0-30 mouth. ity of (ATORVASTAT 16:47: [place] IN ORAL) Medical [place] BABY 2019-10 Yes Take by Univers ASPIRIN 0-30 mouth. ity of ORAL 16:47: [place] [facility] atorvastati 2019-10 Yes Take by Uni vers n calcium 0-30 mouth. ity of (ATORVASTAT 16:47: [place] IN ORAL) Medical [place] BABY 2019-10 Yes Take by Univers ASPIRIN 0-30 mouth. ity of ORAL 16:47: [place] 06 Medical Branch atorvastati 2019-10 Yes Take by Uni vers n calcium 0-30 mouth. ity of (ATORVASTAT 16:47: [place] IN ORAL) Medical Branch BABY 2019-10 Yes Take by Univers ASPIRIN 0-30 mouth. ity of ORAL 16:47: [place] 06 Medical Branch lisinopriL 2019-10 Yes Univers 5 mg tablet 0-27 ity of 00:00: Medical Branch lisinopriL 2019-10 Yes Univers 5 mg tablet 0-27 ity of 00:00: Medical Branch lisinopriL 2019-10 Yes Univers 5 mg tablet 0-27 ity of 00:00: [place] [facility] lisinopriL 2019-10 Yes Univers 5 mg tablet 0-27 ity of 00:00: Medical Branch lisinopriL 2019-10 Yes Univers 5 mg tablet 0-27 ity of 00:00: Medical Branch lisinopriL 2019-10 Yes Univers 5 mg tablet 0-27 ity of 00:00: [place] [facility] sulfamethox 2019-10 Yes TK 1 T PO U nivers azole-trime 0-26 Q 12 H FOR it y of thoprim 00:00: 10 DAYS [place] 800-160 mg 00 Medical per tablet Branch sulfamethox 2020- Yes TK 1 T PO U nivers azole-trime 0-26 Q 12 H FOR it y of thoprim 00:00: 10 DAYS [place] 800-160 mg 00 Medical per tablet Branch sulfamethox 2020- Yes TK 1 T PO U nivers azole-trime 0-26 Q 12 H FOR it y of thoprim 00:00: 10 DAYS [place] 800-160 mg 00 Medical per tablet Branch sulfamethox 2020 Yes TK 1 T PO U nivers azole-trime 0-26 Q 12 H FOR it y of thoprim 00:00: 10 DAYS [place] 800-160 mg 00 Medical per tablet Branch sulfamethox 2020 Yes TK 1 T PO U nivers azole-trime 0-26 Q 12 H FOR it y of thoprim 00:00: 10 DAYS [place] 800-160 mg 00 Medical per tablet Branch sulfamethox 2020 Yes TK 1 T PO U nivers azole-trime 0-26 Q 12 H FOR it y of thoprim 00:00: 10 DAYS [place] 800-160 mg 00 Medical per tablet Branch metFORMIN 2020-1 Yes TK 1 T PO Uni vers 500 mg 0-15 QD WAC ity of tablet 00:00: [place] [facility] metFORMIN 2020-1 Yes TK 1 T PO Uni vers 500 mg 0-15 QD WAC ity of tablet 00:00: [place] [address] Medical Branch metFORMIN 2020-1 Yes TK 1 T PO Uni vers 500 mg 0-15 QD WAC ity of tablet 00:00: [place] [facility] metFORMIN 2020-1 Yes TK 1 T PO Uni vers 500 mg 0-15 QD WAC ity of tablet 00:00: [place] [address] Medical Branch metFORMIN 2020-1 Yes TK 1 T PO Uni vers 500 mg 0-15 QD WAC ity of tablet 00:00: [place] [address] Medical Branch metFORMIN 2020-1 Yes TK 1 T PO Uni vers 500 mg 0-15 QD WAC ity of tablet 00:00: [address] Branch cephALEXin 2020-0 Yes TK 1 C PO Un gilberto 500 mg 8-24 Q 12 H ity of capsule 00:00: [place] [address] Medical Branch cephALEXin 2020-0 Yes TK 1 C PO Un gilberto 500 mg 8-24 Q 12 H ity of capsule 00:00: [address] Branch cephALEXin 2020-0 Yes TK 1 C PO Un gilberto 500 mg 8-24 Q 12 H ity of capsule 00:00: [address] Branch cephALEXin 2020-0 Yes TK 1 C PO Un gilberto 500 mg 8-24 Q 12 H ity of capsule 00:00: [address] Branch cephALEXin 2020-0 Yes TK 1 C PO Un gilberto 500 mg 8-24 Q 12 H ity of capsule 00:00: [place] [address] Medical Branch cephALEXin 2020-0 Yes TK 1 C PO Un gilberto 500 mg 8-24 Q 12 H ity of capsule 00:00: [address] Metformin Metformin 2020-0 Yes Valeria 1 tablet Common HCl HCl 1-31 [place] with a Spirit 00:00: meal - [facility]I 00 [facility] Blood Blood 2020-0 Yes Valeria as Common Glucose Glucose 1-09 [place] directed Spirit Monitor Monitor 00:00: - CHI System System 00 [facility] Lancets Lancets 2020-0 Yes Valeria as Common 1-09 [place] directed Spirit 00:00: - [facility]I 00 [facility] Blood Blood 2020-0 No Blood Glucose Glucose 1-09 Glucose Monitor Monitor 00:00: Monitor System System 00 System w/Device w/Device w/Device Lancets - Lancets - 2020-0 No Lancets - 1-09 00:00: 00 Lancets - Lancets - 2020-0 No Lancets - 1-09 00:00: 00 Blood Blood 2020-0 No Blood Glucose Glucose 1-09 Glucose Monitor Monitor 00:00: Monitor System System 00 System w/Device w/Device w/Device Lancets - Lancets - 2020-0 No Lancets - 1-09 00:00: 00 Blood Blood 2020-0 No Blood Glucose Glucose 1-09 Glucose Monitor Monitor 00:00: Monitor System System 00 System w/Device w/Device w/Device Lancets - Lancets - 2020-0 No Lancets - 1-09 00:00: 00 Blood Blood 2020-0 No Blood Glucose Glucose 1-09 Glucose Monitor Monitor 00:00: Monitor System System 00 System w/Device w/Device w/Device Lancets - Lancets - 2020-0 No Lancets - 1-09 00:00: 00 Blood Blood 2020-0 No Blood Glucose Glucose 1-09 Glucose Monitor Monitor 00:00: Monitor System System 00 System w/Device w/Device w/Device Blood Blood 2020-0 No Blood Glucose Glucose 1-09 Glucose Monitor Monitor 00:00: Monitor System System 00 System w/Device w/Device w/Device Lancets - Lancets - 2020-0 No Lancets - 1-09 00:00: 00 Blood Blood 2020-0 No Blood Glucose Glucose 1-09 Glucose Monitor Monitor 00:00: Monitor System System 00 System w/Device w/Device w/Device Lancets - Lancets - 2020-0 No Lancets - 1-09 00:00: 00 Blood Blood 2020-0 No Blood Glucose Glucose 1-09 Glucose Monitor Monitor 00:00: Monitor System System 00 System w/Device w/Device w/Device Lancets - Lancets - 2020-0 No Lancets - 1-09 00:00: 00 Blood Blood 2020-0 No Blood Glucose Glucose 1-09 Glucose Monitor Monitor 00:00: Monitor System System 00 System w/Device w/Device w/Device Blood Blood 2020-0 No Blood Glucose Glucose 1-09 Glucose Monitor Monitor 00:00: Monitor System System 00 System w/Device w/Device w/Device Blood Blood 2020-0 No Blood Glucose Glucose 1-09 Glucose Monitor Monitor 00:00: Monitor System System 00 System w/Device w/Device w/Device Blood Blood 2020-0 No Blood Glucose Glucose 09 Glucose Monitor Monitor 00:00: Monitor System System 00 System w/Device w/Device w/Device Blood Blood 2020-0 No Blood Glucose Glucose 09 Glucose Monitor Monitor 00:00: Monitor System System 00 System w/Device w/Device w/Device Lancets - Lancets - 2019-0 No Lancets - 1-09 00:00: 00 blood blood 2020-0 2021- No Valeria major Common glucose glucose 10-21 04-03 Millender Spi rit test strip test strip 00:00: 00:00 - CHI 00 :00 [facility] Glucometer Glucometer 2020-0 Yes Valeria major Common 10-15 [place] Spirit 00:00: - CHI 00 [facility] Glucometer Glucometer 2020-0 No Glucometer n/s n/s 1-03 n/s 00:00: 00 Glucometer Glucometer 2020-0 No Glucometer n/s n/s 1-03 n/s 00:00: 00 Glucometer Glucometer 2020-0 No Glucometer n/s n/s 1-03 n/s 00:00: 00 Glucometer Glucometer 2020-0 No Glucometer n/s n/s 1-03 n/s 00:00: 00 Glucometer Glucometer 2020-0 No Glucometer n/s n/s 1-03 n/s 00:00: 00 Glucometer Glucometer 2020-0 No Glucometer n/s n/s 1-03 n/s 00:00: 00 Glucometer Glucometer 2020-0 No Glucometer n/s n/s 1-03 n/s 00:00: 00 Glucometer Glucometer 2020-0 No Glucometer n/s n/s 1-03 n/s 00:00: 00 Glucometer Glucometer 2020-0 No Glucometer n/s n/s 1-03 n/s 00:00: 00 Glucometer Glucometer 2020-0 No Glucometer n/s n/s 1-03 n/s 00:00: 00 Glucometer Glucometer 2020-0 No Glucometer n/s n/s 1-03 n/s 00:00: 00 Glucometer Glucometer 2020-0 No Glucometer n/s n/s 1-03 n/s 00:00: 00 Glucometer Glucometer 2019-0 No Glucometer n/s n/s -03 n/s 00:00: 00 Bactroban Bactroban 2018-0 Yes Valeria Apply to Common 1-12 [place] affected Spirit 00:00: area - CHI [facility] Bactroban 2 Bactroban 2 0 No BID Bactroban % % 1-12 2 % 00:00: 00 Bactroban 2 Bactroban 2 0 No BID Bactroban % % 1-12 2 % 00:00: 00 Bactroban 2 Bactroban 2 2018-0 No BID Bactroban % % 1-12 2 % 00:00: 00 Bactroban 2 Bactroban 2 0 No BID Bactroban % % 1-12 2 % 00:00: 00 Bactroban 2 Bactroban 2 2018-0 No BID Bactroban % % 1-12 2 % 00:00: 00 Bactroban 2 Bactroban 2 0 No BID Bactroban % % 1-12 2 % 00:00: 00 Bactroban 2 Bactroban 2 0 No BID Bactroban % % 1-12 2 % 00:00: 00 Bactroban 2 Bactroban 2 0 No BID Bactroban % % 1-12 2 % 00:00: 00 Bactroban 2 Bactroban 2 0 No BID Bactroban % % 1-12 2 % 00:00: 00 Bactroban 2 Bactroban 2 2018-0 No BID Bactroban % % 1-12 2 % 00:00: 00 Bactroban 2 Bactroban 2 0 No BID Bactroban % % 1-12 2 % 00:00: 00 Bactroban 2 Bactroban 2 2018-0 No BID Bactroban % % 1-12 2 % 00:00: 00 Bactroban 2 Bactroban 2 0 No BID Bactroban % % 1-12 2 % 00:00: 00 Seroquel Seroquel 0 Yes Valeria 1 tablet Common 8-17 [place] Spirit 00:00: - [facility]I [facility] Lisinopril Lisinopril 2017-0 Yes Valeria 1 tablet Common 6-18 [place] Spirit 00:00: - [facility]I 00 [facility] Metformin 2016-10 Yes 500 mg = 1 [...] PO, l oral tablet 21:28: Bedtime, # [place] 00 30 tab, 0 Refill(s) Aspirin 81 [...] moria 2-11 infuse l 11:00: over 2.5 [place] 00 hours Haldol 2016-10 No Notes: Memoria 2-11 (Same as: l 09:53: Haldol) [place] 00 vancomycin 2016-10 No Notes: Memor ia + Sodium 2-10 TIME l Chloride 23:19: CRITICAL [place] nn 0.9% IV 100 00 MEDICATION mL (Same As: Vancocin) vancomycin 2016-10 No 2001 mg: Me moria + Sodium 2-10 infuse l Chloride 11:00: over 2.5 [place] nn 0.9% IV 500 00 hours mL MEDICATION WASTE Product Size: 1000 mg Product Wasted: ___ mg vancomycin 2016-10 No 2001 mg: Me moria 2- infuse l 21:00: over 2.5 Michael 00 hours Ativan 2016-10 No Notes: Memoria 2-09 (Same as: l 08:57: Ativan) Michael 00 vancomycin 2016-10 No 2000 mg: Me moria + Sodium 2-07 infuse l Chloride 20:00: over 2.5 [place] nn 0.9% IV 250 00 hours mL MEDICATION WASTE Product Size: 1000 mg Product Wasted: ___ mg Vancomycin 2016-10 No Vancomycin M [facility] Pharmacy 2- Pharmacy l Protocol 18:00: Protocol, Herm 1 dose, Drug form: MISC, Route: MISC, ONCALL, 09/18/17 12:00:00 OPEN CUT EXAMINER, Duration: 7 day, Stop date: 09/25/17 11:59:00 OPEN CUT EXAMINER vancomycin 2016-10 No 2000 mg: Me moria + Sodium 2-07 infuse l Chloride 18:00: over 2.5 [place] nn 0.9% IV 250 00 hours mL MEDICATION WASTE Product Size: 1000 mg Product Wasted: ___ mg NS (Bolus) 2016-10 No 500 mL, Zohaib jacqueline IV 207 500 ml/hr, l 16:01: Infuse Michael 00 Over: 1 hr, Route: IV, 500, Drug form: INJ, ONCE, Priority: STAT, Dosing Weight 122.008 kg, Start date: 09/18/17 10:01:00 OPEN CUT EXAMINER, Stop date: 09/18/17 10:01:00 OPEN CUT EXAMINER Vancomycin 2016-10 No 1 ea, Marychuyori a 11-19 Route: l 16:00: MISC, [place] 00 ONCALL, Dosing Weight 122.008, kg, Start date: 09/18/17 10:00:00 OPEN CUT EXAMINER, Duration: 7 day, Stop date: 09/25/17 9:59:00 OPEN CUT EXAMINER, Pharmacy to dose, ABX Indication : Pneumonia Acetaminoph 2016-10 No Notes: Max Memoria en 11-19 acetaminop l 10:35: hen = 4000 Michael 00 mg/day (4 gm/day). (Same as: Tylenol) Zosyn 2016-10 No Notes: Memoria 2- (Same as: l 16:00: Zosyn) Michael 00 Dosing based on Piperacill in component MEDICATION [...] Blood Glucose Results, Start date: 09/14/17 12:28:00 OPEN CUT EXAMINER, Duration: 30 day, Stop date: 10/14/17 12:27:00 OPEN CUT EXAMINER Glucagon 2016-10 No 1 mg, Memoria 2-03 Route: IM, l 18:28: Drug form: [place] 00 PDR/INJ, PRN, Dosing Weight 122.008, kg, PRN Blood Glucose Results, Start date: 09/14/17 12:28:00 OPEN CUT EXAMINER, Duration: 30 day, Stop date: 10/14/17 12:27:00 OPEN CUT EXAMINER Docusate 2016-10 No Notes: Memoria 2-03 (Same as: l 03:00: Colace) atorvastati 2016-10 No Notes: Zohaib jacqueline n 2-03 (Same as: l 03:00: Lipitor) Saline 2016-10 No Notes: Memoria Flush 0.9% 2-03 (Same as: l 03:00: BD Posiflush) Aspirin 2016-10 No Notes: Memoria 2-02 Take with l 22:57: food. heparin 2016-10 No Notes: Memoria 2-02 porcine l 22:00: heparin Visipaque 2016-10 No Notes: Memori a 320 mg/mL 2- (Same as: l injectable 19:37: Visipaque) H ermann solution 00 . WASTE: F/P - Black; E - [...] Oxide 2- (Same as: l 15:09: Mag-Ox 00 400) Magnesium oxide 187qm=758y g elemental magnesium Dose=____m g magnesium oxide (___mg elemental magnesium) Calcium 2016-10 No Notes: Memoria Gluconate 2- WASTE: F/P l 15:09: - Sink; E - Municipal Trash Bin potassium 2016-10 No Notes: Memori a phosphate-s 2-02 (Same as: l odium 15:09: Phos-NaK) phosphate [...] phosphate 2-02 10 mL, l 15:09: Route: Michael 00 IVPB, PRN, kg, PRN Abnormal Lab Result, Start date: 09/13/17 9:09:00 OPEN CUT EXAMINER, Duration: 30 day, Stop date: 10/13/17 9:08:00 OPEN CUT EXAMINER, FOR ICU USE ONLY Potassium 2016-10 No Notes: Memori a Chloride 2-02 (Same as: l 15:09: Potassium Chloride) Dextrose 2016-10 No 12.5 gm, Memor ia 50% Syringe 2-02 25 mL, l 15:09: Route: IVP, Drug Form: INJ, kg, PRN, PRN Blood Glucose Results, Start date: 09/13/17 9:09:00 OPEN CUT EXAMINER, Duration: 30 day, Stop date: 10/13/17 9:08:00 OPEN CUT EXAMINER Glucagon 2016-10 No 1 mg, Memoria 2-02 Route: IM, l 15:09: Drug form: PDR/INJ, PRN, kg, PRN Blood Glucose Results, Start date: 09/13/17 9:09:00 OPEN CUT EXAMINER, Duration: 30 day, Stop date: 10/13/17 9:08:00 OPEN CUT EXAMINER normal 2016-10 No 1,000 mL, Memori a saline 0.9% 2-02 Rate: 75 l IV 1,000 mL 15:05: ml/hr, Infuse over: 13.3 hr, Route: IV, Total Volume: 1,000, Start date: 09/13/17 9:05:00 OPEN CUT EXAMINER, Duration: 30 day, Stop date: 10/13/17 9:04:00 OPEN CUT EXAMINER Hydralazine 2016-10 No Notes: Zohaib jacqueline 2-02 (Same as: l 15:05: Apresoline ) Push over 5 minutes Labetalol 2016-10 No Notes: Memori a 2-02 (Same as: l 15:01: Normodyne, Trandate) Push over 2 minutes Give bolus over 2-3 minutes. Ondansetron 2016-10 No Notes: Zohaib jacqueline 11-14 (Same as: l 15:01: Zofran) MEDICATION WASTE Product Size: 4 mg Product Wasted: ___ mg Bisacodyl 2016-10 No Notes: Memori a 11-14 (Same As: l 15:01: Dulcolax, Bisco-Lax) Acetaminoph 2016-10 No Notes: Do M emoria en 11-14 not exceed l 15:01: 4 gm/day. (Same as: Tylenol) Saline 2016-10 No Notes: Memoria Flush 0.9% 11-14 (Same as: l 15:01: BD Posiflush) Omeprazole Omeprazole Yes Valeria 1 capsule Common Millender [facility] Silace Silace Yes Valeria 7.5 ml as Commo n Millender needed [facility] Aspirin Aspirin Yes Valeria 1 tablet Comm on Millender [facility] Lisinopril Lisinopril Yes Valeria 1 tablet Common Millender [facility] Atorvastati Atorvastati Yes Valeria 1 tablet Common n Calcium n [facility] Atorvastati Atorvastati Yes Valeria TAKE 1 Common n Calcium n Calcium Millender TABLET BY [facility] MOUTH - [facility]I EVERY [facility] NIGHT AT [facility] SEROquel 25 SEROquel 25 No 1{table SEROquel MG MG t} 25 MG Atorvastati Atorvastati No Atorvastat n Calcium n Calcium in Calcium 20 MG 20 MG 20 MG metFORMIN metFORMIN No metFORMIN HCl 500 MG HCl 500 MG HCl 500 MG Tamsulosin Tamsulosin No Tamsulosin HCl 0.4 MG HCl 0.4 MG HCl 0.4 MG Lisinopril Lisinopril No 1{table QD Lisinopril 5 MG 5 MG t} 5 MG Omeprazole Omeprazole No 1{capsu QD Omeprazole 40 MG 40 MG le} 40 MG Aspirin 81 Aspirin 81 No 1{table QD Aspirin 81 MG MG t} MG Silace 60 Silace 60 No 7.5{ml_ BID Silace 60 MG/15ML MG/15ML as_need MG/15ML ed} OneTouch OneTouch No OneTouch Ultra - Ultra - Ultra - metFORMIN metFORMIN No metFORMIN HCl 500 MG HCl 500 MG HCl 500 MG Atorvastati Atorvastati No Atorvastat n Calcium n Calcium in Calcium 20 MG 20 MG 20 MG Omeprazole Omeprazole No 1{capsu QD Omeprazole 40 MG 40 MG le} 40 MG QUEtiapine QUEtiapine No QUEtiapine Fumarate 25 Fumarate 25 Fumarate MG MG 25 MG OneTouch OneTouch No OneTouch Ultra - Ultra - Ultra - Tamsulosin Tamsulosin No Tamsulosin HCl 0.4 MG HCl 0.4 MG HCl 0.4 MG Aspirin 81 Aspirin 81 No 1{table QD Aspirin 81 MG MG t} MG Silace 60 Silace 60 No 7.5{ml_ BID Silace 60 MG/15ML MG/15ML as_need MG/15ML ed} Lisinopril Lisinopril No 1{table QD Lisinopril 5 MG 5 MG t} 5 MG Lisinopril Lisinopril No 1{table QD Lisinopril 5 MG 5 MG t} 5 MG metFORMIN metFORMIN No metFORMIN HCl 500 MG HCl 500 MG HCl 500 MG Aspirin 81 Aspirin 81 No 1{table QD Aspirin 81 MG MG t} MG Silace 60 Silace 60 No 7.5{ml_ BID Silace 60 MG/15ML MG/15ML as_need MG/15ML ed} QUEtiapine QUEtiapine No QUEtiapine Fumarate 25 Fumarate 25 Fumarate MG MG 25 MG Tamsulosin Tamsulosin No Tamsulosin HCl 0.4 MG HCl 0.4 MG HCl 0.4 MG Omeprazole Omeprazole No 1{capsu QD Omeprazole 40 MG 40 MG le} 40 MG OneTouch OneTouch No OneTouch Ultra - Ultra - Ultra - Atorvastati Atorvastati No Atorvastat n Calcium n Calcium in Calcium 20 MG 20 MG 20 MG QUEtiapine QUEtiapine No QD QUEtiapine Fumarate 25 Fumarate 25 Fumarate MG MG 25 MG Omeprazole Omeprazole No 1{capsu QD Omeprazole 40 MG 40 MG le} 40 MG Tamsulosin Tamsulosin No Tamsulosin HCl 0.4 MG HCl 0.4 MG HCl 0.4 MG metFORMIN metFORMIN No metFORMIN HCl 500 MG HCl 500 MG HCl 500 MG Aspirin 81 Aspirin 81 No 1{table QD Aspirin 81 MG MG t} MG Lisinopril Lisinopril No Lisinopril 5 MG 5 MG 5 MG Atorvastati Atorvastati No Atorvastat n Calcium n Calcium in Calcium 20 MG 20 MG 20 MG OneTouch OneTouch No OneTouch Ultra - Ultra - Ultra - Silace 60 Silace 60 No 7.5{ml_ BID Silace 60 MG/15ML MG/15ML as_need MG/15ML ed} metFORMIN metFORMIN No metFORMIN HCl 500 MG HCl 500 MG HCl 500 MG Omeprazole Omeprazole No 1{capsu QD Omeprazole 40 MG 40 MG le} 40 MG Atorvastati Atorvastati No Atorvastat n Calcium n Calcium in Calcium 20 MG 20 MG 20 MG Tamsulosin Tamsulosin No Tamsulosin HCl 0.4 MG HCl 0.4 MG HCl 0.4 MG Silace 60 Silace 60 No 7.5{ml_ BID Silace 60 MG/15ML MG/15ML as_need MG/15ML ed} Lisinopril Lisinopril No Lisinopril 5 MG 5 MG 5 MG Aspirin 81 Aspirin 81 No 1{table QD Aspirin 81 MG MG t} MG OneTouch OneTouch No OneTouch Ultra - Ultra - Ultra - QUEtiapine QUEtiapine No QD QUEtiapine Fumarate 25 Fumarate 25 Fumarate MG MG 25 MG Atorvastati Atorvastati No Atorvastat n Calcium n Calcium in Calcium 20 MG 20 MG 20 MG OneTouch OneTouch No OneTouch Ultra - Ultra - Ultra - QUEtiapine QUEtiapine No QD QUEtiapine Fumarate 25 Fumarate 25 Fumarate MG MG 25 MG Tamsulosin Tamsulosin No Tamsulosin HCl 0.4 MG HCl 0.4 MG HCl 0.4 MG Aspirin 81 Aspirin 81 No 1{table QD Aspirin 81 MG MG t} MG Omeprazole Omeprazole No 1{capsu QD Omeprazole 40 MG 40 MG le} 40 MG metFORMIN metFORMIN No metFORMIN HCl 500 MG HCl 500 MG HCl 500 MG Silace 60 Silace 60 No 7.5{ml_ BID Silace 60 MG/15ML MG/15ML as_need MG/15ML ed} Lisinopril Lisinopril No Lisinopril 5 MG 5 MG 5 MG Atorvastati Atorvastati No Atorvastat n Calcium n Calcium in Calcium 20 MG 20 MG 20 MG Aspirin 81 Aspirin 81 No 1{table QD Aspirin 81 MG MG t} MG QUEtiapine QUEtiapine No QD QUEtiapine Fumarate 25 Fumarate 25 Fumarate MG MG 25 MG Tamsulosin Tamsulosin No Tamsulosin HCl 0.4 MG HCl 0.4 MG HCl 0.4 MG Omeprazole Omeprazole No 1{capsu QD Omeprazole 40 MG 40 MG le} 40 MG OneTouch OneTouch No OneTouch Ultra - Ultra - Ultra - Silace 60 Silace 60 No 7.5{ml_ BID Silace 60 MG/15ML MG/15ML as_need MG/15ML ed} metFORMIN metFORMIN No metFORMIN HCl 500 MG HCl 500 MG HCl 500 MG Lisinopril Lisinopril No Lisinopril 5 MG 5 MG 5 MG Tamsulosin Tamsulosin No Tamsulosin HCl 0.4 MG HCl 0.4 MG HCl 0.4 MG Aspirin 81 Aspirin 81 No 1{table QD Aspirin 81 MG MG t} MG Silace 60 Silace 60 No 7.5{ml_ BID Silace 60 MG/15ML MG/15ML as_need MG/15ML ed} Atorvastati Atorvastati No Atorvastat n Calcium n Calcium in Calcium 20 MG 20 MG 20 MG Omeprazole Omeprazole No 1{capsu QD Omeprazole 40 MG 40 MG le} 40 MG OneTouch OneTouch No OneTouch Ultra - Ultra - Ultra - QUEtiapine QUEtiapine No QUEtiapine Fumarate 25 Fumarate 25 Fumarate MG MG 25 MG metFORMIN metFORMIN No metFORMIN HCl 500 MG HCl 500 MG HCl 500 MG Lisinopril Lisinopril No Lisinopril 5 MG 5 MG 5 MG Omeprazole Omeprazole No 1{capsu QD Omeprazole 40 MG 40 MG le} 40 MG metFORMIN metFORMIN No metFORMIN HCl 500 MG HCl 500 MG HCl 500 MG Silace 60 Silace 60 No 7.5{ml_ BID Silace 60 MG/15ML MG/15ML as_need MG/15ML ed} QUEtiapine QUEtiapine No QUEtiapine Fumarate 25 Fumarate 25 Fumarate MG MG 25 MG OneTouch OneTouch No OneTouch Ultra - Ultra - Ultra - OneTouch OneTouch No OneTouch Delica Plus Delica Plus Delica [id number] - [id number] - Plus [id number] - Aspirin 81 Aspirin 81 No 1{table QD Aspirin 81 MG MG t} MG Atorvastati Atorvastati No Atorvastat n Calcium n Calcium in Calcium 20 MG 20 MG 20 MG Tamsulosin Tamsulosin No Tamsulosin HCl 0.4 MG HCl 0.4 MG HCl 0.4 MG Lisinopril Lisinopril No Lisinopril 5 MG 5 MG 5 MG Silace 60 Silace 60 No 7.5{ml_ BID Silace 60 MG/15ML MG/15ML as_need MG/15ML ed} Omeprazole Omeprazole No 1{capsu QD Omeprazole 40 MG 40 MG le} 40 MG OneTouch OneTouch No OneTouch Ultra - Ultra - Ultra - Aspirin 81 Aspirin 81 No 1{table QD Aspirin 81 MG MG t} MG Lisinopril Lisinopril No Lisinopril 5 MG 5 MG 5 MG QUEtiapine QUEtiapine No QUEtiapine Fumarate 25 Fumarate 25 Fumarate MG MG 25 MG Atorvastati Atorvastati No Atorvastat n Calcium n Calcium in Calcium 20 MG 20 MG 20 MG Tamsulosin Tamsulosin No Tamsulosin HCl 0.4 MG HCl 0.4 MG HCl 0.4 MG OneTouch OneTouch No OneTouch Delica Plus Delica Plus Delica [id number] - [id number] - Plus [id number] - metFORMIN metFORMIN No metFORMIN HCl 500 MG HCl 500 MG HCl 500 MG Silace 60 Silace 60 No 7.5{ml_ BID Silace 60 MG/15ML MG/15ML as_need MG/15ML ed} metFORMIN metFORMIN No metFORMIN HCl 500 MG HCl 500 MG HCl 500 MG Aspirin 81 Aspirin 81 No 1{table QD Aspirin 81 MG MG t} MG Lisinopril Lisinopril No Lisinopril 5 MG 5 MG 5 MG Omeprazole Omeprazole No 1{capsu QD Omeprazole 40 MG 40 MG le} 40 MG OneTouch OneTouch No OneTouch Ultra - Ultra - Ultra - OneTouch OneTouch No OneTouch Delica Plus Delica Plus Delica [id number] - [id number] - Plus [id number] - QUEtiapine QUEtiapine No QUEtiapine Fumarate 25 Fumarate 25 Fumarate MG MG 25 MG Atorvastati Atorvastati No Atorvastat n Calcium n Calcium in Calcium 20 MG 20 MG 20 MG Tamsulosin Tamsulosin No Tamsulosin HCl 0.4 MG HCl 0.4 MG HCl 0.4 MG Omeprazole Omeprazole No 1{capsu QD Omeprazole 40 MG 40 MG le} 40 MG Aspirin 81 Aspirin 81 No 1{table QD Aspirin 81 MG MG t} MG metFORMIN metFORMIN No metFORMIN HCl 500 MG HCl 500 MG HCl 500 MG Atorvastati Atorvastati No Atorvastat n Calcium n Calcium in Calcium 20 MG 20 MG 20 MG Lisinopril Lisinopril No Lisinopril 5 MG 5 MG 5 MG Tamsulosin Tamsulosin No Tamsulosin HCl 0.4 MG HCl 0.4 MG HCl 0.4 MG OneTouch OneTouch No OneTouch Ultra - Ultra - Ultra - OneTouch OneTouch No OneTouch Delica Plus Delica Plus Delica [id number] - [id number] - Plus [id number] - QUEtiapine QUEtiapine No QUEtiapine Fumarate 25 Fumarate 25 Fumarate MG MG 25 MG Silace 60 Silace 60 No 7.5{ml_ BID Silace 60 MG/15ML MG/15ML as_need MG/15ML ed} Lisinopril Lisinopril No 1{table QD Lisinopril 5 MG 5 MG t} 5 MG OneTouch OneTouch No OneTouch Ultra - Ultra - Ultra - metFORMIN metFORMIN No 1{table BID metFORMIN HCl 500 MG HCl 500 MG t_with_ HCl 500 MG a_meal} Atorvastati Atorvastati No 1{table Atorvastat n Calcium n Calcium t} in Calcium 20 MG 20 MG 20 MG SEROquel 25 SEROquel 25 No 1{table SEROquel MG MG t} 25 MG Omeprazole Omeprazole No 1{capsu QD Omeprazole 40 MG 40 MG le} 40 MG Silace 60 Silace 60 No 7.5{ml_ BID Silace 60 MG/15ML MG/15ML as_need MG/15ML ed} Aspirin 81 Aspirin 81 No 1{table QD Aspirin 81 MG MG t} MG Immunizations Ordered Immunization Filled Immunization Date Status Commen ts Source Name Name Myamarcy COVID-19 Myamarcy COVID-19 2021-01-26 Completed [facility] 15:09:00 - [facility] Magda COVID-19 Moderna COVID-19 2021-01-26 Completed [facility] Vaccine 15:09:00 - [facility] Moderna COVID-19 Moderna COVID-19 2021-01-26 Completed [facility] Vaccine 15:09:00 - [facility] Moderna COVID-19 Moderna COVID-19 2021-01-26 Completed [facility] Vaccine 15:09:00 - [facility] Moderna COVID-19 Moderna COVID-19 2021-01-26 Completed [facility] Vacc[facility] Vaccine 15:09:00 - [facility] Moderna COVID-19 Moderna COVID-19 2021-01-26 Completed [facility] Vacc[facility] Vaccine 15:09:00 - [facility] Moderna COVID-19 Moderna COVID-19 2021-01-26 Completed [facility] Vaccine 15:09:00 - [facility] Moderna COVID-19 Moderna COVID-19 2021-01-26 Completed [facility] Vaccine 15:09:00 - [facility] Moderna COVID-19 Moderna COVID-19 2021-01-26 Completed [facility] Vacc[facility] Vaccine 15:09:00 - [facility] Moderna COVID-19 Moderna COVID-19 2021-01-26 Completed [facility] Vacc[facility] Vaccine 15:09:00 - [facility] Moderna COVID-19 Moderna COVID-19 2021-01-26 Completed [facility] Vaccine 15:09:00 [facility] Moderna COVID-19 Moderna COVID-19 2021-01-26 Completed [facility] Vaccine Vaccine 15:09:00 - [facility] Moderna COVID-19 Moderna COVID-19 2021-01-26 Completed [facility] Vacc[facility] Vaccine 15:09:00 [facility] Moderna COVID-19 Moderna COVID-19 2020-12-29 Completed [facility] Vaccine Vaccine 15:09:00 - [facility] Moderna COVID-19 Moderna COVID-19 2020-12-29 Completed [facility] Vaccine Vaccine 15:09:00 - [facility] Moderna COVID-19 Moderna COVID-19 2020-12-29 Completed [facility] Vaccine Vaccine 15:09:00 - [facility] Moderna COVID-19 Moderna COVID-19 2020-12-29 Completed [facility] Vaccine Vaccine 15:09:00 - [facility] Moderna COVID-19 Moderna COVID-19 2020-12-29 Completed [facility] Vaccine Vaccine 15:09:00 [facility] Moderna COVID-19 Moderna COVID-19 2020-12-29 Completed [facility] Vaccine Vaccine 15:09:00 [facility] Moderna COVID-19 Moderna COVID-19 2020-12-29 Completed [facility] Vaccine Vaccine 15:09:00 - [facility] Moderna COVID-19 Moderna COVID-19 2020-12-29 Completed [facility] Vaccine Vaccine 15:09:00 - [facility] Moderna COVID-19 Moderna COVID-19 2020-12-29 Completed [facility] Vaccine Vaccine 15:09:00 - [facility] Moderna COVID-19 Moderna COVID-19 2020-12-29 Completed [facility] Vaccine Vaccine 15:09:00 - [facility] Moderna COVID-19 Moderna COVID-19 2020-12-29 Completed [facility] Vaccine Vaccine 15:09:00 [facility] Moderna COVID-19 Moderna COVID-19 2020-12-29 Completed [facility] Vaccine Vaccine 15:09:00 [facility] Moderna COVID-19 Moderna COVID-19 2020-12-29 Completed [facility] Vaccine Vaccine 15:09:00 [facility] Vital Signs Vital Name Observation Time Observation Value Comments Source height 2022-06-05 16:40:00 69 [in_i] [facility] weight 2022-06-05 16:40:00 200 [lb_av] [facility] bmi 2022-06-05 16:40:00 29.53 kg/m2 [facility] height 2022-04-10 16:00:00 69 [in_i] [facility] weight 2022-04-10 16:00:00 200 [lb_av] [facility] temperature 2022-04-10 16:00:00 100.4 [degF] [facility] bmi 2022-04-10 16:00:00 29.53 kg/m2 [facility] height 2021-10-15 16:20:00 69 [in_i] [facility] weight 2021-10-15 16:20:00 200 [lb_av] [facility] temperature 2021-10-15 16:20:00 97.2 [degF] [facility] bmi 2021-10-15 16:20:00 29.53 kg/m2 [facility] oximetry 2021-10-15 16:20:00 99 % [facility] respiratory rate 2021-10-15 16:20:00 16 /min Comm on [facility] blood pressure 2021-10-15 16:20:00 112 mm[Hg] [facility] - systolic [facility] blood pressure 2021-10-15 16:20:00 63 mm[Hg] [facility] - diastolic [facility] blood pressure 2021-07-16 11:00:00 115 mm[Hg] [facility] - systolic [facility] blood pressure 2021-07-16 11:00:00 67 mm[Hg] [facility] - diastolic [facility] height 2021-07-16 11:00:00 69 [in_i] [facility] weight 2021-07-16 11:00:00 200 [lb_av] [facility] temperature 2021-07-16 11:00:00 97.8 [degF] [facility] bmi 2021-07-16 11:00:00 29.53 kg/m2 [facility] oximetry 2021-07-16 11:00:00 98 % [facility] respiratory rate 2021-07-16 11:00:00 16 /min [facility] Systolic blood 2020-12-08 16:03:00 153 mm[Hg] Univer sity of pressure [facility] Diastolic blood 2020-12-08 16:03:00 79 mm[Hg] Unive rsity of pressure [facility] Heart rate 2020-12-08 16:03:00 66 /min [facility]i ty of [facility] Body temperature 2020-12-08 16:03:00 36.5 Xochilt Univ ersity of [facility] Respiratory rate 2020-12-08 16:03:00 18 /min Univ ersity of [facility] Body weight 2020-12-08 16:03:00 88.134 kg Universi ty of [facility] BMI 2020-12-08 16:03:00 28.69 kg/m2 [facility] Systolic blood 2020-08-25 16:43:00 118 mm[Hg] Univer sity of [facility] Diastolic blood 2020-08-25 16:43:00 70 mm[Hg] Unive rsity of pressure [facility] Heart rate 2020-08-25 16:43:00 62 /min [facility] Body temperature 2020-08-25 16:43:00 37 Xochilt [facility] Respiratory rate 2020-08-25 16:43:00 18 /min [facility] Systolic blood 2020-08-25 16:43:00 118 mm[Hg] Univer sity of [facility] Diastolic blood 2020-08-25 16:43:00 70 mm[Hg] Unive rsity of [facility] Heart rate 2020-08-25 16:43:00 62 /min [facility] Body temperature 2020-08-25 16:43:00 37 Xochilt [facility] Respiratory rate 2020-08-25 16:43:00 18 /min [facility] BMI 2020-08-11 16:44:00 28.06 kg/m2 Universi [facility] Oxygen saturation in 2020-08-11 16:44:00 98 /min [facility] Arterial blood by [facility] Pulse oximetry Branch Systolic blood 2020-08-11 16:44:00 150 mm[Hg] Univer sity of pressure [facility] Diastolic blood 2020-08-11 16:44:00 77 mm[Hg] Unive rsity of pressure [facility] Heart rate 2020-08-11 16:44:00 66 /min Universi [facility] Body temperature 2020-08-11 16:44:00 37.06 Xochilt [facility] rate 2020-08-11 16:44:00 20 /min [facility] Body height 2020-08-11 16:44:00 175.3 cm [facility] Body weight 2020-08-11 16:44:00 86.183 kg [facility] Heart Rate 2017-09-24 19:04:00 [facility]itory Rate 2017-09-24 19:04:00 [facility] [place] Systolic (mm Hg) 2017-09-24 19:04:00 Zohaib rial [place] Diastolic (mm Hg) 2017-09-24 19:04:00 Mem orial [place] Respitory Rate 2017-09-24 14:22:00 [facility] Heart Rate 2017-09-24 14:22:00 [facility] Systolic (mm Hg) 2017-09-24 14:22:00 Zohaib rial [facility] Diastolic (mm Hg) 2017-09-24 14:22:00 Mem orial [place] Systolic (mm Hg) 2017-09-24 10:00:00 Zohaib rial [place] Diastolic (mm Hg) 2017-09-24 10:00:00 Mem orial [place] Heart Rate 2017-09-24 10:00:00 [facility] Respitory Rate 2017-09-24 10:00:00 [facility] Temperature Oral (F) 2017-09-24 06:00:00 98.1 F [facility] Temperature Oral (F) 2017-09-24 02:00:00 98.6 F [facility] [place] Temperature Oral (F) 2017-09-23 21:00:00 98.2 F [facility] [place] Height 2017-09-13 19:18:00 180.34 cm Marycarmen Rodriguez BMI Calculated 2017-09-13 19:18:00 Ravin Justin Weight 2017-09-13 19:18:00 Marycarmen Rodriguez Weight 2017-09-13 16:10:00 Marycarmen Rodriguez BMI Calculated 2017-09-13 16:10:00 Ravin Justin Height 2017-09-13 16:10:00 [facility] Procedure Date / Time Performing Clinician Source Performed ASSIGNMENT OF BENEFITS 2020-08-11 16:18:59 Doctor Unassigned, No [facility] Coronary heart disease [facility] [place] monitoring DIGAMI - diabetes Marycarmen Guidoa nn mellitus insulin-glucose infusion in acute myocardial infarction On treatment for Marycarmen Pardo n hypertension PTCA - Percutaneous [facility] transluminal coronary angioplasty Encounters Start End Encounter Admission Attending Care Care Encounter Source Date/Time Date/Time Type Type Clinicians Facility Department ID 2022-10-29 Outpatient Charles, STLMLC STLMLC [id number] Common 07:51:00 Jazmine [id number] [facility] 2022-04-08 Outpatient Charles, STLMLC STLMLC [id number] Common 11:45:00 Jazmine [facility] 2022-01-10 Outpatient Charles, STLMLC STLMLC [id number] Common 09:27:01 Jazmine [facility] 2021-11-07 Outpatient Charles, STLMLC STLMLC [id number] Common 14:30:53 Jazmine [facility] 2021-11-07 Outpatient Charles, STLMLC STLMLC [id number] Common 14:29:26 Jazmine [id number] [facility] 2021-11-07 Outpatient Charles, STLMLC STLMLC [id number] Common 12:49:54 Jazmine [id number] [facility] 2021-11-07 Outpatient Charles, STLMLC STLMLC [id number] Common 12:15:17 Jazmine [id number] [facility] 2021-11-07 Outpatient Casper Avilez STLMLC STLMLC [id number] Common 12:02:56 69733 [facility] 2021-11-07 Outpatient Avilez, Kin STLMLC STLMLC [id number] Common 11:59:02 [id number] [facility] 2021-11-07 Outpatient Millender, STLMLC STLMLC [id number] Common 11:21:21 Valeria [id number] [facility] 2021-11-07 Outpatient Millender, STLMLC STLMLC [id number] Common 11:03:01 Valeria 59005 [facility] 2021-11-07 Outpatient Millender, STLMLC STLMLC [id number] Common 11:02:15 Valeria [id number] [facility] 2022-10-16 2022-10-16 (TEL) STLMLC STLMLC [id number] [facility] 00:00:00 00:00:00 [facility] 2022-06-07 2022-06-07 (TEL) STLMLC STLMLC [id number] Co mmon 00:00:00 00:00:00 [facility] 2022-06-05 2022-06-05 OFFICE STLMLC STLMLC [id number] Co mmon 00:00:00 00:00:00 VISIT EST Spir it PT LEVEL 3 [facility] 2022-05-31 2022-05-31 (TEL) STLMLC STLMLC [id number] Co mmon 00:00:00 00:00:00 [facility] 2022-04-11 2022-04-11 OFFICE STLMLC STLMLC [id number] Co mmon 00:00:00 00:00:00 [facility] LEVEL 1 [facility] 2022-04-11 2022-04-11 (TEL) STLMLC STLMLC [id number] Co mmon 00:00:00 00:00:00 [facility] 2022-04-10 2022-04-10 OFFICE STLMLC STLMLC [id number] Co mmon 00:00:00 00:00:00 VISIT EST Spir it PT LEVEL 3 [facility] 2022-03-28 2022-03-28 (TEL) STLMLC STLMLC [id number] Co mmon 00:00:00 00:00:00 [facility] 2022-02-26 2022-02-26 (TEL) STLMLC STLMLC [id number] Co mmon 00:00:00 00:00:00 [facility] 2021-10-15 2021-10-15 OFFICE STLMLC STLMLC [id number] Co mmon 00:00:00 00:00:00 [facility]IT [facility] PT - CHI LEVEL 4 [facility] 2021-09-03 2021-09-03 (TEL) STLMLC STLMLC [id number] Co mmon 00:00:00 00:00:00 [facility] 2021-07-22 2021-07-22 (TEL) STLMLC STLMLC [id number] Co mmon 00:00:00 00:00:00 [facility] 2021-07-16 2021-07-16 OFFICE STLMLC STLMLC [id number] Co mmon 00:00:00 00:00:00 [facility]IT [facility] PT - CHI LEVEL 4 [facility] 2021-04-19 2021-04-19 Outpatient STLMLC STLMLC [id number] Common 00:00:00 00:00:00 [facility] 2021-04-11 2021-04-11 Outpatient STLMLC STLMLC [id number] Common 00:00:00 00:00:00 [facility] 2021-03-08 2021-03-08 Outpatient STLMLC STLMLC [id number] Common 00:00:00 00:00:00 [facility] 2021-01-18 2021-01-18 Outpatient STLMLC STLMLC [id number] Common 00:00:00 00:00:00 [facility] 2021-01-15 2021-01-15 Outpatient STLMLC STLMLC [id number] Common 00:00:00 00:00:00 [facility] 2020-12-14 2020-12-14 Outpatient STLMLC STLMLC [id number] Common 00:00:00 00:00:00 [facility] 2020-12-08 2020-12-08 [facility] [id number] Univers 09:44:18 10:28:25 Visit Abi Guzman [id number] i ty of [phone] [address] 2020-12-08 2020-12-08 [facility] [id number] Univers 09:30:00 09:30:00 ABI sophie [facility] 2020-11-21 2020-11-21 Outpatient STLMLC STLMLC [id number] Common 00:00:00 00:00:00 [facility] 2020-10-04 2020-10-04 Outpatient STLMLC STLMLC [id number] Common 00:00:00 00:00:00 [facility] 2020-10-03 2020-10-03 Outpatient STLMLC STLMLC [id number] Common 00:00:00 00:00:00 [facility] 2020-08-25 2020-08-25 [facility] [id number] 10:22:47 10:38:37 Visit Abi Guzman [id number] [place] [id number] Professio [phone] [address] 2020-08-25 2020-08-25 [facility] [id number] Univers 10:22:47 10:38:37 Visit Abi Guzman [id number] i ty [id number] [phone] [address] 2020-08-25 2020-08-25 Outpatient Rogelio [facility]ALL[facility] [id number] Univers 10:00:00 10:00:00 ABI sophie [facility] 2020-08-11 2020-08-11 [facility] [id number] Univers 11:19:40 12:21:37 Visit Abi Guzman [id number] i ty of [place] [id number] [place] [phone] [place] [address] [address] [facility] 2020-08-11 2020-08-11 Outpatient Rogelio DIALLO [facility] [id number] Univers 11:15:00 11:15:00 ABI ity of [facility] 2020-08-11 2020-08-11 Orders Doctor ABI [id number] Univers 00:00:00 00:00:00 Only Unassigned, SARAH [id number] ity of [place] [facility] [id number] Daniel as [phone] [address] 2020-08-08 2020-08-08 Outpatient STLMLC STLMLC [id number] Common 00:00:00 00:00:00 [facility] 2020-07-21 2020-07-21 Outpatient STLMLC STLMLC [id number] Common 00:00:00 00:00:00 [facility] 2020-06-06 2020-06-06 [facility] [id number] Common 15:15:00 15:15:[address] [facility] [address] [facility] 2020-04-03 2020-04-03 Out[facility] [id number] Common 14:25:00 14:25:[address] [facility] [address] [facility] 2020-02-16 2020-02-16 [facility] [id number] Common 14:12:00 14:12:[address] [facility] [address] [facility] 2019-12-15 2019-12-15 Out[facility] [id number] Common 11:30:00 11:30:[address] [facility] [address] [facility] 2019-11-30 2019-11-30 Out[facility] [id number] Common 10:40:00 10:40:00 [facility] [address] [facility] 2019-11-29 2019-11-29 [facility] [id number] Common 02:06:00 02:06:[address] [facility] 2019-11-09 2019-11-09 Outpatient [id number] Common 10:00:00 10:00:[address] [facility] 2019-11-05 2019-11-05 [facility] [id number] Common 10:15:00 10:15:[address] [facility] 2019-10-21 2019-10-21 [id number] Common 15:46:00 15:46:[address] [facility] 2019-10-20 2019-10-20 [facility] [id number] Common 10:55:00 10:55:[address] [facility] 2019-10-14 2019-10-14 [facility] [id number] Common 13:30:00 13:30:[address] [facility] 2019-10-10 2019-10-10 [id number] Common 18:31:00 18:31:[address] [facility] 2019-10-08 2019-10-08 [facility] [id number] Common 14:30:00 14:30:[address] [facility] 2019-08-09 2019-08-09 [facility] [id number] Common 09:45:00 09:45:[address] [facility] 2019-07-06 2019-07-06 [facility] [id number] Common 10:45:00 10:45:[address] [facility] 2019-04-02 2019-04-02 [id number] Common 13:15:00 13:15:[address] [facility] 2018-12-11 2018-12-11 [facility] [id number] Common 10:30:00 10:30:00 [address] [facility] [address] [facility] 2018-10-30 2018-10-30 [facility] [id number] Common 10:15:00 10:15:[address] [facility] 2018-10-24 2018-10-24 [facility] [id number] Common 17:45:00 17:45:00 [facility] 2018-09-24 2018-09-24 [facility] [id number] Common 13:30:00 13:30:[address] [facility] 2018-07-21 2018-07-21 [facility] [id number] Common 10:13:00 10:13:[address] [facility] 2018-05-29 2018-05-29 [facility] [id number] Common 09:00:00 09:00:[address] [facility] 2018-04-07 2018-04-07 [facility] [id number] Common 13:04:00 13:04:[address] [facility] 2018-03-30 2018-03-30 [facility] [id number] Common 09:30:00 09:30:[address] [facility] 2017-09-13 2017-09-25 Inpatient [facility] [id number] Memoria 14:34:00 00:40:00 rogelio Rodriguez 36 l [facility] 2017-09-13 2017-09-24 Outpatient Briseida, [facility] [id number] 273 08:34:00 18:40:00 Mica 36 Results Test Description Test Time Test Comments Results Result Comments Source HEMOGLOBIN A1C 2021-07-16 00:00:00 Test Item Value Reference Range Interpretation Comme nts A1C (test code = 4548-4) 5.6 [id number] 11:19:00 Test Item Value Reference Range Interpretation Comments AGAP (test code = AGAP) 15.0 10.0-20.0 [facility]HSB3636[facility]31-47 11:19:00 Test Item Value Reference Range Interpretation Comments Calcium Lvl (test code = Calcium Lvl) 9.1 8.5-10.5 [facility]UhwyukdWFHAWSVLCRMZ7330-87-41 11:19:00 Test Item Value Reference Range Interpretation Comments CO2 (test code = CO2) 24 24-[address] [facility] HospitalGkumayxZECWFCJALPFE6261-91-65 11:19:00 Test Item Value Reference Range Interpretation Comments Potassium Lvl (test code = Potassium 4.0 3.5-5.1 Lvl) [facility] HospitalHkymvhoBDXCGEBDQGSX1209-80-40 11:19:00 Test Item Value Reference Range Interpretation Comments Chloride Lvl (test code = Chloride Lvl) 103 95-[address] [facility] HospitalQwvpjvoHZROSVBJQBCO3476-41-35 11:19:00 Test Item Value Reference Range Interpretation Comments eGFR (test code = eGFR) [address] [facility] HospitalLqrsudwCOUNUJREGQIH1601-33-43 11:19:00 Test Item Value Reference Range Interpretation Comments BUN (test code = BUN) 27 7-[address] [facility] HospitalJiikfnqGVRVUJXMONHQ8141-29-73 11:19:00 Test Item Value Reference Range Interpretation Comments Creatinine Lvl (test code = Creatinine 0.80 0.50-1.40 Lvl) [facility] HospitalXfmnnewHEKUGZNWLAJW0447-82-34 11:19:00 Test Item Value Reference Range Interpretation Comments Sodium Lvl (test code = Sodium Lvl) 138 135-145 [facility]XAPSY[facility]UCLIW0207[facility]-06 11:19:00 Test Item Value Reference Range Interpretation Comments Glucose Lvl (test code = Glucose Lvl) 188 70-99 [facility] HospitalUkpvqebBIUKBSVGWY0715-20-62 11:19:00 Test Item Value Reference Range Interpretation Comments RBC Morph (test code = Normal (09/24/17 5:19 RBC Morph) AM) [facility] HospitalWwkmsdcANZMUKHSUW1017-62-19 11:19:00 Test Item Value Reference Range Interpretation Comments Plt Morph (test code = Normal (09/24/17 5:19 Plt Morph) AM) [facility] HospitalCgocexwCZIIZFCOQL6384-72-09 11:19:00 Test Item Value Reference Range Interpretation Comments Bands (test code = 1.0 See_Comment [Automat ed message] The Bands) system which ge nerated this result transmit kole reference range : <=11.0. The reference r elliott was not used to interpr et this result as venkatesh l/abnormal. [facility] CenterCleqiexQYTNWGZWIJ3803-85-79 11:19:00 Test Item Value Reference Range Interpretation Comments Lymphocytes (test code = Lymphocytes) 13.0 20.0-40.0 [facility] CenterUpokomyNYWFTAYKRF0820-45-36 11:19:00 Test Item Value Reference Range Interpretation Comments Atypical Lymphs (test code = Atypical 2.0 Lymphs) [facility] CenterFczfbusQDZZBIFPGF6869-95-82 11:19:00 Test Item Value Reference Range Interpretation Comments Eosinophils (test code = 3.0 See_Comment [A utomated message] The Eosinophils) system which ge nerated this result tra nsmitted reference range : <=4.0. The reference r elliott was not used to int erpret this result as normal/abnormal . [facility] CenterCwqverbHAXWZKKIBZ8322-81-13 11:19:00 Test Item Value Reference Range Interpretation Comments Metamyelocytes (test code 5.0 See_Comment [ Automated message] = Metamyelocytes) The system which generated this result transmitted ref erence range: <=1.0. T he reference range was not used to int erpret this result as normal/abnormal . [facility] CenterJgeurgiFOUSCBQMRV3576-64-61 11:19:00 Test Item Value Reference Range Interpretation Comments Monocytes (test code = Monocytes) 3.0 2.0-12.0 [facility] CenterPmqnrdwVHYWWEXUCH4184-83-26 11:19:00 Test Item Value Reference Range Interpretation Comments Segs (test code = Segs) 73.0 45.0-75.0 [facility] CenterBvlsueeHYFJZSCWCH5288-25-95 11:19:00 Test Item Value Reference Range Interpretation Comments Eosinophils # (test code 0.5 See_Comment [A utomated message] The = Eosinophils #) system [facility] generated this result tra nsmitted reference range : <=0.5. The reference r elliott was not used to int erpret this result as normal/abnormal . [facility] CenterYtuedvgZCUIVVFUIK5118-12-03 11:19:00 Test Item Value Reference Range Interpretation Comments Monocytes # (test code 0.5 See_Comment [Aut omated message] The = Monocytes #) system which generated this result tra nsmitted reference range : <=0.8. The reference r elliott was not used to int erpret this result as normal/abnormal . [facility] CenterPtztesrPMOIOITEMA4636-55-12 11:19:00 Test Item Value Reference Range Interpretation Comments Lymphocytes # (test code = Lymphocytes 2.6 1.0-5.5 #) [facility] CenterKxbgubyNOQBZMLBPB4193-02-32 11:19:00 Test Item Value Reference Range Interpretation Comments Segs-Bands # (test code = Segs-Bands #) 12.7 1.5-8.1 [facility] CenterUkvrrikCBBZCHVFCO0624-59-31 11:19:00 Test Item Value Reference Range Interpretation Comments MCV (test code = MCV) 88.3 80.0-94.0 [facility] CenterUghesgxLZMTUEMVXH7646-22-25 11:19:00 Test Item Value Reference Range Interpretation Comments Hct (test code = Hct) 45.4 42.0-54.0 [facility] CenterMcodikgZRXPQADEIC9533-82-72 11:19:00 Test Item Value Reference Range Interpretation Comments Hgb (test code = Hgb) 15.0 14.0-18.0 [facility] CenterVsvqxumVQVSQSAPBA6117-58-25 11:19:00 Test Item Value Reference Range Interpretation Comments RBC (test code = RBC) 5.15 4.70-6.10 [facility] CenterKmifmbmTPBLPUYMHJ6448-17-83 11:19:00 Test Item Value Reference Range Interpretation Comments MPV (test code = MPV) 9.2 7.4-10.4 [facility] CenterPurjbqoFZYPZBYUXJ8375-36-13 11:19:00 Test Item Value Reference Range Interpretation Comments MCHC (test code = MCHC) 33.0 32.0-36.0 [facility] CenterRkkzwuyPUKIDORTUC6089-68-21 11:19:00 Test Item Value Reference Range Interpretation Comments MCH (test code = MCH) 29.2 pg 27.0-31.0 [facility] CenterBkatgrxOOIFTEUPNP0822-94-45 11:19:00 Test Item Value Reference Range Interpretation Comments Platelet (test code = Platelet) 259 133-450 [facility] CenterXuamobrSQURYLQKXQ9670-91-43 11:19:00 Test Item Value Reference Range Interpretation Comments RDW (test code = RDW) 14.0 11.5-14.5 [facility] CenterJfuvjuqAFAOLTWOTU2572-82-60 11:19:00 Test Item Value Reference Range Interpretation Comments WBC (test code = WBC) 17.1 3.7-10.[address] [facility] HospitalRjfewidAAIMHUSPUUMZ1454-92-37 11:42:00 Test Item Value Reference Range Interpretation Comments BUN (test code = BUN) 26 7-[address] [facility] HospitalFsvmsenLNTTTKCTZVWI0654-96-92 11:42:00 Test Item Value Reference Range Interpretation Comments Glucose Lvl (test code = Glucose Lvl) 188 70-[address] [facility] HospitalNtdvaclOZWMRCVZBKXQ9585-95-52 11:42:00 Test Item Value Reference Range Interpretation Comments Creatinine Lvl (test code = Creatinine 0.90 0.50-1.40 Lvl) [facility] HospitalIoimuadIWJWELFSJKRK0983-79-25 11:42:00 Test Item Value Reference Range Interpretation Comments CO2 (test code = CO2) 24 24-[address] [facility] HospitalUfyurrfTSOCFAMGYJMB1388-25-11 11:42:00 Test Item Value Reference Range Interpretation Comments Chloride Lvl (test code = Chloride Lvl) 105 95-[address] [facility] HospitalLiodkcsJRHEOEHFAQSH7327-01-17 11:42:00 Test Item Value Reference Range Interpretation Comments Calcium Lvl (test code = Calcium Lvl) 9.2 8.5-10.5 [facility] CenterQkopnawPVUGQGYRNS1503-08-69 11:42:00 Test Item Value Reference Range Interpretation Comments Basophils # (test code 0.1 See_Comment [Aut omated message] The = Basophils #) system which generated this result tra nsmitted reference range : <=0.2. The reference r elliott was not used to int erpret this result as normal/abnormal . [facility] CenterYxbehqfNFQXZRCEZC0520-23-43 11:42:00 Test Item Value Reference Range Interpretation Comments Eosinophils # (test code 0.3 See_Comment [A utomated message] The = Eosinophils #) system whic h generated this result tra nsmitted reference range : <=0.5. The reference r elliott was not used to int erpret this result as normal/abnormal . [facility] CenterKgumjluKAQZVLSTVR2139-03-33 11:42:00 Test Item Value Reference Range Interpretation Comments Monocytes # (test code 1.3 See_Comment [Aut omated message] The = Monocytes #) system which generated this result tra nsmitted reference range : <=0.8. The reference r elliott was not used to int erpret this result as normal/abnormal . [facility] CenterMukuutvJQNWJAJGMK4820-12-13 11:42:00 Test Item Value Reference Range Interpretation Comments Lymphocytes (test code = Lymphocytes) 15.8 20.0-40.0 [facility] CenterPenzxlkXLWMDTPUTW1623-91-45 11:42:00 Test Item Value Reference Range Interpretation Comments Plt Morph (test code = Normal (09/23/17 5:42 Plt Morph) AM) [facility] CenterOkhtddqABXBDDFFYA5311-10-29 11:42:00 Test Item Value Reference Range Interpretation Comments RBC Morph (test code = Normal (09/23/17 5:42 RBC Morph) AM) [facility] CenterCchhmyqGMPYUWHQLZ4963-02-16 11:42:00 Test Item Value Reference Range Interpretation Comments Monocytes (test code = Monocytes) 6.9 2.0-12.0 [facility] CenterBgxnetoJDYPWWKWZR8863-59-63 11:42:00 Test Item Value Reference Range Interpretation Comments Basophils (test code = 0.5 See_Comment [Aut omated message] The Basophils) system which ge nerated this result tra nsmitted reference range : <=1.0. The reference r elliott was not used to int erpret this result as normal/abnormal . [facility] CenterIjyykmkFZUZYUHZKU9990-77-03 11:42:00 Test Item Value Reference Range Interpretation Comments Eosinophils (test code = 1.5 See_Comment [A utomated message] The Eosinophils) system which ge nerated this result tra nsmitted reference range : <=4.0. The reference r elliott was not used to int erpret this result as normal/abnormal . [facility] CenterCxhkipnUHOQDPTFYV4911-80-53 11:42:00 Test Item Value Reference Range Interpretation Comments Segs (test code = Segs) 75.3 45.0-75.0 [facility] CenterBdmatovMIMFKXPRQT2528-22-37 11:42:00 Test Item Value Reference Range Interpretation Comments Lymphocytes # (test code = Lymphocytes 2.9 1.0-5.5 #) [facility] CenterQpqfaxsWWBSVYBOBD7061-68-98 11:42:00 Test Item Value Reference Range Interpretation Comments Segs-Bands # (test code = Segs-Bands #) 13.9 1.5-8.1 [facility] CenterOrlxdtnVXYQLPUBLZ1814-22-75 11:42:00 Test Item Value Reference Range Interpretation Comments MCH (test code = MCH) 28.9 pg 27.0-31.0 [facility] HospitalRtxoycuTOLBVAXAZP7658-85-27 11:42:00 Test Item Value Reference Range Interpretation Comments MCV (test code = MCV) 88.9 80.0-94.0 [facility] HospitalDjtrwvgJCQZVWOWCP7474-53-19 11:42:00 Test Item Value Reference Range Interpretation Comments Hct (test code = Hct) 46.4 42.0-54.0 [facility] HospitalFtufepyDLILTVGFHX8635-29-81 11:42:00 Test Item Value Reference Range Interpretation Comments Hgb (test code = Hgb) 15.1 14.0-18.0 [facility] CenterKljzgxrVAMEHEJCHG6503-17-39 11:42:00 Test Item Value Reference Range Interpretation Comments RBC (test code = RBC) 5.22 4.70-6.10 [facility] HospitalWhmznwoLPBLMEQGWD2295-19-24 11:42:00 Test Item Value Reference Range Interpretation Comments MPV (test code = MPV) 9.5 7.4-10.4 [facility]RocivjbLIIVNTVYPI2872-44-93 11:42:00 Test Item Value Reference Range Interpretation Comments Platelet (test code = Platelet) 269 133-450 [facility] HospitalSiqiuptTFAWHRKMRM4587-49-94 11:42:00 Test Item Value Reference Range Interpretation Comments RDW (test code = RDW) 14.4 11.5-14.5 [facility] CenterPawyyfuRQPSAFHEKB1336-38-28 11:42:00 Test Item Value Reference Range Interpretation Comments MCHC (test code = MCHC) 32.5 32.0-36.0 [facility] CenterLjlunozDPZZBLIIUI6559-12-24 11:42:00 Test Item Value Reference Range Interpretation Comments WBC (test code = WBC) 18.4 3.7-10.4 [facility] CKJWB5738-66-57 11:42:00 Test Item Value Reference Range Interpretation Comments Procalcitonin Lvl (test no gt See_Comment [Au tomated message] code = Procalcitonin Lvl) Th e system which generated this result transmitted ref erence range: <=0.10. The reference range was not used to interpr et this result as normal/abnormal . [facility] CenterJlvmpwgMNYGFJTMPAUM0262-63-44 11:42:00 Test Item Value Reference Range Interpretation Comments AGAP (test code = AGAP) 14.0 10.0-20.0 [facility] CenterJplxkpjKTHSNWMHALLN8472-59-73 11:42:00 Test Item Value Reference Range Interpretation Comments eGFR (test code = eGFR) [address] [facility] HospitalGjuftuaSPHNPRLUFIQZ9118-97-87 11:42:00 Test Item Value Reference Range Interpretation Comments Potassium Lvl (test code = Potassium 4.0 3.5-5.1 Lvl) [facility] CenterAfyhmfrUQNYSIVYSPNZ4739-00-78 11:42:00 Test Item Value Reference Range Interpretation Comments Sodium Lvl (test code = Sodium Lvl) 139 135-145 [facility] CenterBzedgcyTGRUXGIETC2901-58-85 21:13:00 Test Item Value Reference Range Interpretation Comments Vanco Tr TND (test code = Vanco Tr [id number] TND) [place] 30954017-12-11 21:13:00 Test Item Value Reference Range Interpretation Comments Vanco Tr (test code = Vanco Tr) 14.1 [facility] CenterCphoxxmPWCXVYFLBE6605-83-39 21:50:00 Test Item Value Reference Range Interpretation Comments Vanco Tr TND (test code = Vanco Tr [id number] TND) [facility] CenterOsnwuxzKIXSUCXBWA3264-61-58 21:50:00 Test Item Value Reference Range Interpretation Comments Vanco Tr (test code = Vanco Tr) 10.3 [facility] CenterannSCOT[facility] MEMOR[facility] HOSPITALUJLCK3085-53-67 09:47:00 Test Item Value Reference Range Interpretation Comments Procalcitonin Lvl (test 0.05 See_Comment [Au tomated message] code = Procalcitonin Lvl) Th e system which generated this result transmitted ref erence range: <=0.10. The reference range was not used to interpr et this result as normal/abnormal . [facility] CenterWhxcldcNCTVDKZMSXYW6155-43-91 09:47:00 Test Item Value Reference Range Interpretation Comments AGAP (test code = AGAP) 12.1 10.0-20.0 [facility] CenterMiecujpQUQYPUWVHAQE8021-59-01 09:47:00 Test Item Value Reference Range Interpretation Comments eGFR (test code = eGFR) 94 [facility] AmericaAmdlnsvCUXTOHQENTSM8128-27-88 09:47:00 Test Item Value Reference Range Interpretation Comments Chloride Lvl (test code = Chloride Lvl) 105 95-[address] [facility] HospitalQowgxhmAKJNIZDRJMJY7265-48-72 09:47:00 Test Item Value Reference Range Interpretation Comments CO2 (test code = CO2) 26 24-[address] [facility] HospitalMoushpaQBPZWTPLLHQO3077-89-59 09:47:00 Test Item Value Reference Range Interpretation Comments Potassium Lvl (test code = Potassium 4.1 3.5-5.1 Lvl) [facility] HospitalRpxiwayGVFBVQQYBORD4169-52-13 09:47:00 Test Item Value Reference Range Interpretation Comments Creatinine Lvl (test code = Creatinine 0.90 0.50-1.40 Lvl) [facility] HospitalLczuutsMAVTOMHHBYVO6500-12-82 09:47:00 Test Item Value Reference Range Interpretation Comments Sodium Lvl (test code = Sodium Lvl) 139 135-[address] [facility] HospitalMgjaacbDRBXZZOAXXGN4001-66-89 09:47:00 Test Item Value Reference Range Interpretation Comments Calcium Lvl (test code = Calcium Lvl) 8.8 8.5-10.[address] [facility] HospitalTpyyhorLGDGEAWJXVMR0275-63-28 09:47:00 Test Item Value Reference Range Interpretation Comments BUN (test code = BUN) 27 7-[address] [facility] HospitalLognvcdAKWOJFIGFJOP6722-74-43 09:47:00 Test Item Value Reference Range Interpretation Comments Glucose Lvl (test code = Glucose Lvl) 189 70-99 [facility] CenterNxibevzTSUPCOPLLU0972-37-82 09:47:00 Test Item Value Reference Range Interpretation Comments RDW (test code = RDW) 14.6 11.5-14.5 [facility] CenterWefjzgqILIBQBYKCB9752-66-41 09:47:00 Test Item Value Reference Range Interpretation Comments MPV (test code = MPV) 9.7 7.4-10.4 [facility] CenterAwvtpioGILNSIEJSI2656-95-94 09:47:00 Test Item Value Reference Range Interpretation Comments Platelet (test code = Platelet) 238 133-450 [facility] CenterAwnmadkZZJYAMVOIB3489-20-78 09:47:00 Test Item Value Reference Range Interpretation Comments Hgb (test code = Hgb) 15.1 14.0-18.0 [facility] CenterBowskumQKCVRWNMGB4713-96-95 09:47:00 Test Item Value Reference Range Interpretation Comments Hct (test code = Hct) 45.7 42.0-54.0 [facility] CenterFblfxqmEKQWQGLBNC1973-82-30 09:47:00 Test Item Value Reference Range Interpretation Comments MCHC (test code = MCHC) 33.1 32.0-36.0 [facility] CenterHxoqptsVNKNBQTRRP8672-61-15 09:47:00 Test Item Value Reference Range Interpretation Comments MCH (test code = MCH) 29.5 pg 27.0-31.0 [facility] CenterQskbudwSSDGLUEHYM8828-92-62 09:47:00 Test Item Value Reference Range Interpretation Comments MCV (test code = MCV) 89.1 80.0-94.0 [facility] CenterXqomexwLWALSUMMJI5586-52-40 09:47:00 Test Item Value Reference Range Interpretation Comments RBC (test code = RBC) 5.13 4.70-6.10 [facility] CenterJllffksATVMGBNVTN5526-11-95 09:47:00 Test Item Value Reference Range Interpretation Comments WBC (test code = WBC) 16.7 3.7-10.4 [facility] CenterDhwrcyvWTDCCCUBKV0391-54-04 09:47:00 Test Item Value Reference Range Interpretation Comments Basophils # (test code 0.1 See_Comment [Aut omated message] The = Basophils #) system which generated this result tra nsmitted reference range : <=0.2. The reference r elliott was not used to int erpret this result as normal/abnormal . [facility] CenterWyzlgdgTMRXSYIHTF1127-52-57 09:47:00 Test Item Value Reference Range Interpretation Comments Eosinophils # (test code 0.2 See_Comment [A utomated message] The = Eosinophils #) system whic h generated this result tra nsmitted reference range : <=0.5. The reference r elliott was not used to int erpret this result as normal/abnormal . [facility] CenterKyvcqbwQTAKKVVHYH0148-85-07 09:47:00 Test Item Value Reference Range Interpretation Comments Segs (test code = Segs) 74.2 45.0-75.0 [facility] CenterMvehgvkLAJVGNSSAA1603-95-75 09:47:00 Test Item Value Reference Range Interpretation Comments Eosinophils (test code = 1.5 See_Comment [A utomated message] The Eosinophils) system which ge nerated this result tra nsmitted reference range : <=4.0. The reference r elliott was not used to int erpret this result as normal/abnormal . [facility] CenterQqeveefHCXOPJLBAA1577-60-23 09:47:00 Test Item Value Reference Range Interpretation Comments Monocytes (test code = Monocytes) 7.9 2.0-12.0 [facility] CenterHdkizliZYCZENWWCA8895-72-60 09:47:00 Test Item Value Reference Range Interpretation Comments Segs-Bands # (test code = Segs-Bands #) 12.4 1.5-8.1 [facility] CenterBewdwwdHJYUMDQUWT8153-77-16 09:47:00 Test Item Value Reference Range Interpretation Comments Basophils (test code = 0.5 See_Comment [Aut omated message] The Basophils) system which ge nerated this result tra nsmitted reference range : <=1.0. The reference r elliott was not used to int erpret this result as normal/abnormal . [facility] CenterGazfspjYVEZGCKLEB1079-76-36 09:47:00 Test Item Value Reference Range Interpretation Comments Monocytes # (test code 1.3 See_Comment [Aut omated message] The = Monocytes #) system which generated this result tra nsmitted reference range : <=0.8. The reference r elliott was not used to int erpret this result as normal/abnormal . [facility] CenterYsafdrfBJBCNNDWZT3419-34-82 09:47:00 Test Item Value Reference Range Interpretation Comments Lymphocytes # (test code = Lymphocytes 2.7 1.0-5.5 #) [facility] CenterKcoijolCLDEKRAOXW7169-59-87 09:47:00 Test Item Value Reference Range Interpretation Comments Lymphocytes (test code = Lymphocytes) 15.9 20.0-40.0 [place] [id number] 07:33:00 Test Item Value Reference Range Interpretation Comments Vanco Tr (test code = Vanco Tr) 9.0 [place] [id number] 07:33:00 Test Item Value Reference Range Interpretation Comments Vanco Tr TND (test code = Vanco Tr [id number] TND) [facility]2017-12-07 20:40:00 Test Item Value Reference Range Interpretation Comments Lactic Acid Lvl (test code = Lactic 1.3 0.5-2.2 Acid Lvl) [facility]2017-12-07 11:49:00 Test Item Value Reference Range Interpretation Comments Lactic Acid Lvl (test code = Lactic 1.3 0.5-2.2 Acid Lvl) [facility] AND [id number] 05:10:00 Test Item Value Reference Range Interpretation Comments UA Blood (test code = Moderate *ABN*(09/15/17 UA Blood) 11:10 PM) [facility] AND [id number] 05:10:00 Test Item Value Reference Range Interpretation Comments UA Bili (test code = Negative *NA*(09/15/17 UA Bili) 11:10 PM) [facility] AND [id number] 05:10:00 Test Item Value Reference Range Interpretation Comments UA Glucose (test code = UA Negative mg/dL Glucose) [facility] AND [id number] 05:10:00 Test Item Value Reference Range Interpretation Comments UA Protein (test code = UA Protein) 30 mg/dL [facility] AND [id number] 05:10:00 Test Item Value Reference Range Interpretation Comments UA Ketones (test code = UA Negative mg/dL Ketones) [facility] AND [id number] 05:10:00 Test Item Value Reference Range Interpretation Comments UA pH (test code = UA pH) 5.0 5.0-8.0 [facility] AND [id number] 05:10:00 Test Item Value Reference Range Interpretation Comments UA Spec Grav (test code = UA Spec Grav) 1.021 [facility] AND [id number] 05:10:00 Test Item Value Reference Range Interpretation Comments UA Turbidity (test code Slight *ABN*(09/15/17 = UA Turbidity) 11:10 PM) [facility] AND [id number] 05:10:00 Test Item Value Reference Range Interpretation Comments UA Nitrite (test code Negative (09/15/17 11:10 = UA Nitrite) PM) [facility] AND [id number] 05:10:00 Test Item Value Reference Range Interpretation Comments UA Urobilinogen (test code = UA 2.0 0.1-1.0 Urobilinogen) [facility] AND [id number] 05:10:00 Test Item Value Reference Range Interpretation Comments UA Leuk Est (test Negative (09/15/17 11:10 code = UA Leuk Est) PM) [facility] AND [id number] 05:10:00 Test Item Value Reference Range Interpretation Comments UA Color (test code = UA Color) [facility] AND [id number] 05:10:00 Test Item Value Reference Range Interpretation Comments Micro? (test code = Performed *NA*(09/15/17 Micro?) 11:10 PM) [facility] AND [id number] 05:10:00 Test Item Value Reference Range Interpretation Comments UA Hyal Cast (test 1 See_Comment [Automat ed message] The code = UA Hyal Cast) system which generated this result transmit kole reference range : <=2. The reference range was not used to interpr et this result as venkatesh l/abnormal. [facility] AND [id number] 05:10:00 Test Item Value Reference Range Interpretation Comments UA RBC (test code = 56 See_Comment [Automa kole message] The UA RBC) system which ge nerated this result transmit kole reference range : <=2. The reference range was not used to interpr et this result as venkatesh l/abnormal. [facility] AND [id number] 05:10:00 Test Item Value Reference Range Interpretation Comments UA Mucus (test code = UA Mucus) Few /LPF [facility] AND [id number] 05:10:00 Test Item Value Reference Range Interpretation Comments UA WBC (test code = 5 See_Comment [Automa kole message] The UA WBC) system which ge nerated this result transmit kole reference range : <=5. The reference range was not used to interpr et this result as venkatesh l/abnormal. [facility] AND [id number] 05:10:00 Test Item Value Reference Range Interpretation Comments UA Sq Epi (test code = UA Sq Occasional /LPF Epi) [facility] [id number] 10:35:00 Test Item Value Reference Range Interpretation Comments Phosphorus (test code = Phosphorus) 3.1 2.5-4.5 [facility]annCHEM [id number] 10:35:00 Test Item Value Reference Range Interpretation Comments Magnesium Lvl (test code = Magnesium 2.1 1.8-2.4 Lvl) [id number] 10:35:00 Test Item Value Reference Range Interpretation Comments Basophils (test code = 0.6 See_Comment [Aut omated message] The Basophils) system which ge nerated this result tra nsmitted reference range : <=1.0. The reference r elliott was not used to int erpret this result as normal/abnormal . [id number] 10:35:00 Test Item Value Reference Range Interpretation Comments Basophils # (test code 0.1 See_Comment [Aut omated message] The = Basophils #) system which generated this result tra nsmitted reference range : <=0.2. The reference r elliott was not used to int erpret this result as normal/abnormal . [facility]ATHY[facility]ID [id number] 10:35:00 Test Item Value Reference Range Interpretation Comments Ca Ion WB (test code = Ca Ion WB) 1.02 1.05-1.25 [facility]2017-12-04 10:35:00 Test Item Value Reference Range Interpretation Comments Ca Norm WB (test code = Ca Norm WB) 1.05 1.05-1.25 [facility] CenterCARDIAC [id number] 09:53:00 Test Item Value Reference Range Interpretation Comments Troponin-I (test code no gt See_Comment [Auto mated message] The = Troponin-I) system which g enerated this result transmit kole reference range : <=0.40. The reference r elliott was not used to interpr et this result as venkatesh l/abnormal. [facility]CHE[facility] [id number] 09:53:00 Test Item Value Reference Range Interpretation Comments Phosphorus (test code = Phosphorus) 2.8 2.5-4.5 [facility]CHE[facility] [id number] 09:53:00 Test Item Value Reference Range Interpretation Comments Magnesium Lvl (test code = Magnesium 2.3 1.8-2.4 Lvl) [facility] CenterannPARATHYROID [id number] 09:53:00 Test Item Value Reference Range Interpretation Comments Ca Norm WB (test code = Ca Norm WB) 1.08 1.05-1.25 [facility] SurgeryATHYROID [id number] 09:53:00 Test Item Value Reference Range Interpretation Comments Ca Ion WB (test code = Ca Ion WB) 1.08 1.05-1.25 [facility] CenterBACTERIAL - [id number] 00:11:00 Test Item Value Reference Range Interpretation Comments MRSA by PCR (test Negative (09/13/17 6:11 code = MRSA by PCR) PM) [facility] [id number] 00:11:00 Test Item Value Reference Range Interpretation Comments U Lisa Scr (test code Negative *NA*(09/13/17 = U Lisa Scr) 6:11 PM) [facility] [id number] 00:11:00 Test Item Value Reference Range Interpretation Comments U Amph Scr (test code Negative *NA*(09/13/17 = U Amph Scr) 6:11 PM) [facility] [id number] 00:11:00 Test Item Value Reference Range Interpretation Comments U Benzodia Scr (test Negative *NA*(09/13/17 code = U Benzodia Scr) 6:11 PM) [facility] [id number] 00:11:00 Test Item Value Reference Range Interpretation Comments U Opiate Scr (test Negative *NA*(09/13/17 code = U Opiate Scr) 6:11 PM) [facility] [id number] 00:11:00 Test Item Value Reference Range Interpretation Comments U Cannab Scr (test Negative *NA*(09/13/17 code = U Cannab Scr) 6:11 PM) [facility] [id number] 00:11:00 Test Item Value Reference Range Interpretation Comments U Cocaine Scr (test Positive *ABN*(09/13/17 code = U Cocaine Scr) 6:11 PM) [facility] [id number] 00:11:00 Test Item Value Reference Range Interpretation Comments UDS Note (test code = See Note (09/13/17 6:11 UDS Note) PM) [facility]DR[facility] [id number] 00:11:00 Test Item Value Reference Range Interpretation Comments U Propoxyph Scr (test Negative *NA*(09/13/17 code = U Propoxyph Scr) 6:11 PM) [facility] [id number] 00:11:00 Test Item Value Reference Range Interpretation Comments U Phencyc Scr (test Negative *NA*(09/13/17 code = U Phencyc Scr) 6:11 PM) [facility] [id number] 00:11:00 Test Item Value Reference Range Interpretation Comments U Methadone Scr (test Negative *NA*(09/13/17 code = U Methadone Scr) 6:11 PM) [facility] [employer] EnterprisesAC [id number] 16:40:00 Test Item Value Reference Range Interpretation Comments Troponin-I (test code no gt See_Comment [Auto mated message] The = Troponin-I) system which g enerated this result transmit kole reference range : <=0.40. The reference r elliott was not used to interpr et this result as venkatesh l/abnormal. [facility] FIRE1 [id number] 16:40:00 Test Item Value Reference Range Interpretation Comments Bili Direct (test code 0.1 See_Comment [Aut omated message] The = Bili Direct) system which generated this result tra nsmitted reference range : <=0.3. The reference r elliott was not used to int erpret this result as venkatesh l/abnormal. [facility] FIRE1 [id number] 16:40:00 Test Item Value Reference Range Interpretation Comments AST (test code = AST) 11 See_Comment [Auto mated message] The system which ge nerated this result transmit kole reference range : <=37. The reference range was not used to interpr et this result as venkatesh l/abnormal. [facility] FIRE1 [id number] 16:40:00 Test Item Value Reference Range Interpretation Comments Alk Phos (test code = Alk Phos) 83 39-136 [facility] FIRE1 [id number] 16:40:00 Test Item Value Reference Range Interpretation Comments Albumin Lvl (test code = Albumin Lvl) 3.2 3.5-5.0 [facility] FIRE1 [id number] 16:40:00 Test Item Value Reference Range Interpretation Comments Bili Total (test code = Bili Total) 0.4 0.2-1.3 [facility] FIRE1 [id number] 16:40:00 Test Item Value Reference Range Interpretation Comments ALT (test code = ALT) 26 See_Comment [Auto mated message] The system which ge nerated this result transmit kole reference range : <=65. The reference range was not used to interpr et this result as venkatesh l/abnormal. [facility] FIRE1 [id number] 16:40:00 Test Item Value Reference Range Interpretation Comments Total Protein (test code = Total 7.5 6.4-8.4 Protein) [facility]CHE[facility] [id number] 16:40:00 Test Item Value Reference Range Interpretation Comments A/G Ratio (test code = A/G Ratio) 0.7 0.7-1.6 [facility]CHE[facility] [id number] 16:40:00 Test Item Value Reference Range Interpretation Comments Globulin (test code = Globulin) 4.3 2.7-4.2 [facility]CHE[facility] [id number] 16:40:00 Test Item Value Reference Range Interpretation Comments B/C Ratio (test code = B/C Ratio) 16 6-25 [facility] [id number] 16:40:00 Test Item Value Reference Range Interpretation Comments VLDL (test code = VLDL) 18 [facility] [id number] 16:40:00 Test Item Value Reference Range Interpretation Comments Chol (test code = Chol) 118 [facility] [id number] 16:40:00 Test Item Value Reference Range Interpretation Comments HDL (test code = HDL) 58 [facility] [id number] 16:40:00 Test Item Value Reference Range Interpretation Comments Trig (test code = Trig) 92 [facility] [id number] 16:40:00 Test Item Value Reference Range Interpretation Comments LDL (Calculated) (test code = LDL 42 (Calculated)) [facility] [id number] 16:40:00 Test Item Value Reference Range Interpretation Comments CHD Risk (test code = CHD Risk) 2.03 4.00-7.30 [facility] CenterSPECIAL [id number] 16:40:00 Test Item Value Reference Range Interpretation Comments Hgb A1C (test code = Hgb A1C) 8.8 [facility] CenterannURINE AND [id number] 16:40:00 Test Item Value Reference Range Interpretation Comments UA Color (test code = UA Color) Ltyellow [facility] CenterannTHE [facility] AND [id number] 16:40:00 Test Item Value Reference Range Interpretation Comments UA Urobilinogen (test code = UA no gt 0.1-1.0 Urobilinogen) [facility]ann[facility] AND [id number] 16:40:00 Test Item Value Reference Range Interpretation Comments UA Ketones (test code = UA Negative mg/dL Ketones) [facility] AND [id number] 16:40:00 Test Item Value Reference Range Interpretation Comments UA Protein (test code = UA Negative mg/dL Protein) [facility] AND [id number] 16:40:00 Test Item Value Reference Range Interpretation Comments UA Glucose (test code = UA Glucose) 500 mg/dL [facility] AND [id number] 16:40:00 Test Item Value Reference Range Interpretation Comments UA Spec Grav (test code = UA Spec Grav) 1.022 [facility] AND [id number] 16:40:00 Test Item Value Reference Range Interpretation Comments UA pH (test code = UA pH) 5.0 5.0-8.0 [facility] AND [id number] 16:40:00 Test Item Value Reference Range Interpretation Comments UA Turbidity (test code = Clear (09/13/17 10:40 UA Turbidity) AM) [facility] AND [id number] 16:40:00 Test Item Value Reference Range Interpretation Comments UA Mucus (test code = UA Mucus) Few /LPF [facility] AND [id number] 16:40:00 Test Item Value Reference Range Interpretation Comments UA Leuk Est (test code Small *ABN*(09/13/17 = UA Leuk Est) 10:40 AM) [facility] AND [id number] 16:40:00 Test Item Value Reference Range Interpretation Comments UA Sq Epi (test code = UA Sq Occasional /LPF Epi) [facility] AND [id number] 16:40:00 Test Item Value Reference Range Interpretation Comments UA WBC (test code = 13 See_Comment [Automa kole message] The UA WBC) system which ge nerated this result transmit kole reference range : <=5. The reference range was not used to interpr et this result as venkatesh l/abnormal. [facility] AND [id number] 16:40:00 Test Item Value Reference Range Interpretation Comments UA RBC (test code = 81 See_Comment [Automa kole message] The UA RBC) system which ge nerated this result transmit kole reference range : <=2. The reference range was not used to interpr et this result as venkatesh l/abnormal. [facility] AND [id number] 16:40:00 Test Item Value Reference Range Interpretation Comments UA Bili (test code = Negative *NA*(09/13/17 UA Bili) 10:40 AM) [facility] AND [id number] 16:40:00 Test Item Value Reference Range Interpretation Comments UA Blood (test code = Large *ABN*(09/13/17 UA Blood) 10:40 AM) [facility] CenterbhavanaTHE [facility] AND [id number] 16:40:00 Test Item Value Reference Range Interpretation Comments UA Nitrite (test code Negative (09/13/17 10:40 = UA Nitrite) AM) [facility] HermbhavanaSARS-COV 2 AntigenSARS-COV 2 Antigen
--- NOTE | 2022-11-04 18:09 | EDPHYS ---
Physician Documentation [facility] Name: El Ventura Age: 62 yrs Sex: Male : 1960 Arrival Date: 11/04/2022 Time: 17:44 Bed Waiting Private MD: ED Physician Emre Cabrera HPI: 11/04 18:03 This 62 yrs old Male presents to ER via Wheelchair with complaints of jr8 Toothache. 18:03 The patient presents with pain, redness. The problem is located in the mouth. Onset: jr8 The symptoms/episode began/occurred gradually, 2 day(s) ago. Duration: The symptoms are continuous. Modifying factors: The symptoms are alleviated by nothing, the symptoms are aggravated by chewing, talking. Associated signs and symptoms: The patient has no apparent associated signs or symptoms. Severity of symptoms: At their worst the symptoms were moderate, in the emergency department the symptoms are unchanged. The patient has experienced similar episodes in the past, a few times. The patient has not recently seen a physician. Per family patient has a history of poor dentition with infections in the past. Had been recommended at 1 point in time to have all of his teeth removed and fitted for dentures. He has not been able to do that as of yet. Started with 2 days of left upper tooth pain between first canine and incisor. Family stated that patient has had low-grade fevers as well. Denies any other pain or problems at this time.. Historical: - Allergies: 18:00 PENICILLINS; ss - Home Meds: 18:00 aspirin 81 mg Oral chew 1 tab once daily [Active]; atorvastatin 40 mg Oral tab 1 tab ss nightly [Active]; metformin 500 mg Oral Tb24 1 tab once daily [Active]; Silace 50 mg/5 mL Oral liqd 10 mL 2 times per day [Active]; - PMHx: 18:00 CAD; CVA; Diabetes - NIDDM; heart stents; High Cholesterol; Hypertension; ss - Immunization history:: Client reports receiving the 2nd dose of the Covid vaccine. - Social history:: Smoking status: Patient denies any tobacco usage or history of. ROS: 18:03 Eyes: Negative for injury, pain, redness, and discharge, Neck: Negative for injury, jr8 pain, and swelling, Cardiovascular: Negative for chest pain, palpitations, and edema, Respiratory: Negative for shortness of breath, cough, wheezing, and pleuritic chest pain, Abdomen/GI: Negative for abdominal pain, nausea, vomiting, diarrhea, and constipation, Back: Negative for injury and pain, MS/Extremity: Negative for injury and deformity, Skin: Negative for injury, rash, and discoloration, Neuro: Negative for headache, weakness, numbness, tingling, and seizure. 18:03 ENT: Positive for dental pain. Exam: 18:03 Constitutional: This is a well developed, well nourished patient who is awake, alert, jr8 and in no acute distress. Head/Face: Normocephalic, atraumatic. Eyes: Pupils equal round and reactive to light, extra-ocular motions intact. Lids and lashes normal. Conjunctiva and sclera are non-icteric and not injected. Cornea within normal limits. Periorbital areas with no swelling, redness, or edema. Neck: Trachea midline, no thyromegaly or masses palpated, and no cervical lymphadenopathy. Supple, full range of motion without nuchal rigidity, or vertebral point tenderness. No Meningismus. Cardiovascular: Regular rate and rhythm with a normal S1 and S2. No gallops, murmurs, or rubs. Normal PMI, no JVD. No pulse deficits. Respiratory: Lungs have equal breath sounds bilaterally, clear to auscultation and percussion. No rales, rhonchi or wheezes noted. No increased work of breathing, no retractions or nasal flaring. Abdomen/GI: Soft, non-tender, with normal bowel sounds. No distension or tympany. No guarding or rebound. No evidence of tenderness throughout. Skin: Warm, dry with normal turgor. Normal color with no rashes, no lesions, and no evidence of cellulitis. MS/ Extremity: Pulses equal, no cyanosis. Neurovascular intact. Full, normal range of motion. Neuro: Awake and alert, GCS 15, oriented to person, place, time, and situation. Baseline left-sided weakness secondary to previous stroke. Sensory grossly intact. 18:03 ENT: Mouth: Lips: moist, Oral mucosa: pink and intact, moist, Gums: reddened, on the upper left central incisor, upper left lateral incisor and upper left cuspid, Tongue: is normal, abscess, is not appreciated, Posterior pharynx: Airway: patent, Tonsils: are normal in appearance, Uvula: midline. Vital Signs: 17:58 BP 117 / 72; Pulse 94; Resp 17; Pulse Ox 100% on R/A; ss MDM: 18:03 Differential diagnosis: dental caries, gingivitis, dental abscess, pericoronitis. Data jr8 reviewed: vital signs, nurses notes, and as a result, I will discharge patient. Counseling: I had a detailed discussion with the patient and/or guardian regarding: the historical points, exam findings, and any diagnostic results supporting the discharge/admit diagnosis, the need for outpatient follow up, a dentist, to return to the emergency department if symptoms worsen or persist or if there are any questions or concerns that arise at home. ED course: Discussed with family that he is hemodynamically stable at this time and without fever. No discernible abscess that needs incision and drainage at this time. Does need oral antibiotics which will be given outpatient. Needs to follow-up with his dentist which she has an appointment next Friday with. In the meantime if he were to worsen any point time come back for further evaluation. Family and patient understand and are good with plan. Patient safe to be discharged at home with family.. 18:08 Patient medically screened. jr8 Administered Medications: No medications were administered Disposition: 19:22 Co-signature as Attending Physician, Emre Cabrera DO I reviewed the patient's care ms3 provided by the Advanced Practice Provider and agree with the diagnosis and treatment plan. Disposition Summary: 11/04/22 18:08 Discharge Ordered Location: Home jr Problem: new jr8 Symptoms: have improved jr8 Condition: Stable jr8 Diagnosis - Periapical abscess without sinus jr8 Followup: jr8 - With: Private Physician - When: 1 week - Reason: Recheck today's complaints, Continuance of care, Re-evaluation by your physician Discharge Instructions: - Discharge Summary Sheet jr8 - Dental Abscess jr8 - Dental Pain jr8 Forms: - Medication Reconciliation Form jr8 - Thank You Letter jr8 - Antibiotic Education jr8 - Prescription Opioid Use jr8 Prescriptions: - Clindamycin HCl 300 mg Oral Capsule - take 1 capsule by ORAL route every 8 hours for 7 days; 21 capsule; Refills: 0, jr8 Product Selection Permitted Signatures: Marilu Couch RN RN ss Nabeel Gee PA PA jr8 Deborah, Emre, DO DO ms3
--- NOTE | 2022-11-04 18:09 | ER ---
Nurse's Notes [facility] Name: El Ventura Age: 62 yrs Sex: Male : 1960 Arrival Date: 11/04/2022 Time: 17:44 Bed Waiting Private MD: Diagnosis: Periapical abscess without sinus Presentation: 11/04 17:58 Chief complaint: Spouse and/or significant other states: Dental pain that has been ss ongoing for unknown time. Family believes 1 week. Coronavirus screen: Client denies travel out of the [place] in the last 14 days. Ebola Screen: Patient denies exposure to infectious person. Patient denies travel to an Ebola-affected area in the 21 days before illness onset. Initial Sepsis Screen: Does the patient meet any 2 criteria? No. Patient's initial sepsis screen is negative. Does the patient have a suspected source of infection? No. Patient's initial sepsis screen is negative. Risk Assessment: Do you want to hurt yourself or someone else? Patient reports no desire to harm self or others. Onset of symptoms is unknown. 17:58 Method Of Arrival: Wheelchair ss 17:58 Acuity: ROBERT 4 ss Historical: - Allergies: 18:00 PENICILLINS; ss - Home Meds: 18:00 aspirin 81 mg Oral chew 1 tab once daily [Active]; atorvastatin 40 mg Oral tab 1 tab ss nightly [Active]; metformin 500 mg Oral Tb24 1 tab once daily [Active]; Silace 50 mg/5 mL Oral liqd 10 mL 2 times per day [Active]; - PMHx: 18:00 CAD; CVA; Diabetes - NIDDM; heart stents; High Cholesterol; Hypertension; ss - Immunization history:: Client reports receiving the 2nd dose of the Covid vaccine. - Social history:: Smoking status: Patient denies any tobacco usage or history of. Screenin:17 [facility] ED Fall Risk Assessment (Adult) History of falling in the last 3 months, ss including since admission No falls in past 3 months (0 pts). Abuse screen: Denies threats or abuse. Denies injuries from another. Nutritional screening: No deficits noted. Tuberculosis screening: Never had TB. Assessment: 17:58 General: Appears uncomfortable, Behavior is calm. Neuro: Level of Consciousness is ss awake, alert, R sided paralysis. Is patient's baseline after stroke.. Respiratory: Airway is patent Respiratory effort is even, unlabored. Derm: Skin is pink, warm \T\ dry. Vital Signs: 17:58 BP 117 / 72; Pulse 94; Resp 17; Pulse Ox 100% on R/A; ss ED Course: 17:44 Patient arrived in ED. rg4 18:00 Triage completed. ss 18:00 Arm band placed on left wrist. ss 18:03 Nabeel Gee PA is PHCP. jr8 18:03 Emre Cabrera DO is Attending Physician. jr8 18:16 Marilu Couch, TRI is Primary Nurse. ss 18:16 No provider procedures requiring assistance completed. Patient did not have IV access ss during this emergency room visit. 18:17 Patient has correct armband on for positive identification. Bed in low position. ss Administered Medications: No medications were administered Medication: 17:58 VIS not applicable for this client. ss Outcome: 18:08 Discharge ordered by MD. jr8 18:16 Discharged to home via wheelchair, with family. ss 18:16 Condition: good 18:16 Discharge instructions given to patient, family, Instructed on discharge instructions, follow up and referral plans. medication usage, Demonstrated understanding of instructions, follow-up care, medications. 18:17 Patient left the ED. ss Signatures: Marilu Couch RN RN Nabeel Gee PA PA jrLynne Frausto rg4
[2022-11-04 19:43] VITALS: BP 117/72; O2SAT 100
== END 2022-11-04 18:17 | disposition home or self-care (01) ==
LOC: ER 17:41
DX: K04.7 Periapical abscess without sinus (principal); Z88.0 Allergy status to penicillin
CPT/HCPCS: 99281

== ENCOUNTER 2022-11-08 23:18 | Emergency (ER) | payer OTHER ==
--- OUTSIDE RECORDS SUMMARY | 2022-11-08 23:26 | XMS REPORT | Continuity of Care Document ---
:1960 Author Organization [facility] t Address [address] [place] [address] Care Team Providers Name Role Phone Goldy Jazmine Attending Clinician Unavailable Casper Avilez Attending Clinician Unavailable Valeria Salgado Attending Clinician Unavailable Abi Diallo MD Attending Clinician ABI DIALLO Attending Clinician Unavailable Doctor Unassigned, [place] Attending Clinician Unavailable Mica Goins Attending Clinician Mica Goins Admitting Clinician Payers Payer Name Policy Type Policy Number Effective Date Expiration Date Grace salazar [place] [id number] 2020 Common HEALTHCARE 00:00:00 [facility] Problems Condition Condition Condition Status Onset Resolution Last Treating Co mments Source Name Details Category Date Date Treatment Clinician Date CVA CVA Diagnosis Active 2016-102018-03-11 Mem oria ISCHEMIC ISCHEMIC 2- 13:29:00 l Active 00:00: Michael 09/13/2017 00 [facility] CVA CVA Diagnosis Active 2016-102017-09-13 Mem oria Active 2- 05:31:00 l 09/13/2017 00:00: Edvin BROWN [address] CEREBRAL CEREBRAL Diagnosis Active 2018-03-11 Memoria INFARCTION INFARCTION 13:29:00 vásquez Hermann UNSPECIFIE UNSPECIFIE D D Active [facility] Cerebral Cerebral Problem 2017-09-27 Memoria infarction infarction 02:25:05 l , , [place] unspecifie unspecifie d d 09/27/2017 [facility] 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 02:25:05 l erosis erosis Michael (disorder) (disorder) Resolved Problem 09/27/2017 [facility] Diabetes Diabetes Problem Resolve 2017-09-27 Memoria mellitus mellitus d 02:25:05 l (disorder) (disorder) He rmann Resolved Problem 09/27/2017 [facility] Hypertensi Hypertens Problem Resolve 2017-09-27 Memoria ve diana d 02:25:05 l disorder, disorder, Herm bhavana systemic systemic arterial arterial (disorder) (disorder) Resolved Problem 09/27/2017 [facility] Patient Patient Problem Resolve 2017-09-27 M emoria post post d 02:25:05 l percutaneo percutaneo He rmann us us translumin translumin al al coronary coronary angioplast angioplast y y (finding) (finding) Resolved Problem 09/27/2017 [facility] [id number] Fever in Problem Comm on other Spirit diseases - [facility] [id number] Primary Problem Common insomnia Spirit - [facility] [id number] COVID-19 Problem Comm on Spirit - [facility] [id number] Hemiplegia Problem Com mon following Spirit CVA - [facility] (cerebrova St scular [facility] accident) [facility] [id number] PEG Problem Common (percutane Spirit ous - [facility] endoscopic St gastrostom kes y) status Medical [place] [id number] Pure Problem Common hyperchole Spirit sterolemia - [facility] [id number] Other Problem Common sequelae Spirit of - [facility] cerebral [facility] infarction [facility] [id number] Essential Problem Comm on hypertensi Spirit on - 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 [id number] History of Problem Co mmon CVA Spirit (cerebrova - [facility] scular [facility] accident) [facility] [id number] Elevated Problem Comm on alkaline Spirit phosphatas - [facility] e level [facility] [id number] Frequent Problem Comm on urinary Spirit incontinen - [facility] ce [facility] [id number] Current Problem Common mild Spirit episode of - [facility] major [facility] Center prior episode [id number] Incontinen Problem Com mon ce of Spirit feces, - [facility] unspec[facility]ie [facility] type [facility] [id number] Onychomyco Problem Co mmon sis Spirit - [facility] [id number] Discolorat Problem Co mmon ion of Spirit skin of - [facility] foot [facility] [id number] Cold feet Problem Com mon Spirit [facility] [id number] Inability Problem Com mon to speak [facility] Allergies, Adverse Reactions, Alerts Allergy Allergy Status Severity Reaction(s) Onset Inactive Treating Comm ents Source Name Type Date Date Clinician Penicill Propensi Active Unknown - 2019-10 Uni vers ins ty to See comments 0-30 ity of adverse 00:00: [place] reaction 00 Medical s Branch PENICILL Drug Active Unknown-Cmnt 2019-10 Un gilberto INS Class 0-30 ity of 00:00: [place] [address] Medical Branch NO KNOWN Drug Active Univers ALLERGIE Class ity of S [facility] 0 Drug Active Unknown Common allergy [facility] Social History Social Habit Start Date Stop Date Quantity Comments Source Exposure to Not sure [facility] SARS-CoV-2 (event) Medica l Branch History of Tobacco Common Spirit - [facility] Use [facility] Sex Assigned At Common Sp madhuri - [facility] Social History 2017-09-13 2017-09-13 [facility] bonny 19:10:21 19:10:21 Smoking Status Start Date Stop Date Source Former Smoker 2022-06-04 00:00:00 2022-06-04 00:00:00 Common S pirit - [facility] nter Unknown if ever smoked [facility] [place] Medications Ordered Filled Start Stop Current Ordering Indication Dosage Frequency Signature Comments Components Source Medication Medication Date Date Medication? Clinician (SIG) Name Name predniSONE predniSONE 0 2021- No 1{table QD predniSONE 10 MG [...] ity of (ATORVASTAT 16:47: [place] IN ORAL) [facility] BABY 2019-10 Yes Take by Univers ASPIRIN 0-30 mouth. ity of ORAL 16:47: [place] [facility] atorvastati 2019-10 Yes Take by Uni vers n calcium 0-30 mouth. ity of (ATORVASTAT 16:47: [place] IN ORAL) [facility] [place] BABY 2019-10 Yes Take by Univers ASPIRIN 0-30 mouth. ity of ORAL 16:47: [place] [facility] atorvastati 2019-10 Yes Take by Uni vers n calcium 0-30 mouth. ity of (ATORVASTAT 16:47: [place] IN ORAL) Medical Branch BABY 2019-10 Yes Take by Univers ASPIRIN 0-30 mouth. ity of ORAL 16:47: [place] [facility] Branch atorvastati 2019-10 Yes Take by Uni vers n calcium 0-30 mouth. ity of (ATORVASTAT 16:47: [place] IN ORAL) [facility] [place] BABY 2019-10 Yes Take by Univers ASPIRIN 0-30 mouth. ity of ORAL 16:47: [place] [facility] atorvastati 2019-10 Yes Take by Uni vers n calcium 0-30 mouth. ity of (ATORVASTAT 16:47: [place] IN ORAL) [facility] [place] BABY 2019-10 Yes Take by Univers ASPIRIN [...] 5 mg tablet 0-27 ity of 00:00: [place] Medical Branch lisinopriL 2019-10 Yes Univers 5 mg tablet 0-27 ity of 00:00: Medical Branch lisinopriL 2019-10 Yes Univers 5 mg tablet 0-27 ity of 00:00: Medical Branch lisinopriL 2019-10 Yes Univers 5 mg tablet 0-27 ity of 00:00: [place] [facility] sulfamethox 2019-10 Yes TK 1 [...] 0-15 QD WAC ity of tablet 00:00: [place] [facility] metFORMIN 2020-1 Yes TK 1 T PO Uni vers 500 mg 0-15 QD WAC ity of tablet 00:00: [place] [address] Medical Branch metFORMIN 2020-1 Yes TK 1 T PO Uni vers 500 mg 0-15 QD WAC ity of tablet 00:00: [place] [facility] metFORMIN 2020-1 Yes TK 1 T PO Uni vers 500 mg 0-15 QD WAC ity of tablet 00:00: [place] [address] Medical Branch metFORMIN 2020-1 Yes TK 1 T PO Uni vers 500 mg 0-15 QD WAC ity of tablet 00:00: [place] [address] Medical Branch metFORMIN 2020-1 Yes TK 1 T PO Uni vers 500 mg 0-15 QD WAC ity of tablet 00:00: [address] Branch cephALEXin 2020-0 Yes TK 1 C PO Un gilberto 500 mg 8-24 Q 12 H ity of capsule 00:00: [place] [address] Medical Branch cephALEXin 2020-0 Yes TK 1 C PO Un gilberto 500 mg 8-24 Q 12 H ity of capsule 00:00: [address] Branch cephALEXin 2020-0 Yes TK 1 C PO Un gilberto 500 mg 8-24 Q 12 H ity of capsule 00:00: [address] Branch cephALEXin 2020-0 Yes TK 1 C PO Un gilberto 500 mg 8-24 Q 12 H ity of capsule 00:00: [address] Branch cephALEXin 2020-0 Yes TK 1 C PO Un gilberto 500 mg 8-24 Q 12 H ity of capsule 00:00: [place] [address] Medical Branch cephALEXin 2020-0 Yes TK 1 C PO Un gilberto 500 mg 8-24 Q 12 H ity of capsule 00:00: [address] Metformin Metformin 2020-0 Yes Valeria 1 tablet Common HCl HCl 1-31 [place] with a Spirit 00:00: meal - [facility] 00 [facility] Blood Blood 2020-0 Yes Valeria as Common Glucose Glucose 1-09 [place] directed Spirit Monitor Monitor 00:00: - [facility] System System 00 [facility] Lancets Lancets 2020-0 Yes Valeria as Common 1-09 [place] directed Spirit 00:00: - [facility] Blood Blood 2020-0 No Blood Glucose Glucose [...] strip 00:00: 00:00 - [facility] 00 :00 [facility] Glucometer Glucometer 2020-0 Yes Valeria major Common 10-15 [place] Spirit 00:00: - [facility] Glucometer Glucometer 2020-0 No Glucometer n/s n/s [...] [place] affected Spirit 00:00: area - [facility] Bactroban 2 Bactroban 2 0 No BID [...] Common 8-17 [place] Spirit 00:00: - [facility] Lisinopril Lisinopril 2017-0 Yes Valeria 1 tablet Common 6-18 [place] Spirit 00:00: - [facility] Metformin 2016-10 Yes 500 mg = 1 Me moria hydrochlori 2-12 tab, PO, l de 500 MG 21:28: Daily, Edvin n Oral Tablet 00 take with a meal, # 30 tab, 1 Refill(s) docusate 2016-10 Yes 100 mg = Memor ia sodium 150 2-12 10 mL, PO, l mg/15 mL 21:28: Q12H, # Evdin n oral liquid 00 600 mL, 0 Refill(s) atorvastati 2016-10 Yes 40 mg = 1 M emoria n 40 mg 2-12 tab, PO, l oral tablet 21:28: Bedtime, # [place] 00 30 tab, 0 Refill(s) Aspirin 81 2016-10 Yes 81 mg = 1 Me moria MG Chewable 2-12 tab, PO, l Tablet 21:28: Daily, # Michael 00 30 tab, 0 Refill(s) Metformin 2016-10 Yes 500 mg = 1 [...] tab, PO, l Tablet 21:28: Daily, # [place] 00 30 tab, 0 Refill(s) Haldol 2016-10 No Notes: Memoria 2-12 (Same as: l 10:26: Haldol) Michael 00 Haldol 2016-10 No Notes: Memoria 2-12 (Same as: l 10:26: Haldol) [place] Omnipaque 2016-10 No Notes: Memori a 350 2-11 (same l injectable 23:14: as:Omnipaq H ermann solution 00 ue 350). WASTE: F/P - Black; E - Municipal Trash Bin Omnipaque 2016-10 No Notes: Memori a 350 2-11 (same l injectable 23:14: as:Omnipaq H ermann solution 00 ue 350). WASTE: F/P - Black; E - Municipal Trash Bin vancomycin 2016-10 No 2001 mg: Me moria 2-11 infuse l 11:00: over 2.5 [place] 00 hours vancomycin 2016-10 No 2001 mg: Me moria 2-11 infuse l 11:00: over 2.5 [place] 00 hours Haldol 2016-10 No Notes: Memoria 2-11 (Same as: l 09:53: Haldol) [place] 00 Haldol 2016-10 No Notes: Memoria 2-11 (Same as: l 09:53: Haldol) [place] 00 vancomycin 2016-10 No Notes: Memor ia + Sodium 2-10 TIME l Chloride 23:19: CRITICAL [place] nn 0.9% IV 100 00 MEDICATION mL (Same As: Vancocin) vancomycin 2016-10 No Notes: Memor ia + [...] vancomycin 2016-10 No 2001 mg: Me moria 2-09 infuse l 21:00: over 2.5 [place] 00 hours vancomycin 2016-10 No 2001 mg: Me moria 2-09 infuse l 21:00: over 2.5 [place] 00 hours Ativan 2016-10 No Notes: Memoria 2- (Same as: l 08:57: Ativan) Michael 00 Ativan 2016-10 No Notes: Memoria 2- (Same as: l 08:57: Ativan) vancomycin 2016- No 2000 mg: Me moria + Sodium 2-07 infuse l Chloride 20:00: over 2.5 [place] nn 0.9% IV 250 00 hours mL MEDICATION WASTE Product Size: 1000 mg Product Wasted: ___ mg vancomycin 2016- No 2000 mg: Me moria + Sodium 2-07 infuse l Chloride 20:00: over 2.5 [place] nn 0.9% IV 250 00 hours mL MEDICATION WASTE Product Size: 1000 mg Product Wasted: ___ mg Vancomycin 2016-10 No Vancomycin [facility] 2[facility]07 Pharmacy l Protocol 18:00: Protocol, dose, Drug form: MISC, Route: MISC, ONCALL, 09/18/17 12:00:00 MASTER PILOT, Duration: 7 day, Stop date: 09/25/17 11:59:00 MASTER PILOT vancomycin 2016-10 No 2000 mg: Me moria + Sodium 2-07 infuse l Chloride 18:00: over 2.5 [place] nn 0.9% IV 250 00 hours mL MEDICATION WASTE Product Size: 1000 mg Product Wasted: ___ mg Vancomycin 2016-10 No Vancomycin [facility] 2-07 Pharmacy l Protocol 18:00: Protocol, dose, Drug form: MISC, Route: MISCPENG, 09/18/17 12:00:00 MASTER PILOT, Duration: 7 day, Stop date: 09/25/17 11:59:00 MASTER PILOT vancomycin 2016-10 No 2000 mg: Me moria + Sodium 2-07 infuse l Chloride 18:00: over 2.5 [place] nn 0.9% IV 250 00 hours mL MEDICATION WASTE Product Size: 1000 mg Product Wasted: ___ mg NS (Bolus) 2016-10 No 500 mL, Zohaib jacqueline IV 11-19 500 ml/hr, l 16:01: Infuse Over: 1 hr, Route: IV, 500, Drug form: INJ, ONCE, Priority: STAT, Dosing Weight 122.008 kg, Start date: 09/18/17 10:01:00 MASTER PILOT, Stop date: 09/18/17 10:01:00 MASTER PILOT NS (Bolus) 2016-10 No 500 mL, Zohaib jacqueline IV 2- 500 ml/hr, l 16:01: Infuse Michael 00 Over: 1 hr, Route: IV, 500, Drug form: INJ, ONCE, Priority: STAT, Dosing Weight 122.008 kg, Start date: 09/18/17 10:01:00 MASTER PILOT, Stop date: 09/18/17 10:01:00 MA[facility] PILOT Vancomycin 2016-10 No 1 ea, Memori a 11-19 Route: l 16:00: MISC, Michael 00 ONCALL, Dosing Weight 122.008, kg, Start date: 09/18/17 10:00:00 MASTER PILOT, Duration: 7 day, Stop date: 09/25/17 9:59:00 MASTER PILOT, Pharmacy to dose, ABX Indication : Pneumonia Vancomycin 2016-10 No 1 ea, Memori a 11-19 Route: l 16:00: MISC, [place] 00 ONCALL, Dosing Weight 122.008, kg, Start date: 09/18/17 10:00:00 MASTER PILOT, Duration: 7 day, Stop date: 09/25/17 9:59:00 MASTER PILOT, Pharmacy to dose, ABX Indication : Pneumonia Acetaminoph 2016-10 No Notes: Max Memoria en 2-07 acetaminop l 10:35: hen = 4000 [place] 00 mg/day (4 gm/day). (Same as: Tylenol) Acetaminoph 2016-10 No Notes: Max Memoria en 2-07 acetaminop l 10:35: hen = 4000 Michael 00 mg/day (4 gm/day). (Same as: Tylenol) Zosyn 2016-10 No Notes: Memoria 2-06 (Same as: l 16:00: Zosyn) Michael 00 Dosing based on Piperacill in component MEDICATION WASTE Product Size: 3375 mg Product Wasted: ___ mg Zosyn 2016-10 No Notes: Memoria 2-06 (Same as: l 16:00: Zosyn) [place] 00 Dosing based on Piperacill in component MEDICATION WASTE Product Size: 3375 mg Product Wasted: ___ mg Rocephin 2016-10 No Notes: Memoria 2-05 (Same As: l 19:00: Rocephin). [place] 00 Use with 100 mL NS and infuse over 30 min MEDICATION WASTE Product Size: 1000 mg Product Wasted: ___ mg Rocephin 2016-10 No Notes: Memoria 2-05 (Same As: l 19:00: Rocephin). Use with 100 mL NS and infuse over 30 min MEDICATION WASTE Product Size: 1000 mg Product Wasted: ___ mg Albuterol / 2016-10 No Notes: Zohaib jacqueline Ipratropium 2-04 (Same as: l 20:00: Duoneb) Albuterol / 2016-10 No Notes: Zohaib jacqueline Ipratropium 2-04 (Same as: l 20:00: Duoneb) Lasix 2016-10 No Notes: Memoria 2-04 (Same as: l 16:14: Lasix) MEDICATION WASTE Product Size: 40 mg Product Wasted: ___ mg Lasix 2016-10 No Notes: Memoria 2-04 (Same [...] Blood Glucose Results, Start date: 09/14/17 12:28:00 MASTER PILOT, Duration: 30 day, Stop date: 10/14/17 12:27:00 MASTER PILOT Glucagon 2016-10 No 1 mg, Memoria 2-03 Route: IM, l 18:28: Drug form: PDR/INJ, PRN, Dosing Weight 122.008, kg, PRN Blood Glucose Results, Start date: 09/14/17 12:28:00 MASTER PILOT, Duration: 30 day, Stop date: 10/14/17 12:27:00 MASTER PILOT Insulin 2016-10 No Notes: Memoria Lispro 2-03 Roll in l 18:28: palms of Michael 00 hands gently; Do not shake `vigorousl y. (Same as: Humalog ) "Single Patient Use Only " WASTE: F/P - Black; E - Municipal Trash Bin Stable for 28 days at room temperatur e. Expires in days from ____Date Dextrose 2016-10 No 25 gm, 50 Zohaib jacqueline 50% Syringe 2-03 mL, Route: l 18:28: IVP, Drug [place] 00 Form: INJ, Dosing Weight 122.008, kg, PRN, PRN Blood Glucose Results, Start date: 09/14/17 12:28:00 MASTER PILOT, Duration: 30 day, Stop date: 10/14/17 12:27:00 MASTER PILOT Glucagon 2016-10 No 1 mg, Memoria 2-03 Route: IM, l 18:28: Drug form: [place] 00 PDR/INJ, PRN, Dosing Weight 122.008, kg, PRN Blood Glucose Results, Start date: 09/14/17 12:28:00 MASTER PILOT, Duration: 30 day, Stop date: 10/14/17 12:27:00 MASTER PILOT Docusate 2016-10 No Notes: Memoria 2-03 (Same as: l 03:00: Colace) Michael atorvastati 2016-10 No Notes: Zohaib jacqueline n 2-03 (Same as: l 03:00: Lipitor) [place] 00 Saline 2016-10 No Notes: Memoria Flush 0.9% 2-03 (Same as: l 03:00: BD [place] 00 Posiflush) Docusate 2016-10 No Notes: Memoria 2-03 (Same as: l 03:00: Colace) Michael atorvastati 2016-10 No Notes: Zohaib jacqueline n 2-03 (Same as: l 03:00: Lipitor) [place] Saline 2016-10 No Notes: Memoria Flush 0.9% 2-03 (Same as: l 03:00: BD Michael 00 Posiflush) Aspirin 2016-10 No Notes: Memoria 2-02 Take with l 22:57: food. [place] 00 Aspirin 2016-10 No Notes: Memoria 2-02 Take with l 22:57: food. heparin 2016-10 No Notes: Memoria 2-02 porcine l 22:00: heparin heparin 2016-10 No Notes: Memoria 2-02 porcine l 22:00: heparin Visipaque 2016-10 No Notes: Memori a 320 mg/mL 2-02 (Same as: l injectable 19:37: Visipaque) H ermann solution 00 . WASTE: F/P - Black; E - Municipal Trash Bin Visipaque 2016-10 No Notes: Memori a 320 mg/mL 2-02 (Same as: l injectable 19:37: Visipaque) H ermann solution 00 . WASTE: F/P - Black; E - Municipal Trash Bin Glipizide 2016-10 No 10 mg = 1 Mem oria 10 MG Oral 2-02 tab, PO, l Tablet 19:17: Before [place] 00 Breakfast, # 90 tab, 0 Refill(s) Glipizide 2016-10 No 10 mg = 1 Mem oria 10 MG Oral 2-02 tab, PO, l Tablet 19:17: Before Michael 00 Breakfast, # 90 tab, 0 Refill(s) Insulin 2016-10 No Notes: Memoria Lispro 2-02 Roll in l 15:09: palms of [place] 00 hands gently; Do not shake `vigorousl y. (Same as: Humalog ) "Single Patient Use Only " WASTE: F/P - Black; E - Municipal Trash Bin Stable for 28 days at room temperatur e. Expires in days from ____Date Calcium 2016-10 No Notes: Memoria Carbonate 2-02 (Same As: l 500 MG 15:09: Tums) [place] Chewable 00 Calcium Tablet Carbonate 500 mg = 200 mg elemental calcium Dose = mg calcium carbonate ( mg elemental calcium) Magnesium 2016-10 No Notes: Memori a Oxide 2-02 (Same as: l 15:09: Mag-Ox Michael 00 400) Magnesium oxide 549er=925o g elemental magnesium Dose=____m g magnesium oxide (___mg elemental magnesium) Calcium 2016-10 No Notes: Memoria Gluconate 2- WASTE: F/P l 15:09: - Sink; E Michael 00 - Municipal Trash Bin potassium 2016-10 No Notes: Memori a phosphate-s 2-02 (Same as: l odium 15:09: Phos-NaK) [place] phosphate 00 Each 1.5 250 mg-280 gm pkt has mg-160 mg 250mg oral powder phosphorou for s. Mix reconstitut w/2.5oz ion water and stir. potassium 2016-10 No Notes: Memori a phosphate 2- (Same as: l 15:09: K Phosphate. ) 1 mMol phoshate has 1.47 mEq potassium Infuse over 4 hours Magnesium 2016-10 No Notes: Memori a Sulfate - WASTE: F/P l 15:09: - Sink; E - Municipal Trash Bin sodium 2016-10 No 30 mmol, Memoria phosphate 2-02 10 mL, l 15:09: Route: [place] 00 IVPB, PRN, kg, PRN Abnormal Lab Result, Start date: 09/13/17 9:09:00 MASTER PILOT, Duration: 30 day, Stop date: 10/13/17 9:08:00 MASTER PILOT, FOR ICU USE ONLY Potassium 2016-10 No Notes: Memori a Chloride 2- (Same as: l 15:09: Potassium Chloride) Dextrose 2016-10 No 12.5 gm, Memor ia 50% Syringe 2-02 25 mL, l 15:09: Route: Michael 00 IVP, Drug Form: INJ, kg, PRN, PRN Blood Glucose Results, Start date: 09/13/17 9:09:00 MASTER PILOT, Duration: 30 day, Stop date: 10/13/17 9:08:00 MASTER PILOT Glucagon 2016-10 No 1 mg, Memoria 2-02 Route: IM, l 15:09: Drug form: [place] 00 PDR/INJ, PRN, kg, PRN Blood Glucose Results, Start date: 09/13/17 9:09:00 MASTER PILOT, Duration: 30 day, Stop date: 10/13/17 9:08:00 MASTER PILOT Insulin 2016-10 No Notes: Memoria Lispro 2-02 Roll in l 15:09: palms of 00 hands gently; Do not shake `vigorousl y. (Same as: Humalog ) "Single Patient Use Only " WASTE: F/P - Black; E - Municipal Trash Bin Stable for 28 days at room temperatur e. Expires in days from ____Date Calcium 2016-10 No Notes: Memoria Carbonate 2-02 (Same As: l 500 MG 15:09: Tums) Michael Chewable 00 Calcium Tablet Carbonate 500 mg = 200 mg elemental calcium Dose = mg calcium carbonate ( mg elemental calcium) Magnesium 2016-10 No Notes: Memori a Oxide 2- (Same as: l 15:09: Mag-Ox [place] 00 400) Magnesium oxide 142qb=017e g elemental magnesium Dose=____m g magnesium oxide [...] potassium 2016-10 No Notes: Memori a phosphate 2- (Same as: l 15:09: K Phosphate. ) 1 mMol phoshate has 1.47 mEq potassium Infuse over 4 hours Magnesium 2016-10 No Notes: Memori a Sulfate 2- WASTE: F/P l 15:09: - Sink; E Michael - Municipal Trash Bin sodium 2016-10 No 30 mmol, Memoria phosphate 2-02 10 mL, l 15:09: Route: IVPB, PRN, kg, PRN Abnormal Lab Result, Start date: 09/13/17 9:09:00 MASTER PILOT, Duration: 30 day, Stop date: 10/13/17 9:08:00 MASTER PILOT, FOR ICU USE ONLY Potassium 2016-10 No Notes: Memori a Chloride 2-02 (Same as: l 15:09: Potassium Chloride) Dextrose 2016-10 No 12.5 gm, Memor ia 50% Syringe 2-02 25 mL, l 15:09: Route: Michael 00 IVP, Drug Form: INJ, kg, PRN, PRN Blood Glucose Results, Start date: 09/13/17 9:09:00 MASTER PILOT, Duration: 30 day, Stop date: 10/13/17 9:08:00 MASTER PILOT Glucagon 2016-10 No 1 mg, Memoria 2-02 Route: IM, l 15:09: Drug form: Michael 00 PDR/INJ, PRN, kg, PRN Blood Glucose Results, Start date: 09/13/17 9:09:00 MASTER PILOT, Duration: 30 day, Stop date: 10/13/17 9:08:00 MASTER PILOT normal 2016-10 No 1,000 mL, Memori a saline 0.9% 2-02 Rate: 75 l IV 1,000 mL 15:05: ml/hr, Herm Infuse over: 13.3 hr, Route: IV, Total Volume: 1,000, Start date: 09/13/17 9:05:00 MASTER PILOT, Duration: 30 day, Stop date: 10/13/17 9:04:00 MASTER PILOT Hydralazine 2016-10 No Notes: Zohaib jacqueline 2-02 (Same as: l 15:05: Apresoline ) Push over 5 minutes normal 2016-10 No 1,000 mL, Memori a saline 0.9% 2-02 Rate: 75 l IV 1,000 mL 15:05: ml/hr, Herm bhavana Infuse over: 13.3 hr, Route: IV, Total Volume: 1,000, Start date: 09/13/17 9:05:00 MASTER PILOT, Duration: 30 day, Stop date: 10/13/17 9:04:00 MASTER PILOT Hydralazine 2016-10 No Notes: Zohaib jacqueline 2-02 (Same as: l 15:05: Apresoline [place] 00 ) Push over 5 minutes Ondansetron 2016-10 No Notes: Zohaib jacqueline 2-02 (Same as: l 15:01: Zofran) MEDICATION WASTE Product Size: 4 mg Product Wasted: ___ mg Bisacodyl 2016-10 No Notes: Memori a 2-02 (Same As: l 15:01: Dulcolax, Michael 00 Bisco-Lax) Acetaminoph 2016-10 No Notes: Do M emoria en 2- not exceed l 15:01: 4 gm/day. [place] 00 (Same as: Tylenol) Saline 2016-10 No Notes: Memoria Flush 0.9% 2-02 (Same as: l 15:01: BD [place] 00 Posiflush) Labetalol 2016-10 No Notes: Memori a 2-02 (Same as: l 15:01: Normodyne, Michael 00 Trandate) Push over 2 minutes Give bolus over 2-3 minutes. Ondansetron 2016-10 No Notes: Zohaib jacqueline 2-02 (Same as: l 15:01: Zofran) Michael 00 MEDICATION WASTE Product Size: 4 mg Product Wasted: ___ mg Bisacodyl 2016-10 No Notes: Memori a 2-02 (Same As: l 15:01: Dulcolax, [place] 00 Bisco-Lax) Acetaminoph 2016-10 No Notes: Do M emoria en 2- not exceed l 15:01: 4 gm/day. Michael 00 (Same as: Tylenol) Saline 2016-10 No Notes: Memoria Flush 0.9% 2-02 (Same as: l 15:01: BD Michael 00 Posiflush) Labetalol 2016-10 No Notes: Memori a 2-02 (Same as: l 15:01: Normodyne, Michael 00 Trandate) Push over 2 minutes Give bolus over 2-3 minutes. Omeprazole Omeprazole Yes Valeria 1 capsule Common [place] [facility] Silace Silace Yes Valeria 7.5 ml as Commo n Mill[place] needed [facility] Aspirin Aspirin Yes Valeria 1 tablet Comm on Millender [facility] Lisinopril Lisinopril Yes Valeria 1 tablet Common [place] [facility] Atorvastati Atorvastati Yes Valeria 1 tablet Common n Calcium n Calcium [facility] [facility] [facility] Atorvastati Atorvastati Yes Valeria TAKE 1 Common n Calcium n Calcium Millender TABLET BY [facility] MOUTH - CHI EVERY St NIGHT [...] No OneTouch Delica Plus Delica Plus Delica Nrcrkr70A - Tvbomh38G - Plus Rgdjog44O - Aspirin 81 Aspirin 81 No 1{table [...] No OneTouch Delica Plus Delica Plus Delica Eeilpw22X - Zkuvtw71W - Plus Oflxxv78V - metFORMIN metFORMIN No metFORMIN HCl 500 [...] No OneTouch Delica Plus Delica Plus Delica Tksywq10L - Moklkm89X - Plus Jijwzc53C - QUEtiapine QUEtiapine No QUEtiapine Fumarate 25 [...] No OneTouch Delica Plus Delica Plus Delica Emnaib25H - Ejjpba46G - Plus Zcvbxg69C - QUEtiapine QUEtiapine No QUEtiapine Fumarate 25 [...] Date Status Commen ts Source Name Name Moderna COVID-19 Moderna COVID-19 2021-01-26 Completed [facility] Vaccine 15:09:00 - [facility] Moderna COVID-19 Moderna COVID-19 2021-01-26 Completed [facility] Vaccine Vaccine 15:09:00 [facility] Moderna COVID-19 Moderna COVID-19 2021-01-26 Completed [facility] Vaccine Vaccine 15:09:00 - [facility] Moderna COVID-19 Moderna COVID-19 2021-01-26 Completed [facility] Vaccine Vaccine 15:09:00 - [facility] Moderna COVID-19 Moderna COVID-19 2021-01-26 Completed [facility] Vaccine Vaccine 15:09:00 - [facility] Moderna COVID-19 Moderna COVID-19 2021-01-26 Completed [facility] Vaccine Vaccine 15:09:00 [facility] Moderna COVID-19 Moderna COVID-19 2021-01-26 Completed [facility] Vaccine Vaccine 15:09:00 - [facility] Moderna COVID-19 Moderna COVID-19 2021-01-26 Completed [facility] Vaccine Vaccine 15:09:00 - [facility] Moderna COVID-19 Moderna COVID-19 2021-01-26 Completed [facility] Vaccine Vaccine 15:09:00 [facility] Moderna COVID-19 Moderna COVID-19 2021-01-26 Completed [facility] Vaccine Vaccine 15:09:00 - [facility] Moderna COVID-19 Moderna COVID-19 2021-01-26 Completed [facility] Vaccine Vaccine 15:09:00 - [facility] Moderna COVID-19 Moderna COVID-19 2021-01-26 Completed [facility] Vaccine Vaccine 15:09:00 - [facility] Moderna COVID-19 Moderna COVID-19 2021-01-26 Completed [facility] Vaccine Vaccine 15:09:00 - [facility] Moderna COVID-19 Moderna COVID-19 2020-12-29 Completed [facility] Vaccine Vaccine 15:09:00 - [facility] Moderna COVID-19 Moderna COVID-19 2020-12-29 Completed [facility] Vaccine Vaccine 15:09:00 - [facility] Moderna COVID-19 Moderna COVID-19 2020-12-29 Completed [facility] Vaccine Vaccine 15:09:00 - [facility] Moderna COVID-19 Moderna COVID-19 2020-12-29 Completed [facility] Vaccine Vaccine 15:09:00 - [facility] Moderna COVID-19 Moderna COVID-19 2020-12-29 Completed [facility] Vaccine Vaccine 15:09:00 - [facility] Moderna COVID-19 Moderna COVID-19 2020-12-29 Completed [facility] Vaccine Vaccine 15:09:00 - [facility] Moderna COVID-19 Moderna COVID-19 2020-12-29 Completed [facility] Vaccine Vaccine 15:09:00 [facility] Moderna COVID-19 Moderna COVID-19 2020-12-29 Completed [facility] Vaccine Vaccine 15:09:00 - [facility] Moderna COVID-19 Moderna COVID-19 2020-12-29 Completed [facility] Vaccine Vaccine 15:09:00 - [facility] Moderna COVID-19 Moderna COVID-19 2020-12-29 Completed [facility] Vaccine Vaccine 15:09:00 - [facility] Moderna COVID-19 Moderna COVID-19 2020-12-29 Completed [facility] Vaccine Vaccine 15:09:00 - [facility] Moderna COVID-19 Moderna COVID-19 2020-12-29 Completed [facility] Vaccine Vaccine 15:09:00 - [facility] Moderna COVID-19 Moderna COVID-19 2020-12-29 Completed [facility] Vaccine Vaccine 15:09:00 - [facility] Vital Signs Vital Name Observation Time Observation Value Comments Source height 2022-06-05 16:40:00 69 [in_i] [facility] weight 2022-06-05 16:40:00 200 [lb_av] [facility] bmi 2022-06-05 16:40:00 29.53 kg/m2 [facility] height 2022-04-10 16:00:00 69 [in_i] [facility] weight 2022-04-10 16:00:00 200 [lb_av] [facility] temperature 2022-04-10 16:00:00 100.4 [degF] [facility] bmi 2022-04-10 16:00:00 29.53 kg/m2 [facility] height 2021-10-15 16:20:00 69 [in_i] [facility] weight 2021-10-15 16:20:00 200 [lb_av] [facility] temperature 2021-10-15 16:20:00 97.2 [degF] [facility] bmi 2021-10-15 16:20:00 29.53 kg/m2 [facility] oximetry 2021-10-15 16:20:00 99 % [facility] respiratory rate 2021-10-15 16:20:00 16 /min Comm on [facility] blood pressure 2021-10-15 16:20:00 112 mm[Hg] [facility] blood pressure 2021-10-15 16:20:00 63 mm[Hg] [facility] - diastolic [facility] blood pressure 2021-07-16 11:00:00 115 mm[Hg] Common [facility] - systolic [facility] blood pressure 2021-07-16 11:00:00 67 mm[Hg] Common [facility] - diastolic [facility] height 2021-07-16 11:00:00 69 [in_i] Common [facility] weight 2021-07-16 11:00:00 200 [lb_av] [facility] temperature 2021-07-16 11:00:00 97.8 [degF] [facility] bmi 2021-07-16 11:00:00 29.53 kg/m2 [facility] oximetry 2021-07-16 11:00:00 98 % [facility] respiratory rate 2021-07-16 11:00:00 16 /min Comm on [facility] Systolic blood 2020-12-08 16:03:00 153 mm[Hg] Univer sity of pressure [facility] Diastolic blood 2020-12-08 16:03:00 79 mm[Hg] Unive rsity of [facility] Heart rate 2020-12-08 16:03:00 66 /min [facility] Body temperature 2020-12-08 16:03:00 36.5 [facility] rate 2020-12-08 16:03:00 18 /min [facility] Body weight 2020-12-08 16:03:00 88.134 [facility] BMI 2020-12-08 16:03:00 28.69 kg/m2 [facility] Systolic blood 2020-08-25 16:43:00 118 mm[Hg] Univer sity of pressure [facility] Diastolic blood 2020-08-25 16:43:00 70 mm[Hg] Unive rsity of [facility] Heart rate 2020-08-25 16:43:00 62 /min [facility] Body temperature 2020-08-25 16:43:00 37 Xochilt Univ ersity of [facility] Respiratory rate 2020-08-25 16:43:00 18 /min Univ ersity of [facility] Systolic blood 2020-08-25 16:43:00 118 mm[Hg] Univer sity of pressure [facility] Diastolic blood 2020-08-25 16:43:00 70 mm[Hg] Unive rsity of pressure [facility] Heart rate 2020-08-25 16:43:00 62 /min Universi ty of [facility] Body temperature 2020-08-25 16:43:00 37 Xochilt Univ ersity of [facility] Respiratory rate 2020-08-25 16:43:00 18 /min Univ ersity of [facility] Systolic blood 2020-08-11 16:44:00 150 mm[Hg] Univer sity of pressure [facility] Diastolic blood 2020-08-11 16:44:00 77 mm[Hg] Unive rsity of pressure [facility] Heart rate 2020-08-11 16:44:00 66 /min Universi ty of [facility] Body temperature 2020-08-11 16:44:00 37.06 Xochilt Univ ersity of [facility] Respiratory rate 2020-08-11 16:44:00 20 /min [facility] Body height 2020-08-11 16:44:00 175.3 cm Universi ty of [facility] Body weight 2020-08-11 16:44:00 86.183 kg Universi ty of [facility] BMI 2020-08-11 16:44:00 28.06 [facility] Oxygen saturation in 2020-08-11 16:44:00 98 /min [facility] Arterial blood by [facility] Pulse oximetry Branch Heart Rate 2017-09-24 19:04:00 [facility] Respitory Rate 2017-09-24 19:04:00 Ravin nicolas [place] Systolic (mm Hg) 2017-09-24 19:04:00 Zohaib Rodriguez Diastolic (mm Hg) 2017-09-24 19:04:00 Mem orifidencio [place] Respitory Rate 2017-09-24 14:22:00 Ravin al [place] Heart Rate 2017-09-24 14:22:00 [facility] [place] Systolic (mm Hg) 2017-09-24 14:22:00 Zohaib rial [facility] Diastolic (mm Hg) 2017-09-24 14:22:00 Mem orial [place] Systolic (mm Hg) 2017-09-24 10:00:00 Zohaib rial Michael Diastolic (mm Hg) 2017-09-24 10:00:00 Mem orial Michael Heart Rate 2017-09-24 10:00:00 [facility] [place] Respitory Rate 2017-09-24 10:00:00 Memori al Michael Temperature Oral (F) 2017-09-24 06:00:00 98.1 F [facility] [place] Temperature Oral (F) 2017-09-24 02:00:00 98.6 F [facility] Temperature Oral (F) 2017-09-23 21:00:00 98.2 F [facility] Height 2017-09-13 19:18:00 180.34 cm [facility] BMI Calculated 2017-09-13 19:18:00 Memori al [facility] Weight 2017-09-13 19:18:00 [facility] [place] Weight 2017-09-13 16:10:00 [facility] [place] BMI Calculated 2017-09-13 16:10:00 Memori al [place] Height 2017-09-13 16:10:00 177.8 cm [facility] Procedures Procedure Date / Time Performing Clinician Source Performed ASSIGNMENT OF BENEFITS 2020-08-11 16:18:59 Doctor Unassigned, No [facility] Coronary heart disease [facility] [place] monitoring DIGAMI - diabetes [facility] nn mellitus insulin-glucose infusion in acute myocardial infarction On treatment for Marycarmen Pardo n hypertension PTCA - Percutaneous [facility] transluminal coronary angioplasty Encounters Start End Encounter Admission Attending Care Care Encounter Source Date/Time Date/Time Type Type Clinicians Facility Department ID 2022-10-29 [facility] [id number] Common 07:51:00 Jazmine [id number] [facility] 2022-04-08 Outpatient Goldy, STLMLC STLC [id number] Common 11:45:00 Jazmine [facility] 2022-01-10 Outpatient Goldy, STLMLC STLC [id number] Common 09:27:01 Jazmine [facility] 2021-11-07 Outpatient Goldy, STLMLC STLMLC [id number] Common 14:30:53 Jazmine [facility] 2021-11-07 Outpatient Goldy, STLMLC STLMLC [id number] Common 14:29:26 Jazmine [id number] [facility] 2021-11-07 Outpatient Goldy, STLMLC STLMLC [id number] Common 12:49:54 Jazmine [id number] [facility] 2021-11-07 Outpatient Goldy, STRASHIDALC STLMLC [id number] Common 12:15:17 Jazmine [id number] [facility] 2021-11-07 Outpatient Casper Avilez STLMLC STLMLC [id number] Common 12:02:56 [id number] [facility] 2021-11-07 Outpatient Casper Avilez STLMLC STLMLC [id number] Common 11:59:02 [id number] [facility] 2021-11-07 Outpatient Damian, STLMLC STLMLC [id number] Common 11:21:21 Valeria 56524 [facility] 2021-11-07 Outpatient Damian, STLMLC STLMLC [id number] Common 11:03:01 Valeria 44873 [facility] 2021-11-07 Outpatient Damian, STLMLC STLMLC [id number] Common 11:02:15 Valeria [id number] [facility] 2022-10-16 2022-10-16 (TEL) STLMLC STLMLC [id number] Co mmon 00:00:00 00:00:00 [facility] 2022-06-07 2022-06-07 (TEL) STLMLC STLMLC [id number] Co mmon 00:00:00 00:00:00 [facility] 2022-06-05 2022-06-05 OFFICE STLMLC STLMLC [id number] Co mmon 00:00:00 00:00:00 VISIT EST Spir it PT LEVEL 3 [facility] 2022-05-31 2022-05-31 (TEL) STLMLC STLMLC [id number] Co mmon 00:00:00 00:00:00 [facility] 2022-04-11 2022-04-11 OFFICE STLMLC STLMLC [id number] Co mmon 00:00:00 00:00:00 VISIT [facility] PT - CHI LEVEL [address] [facility] 2022-04-11 2022-04-11 (TEL) STLMLC STLMLC [id number] Co mmon 00:00:00 00:00:00 [facility] 2022-04-10 2022-04-10 OFFICE STLMLC STLMLC [id number] Co mmon 00:00:00 00:00:00 VISIT EST [facility] it PT LEVEL 3 [facility] 2022-03-28 2022-03-28 (TEL) STLMLC STLMLC [id number] Co mmon 00:00:00 00:00:00 [facility] 2022-02-26 2022-02-26 (TEL) STLMLC STLMLC [id number] Co mmon 00:00:00 00:00:00 [facility] 2021-10-15 2021-10-15 OFFICE STLMLC STLMLC [id number] Co mmon 00:00:00 00:00:00 VISIT [facility] PT - CHI LEVEL 4 [facility] 2021-09-03 2021-09-03 (TEL) STLMLC STLMLC [id number] Co mmon 00:00:00 00:00:00 [facility] 2021-07-22 2021-07-22 (TEL) STLMLC STLMLC [id number] Co mmon 00:00:00 00:00:00 [facility] 2021-07-16 2021-07-16 OFFICE STLMLC STLMLC [id number] Co mmon 00:00:00 00:00:00 VISIT [facility] PT - CHI LEVEL 4 [facility] 2021-04-19 2021-04-19 Outpatient STLMLC STLMLC [id number] Common 00:00:00 00:00:00 [facility] 2021-04-11 2021-04-11 Outpatient STLMLC STLMLC [id number] Common 00:00:00 00:00:00 [facility] 2021-03-08 2021-03-08 Outpatient STLMLC STLMLC [id number] Common 00:00:00 00:00:00 [facility] 2021-01-18 2021-01-18 Outpatient STLMLC STLMLC [id number] Common 00:00:00 00:00:00 [facility] 2021-01-15 2021-01-15 Outpatient STLMLC STLMLC [id number] Common 00:00:00 00:00:00 [facility] 2020-12-14 2020-12-14 Outpatient STLMLC STLMLC [id number] Common 00:00:00 00:00:00 [facility] 2020-12-08 2020-12-08 [facility] [id number] Univers 09:44:18 10:28:25 Visit Abi Guzman [id number] i ty of Rudy Castillo [id number] [facility] grace Professio [phone] N[place] dical [address] 2020-12-08 2020-12-08 Outpatient Rogelio DIALLO [facility] [id number] Univers 09:30:00 09:30:00 ABI arellano [facility] 2020-11-21 2020-11-21 Outpatient STLMLC STLMLC [id number] Common 00:00:00 00:00:00 [facility] 2020-10-04 2020-10-04 Outpatient STLMLC STLMLC [id number] Common 00:00:00 00:00:00 [facility] 2020-10-03 2020-10-03 Outpatient STLMLC STLMLC [id number] Common 00:00:00 00:00:00 [facility] 2020-08-25 2020-08-25 [facility] [id number] 10:22:47 10:38:37 Visit Abi Guzman [id number] Rudy Castillo [id number] Professio [phone] [address] 2020-08-25 2020-08-25 [facility] [id number] Univers 10:22:47 10:38:37 Visit Abi Thomas [id number] i ty of [place] [id number] [place] [phone] Me dical [address] 2020-08-25 2020-08-25 [facility] [id number] Univers 10:00:00 10:00:00 ABI arellano of [facility] 2020-08-11 2020-08-11 [facility] [id number] Univers 11:19:40 12:21:37 Visit Abi Villasenorton [id number] i ty of [place] [id number] [place] [phone] Me dical [address] 2020-08-11 2020-08-11 [facility] [id number] Univers 11:15:00 11:15:00 ABI arellano of [facility] 2020-08-11 2020-08-11 Orders Doctor ABI [id number] Univers 00:00:00 00:00:00 Only Unassigned, SARAH [id number] ity of [place] [facility] [id number] Daniel as [phone] [address] 2020-08-08 2020-08-08 Outpatient STLMLC STLMLC [id number] Common 00:00:00 00:00:00 [facility] 2020-07-21 2020-07-21 Outpatient STLMLC STLMLC [id number] Common 00:00:00 00:00:00 [facility] 2020-06-06 2020-06-06 [facility] [id number] Common 15:15:00 15:15:00 [facility] it [facility] 2020-04-03 2020-04-03 [facility] [id number] Common 14:25:00 14:25:00 [facility] it [facility] 2020-02-16 2020-02-16 [facility] [id number] Common 14:12:00 14:12:[address] [facility] 2019-12-15 2019-12-15 Outpatient [facility] [id number] Common 11:30:00 11:30:[address] [facility] 2019-11-30 2019-11-30 [facility] [id number] Common 10:40:00 10:40:[address] [facility] 2019-11-29 2019-11-29 Out[facility] [id number] Common 02:06:00 02:06:[address] [facility] 2019-11-09 2019-11-09 [facility] [id number] Common 10:00:00 10:00:[address] [facility] 2019-11-05 2019-11-05 [facility] [id number] Common 10:15:00 10:15:[address] [facility] 2019-10-21 2019-10-21 [facility] [id number] Common 15:46:00 15:46:[address] [facility] 2019-10-20 2019-10-20 [facility] [id number] Common 10:55:00 10:55:[address] [facility] 2019-10-14 2019-10-14 [facility] [id number] Common 13:30:00 13:30:[address] [facility] 2019-10-10 2019-10-10 [facility] [id number] Common 18:31:00 18:31:[address] [facility] 2019-10-08 2019-10-08 [facility] [id number] Common 14:30:00 14:30:[address] [facility] 2019-08-09 2019-08-09 [facility] [id number] Common 09:45:00 09:45:[address] [facility] 2019-07-06 2019-07-06 [facility] [id number] Common 10:45:00 10:45:[address] [facility] 2019-04-02 2019-04-02 Out[facility] [id number] Common 13:15:00 13:15:[address] [facility] 2018-12-11 2018-12-11 [facility] [id number] Common 10:30:00 10:30:[address] [facility] 2018-10-30 2018-10-30 [facility] [id number] Common 10:15:00 10:15:[address] [facility] 2018-10-24 2018-10-24 [facility] [id number] Common 17:45:00 17:45:00 [facility] 2018-09-24 2018-09-24 [facility] [id number] Common 13:30:00 13:30:[address] [facility] 2018-07-21 2018-07-21 Out[facility] [id number] Common 10:13:00 10:13:[address] [facility] 2018-05-29 2018-05-29 [facility] [id number] Common 09:00:00 09:00:[address] [facility] 2018-04-07 2018-04-07 Out[facility] [id number] Common 13:04:00 13:04:[address] [facility] 2018-03-30 2018-03-30 [facility] [id number] Common 09:30:00 09:30:00 t [facility] it Road [facility] 2017-09-13 2017-09-25 Inpatient [facility] [id number] Memoria 14:34:00 00:40:00 r Michael 36 l [facility] 2017-09-13 2017-09-25 Inpatient [place] [id number] Memoria 14:34:00 00:40:00 r Michael 36 l [facility] 2017-09-13 2017-09-24 Outpatient Aslam, [facility] [id number] 08:34:00 18:40:00 Murad 36 Results Test Description Test Time Test Comments Results Result Comments Source HEMOGLOBIN A1C 2021-07-16 00:00:00 Test Item Value Reference Range Interpretation Comme nts A1C (test code = 4548-4) 5.6 [id number] 11:19:00 Test Item Value Reference Range Interpretation Comments eGFR (test code = eGFR) 98 [id number] 11:19:00 Test Item Value Reference Range Interpretation Comments BUN (test code = BUN) 27 7-22 [id number] 11:19:00 Test Item Value Reference Range Interpretation Comments Creatinine Lvl (test code = Creatinine 0.80 0.50-1.40 Lvl) [id number] 11:19:00 Test Item Value Reference Range Interpretation Comments Sodium Lvl (test code = Sodium Lvl) 138 135-145 [id number] 11:19:00 Test Item Value Reference Range Interpretation Comments Glucose Lvl (test code = Glucose Lvl) 188 70-99 [id number] 11:19:00 Test Item Value Reference Range Interpretation Comments RBC Morph (test code = Normal (09/24/17 5:19 RBC Morph) AM) [id number] 11:19:00 Test Item Value Reference Range Interpretation Comments Plt Morph (test code = Normal (09/24/17 5:19 Plt Morph) AM) [id number] 11:19:00 Test Item Value Reference Range Interpretation Comments Bands (test code = 1.0 See_Comment [Automat ed message] The Bands) system which ge nerated this result transmit kole reference range : <=11.0. The reference r elliott was not used to interpr et this result as venkatesh l/abnormal. [facility] S[id number] 11:19:00 Test Item Value Reference Range Interpretation Comments Lymphocytes (test code = Lymphocytes) 13.0 20.0-40.0 [id number] 11:19:00 Test Item Value Reference Range Interpretation Comments Atypical Lymphs (test code = Atypical 2.0 Lymphs) [facility] [id number] 11:19:00 Test Item Value Reference Range Interpretation Comments Eosinophils (test code = 3.0 See_Comment [A utomated message] The Eosinophils) system which ge nerated this result tra nsmitted reference range : <=4.0. The reference r elliott was not used to int erpret this result as normal/abnormal . [facility]lineUfgyswmNYHGCRKKQS4352-49-46 11:19:00 Test Item Value Reference Range Interpretation Comments Metamyelocytes (test code 5.0 See_Comment [ Automated message] = Metamyelocytes) The system which generated this result transmitted ref erence range: <=1.0. T he reference range was not used to int erpret this result as normal/abnormal . [facility]lineSntsyhnGNUGMLKZWE8841-79-74 11:19:00 Test Item Value Reference Range Interpretation Comments Monocytes (test code = Monocytes) 3.0 2.0-12.0 [facility] ShorelineShtojoeASDWZYKUPS9744-99-06 11:19:00 Test Item Value Reference Range Interpretation Comments Segs (test code = Segs) 73.0 45.0-75.0 [facility]lineYitzdhtLTPSMNNVID3456-08-51 11:19:00 Test Item Value Reference Range Interpretation Comments Eosinophils # (test code 0.5 See_Comment [A utomated message] The = Eosinophils #) system whic h generated this result tra nsmitted reference range : <=0.5. The reference r elliott was not used to int erpret this result as normal/abnormal . [facility] ShorelineRixscacHSTAGQOCKC4774-45-68 11:19:00 Test Item Value Reference Range Interpretation Comments Monocytes # (test code 0.5 See_Comment [Aut omated message] The = Monocytes #) system which generated this result tra nsmitted reference range : <=0.8. The reference r elliott was not used to int erpret this result as normal/abnormal . [facility]lineHxzvnvxDENRUMLCNC8036-33-83 11:19:00 Test Item Value Reference Range Interpretation Comments Lymphocytes # (test code = Lymphocytes 2.6 1.0-5.5 #) [facility]lineCbdnrxlZDEDVRBIKP7989-42-47 11:19:00 Test Item Value Reference Range Interpretation Comments Segs-Bands # (test code = Segs-Bands #) 12.7 1.5-8.1 [facility]lineTmozrjhFDMYDSSNGJ2543-42-59 11:19:00 Test Item Value Reference Range Interpretation Comments MCV (test code = MCV) 88.3 80.0-94.0 [facility] ShorelineFfgrjzwCSVKQGKCAA3771-68-86 11:19:00 Test Item Value Reference Range Interpretation Comments Hct (test code = Hct) 45.4 42.0-54.0 [facility]lineTyjovmgELDAJFFDAQ3859-03-47 11:19:00 Test Item Value Reference Range Interpretation Comments Hgb (test code = Hgb) 15.0 14.0-18.0 [facility] ShorelineBmmyqzoMPPADYQLXA7968-42-94 11:19:00 Test Item Value Reference Range Interpretation Comments RBC (test code = RBC) 5.15 4.70-6.10 [facility]lineKicsnvgXTFBLXYDXT4488-55-57 11:19:00 Test Item Value Reference Range Interpretation Comments MPV (test code = MPV) 9.2 7.4-10.4 [facility] ShorelineQajhmyjILICKQCFXY9906-30-82 11:19:00 Test Item Value Reference Range Interpretation Comments MCHC (test code = MCHC) 33.0 32.0-36.0 [facility] ShorelineTztkylpRCRMILITIQ1805-68-25 11:19:00 Test Item Value Reference Range Interpretation Comments MCH (test code = MCH) 29.2 pg 27.0-31.0 [facility] ShorelineMwkueanYNAHKFDNDU8693-78-81 11:19:00 Test Item Value Reference Range Interpretation Comments Platelet (test code = Platelet) 259 133-450 [facility]lineOeyczeoNSVNFSEUGU0937-18-18 11:19:00 Test Item Value Reference Range Interpretation Comments RDW (test code = RDW) 14.0 11.5-14.5 [facility]ballBfdwwtmOSOWAFZBKN9605-52-91 11:19:00 Test Item Value Reference Range Interpretation Comments WBC (test code = WBC) 17.1 3.7-10.4 [facility] HospitalIfqoqogUQEEMLBHENNW7024-15-86 11:19:00 Test Item Value Reference Range Interpretation Comments AGAP (test code = AGAP) 15.0 10.0-20.0 [facility] HospitalDsrzalyYLDJDNDNIWYS0836-07-51 11:19:00 Test Item Value Reference Range Interpretation Comments Calcium Lvl (test code = Calcium Lvl) 9.1 8.5-10.5 [facility] HospitalSkovjajSTILWLYHXNPK4368-54-85 11:19:00 Test Item Value Reference Range Interpretation Comments CO2 (test code = CO2) [facility] HospitalHxatgiuJUSDZALZPNMS4353-26-29 11:19:00 Test Item Value Reference Range Interpretation Comments AGAP (test code = AGAP) 15.0 10.0-20.0 [facility] HospitalEtxzwvyTAJWTQOBPAVM7070-96-15 11:19:00 Test Item Value Reference Range Interpretation Comments Calcium Lvl (test code = Calcium Lvl) 9.1 8.5-10.5 [facility] HospitalEupwbhgVXTCOOXGMHMA8514-76-49 11:19:00 Test Item Value Reference Range Interpretation Comments CO2 (test code = CO2) [facility] HospitalTczcuzbENVQTQYDXCPO1663-87-11 11:19:00 Test Item Value Reference Range Interpretation Comments Potassium Lvl (test code = Potassium 4.0 3.5-5.1 Lvl) [facility] HospitalWioyqvmJBSUFHNLKELA5753-70-34 11:19:00 Test Item Value Reference Range Interpretation Comments Chloride Lvl (test code = Chloride Lvl) 103 95-109 [facility] HospitalIaxgdwpGJWVOYUEVPJY4339-86-33 11:19:00 Test Item Value Reference Range Interpretation Comments eGFR (test code = eGFR) 98 [facility] HospitalGepnpxaDDYNBIGHCEDG6246-84-34 11:19:00 Test Item Value Reference Range Interpretation Comments BUN (test code = BUN) 27 7-22 [facility] HospitalLaagdwzNIYNKUOKGRZW0642-04-20 11:19:00 Test Item Value Reference Range Interpretation Comments Creatinine Lvl (test code = Creatinine 0.80 0.50-1.40 Lvl) [facility] HospitalFfxujarJKGOAZMNJWLV1689-08-26 11:19:00 Test Item Value Reference Range Interpretation Comments Sodium Lvl (test code = Sodium Lvl) 138 135-145 [facility] HospitalYgmhdnkUGCBWVZWUWIJ4542-11-65 11:19:00 Test Item Value Reference Range Interpretation Comments Glucose Lvl (test code = Glucose Lvl) 188 70-99 [facility]lineIilpldxLDIVPYCQTT6657-34-51 11:19:00 Test Item Value Reference Range Interpretation Comments RBC Morph (test code = Normal (09/24/17 5:19 RBC Morph) AM) [facility]lineWfzpyyhNSCOSCKEDH0636-74-54 11:19:00 Test Item Value Reference Range Interpretation Comments Plt Morph (test code = Normal (09/24/17 5:19 Plt Morph) AM) [facility]lineKxjjxrbQOQZENOGYI3164-61-45 11:19:00 Test Item Value Reference Range Interpretation Comments Bands (test code = 1.0 See_Comment [Automat ed message] The Bands) system which ge nerated this result transmit kole reference range : <=11.0. The reference r elliott was not used to interpr et this result as venkatesh l/abnormal. [facility] ShorelineVyimoadJYYOAWWBOZ3623-72-17 11:19:00 Test Item Value Reference Range Interpretation Comments Lymphocytes (test code = Lymphocytes) 13.0 20.0-40.0 [facility]linePvgtapbJYTQFFHETD6287-46-11 11:19:00 Test Item Value Reference Range Interpretation Comments Atypical Lymphs (test code = Atypical 2.0 Lymphs) [facility]lineXfoayrhVXZBJHMDMS4740-64-24 11:19:00 Test Item Value Reference Range Interpretation Comments Eosinophils (test code = 3.0 See_Comment [A utomated message] The Eosinophils) system which ge nerated this result tra nsmitted reference range : <=4.0. The reference r elliott was not used to int erpret this result as normal/abnormal . [facility]lineCibzbvkWFRFKCLBFW7766-46-76 11:19:00 Test Item Value Reference Range Interpretation Comments Metamyelocytes (test code 5.0 See_Comment [ Automated message] = Metamyelocytes) The system which generated this result transmitted ref erence range: <=1.0. T he reference range was not used to int erpret this result as normal/abnormal . [place] 904437-12-13 11:19:00 Test Item Value Reference Range Interpretation Comments Monocytes (test code = Monocytes) 3.0 2.0-12.0 [facility]lineXqlzlzcAWSPCHQMVS5966-38-13 11:19:00 Test Item Value Reference Range Interpretation Comments Segs (test code = Segs) 73.0 45.0-75.0 [facility]lineFshkdrpSBIUZLYIFC1973-32-68 11:19:00 Test Item Value Reference Range Interpretation Comments Eosinophils # (test code 0.5 See_Comment [A utomated message] The = Eosinophils #) system whic h generated this result tra nsmitted reference range : <=0.5. The reference r elliott was not used to int erpret this result as normal/abnormal . [facility]lineObsijjnEXQOQBXRTY8456-09-03 11:19:00 Test Item Value Reference Range Interpretation Comments Monocytes # (test code 0.5 See_Comment [Aut omated message] The = Monocytes #) system which generated this result tra nsmitted reference range : <=0.8. The reference r elliott was not used to int erpret this result as normal/abnormal . [facility]lineDbnbkedHRFTNDMJJQ6019-58-40 11:19:00 Test Item Value Reference Range Interpretation Comments Lymphocytes # (test code = Lymphocytes 2.6 1.0-5.5 #) [facility]lineJrwqbfxIMHDQQVVXX7013-38-55 11:19:00 Test Item Value Reference Range Interpretation Comments Segs-Bands # (test code = Segs-Bands #) 12.7 1.5-8.1 [facility]lineEvzeirtSTOJEBXZYR9807-91-87 11:19:00 Test Item Value Reference Range Interpretation Comments MCV (test code = MCV) 88.3 80.0-94.0 [facility]lineIgbgaeyXEFKEPOPTM2381-87-91 11:19:00 Test Item Value Reference Range Interpretation Comments Hct (test code = Hct) 45.4 42.0-54.0 [facility] TylerYqoeghkTMQQXEOJCQIC5740-20-55 11:19:00 Test Item Value Reference Range Interpretation Comments Potassium Lvl (test code = Potassium 4.0 3.5-5.1 Lvl) [facility]lineYrdaruhEULTOWAFMA9017-69-69 11:19:00 Test Item Value Reference Range Interpretation Comments Hgb (test code = Hgb) 15.0 14.0-18.0 [facility] ShorelineGmukljlSTNTSULDOY3289-43-89 11:19:00 Test Item Value Reference Range Interpretation Comments RBC (test code = RBC) 5.15 4.70-6.10 [facility]linePhjzfavDQNOSNCYOQ6690-55-61 11:19:00 Test Item Value Reference Range Interpretation Comments MPV (test code = MPV) 9.2 7.4-10.4 [facility] ShorelineBncghfgTSFPIMYGDI5705-55-71 11:19:00 Test Item Value Reference Range Interpretation Comments MCHC (test code = MCHC) 33.0 32.0-36.0 [facility]lineEneeyzoPQRQFBHGTZ9401-95-80 11:19:00 Test Item Value Reference Range Interpretation Comments MCH (test code = MCH) 29.2 pg 27.0-31.0 [facility] ShorelineRrkmvtlDUJKIPBTEF8669-59-36 11:19:00 Test Item Value Reference Range Interpretation Comments Platelet (test code = Platelet) 259 133-450 [facility]lineMfyzckxPCQCFZITJD7353-32-56 11:19:00 Test Item Value Reference Range Interpretation Comments RDW (test code = RDW) 14.0 11.5-14.5 [facility]lineVgrqrdiCKOJZQGNOQ1800-54-05 11:19:00 Test Item Value Reference Range Interpretation Comments WBC (test code = WBC) 17.1 3.7-10.4 [facility] HospitalWabktgqXGYUJGBTBWNW1036-82-51 11:19:00 Test Item Value Reference Range Interpretation Comments Chloride Lvl (test code = Chloride Lvl) 103 95-109 [facility] HospitalGkxwaicSBNZBOEPNUCW4545-98-58 11:42:00 Test Item Value Reference Range Interpretation Comments Glucose Lvl (test code = Glucose Lvl) 188 70-99 [facility] HospitalMrpouahFZCBDGLXYEMU4673-16-52 11:42:00 Test Item Value Reference Range Interpretation Comments Creatinine Lvl (test code = Creatinine 0.90 0.50-1.40 Lvl) [facility] HospitalDnlxixqVEEZAYXUWIGK7887-88-83 11:42:00 Test Item Value Reference Range Interpretation Comments CO2 (test code = CO2) 24 24-32 [facility] HospitalNxwkobgOQYPBZSJMVKK9943-17-81 11:42:00 Test Item Value Reference Range Interpretation Comments Chloride Lvl (test code = Chloride Lvl) 105 95-109 [facility] HospitalBmekgouGBGYPPDLJOGC3122-02-75 11:42:00 Test Item Value Reference Range Interpretation Comments Calcium Lvl (test code = Calcium Lvl) 9.2 8.5-10.5 [facility]lineSumplnyQADZWNLXXU3261-00-38 11:42:00 Test Item Value Reference Range Interpretation Comments Basophils # (test code 0.1 See_Comment [Aut omated message] The = Basophils #) system which generated this result tra nsmitted reference range : <=0.2. The reference r elliott was not used to int erpret this result as normal/abnormal . [facility]lineGlgqznrESZFXZSBSO4280-33-37 11:42:00 Test Item Value Reference Range Interpretation Comments Eosinophils # (test code 0.3 See_Comment [A utomated message] The = Eosinophils #) system whic h generated this result tra nsmitted reference range : <=0.5. The reference r elliott was not used to int erpret this result as normal/abnormal . [facility]lineMbpjbfsFBCXMSQJLR0046-37-71 11:42:00 Test Item Value Reference Range Interpretation Comments Monocytes # (test code 1.3 See_Comment [Aut omated message] The = Monocytes #) system which generated this result tra nsmitted reference range : <=0.8. The reference r elliott was not used to int erpret this result as normal/abnormal . [facility]lineGzrwmbnPQVHARNXQY1124-48-69 11:42:00 Test Item Value Reference Range Interpretation Comments Lymphocytes (test code = Lymphocytes) 15.8 20.0-40.0 [facility]linePmqcidbBAOIPOXDQN0437-60-05 11:42:00 Test Item Value Reference Range Interpretation Comments Plt Morph (test code = Normal (09/23/17 5:42 Plt Morph) AM) [facility] ShorelineBfiaxiaUMGUDIUVQP3695-94-17 11:42:00 Test Item Value Reference Range Interpretation Comments RBC Morph (test code = Normal (09/23/17 5:42 RBC Morph) AM) [facility]lineFjvyuqlLQBBRWWACQ0505-98-72 11:42:00 Test Item Value Reference Range Interpretation Comments Monocytes (test code = Monocytes) 6.9 2.0-12.0 [facility]lineWfpilcgLZLDXBZRKT6844-57-54 11:42:00 Test Item Value Reference Range Interpretation Comments Basophils (test code = 0.5 See_Comment [Aut omated message] The Basophils) system which ge nerated this result tra nsmitted reference range : <=1.0. The reference r elliott was not used to int erpret this result as normal/abnormal . [facility]lineXqawinlVGXKKPSTPC5135-03-39 11:42:00 Test Item Value Reference Range Interpretation Comments Eosinophils (test code = 1.5 See_Comment [A utomated message] The Eosinophils) system which ge nerated this result tra nsmitted reference range : <=4.0. The reference r elliott was not used to int erpret this result as normal/abnormal . [facility]lineJtsxrnrEDXJOZYCUQ3011-60-41 11:42:00 Test Item Value Reference Range Interpretation Comments Segs (test code = Segs) 75.3 45.0-75.0 [facility]lineIgmyqmrFETLHMGLDC9500-72-70 11:42:00 Test Item Value Reference Range Interpretation Comments Lymphocytes # (test code = Lymphocytes 2.9 1.0-5.5 #) [facility]lineWxkqbxrCDZYEORCCB7201-65-98 11:42:00 Test Item Value Reference Range Interpretation Comments Segs-Bands # (test code = Segs-Bands #) 13.9 1.5-8.1 [facility]lineKutewzwZQLFVXADRQ5238-94-78 11:42:00 Test Item Value Reference Range Interpretation Comments MCH (test code = MCH) 28.9 pg 27.0-31.0 [facility]lineHcwspukVLQWTFOOGD7002-01-50 11:42:00 Test Item Value Reference Range Interpretation Comments MCV (test code = MCV) 88.9 80.0-94.0 [facility]lineVzuypobANICBHWUHP9004-31-39 11:42:00 Test Item Value Reference Range Interpretation Comments Hct (test code = Hct) 46.4 42.0-54.0 [facility]lineFdqtfrlZTBHFLTYSG2896-45-42 11:42:00 Test Item Value Reference Range Interpretation Comments Hgb (test code = Hgb) 15.1 14.0-18.0 [facility]linePeoqtiuFMWZXCHCCE9419-20-46 11:42:00 Test Item Value Reference Range Interpretation Comments RBC (test code = RBC) 5.22 4.70-6.10 [facility]lineUgdqxjnMGRHPUDXIV3757-87-72 11:42:00 Test Item Value Reference Range Interpretation Comments MPV (test code = MPV) 9.5 7.4-10.4 [facility]lineMdisarrJMWSJRBCNE4667-47-22 11:42:00 Test Item Value Reference Range Interpretation Comments Platelet (test code = Platelet) 269 133-450 [facility]lineFxdzcfcACBMNNEUKO6806-25-11 11:42:00 Test Item Value Reference Range Interpretation Comments RDW (test code = RDW) 14.4 11.5-14.5 [facility] ShorelineLrxfhcwAYLCJVHCXK6370-77-18 11:42:00 Test Item Value Reference Range Interpretation Comments MCHC (test code = MCHC) 32.5 32.0-36.0 [facility]lineRxahhsrPKNDTBUMAR6827-21-27 11:42:00 Test Item Value Reference Range Interpretation Comments WBC (test code = WBC) 18.4 3.7-10.4 [facility]2017-12-12 11:42:00 Test Item Value Reference Range Interpretation Comments Procalcitonin Lvl (test no gt See_Comment [Au tomated message] code = Procalcitonin Lvl) Th e system which generated this result transmitted ref erence range: <=0.10. The reference range was not used to interpr et this result as normal/abnormal . [facility] HospitalXrvrifuDAPNPUAKBZQC2040-24-01 11:42:00 Test Item Value Reference Range Interpretation Comments AGAP (test code = AGAP) 14.0 10.0-20.0 [facility] HospitalZyasvdnUAAYOPDOYHXR2970-59-54 11:42:00 Test Item Value Reference Range Interpretation Comments eGFR (test code = eGFR) 94 [facility] HospitalXrmhkbmXICHAYXEVFOB4630-34-62 11:42:00 Test Item Value Reference Range Interpretation Comments Potassium Lvl (test code = Potassium 4.0 3.5-5.1 Lvl) [facility] HospitalRtaekawVFDSPTCFHFQC4100-24-60 11:42:00 Test Item Value Reference Range Interpretation Comments BUN (test code = BUN) 26 7-22 [facility] HospitalAgmlwwwIHWSZYCHSLYZ0052-81-41 11:42:00 Test Item Value Reference Range Interpretation Comments Glucose Lvl (test code = Glucose Lvl) 188 70-99 [facility] HospitalUmsxpmjYYUNNYLYYGJK0870-57-98 11:42:00 Test Item Value Reference Range Interpretation Comments Creatinine Lvl (test code = Creatinine 0.90 0.50-1.40 Lvl) [facility] HospitalXglfcfzAFQVLSCHLYEJ0685-45-37 11:42:00 Test Item Value Reference Range Interpretation Comments CO2 (test code = CO2) 24 24-32 [facility] HospitalLwtrzfkAUFSTMUSWFOK9445-24-76 11:42:00 Test Item Value Reference Range Interpretation Comments Chloride Lvl (test code = Chloride Lvl) 105 95-109 [facility] HospitalCtvdkqoTMYFHBJMCZEO7030-91-53 11:42:00 Test Item Value Reference Range Interpretation Comments Calcium Lvl (test code = Calcium Lvl) 9.2 8.5-10.5 [facility]lineVyzortcAHHWJUGPRR5908-16-23 11:42:00 Test Item Value Reference Range Interpretation Comments Basophils # (test code 0.1 See_Comment [Aut omated message] The = Basophils #) system which generated this result tra nsmitted reference range : <=0.2. The reference r elliott was not used to int erpret this result as normal/abnormal . [facility]lineBkyrqhmYXHMNQGHRB6862-38-88 11:42:00 Test Item Value Reference Range Interpretation Comments Eosinophils # (test code 0.3 See_Comment [A utomated message] The = Eosinophils #) system whic h generated this result tra nsmitted reference range : <=0.5. The reference r elliott was not used to int erpret this result as normal/abnormal . [facility]lineEagfolzAIZFMFIIOY8429-89-38 11:42:00 Test Item Value Reference Range Interpretation Comments Monocytes # (test code 1.3 See_Comment [Aut omated message] The = Monocytes #) system which generated this result tra nsmitted reference range : <=0.8. The reference r elliott was not used to int erpret this result as normal/abnormal . [facility]lineKldsdogIEPIXZKAUN7083-18-42 11:42:00 Test Item Value Reference Range Interpretation Comments Lymphocytes (test code = Lymphocytes) 15.8 20.0-40.0 [facility]lineZfsfxcwKXBXPSOZRH4472-50-06 11:42:00 Test Item Value Reference Range Interpretation Comments Plt Morph (test code = Normal (09/23/17 5:42 Plt Morph) AM) [facility]lineHewvnoeVHDBZZHROF0132-02-93 11:42:00 Test Item Value Reference Range Interpretation Comments RBC Morph (test code = Normal (09/23/17 5:42 RBC Morph) AM) [facility]lineWaptwspWQSLYTVVTH6361-92-58 11:42:00 Test Item Value Reference Range Interpretation Comments Monocytes (test code = Monocytes) 6.9 2.0-12.0 [facility]lineOdsgtrgXKSZNUPUGF5784-15-71 11:42:00 Test Item Value Reference Range Interpretation Comments Basophils (test code = 0.5 See_Comment [Aut omated message] The Basophils) system which ge nerated this result tra nsmitted reference range : <=1.0. The reference r elliott was not used to int erpret this result as normal/abnormal . [facility]lineMdopskzZRPXNTPYPF6882-35-09 11:42:00 Test Item Value Reference Range Interpretation Comments Eosinophils (test code = 1.5 See_Comment [A utomated message] The Eosinophils) system which ge nerated this result tra nsmitted reference range : <=4.0. The reference r elliott was not used to int erpret this result as normal/abnormal . [facility]lineEfedubbNQODHGYCSL3564-81-78 11:42:00 Test Item Value Reference Range Interpretation Comments Segs (test code = Segs) 75.3 45.0-75.0 [facility]lineOyvombtABONNXQQOP4119-03-57 11:42:00 Test Item Value Reference Range Interpretation Comments Lymphocytes # (test code = Lymphocytes 2.9 1.0-5.5 #) [facility]lineAzduttqFCMKLBMCFO6151-17-99 11:42:00 Test Item Value Reference Range Interpretation Comments Segs-Bands # (test code = Segs-Bands #) 13.9 1.5-8.1 [facility]lineYdnvuaqFARKLUFTWP0795-92-02 11:42:00 Test Item Value Reference Range Interpretation Comments MCH (test code = MCH) 28.9 pg 27.0-31.0 [facility]lineKbrvoeeOZFDHRKEQJ1022-27-20 11:42:00 Test Item Value Reference Range Interpretation Comments MCV (test code = MCV) 88.9 80.0-94.0 [facility]lineBmlednzYCLQTDMLZP9379-85-49 11:42:00 Test Item Value Reference Range Interpretation Comments Hct (test code = Hct) 46.4 42.0-54.0 [facility]lineSgqnmuvTKONUFHNAX2811-21-75 11:42:00 Test Item Value Reference Range Interpretation Comments Hgb (test code = Hgb) 15.1 14.0-18.0 [facility]lineAkhstgbAKCMRHOTFC6833-97-41 11:42:00 Test Item Value Reference Range Interpretation Comments RBC (test code = RBC) 5.22 4.70-6.10 [facility]lineTtmmdeeUJLQPMGSLX5523-42-59 11:42:00 Test Item Value Reference Range Interpretation Comments MPV (test code = MPV) 9.5 7.4-10.4 [facility]lineXxrzzeyWDXSIRSGQD3631-53-77 11:42:00 Test Item Value Reference Range Interpretation Comments Platelet (test code = Platelet) 269 133-450 [facility]lineAvsmjhfPDNHNWJCOO1388-45-04 11:42:00 Test Item Value Reference Range Interpretation Comments RDW (test code = RDW) 14.4 11.5-14.5 [facility]lineFajhfnjZRZUSZPBYH7682-55-94 11:42:00 Test Item Value Reference Range Interpretation Comments MCHC (test code = MCHC) 32.5 32.0-36.0 [facility] ShorelineHuethbpBQBDPYYLFG8073-48-02 11:42:00 Test Item Value Reference Range Interpretation Comments WBC (test code = WBC) 18.4 3.7-10.4 [facility]2017-12-12 11:42:00 Test Item Value Reference Range Interpretation Comments Procalcitonin Lvl (test no gt See_Comment [Au tomated message] code = Procalcitonin Lvl) e system which generated this result transmitted ref erence range: <=0.10. The reference range was not used to interpr et this result as normal/abnormal . [facility]JpcswddYXLVXZVJAFUB4612-35-67 11:42:00 Test Item Value Reference Range Interpretation Comments AGAP (test code = AGAP) 14.0 10.0-20.0 [facility] HospitalDflkrspASWZYULAKMWQ4120-04-34 11:42:00 Test Item Value Reference Range Interpretation Comments eGFR (test code = eGFR) 94 [facility] HospitalEnhpsajEOTNTAKLDMTR4010-80-68 11:42:00 Test Item Value Reference Range Interpretation Comments Potassium Lvl (test code = Potassium 4.0 3.5-5.1 Lvl) [facility] HospitalZmflztsLFCDDOLVKVQZ6160-78-68 11:42:00 Test Item Value Reference Range Interpretation Comments Sodium Lvl (test code = Sodium Lvl) 139 135-145 [facility] HospitalOmmlvrvRUCDSVEYHSME2500-66-65 11:42:00 Test Item Value Reference Range Interpretation Comments Sodium Lvl (test code = Sodium Lvl) 139 135-145 [facility] HospitalMklzulaENVFSNFAFMHQ9314-01-27 11:42:00 Test Item Value Reference Range Interpretation Comments BUN (test code = BUN) 26 7-22 [facility]svvqbhCPAFVKGNKM6398-24-23 21:13:00 Test Item Value Reference Range Interpretation Comments Vanco Tr TND (test code = Vanco Tr [id number] TND) [facility]ballMjggwrsTWRCANMWXX9941-34-22 21:13:00 Test Item Value Reference Range Interpretation Comments Vanco Tr (test code = Vanco Tr) 14.1 [facility]KxgqdtoARPAPUMWIF2002-57-69 21:13:00 Test Item Value Reference Range Interpretation Comments Vanco Tr TND (test code = Vanco Tr [id number] TND) [facility]ballXjpjncsLGMUHLLLMV2602-26-77 21:13:00 Test Item Value Reference Range Interpretation Comments Vanco Tr (test code = Vanco Tr) 14.1 [facility]gitavhJNYXILQSRJ2532-57-02 21:50:00 Test Item Value Reference Range Interpretation Comments Vanco Tr TND (test code = Vanco Tr [id number] TND) [facility]INXBJITWLI2819-[facility]-11 21:50:00 Test Item Value Reference Range Interpretation Comments Vanco Tr (test code = Vanco Tr) 10.3 [facility] TylerJopmkgtCDLNIIHGQS5187-87-26 21:50:00 Test Item Value Reference Range Interpretation Comments Vanco Tr TND (test code = Vanco Tr [id number] TND) [facility]MrrrebeBGNDBTTHCE2121-19-11 21:50:00 Test Item Value Reference Range Interpretation Comments Vanco Tr (test code = Vanco Tr) 10.3 [facility] AreaOrcbogaHVJMUJOIRUPL1329-75-51 09:47:00 Test Item Value Reference Range Interpretation Comments Chloride Lvl (test code = Chloride Lvl) 105 95-109 [facility] AreaQvdfxhaJPXIHGERVUWZ1442-99-55 09:47:00 Test Item Value Reference Range Interpretation Comments CO2 (test code = CO2) 26 24-32 [facility] AreaOmcjrkbXRDZHSFITGAY5450-55-39 09:47:00 Test Item Value Reference Range Interpretation Comments Potassium Lvl (test code = Potassium 4.1 3.5-5.1 Lvl) [facility] AreaDleqursLJNMGKEJBYAD4404-93-60 09:47:00 Test Item Value Reference Range Interpretation Comments Creatinine Lvl (test code = Creatinine 0.90 0.50-1.40 Lvl) [facility] HospitalIfwotplWWWBIAANWVJN3270-35-41 09:47:00 Test Item Value Reference Range Interpretation Comments Sodium Lvl (test code = Sodium Lvl) 139 135-145 [facility] HospitalWbqeulyILMMBTCXGRMI5093-44-98 09:47:00 Test Item Value Reference Range Interpretation Comments Calcium Lvl (test code = Calcium Lvl) 8.8 8.5-10.5 [facility] HospitalEvekxkpTUMZTUXMGAGH8902-88-64 09:47:00 Test Item Value Reference Range Interpretation Comments BUN (test code = BUN) 27 7-22 [facility] HospitalApthiggWRHJVCHGLFIZ8565-89-59 09:47:00 Test Item Value Reference Range Interpretation Comments Glucose Lvl (test code = Glucose Lvl) 189 70-99 [facility]lineZdxkrtkDXLCMIFBBM3671-72-01 09:47:00 Test Item Value Reference Range Interpretation Comments RDW (test code = RDW) 14.6 11.5-14.5 [facility]linePvjtlniKPDNMHHALZ5521-75-23 09:47:00 Test Item Value Reference Range Interpretation Comments MPV (test code = MPV) 9.7 7.4-10.4 [facility] ShorelineRbnvkidNGALSTTXXR5221-18-18 09:47:00 Test Item Value Reference Range Interpretation Comments Platelet (test code = Platelet) 238 133-450 [facility]lineQlmnwnhJXFSDPDJCX8814-23-58 09:47:00 Test Item Value Reference Range Interpretation Comments Hgb (test code = Hgb) 15.1 14.0-18.0 [facility]lineXarsqsmMFPDHJVCDZ2835-55-43 09:47:00 Test Item Value Reference Range Interpretation Comments Hct (test code = Hct) 45.7 42.0-54.0 [facility]linePpxykehMVVCLGNMAD1152-23-10 09:47:00 Test Item Value Reference Range Interpretation Comments MCHC (test code = MCHC) 33.1 32.0-36.0 [facility]lineAvqnhpyVTSBCGNNOE9556-44-66 09:47:00 Test Item Value Reference Range Interpretation Comments MCH (test code = MCH) 29.5 pg 27.0-31.0 [facility]lineRmrzkmvQFWJKQNZQR9720-10-93 09:47:00 Test Item Value Reference Range Interpretation Comments MCV (test code = MCV) 89.1 80.0-94.0 [facility]lineMqivtwpXECIFFQCRU8138-02-73 09:47:00 Test Item Value Reference Range Interpretation Comments RBC (test code = RBC) 5.13 4.70-6.10 [facility]lineJiikljgLONEQJFKGK5975-52-62 09:47:00 Test Item Value Reference Range Interpretation Comments WBC (test code = WBC) 16.7 3.7-10.4 [facility] ShorelineBartkesIZEBPWZOBI8963-85-75 09:47:00 Test Item Value Reference Range Interpretation Comments Basophils # (test code 0.1 See_Comment [Aut omated message] The = Basophils #) system which generated this result tra nsmitted reference range : <=0.2. The reference r elliott was not used to int erpret this result as normal/abnormal . [facility]lineRgkftwnJTJERFXVOA7361-24-55 09:47:00 Test Item Value Reference Range Interpretation Comments Eosinophils # (test code 0.2 See_Comment [A utomated message] The = Eosinophils #) system whic h generated this result tra nsmitted reference range : <=0.5. The reference r elliott was not used to int erpret this result as normal/abnormal . [facility]lineVcgaquxJWQLOXDPLW0598-32-71 09:47:00 Test Item Value Reference Range Interpretation Comments Segs (test code = Segs) 74.2 45.0-75.0 [facility]lineNeslzsrZPKDXMDSDX3637-04-41 09:47:00 Test Item Value Reference Range Interpretation Comments Eosinophils (test code = 1.5 See_Comment [A utomated message] The Eosinophils) system which ge nerated this result tra nsmitted reference range : <=4.0. The reference r elliott was not used to int erpret this result as normal/abnormal . [facility] ShorelineDhpwhwyJRWSSOVOVC1539-07-82 09:47:00 Test Item Value Reference Range Interpretation Comments Monocytes (test code = Monocytes) 7.9 2.0-12.0 [facility]linePqjdogyGYWCKVHVYW2252-28-00 09:47:00 Test Item Value Reference Range Interpretation Comments Segs-Bands # (test code = Segs-Bands #) 12.4 1.5-8.1 [facility] ShorelineIocqwycOOSJFAWAKV6133-51-84 09:47:00 Test Item Value Reference Range Interpretation Comments Basophils (test code = 0.5 See_Comment [Aut omated message] The Basophils) system which ge nerated this result tra nsmitted reference range : <=1.0. The reference r elliott was not used to int erpret this result as normal/abnormal . [facility]lineIsxjjseUDZCJUOGYU6295-61-67 09:47:00 Test Item Value Reference Range Interpretation Comments Monocytes # (test code 1.3 See_Comment [Aut omated message] The = Monocytes #) system which generated this result tra nsmitted reference range : <=0.8. The reference r elliott was not used to int erpret this result as normal/abnormal . [facility]lineNncubggBOYKNRRAZW4534-93-66 09:47:00 Test Item Value Reference Range Interpretation Comments Lymphocytes # (test code = Lymphocytes 2.7 1.0-5.5 #) [facility]lineKxldmyiEVQCDFHYKM6832-55-43 09:47:00 Test Item Value Reference Range Interpretation Comments Lymphocytes (test code = Lymphocytes) 15.9 20.0-40.0 [facility]2017-12-10 09:47:00 Test Item Value Reference Range Interpretation Comments Procalcitonin Lvl (test 0.05 See_Comment [Au tomated message] code = Procalcitonin Lvl) Th e system which generated this result transmitted ref erence range: <=0.10. The reference range was not used to interpr et this result as normal/abnormal . [facility] HospitalWgpbaloDODAJQRZWWVE6010-18-72 09:47:00 Test Item Value Reference Range Interpretation Comments AGAP (test code = AGAP) 12.1 10.0-20.0 [facility] HospitalOaetlguOKCFDGZFQRUU1163-87-32 09:47:00 Test Item Value Reference Range Interpretation Comments eGFR (test code = eGFR) 94 [facility] HospitalMdfoehpYLPQCZNDXBUC2742-64-70 09:47:00 Test Item Value Reference Range Interpretation Comments Chloride Lvl (test code = Chloride Lvl) 105 95-109 [facility] HospitalOwxlegsKJQMLMSLZGLD8625-69-18 09:47:00 Test Item Value Reference Range Interpretation Comments CO2 (test code = CO2) 26 24-32 [facility] HospitalFcklqobZNHSJJWWRIAD8421-33-52 09:47:00 Test Item Value Reference Range Interpretation Comments Potassium Lvl (test code = Potassium 4.1 3.5-5.1 Lvl) [facility] HospitalMqgehktAOIHZXFNGZLB4958-87-34 09:47:00 Test Item Value Reference Range Interpretation Comments Creatinine Lvl (test code = Creatinine 0.90 0.50-1.40 Lvl) [facility] HospitalPagxbtqQEFHUNDYPBWN8523-04-30 09:47:00 Test Item Value Reference Range Interpretation Comments Sodium Lvl (test code = Sodium Lvl) 139 135-145 [facility] HospitalQfxuhyvZHPGCJRCZOIB2060-71-47 09:47:00 Test Item Value Reference Range Interpretation Comments Calcium Lvl (test code = Calcium Lvl) 8.8 8.5-10.5 [facility] HospitalQvzssdgVERPAYKVVCSU5929-61-52 09:47:00 Test Item Value Reference Range Interpretation Comments BUN (test code = BUN) 27 7-22 [facility] HospitalMkirunfSCBXGUGGTSGY0078-16-19 09:47:00 Test Item Value Reference Range Interpretation Comments Glucose Lvl (test code = Glucose Lvl) 189 70-99 [facility]lineRlzktutGYOPULVANU6023-93-15 09:47:00 Test Item Value Reference Range Interpretation Comments RDW (test code = RDW) 14.6 11.5-14.5 [facility]lineJirjzxxSQRGYVILLS4489-28-34 09:47:00 Test Item Value Reference Range Interpretation Comments MPV (test code = MPV) 9.7 7.4-10.4 [facility]lineEstwiqrCLZCJPAEMB5592-81-92 09:47:00 Test Item Value Reference Range Interpretation Comments Platelet (test code = Platelet) 238 133-450 [facility] ShorelineFqlilguSCDYYNERJO1673-82-08 09:47:00 Test Item Value Reference Range Interpretation Comments Hgb (test code = Hgb) 15.1 14.0-18.0 [facility] ShorelineZwohtloSBJLYNAFGL3390-16-30 09:47:00 Test Item Value Reference Range Interpretation Comments Hct (test code = Hct) 45.7 42.0-54.0 [facility] ShorelineLnalhpbYGAXASGZOO6685-17-87 09:47:00 Test Item Value Reference Range Interpretation Comments MCHC (test code = MCHC) 33.1 32.0-36.0 [facility] ShorelineLhjdryfWTKIUCBVKO4575-45-12 09:47:00 Test Item Value Reference Range Interpretation Comments MCH (test code = MCH) 29.5 pg 27.0-31.0 [facility]lineWcozhzsWUVWHLEEAN5241-26-68 09:47:00 Test Item Value Reference Range Interpretation Comments MCV (test code = MCV) 89.1 80.0-94.0 [facility]lineJijbuwuUADBZEXATM7336-00-22 09:47:00 Test Item Value Reference Range Interpretation Comments RBC (test code = RBC) 5.13 4.70-6.10 [facility]lineKxdnawhWSPGZTGNSW3467-86-34 09:47:00 Test Item Value Reference Range Interpretation Comments WBC (test code = WBC) 16.7 3.7-10.4 [facility] ShorelineLmdxrnaLSGXKAYSID4210-79-22 09:47:00 Test Item Value Reference Range Interpretation Comments Basophils # (test code 0.1 See_Comment [Aut omated message] The = Basophils #) system which generated this result tra nsmitted reference range : <=0.2. The reference r elliott was not used to int erpret this result as normal/abnormal . [facility] ShorelineFovaqlaAQEWERJVHH2761-24-57 09:47:00 Test Item Value Reference Range Interpretation Comments Eosinophils # (test code 0.2 See_Comment [A utomated message] The = Eosinophils #) system whic h generated this result tra nsmitted reference range : <=0.5. The reference r elliott was not used to int erpret this result as normal/abnormal . [facility]lineJdxayqpTFHTBAGZUQ4632-63-70 09:47:00 Test Item Value Reference Range Interpretation Comments Segs (test code = Segs) 74.2 45.0-75.0 [facility]lineQxzvtvfYUEIMVNLVE5561-33-66 09:47:00 Test Item Value Reference Range Interpretation Comments Eosinophils (test code = 1.5 See_Comment [A utomated message] The Eosinophils) system which ge nerated this result tra nsmitted reference range : <=4.0. The reference r elliott was not used to int erpret this result as normal/abnormal . [facility]lineBqfryojVYWSRWYVXK2208-96-89 09:47:00 Test Item Value Reference Range Interpretation Comments Monocytes (test code = Monocytes) 7.9 2.0-12.0 [facility] ShorelineLmnzigzCMDZBQVCEC7421-19-30 09:47:00 Test Item Value Reference Range Interpretation Comments Segs-Bands # (test code = Segs-Bands #) 12.4 1.5-8.1 [facility] ShorelineJkghtabNONIGBFIPH3758-95-06 09:47:00 Test Item Value Reference Range Interpretation Comments Basophils (test code = 0.5 See_Comment [Aut omated message] The Basophils) system which ge nerated this result tra nsmitted reference range : <=1.0. The reference r elliott was not used to int erpret this result as normal/abnormal . [facility] ShorelineKtbtbicPHBDDCJLPG0899-15-31 09:47:00 Test Item Value Reference Range Interpretation Comments Monocytes # (test code 1.3 See_Comment [Aut omated message] The = Monocytes #) system which generated this result tra nsmitted reference range : <=0.8. The reference r elliott was not used to int erpret this result as normal/abnormal . [facility] ShorelineMsacqlnJCAUIENCPF5351-91-76 09:47:00 Test Item Value Reference Range Interpretation Comments Lymphocytes # (test code = Lymphocytes 2.7 1.0-5.5 #) [facility]lineJkbrksqKZEZFJTUPA9638-96-63 09:47:00 Test Item Value Reference Range Interpretation Comments Lymphocytes (test code = Lymphocytes) 15.9 20.0-40.0 [facility]2017-12-10 09:47:00 Test Item Value Reference Range Interpretation Comments Procalcitonin Lvl (test 0.05 See_Comment [Au tomated message] code = Procalcitonin Lvl) Th e system which generated this result transmitted ref erence range: <=0.10. The reference range was not used to interpr et this result as normal/abnormal . [facility] HospitalZsnyhraEFQUMIHOJSOS3978-82-08 09:47:00 Test Item Value Reference Range Interpretation Comments AGAP (test code = AGAP) 12.1 10.0-20.0 [facility] HospitalTmwckvvEOOQURSJLMGS8062-90-44 09:47:00 Test Item Value Reference Range Interpretation Comments eGFR (test code = eGFR) 94 [facility]doTTIJQTKADW0436-[facility]-41 07:33:00 Test Item Value Reference Range Interpretation Comments Vanco Tr (test code = Vanco Tr) 9.0 [facility]AlzhvycYCYHUIRDND9496-99-05 07:33:00 Test Item Value Reference Range Interpretation Comments Vanco Tr TND (test code = Vanco Tr [id number] TND) [facility]XqltspuGEHNHTXPIU9005-02-50 07:33:00 Test Item Value Reference Range Interpretation Comments Vanco Tr (test code = Vanco Tr) 9.0 [facility] HospitalKjlxyimZWJIODYZPE4905-43-79 07:33:00 Test Item Value Reference Range Interpretation Comments Alem Tr TND (test code = Alem Tr [id number] TND) [facility]2017-12-07 20:40:00 Test Item Value Reference Range Interpretation Comments Lactic Acid Lvl (test code = Lactic 1.3 0.5-2.2 Acid Lvl) [facility]2017-12-07 20:40:00 Test Item Value Reference Range Interpretation Comments Lactic Acid Lvl (test code = Lactic 1.3 0.5-2.2 Acid Lvl) [facility]2017-12-07 11:49:00 Test Item Value Reference Range Interpretation Comments Lactic Acid Lvl (test code = Lactic 1.3 0.5-2.2 Acid Lvl) [facility]2017-12-07 11:49:00 Test Item Value Reference Range Interpretation Comments Lactic Acid Lvl (test code = Lactic 1.3 0.5-2.2 Acid Lvl) [facility] AND [id number] 05:10:00 Test Item Value Reference Range Interpretation Comments UA Blood (test code = Moderate *ABN*(09/15/17 UA Blood) 11:10 PM) [facility] AND [id number] 05:10:00 Test Item Value Reference Range Interpretation Comments UA Bili (test code = Negative *NA*(09/15/17 UA Bili) 11:10 PM) [facility] AND [id number] 05:10:00 Test Item Value Reference Range Interpretation Comments UA Glucose (test code = UA Negative mg/dL Glucose) [facility] AND [id number] 05:10:00 Test Item Value Reference Range Interpretation Comments UA Protein (test code = UA Protein) 30 mg/dL [facility] AND [id number] 05:10:00 Test Item Value Reference Range Interpretation Comments UA Ketones (test code = UA Negative mg/dL Ketones) [facility] AND [id number] 05:10:00 Test Item Value Reference Range Interpretation Comments UA pH (test code = UA pH) 5.0 5.0-8.0 [facility] AND [id number] 05:10:00 Test Item Value Reference Range Interpretation Comments UA Spec Grav (test code = UA Spec Grav) 1.021 [facility] AND [id number] 05:10:00 Test Item Value Reference Range Interpretation Comments UA Turbidity (test code Slight *ABN*(09/15/17 = UA Turbidity) 11:10 PM) [facility] AND [id number] 05:10:00 Test Item Value Reference Range Interpretation Comments UA Nitrite (test code Negative (09/15/17 11:10 = UA Nitrite) PM) [facility] AND [id number] 05:10:00 Test Item Value Reference Range Interpretation Comments UA Urobilinogen (test code = UA 2.0 0.1-1.0 Urobilinogen) [facility] AND [id number] 05:10:00 Test Item Value Reference Range Interpretation Comments UA Leuk Est (test Negative (09/15/17 11:10 code = UA Leuk Est) PM) [facility] AND [id number] 05:10:00 Test Item Value Reference Range Interpretation Comments UA Color (test code = UA Color) Yellow [facility] AND [id number] 05:10:00 Test Item Value Reference Range Interpretation Comments Micro? (test code = Performed *NA*(09/15/17 Micro?) 11:10 PM) [facility] AND [id number] 05:10:00 Test Item Value Reference Range Interpretation Comments UA Hyal Cast (test 1 See_Comment [Automat ed message] The code = UA Hyal Cast) system which generated this result transmit kole reference range : <=2. The reference range was not used to interpr et this result as venkatesh l/abnormal. [facility] AND [id number] 05:10:00 Test Item Value Reference Range Interpretation Comments UA RBC (test code = 56 See_Comment [Automa kole message] The UA RBC) system which ge nerated this result transmit kole reference range : <=2. The reference range was not used to interpr et this result as venkatesh l/abnormal. [facility] AND [id number] 05:10:00 Test Item Value Reference Range Interpretation Comments UA Mucus (test code = UA Mucus) Few /LPF [facility] AND [id number] 05:10:00 Test Item Value Reference Range Interpretation Comments UA WBC (test code = 5 See_Comment [Automa kole message] The UA WBC) system which ge nerated this result transmit kole reference range : <=5. The reference range was not used to interpr et this result as venkatesh l/abnormal. [facility] AND [id number] 05:10:00 Test Item Value Reference Range Interpretation Comments UA Sq Epi (test code = UA Sq Occasional /LPF Epi) [facility] AND [id number] 05:10:00 Test Item Value Reference Range Interpretation Comments UA Blood (test code = Moderate *ABN*(09/15/17 UA Blood) 11:10 PM) [facility] AND [id number] 05:10:00 Test Item Value Reference Range Interpretation Comments UA Bili (test code = Negative *NA*(09/15/17 UA Bili) 11:10 PM) [facility] AND [id number] 05:10:00 Test Item Value Reference Range Interpretation Comments UA Glucose (test code = UA Negative mg/dL Glucose) [facility] AND [id number] 05:10:00 Test Item Value Reference Range Interpretation Comments UA Protein (test code = UA Protein) 30 mg/dL [facility] AND [id number] 05:10:00 Test Item Value Reference Range Interpretation Comments UA Ketones (test code = UA Negative mg/dL Ketones) [facility] AND [id number] 05:10:00 Test Item Value Reference Range Interpretation Comments UA pH (test code = UA pH) 5.0 5.0-8.0 [facility] AND [id number] 05:10:00 Test Item Value Reference Range Interpretation Comments UA Spec Grav (test code = UA Spec Grav) 1.021 [facility] AND [id number] 05:10:00 Test Item Value Reference Range Interpretation Comments UA Turbidity (test code Slight *ABN*(09/15/17 = UA Turbidity) 11:10 PM) [facility] AND [id number] 05:10:00 Test Item Value Reference Range Interpretation Comments UA Nitrite (test code Negative (09/15/17 11:10 = UA Nitrite) PM) [facility] AND [id number] 05:10:00 Test Item Value Reference Range Interpretation Comments UA Urobilinogen (test code = UA 2.0 0.1-1.0 Urobilinogen) [facility] [id number] 05:10:00 Test Item Value Reference Range Interpretation Comments UA Leuk Est (test Negative (09/15/17 11:10 code = UA Leuk Est) PM) [facility] [id number] 05:10:00 Test Item Value Reference Range Interpretation Comments UA Color (test code = UA Color) Yellow [facility] AND [id number] 05:10:00 Test Item Value Reference Range Interpretation Comments Micro? (test code = Performed *NA*(09/15/17 Micro?) 11:10 PM) [facility] [id number] 05:10:00 Test Item Value Reference Range Interpretation Comments UA Hyal Cast (test 1 See_Comment [Automat ed message] The code = UA Hyal Cast) system which generated this result transmit kole reference range : <=2. The reference range was not used to interpr et this result as venkatesh l/abnormal. [facility] [id number] 05:10:00 Test Item Value Reference Range Interpretation Comments UA RBC (test code = 56 See_Comment [Automa kole message] The UA RBC) system which ge nerated this result transmit kole reference range : <=2. The reference range was not used to interpr et this result as venkatesh l/abnormal. [facility] [id number] 05:10:00 Test Item Value Reference Range Interpretation Comments UA Mucus (test code = UA Mucus) Few /LPF [facility] [facility] [id number] 05:10:00 Test Item Value Reference Range Interpretation Comments UA WBC (test code = 5 See_Comment [Automa kole message] The UA WBC) system which ge nerated this result transmit kole reference range : <=5. The reference range was not used to interpr et this result as venkatesh l/abnormal. [facility] [id number] 05:10:00 Test Item Value Reference Range Interpretation Comments UA Sq Epi (test code = UA Sq Occasional /LPF Epi) [facility] [id number] 10:35:00 Test Item Value Reference Range Interpretation Comments Phosphorus (test code = Phosphorus) 3.1 2.5-4.5 [facility]2017-12-04 10:35:00 Test Item Value Reference Range Interpretation Comments Magnesium Lvl (test code = Magnesium 2.1 1.8-2.4 Lvl) [id number] 10:35:00 Test Item Value Reference Range Interpretation Comments Basophils (test code = 0.6 See_Comment [Aut omated message] The Basophils) system which ge nerated this result tra nsmitted reference range : <=1.0. The reference r elliott was not used to int erpret this result as normal/abnormal . [facility] Sh[id number] 10:35:00 Test Item Value Reference Range Interpretation Comments Basophils # (test code 0.1 See_Comment [Aut omated message] The = Basophils #) system which generated this result tra nsmitted reference range : <=0.2. The reference r elliott was not used to int erpret this result as normal/abnormal . [facility]2017-12-04 10:35:00 Test Item Value Reference Range Interpretation Comments Ca Ion WB (test code = Ca Ion WB) 1.02 1.05-1.25 [facility]2017-12-04 10:35:00 Test Item Value Reference Range Interpretation Comments Ca Norm WB (test code = Ca Norm WB) 1.05 1.05-1.25 [facility]2017-12-04 10:35:00 Test Item Value Reference Range Interpretation Comments Phosphorus (test code = Phosphorus) 3.1 2.5-4.5 [facility]2017-12-04 10:35:00 Test Item Value Reference Range Interpretation Comments Magnesium Lvl (test code = Magnesium 2.1 1.8-2.4 Lvl) [facility] S[id number] 10:35:00 Test Item Value Reference Range Interpretation Comments Basophils (test code = 0.6 See_Comment [Aut omated message] The Basophils) system which ge nerated this result tra nsmitted reference range : <=1.0. The reference r elliott was not used to int erpret this result as normal/abnormal . [facility] ShorelineLsvbefwTKWNEUNRME1207-12-84 10:35:00 Test Item Value Reference Range Interpretation Comments Basophils # (test code 0.1 See_Comment [Aut omated message] The = Basophils #) system which generated this result tra nsmitted reference range : <=0.2. The reference r elliott was not used to int erpret this result as normal/abnormal . [facility] [id number] 10:35:00 Test Item Value Reference Range Interpretation Comments Ca Ion WB (test code = Ca Ion WB) 1.02 1.05-1.25 [facility]2017-12-04 10:35:00 Test Item Value Reference Range Interpretation Comments Ca Norm WB (test code = Ca Norm WB) 1.05 1.05-1.25 [facility] TylerVirtustreamAC [id number] 09:53:00 Test Item Value Reference Range Interpretation Comments Troponin-I (test code no gt See_Comment [Auto mated message] The = Troponin-I) system which g enerated this result transmit kole reference range : <=0.40. The reference r elliott was not used to interpr et this result as venkatesh l/abnormal. [facility] [employer] [id number] 09:53:00 Test Item Value Reference Range Interpretation Comments Phosphorus (test code = Phosphorus) 2.8 2.5-4.5 [facility] Tyleribeatyou [id number] 09:53:00 Test Item Value Reference Range Interpretation Comments Magnesium Lvl (test code = Magnesium 2.3 1.8-2.4 Lvl) [facility]UECARE [id number] 09:53:00 Test Item Value Reference Range Interpretation Comments Ca Norm WB (test code = Ca Norm WB) 1.08 1.05-1.25 [facility] TylerPrivateFlyCONTINUECARE [id number] 09:53:00 Test Item Value Reference Range Interpretation Comments Ca Ion WB (test code = Ca Ion WB) 1.08 1.05-1.25 [facility] TylerOdnoklassnikiDI [id number] 09:53:00 Test Item Value Reference Range Interpretation Comments Troponin-I (test code no gt See_Comment [Auto mated message] The = Troponin-I) system which g enerated this result transmit kole reference range : <=0.40. The reference r elliott was not used to interpr et this result as venkatesh l/abnormal. [facility] [employer]2017-12-03 09:53:00 Test Item Value Reference Range Interpretation Comments Phosphorus (test code = Phosphorus) 2.8 2.5-4.5 [facility] [id number] 09:53:00 Test Item Value Reference Range Interpretation Comments Magnesium Lvl (test code = Magnesium 2.3 1.8-2.4 Lvl) [facility] HospitalannPARATHYROID [id number] 09:53:00 Test Item Value Reference Range Interpretation Comments Ca Norm WB (test code = Ca Norm WB) 1.08 1.05-1.25 [facility]annPARATHYROID [id number] 09:53:00 Test Item Value Reference Range Interpretation Comments Ca Ion WB (test code = Ca Ion WB) 1.08 1.05-1.25 [facility] TylerannBACTERIAL - [id number] 00:11:00 Test Item Value Reference Range Interpretation Comments MRSA by PCR (test Negative (09/13/17 6:11 code = MRSA by PCR) PM) [facility]annDR[facility] [id number] 00:11:00 Test Item Value Reference Range Interpretation Comments U Lisa Scr (test code Negative *NA*(09/13/17 = U Lisa Scr) 6:11 PM) [facility]annDR[facility] [id number] 00:11:00 Test Item Value Reference Range Interpretation Comments U Amph Scr (test code Negative *NA*(09/13/17 = U Amph Scr) 6:11 PM) [facility]DR[facility] [id number] 00:11:00 Test Item Value Reference Range Interpretation Comments U Benzodia Scr (test Negative *NA*(09/13/17 code = U Benzodia Scr) 6:11 PM) [facility] [id number] 00:11:00 Test Item Value Reference Range Interpretation Comments U Opiate Scr (test Negative *NA*(09/13/17 code = U Opiate Scr) 6:11 PM) [facility] [id number] 00:11:00 Test Item Value Reference Range Interpretation Comments U Cannab Scr (test Negative *NA*(09/13/17 code = U Cannab Scr) 6:11 PM) [facility]DR[facility] [id number] 00:11:00 Test Item Value Reference Range Interpretation Comments U Cocaine Scr (test Positive *ABN*(09/13/17 code = U Cocaine Scr) 6:11 PM) [facility] [id number] 00:11:00 Test Item Value Reference Range Interpretation Comments UDS Note (test code = See Note (09/13/17 6:11 UDS Note) PM) [facility] [id number] 00:11:00 Test Item Value Reference Range Interpretation Comments U Propoxyph Scr (test Negative *NA*(09/13/17 code = U Propoxyph Scr) 6:11 PM) [facility]DR[facility] [id number] 00:11:00 Test Item Value Reference Range Interpretation Comments U Phencyc Scr (test Negative *NA*(09/13/17 code = U Phencyc Scr) 6:11 PM) [facility]DR[facility] [id number] 00:11:00 Test Item Value Reference Range Interpretation Comments U Methadone Scr (test Negative *NA*(09/13/17 code = U Methadone Scr) 6:11 PM) [facility] TylerannBACTERIAL - [id number] 00:11:00 Test Item Value Reference Range Interpretation Comments MRSA by PCR (test Negative (09/13/17 6:11 code = MRSA by PCR) PM) [facility]DR[facility] [id number] 00:11:00 Test Item Value Reference Range Interpretation Comments U Lisa Scr (test code Negative *NA*(09/13/17 = U Lisa Scr) 6:11 PM) [facility] [id number] 00:11:00 Test Item Value Reference Range Interpretation Comments U Amph Scr (test code Negative *NA*(09/13/17 = U Amph Scr) 6:11 PM) [facility] [id number] 00:11:00 Test Item Value Reference Range Interpretation Comments U Benzodia Scr (test Negative *NA*(09/13/17 code = U Benzodia Scr) 6:11 PM) [facility]DR[facility] [id number] 00:11:00 Test Item Value Reference Range Interpretation Comments U Opiate Scr (test Negative *NA*(09/13/17 code = U Opiate Scr) 6:11 PM) [facility] [id number] 00:11:00 Test Item Value Reference Range Interpretation Comments U Cannab Scr (test Negative *NA*(09/13/17 code = U Cannab Scr) 6:11 PM) [facility] [id number] 00:11:00 Test Item Value Reference Range Interpretation Comments U Cocaine Scr (test Positive *ABN*(09/13/17 code = U Cocaine Scr) 6:11 PM) [facility]DR[facility] [id number] 00:11:00 Test Item Value Reference Range Interpretation Comments UDS Note (test code = See Note (09/13/17 6:11 UDS Note) PM) [facility] [id number] 00:11:00 Test Item Value Reference Range Interpretation Comments U Propoxyph Scr (test Negative *NA*(09/13/17 code = U Propoxyph Scr) 6:11 PM) [facility] [id number] 00:11:00 Test Item Value Reference Range Interpretation Comments U Phencyc Scr (test Negative *NA*(09/13/17 code = U Phencyc Scr) 6:11 PM) [facility]PassannDR[facility] [id number] 00:11:00 Test Item Value Reference Range Interpretation Comments U Methadone Scr (test Negative *NA*(09/13/17 code = U Methadone Scr) 6:11 PM) [facility] MidokuraCARDIAC [id number] 16:40:00 Test Item Value Reference Range Interpretation Comments Troponin-I (test code no gt See_Comment [Auto mated message] The = Troponin-I) system which g enerated this result transmit kole reference range : <=0.40. The reference r elliott was not used to interpr et this result as venkatesh l/abnormal. [facility] [employer] [id number] 16:40:00 Test Item Value Reference Range Interpretation Comments Bili Direct (test code 0.1 See_Comment [Aut omated message] The = Bili Direct) system which generated this result tra nsmitted reference range : <=0.3. The reference r elliott was not used to int erpret this result as venkatesh l/abnormal. [facility] [employer] [id number] 16:40:00 Test Item Value Reference Range Interpretation Comments AST (test code = AST) 11 See_Comment [Auto mated message] The system which ge nerated this result transmit kole reference range : <=37. The reference range was not used to interpr et this result as venkatesh l/abnormal. [facility]2017-12-02 16:40:00 Test Item Value Reference Range Interpretation Comments Alk Phos (test code = Alk Phos) 83 39-136 [facility]2017-12-02 16:40:00 Test Item Value Reference Range Interpretation Comments Albumin Lvl (test code = Albumin Lvl) 3.2 3.5-5.0 [facility]2017-12-02 16:40:00 Test Item Value Reference Range Interpretation Comments Bili Total (test code = Bili Total) 0.4 0.2-1.3 [facility]2017-12-02 16:40:00 Test Item Value Reference Range Interpretation Comments ALT (test code = ALT) 26 See_Comment [Auto mated message] The system which ge nerated this result transmit kole reference range : <=65. The reference range was not used to interpr et this result as venkatesh l/abnormal. [facility]2017-12-02 16:40:00 Test Item Value Reference Range Interpretation Comments Total Protein (test code = Total 7.5 6.4-8.4 Protein) [facility]2017-12-02 16:40:00 Test Item Value Reference Range Interpretation Comments A/G Ratio (test code = A/G Ratio) 0.7 0.7-1.6 [facility]2017-12-02 16:40:00 Test Item Value Reference Range Interpretation Comments Globulin (test code = Globulin) 4.3 2.7-4.2 [facility]2017-12-02 16:40:00 Test Item Value Reference Range Interpretation Comments B/C Ratio (test code = B/C Ratio) 16 6-25 [facility] [id number] 16:40:00 Test Item Value Reference Range Interpretation Comments VLDL (test code = VLDL) 18 [facility] [id number] 16:40:00 Test Item Value Reference Range Interpretation Comments Chol (test code = Chol) 118 [facility] [id number] 16:40:00 Test Item Value Reference Range Interpretation Comments HDL (test code = HDL) 58 [facility] [id number] 16:40:00 Test Item Value Reference Range Interpretation Comments Trig (test code = Trig) 92 [facility] [id number] 16:40:00 Test Item Value Reference Range Interpretation Comments LDL (Calculated) (test code = LDL 42 (Calculated)) [facility] [id number] 16:40:00 Test Item Value Reference Range Interpretation Comments CHD Risk (test code = CHD Risk) 2.03 4.00-7.30 [facility] TomballSPECIAL [id number] 16:40:00 Test Item Value Reference Range Interpretation Comments Hgb A1C (test code = Hgb A1C) 8.8 [facility] AND [id number] 16:40:00 Test Item Value Reference Range Interpretation Comments UA Color (test code = UA Color) Ltyellow [facility] AND [id number] 16:40:00 Test Item Value Reference Range Interpretation Comments UA Urobilinogen (test code = UA no gt 0.1-1.0 Urobilinogen) [facility] AND [id number] 16:40:00 Test Item Value Reference Range Interpretation Comments UA Ketones (test code = UA Negative mg/dL Ketones) [facility] AND [id number] 16:40:00 Test Item Value Reference Range Interpretation Comments UA Protein (test code = UA Negative mg/dL Protein) [facility] AND [id number] 16:40:00 Test Item Value Reference Range Interpretation Comments UA Glucose (test code = UA Glucose) 500 mg/dL [facility] AND [id number] 16:40:00 Test Item Value Reference Range Interpretation Comments UA Spec Grav (test code = UA Spec Grav) 1.022 [facility] AND [id number] 16:40:00 Test Item Value Reference Range Interpretation Comments UA pH (test code = UA pH) 5.0 5.0-8.0 [facility] AND [id number] 16:40:00 Test Item Value Reference Range Interpretation Comments UA Turbidity (test code = Clear (09/13/17 10:40 UA Turbidity) AM) [facility] AND [id number] 16:40:00 Test Item Value Reference Range Interpretation Comments UA Mucus (test code = UA Mucus) Few /LPF [facility] AND [id number] 16:40:00 Test Item Value Reference Range Interpretation Comments UA Leuk Est (test code Small *ABN*(09/13/17 = UA Leuk Est) 10:40 AM) [facility] AND [id number] 16:40:00 Test Item Value Reference Range Interpretation Comments UA Sq Epi (test code = UA Sq Occasional /LPF Epi) [facility] [id number] 16:40:00 Test Item Value Reference Range Interpretation Comments UA WBC (test code = 13 See_Comment [Automa kole message] The UA WBC) system which ge nerated this result transmit kole reference range : <=5. The reference range was not used to interpr et this result as venkatesh l/abnormal. [facility] [id number] 16:40:00 Test Item Value Reference Range Interpretation Comments UA RBC (test code = 81 See_Comment [Automa kole message] The UA RBC) system which ge nerated this result transmit kole reference range : <=2. The reference range was not used to interpr et this result as venkatesh l/abnormal. [facility] AND [id number] 16:40:00 Test Item Value Reference Range Interpretation Comments UA Bili (test code = Negative *NA*(09/13/17 UA Bili) 10:40 AM) [facility] AND [id number] 16:40:00 Test Item Value Reference Range Interpretation Comments UA Blood (test code = Large *ABN*(09/13/17 UA Blood) 10:40 AM) [facility] AND [id number] 16:40:00 Test Item Value Reference Range Interpretation Comments UA Nitrite (test code Negative (09/13/17 10:40 = UA Nitrite) AM) [facility] TylerannCARDIAC [id number] 16:40:00 Test Item Value Reference Range Interpretation Comments Troponin-I (test code no gt See_Comment [Auto mated message] The = Troponin-I) system which g enerated this result transmit kole reference range : <=0.40. The reference r elliott was not used to interpr et this result as venkatesh l/abnormal. [facility]annCHEM [id number] 16:40:00 Test Item Value Reference Range Interpretation Comments Bili Direct (test code 0.1 See_Comment [Aut omated message] The = Bili Direct) system which generated this result tra nsmitted reference range : <=0.3. The reference r elliott was not used to int erpret this result as venkatesh l/abnormal. [facility] Tyleribeatyou [id number] 16:40:00 Test Item Value Reference Range Interpretation Comments AST (test code = AST) 11 See_Comment [Auto mated message] The system which ge nerated this result transmit kole reference range : <=37. The reference range was not used to interpr et this result as venkatesh l/abnormal. [facility] Tyleribeatyou [id number] 16:40:00 Test Item Value Reference Range Interpretation Comments Alk Phos (test code = Alk Phos) 83 39-136 [facility] Tyleribeatyou [id number] 16:40:00 Test Item Value Reference Range Interpretation Comments Albumin Lvl (test code = Albumin Lvl) 3.2 3.5-5.0 [facility] Tyleribeatyou [id number] 16:40:00 Test Item Value Reference Range Interpretation Comments Bili Total (test code = Bili Total) 0.4 0.2-1.3 [facility] TylerDoodleFORMERLY WEST[facility]KE MEDICAL [id number] 16:40:00 Test Item Value Reference Range Interpretation Comments ALT (test code = ALT) 26 See_Comment [Auto mated message] The system which ge nerated this result transmit kole reference range : <=65. The reference range was not used to interpr et this result as venkatesh l/abnormal. [facility] Tyleribeatyou [id number] 16:40:00 Test Item Value Reference Range Interpretation Comments Total Protein (test code = Total 7.5 6.4-8.4 Protein) [facility] Tyleribeatyou [id number] 16:40:00 Test Item Value Reference Range Interpretation Comments A/G Ratio (test code = A/G Ratio) 0.7 0.7-1.6 [facility] TomballFileHold [employer] [id number] 16:40:00 Test Item Value Reference Range Interpretation Comments Globulin (test code = Globulin) 4.3 2.7-4.2 [facility] Tyleribeatyou [id number] 16:40:00 Test Item Value Reference Range Interpretation Comments B/C Ratio (test code = B/C Ratio) 16 6-25 [facility] [id number] 16:40:00 Test Item Value Reference Range Interpretation Comments VLDL (test code = VLDL) 18 [facility] [id number] 16:40:00 Test Item Value Reference Range Interpretation Comments Chol (test code = Chol) 118 [facility] [id number] 16:40:00 Test Item Value Reference Range Interpretation Comments HDL (test code = HDL) 58 [facility] [id number] 16:40:00 Test Item Value Reference Range Interpretation Comments Trig (test code = Trig) 92 [facility] [id number] 16:40:00 Test Item Value Reference Range Interpretation Comments LDL (Calculated) (test code = LDL 42 (Calculated)) [facility] [id number] 16:40:00 Test Item Value Reference Range Interpretation Comments CHD Risk (test code = CHD Risk) 2.03 4.00-7.30 [facility] [id number] 16:40:00 Test Item Value Reference Range Interpretation Comments Hgb A1C (test code = Hgb A1C) 8.8 [facility] AND [id number] 16:40:00 Test Item Value Reference Range Interpretation Comments UA Color (test code = UA Color) Ltyellow [facility] AND [id number] 16:40:00 Test Item Value Reference Range Interpretation Comments UA Urobilinogen (test code = UA no gt 0.1-1.0 Urobilinogen) [facility] AND [id number] 16:40:00 Test Item Value Reference Range Interpretation Comments UA Ketones (test code = UA Negative mg/dL Ketones) [facility] AND [id number] 16:40:00 Test Item Value Reference Range Interpretation Comments UA Protein (test code = UA Negative mg/dL Protein) [facility] AND [id number] 16:40:00 Test Item Value Reference Range Interpretation Comments UA Glucose (test code = UA Glucose) 500 mg/dL [facility] AND [id number] 16:40:00 Test Item Value Reference Range Interpretation Comments UA Spec Grav (test code = UA Spec Grav) 1.022 [facility] AND [id number] 16:40:00 Test Item Value Reference Range Interpretation Comments UA pH (test code = UA pH) 5.0 5.0-8.0 [facility] AND [id number] 16:40:00 Test Item Value Reference Range Interpretation Comments UA Turbidity (test code = Clear (09/13/17 10:40 UA Turbidity) AM) [facility] AND [id number] 16:40:00 Test Item Value Reference Range Interpretation Comments UA Mucus (test code = UA Mucus) Few /LPF [facility] AND [id number] 16:40:00 Test Item Value Reference Range Interpretation Comments UA Leuk Est (test code Small *ABN*(09/13/17 = UA Leuk Est) 10:40 AM) [facility] AND [id number] 16:40:00 Test Item Value Reference Range Interpretation Comments UA Sq Epi (test code = UA Sq Occasional /LPF Epi) [facility] AND [id number] 16:40:00 Test Item Value Reference Range Interpretation Comments UA WBC (test code = 13 See_Comment [Automa kole message] The UA WBC) system which ge nerated this result transmit kole reference range : <=5. The reference range was not used to interpr et this result as venkatesh l/abnormal. [facility] AND [id number] 16:40:00 Test Item Value Reference Range Interpretation Comments UA RBC (test code = 81 See_Comment [Automa kole message] The UA RBC) system which ge nerated this result transmit kole reference range : <=2. The reference range was not used to interpr et this result as venkatesh l/abnormal. [facility] AND [id number] 16:40:00 Test Item Value Reference Range Interpretation Comments UA Bili (test code = Negative *NA*(09/13/17 UA Bili) 10:40 AM) [facility] AND [id number] 16:40:00 Test Item Value Reference Range Interpretation Comments UA Blood (test code = Large *ABN*(09/13/17 UA Blood) 10:40 AM) [facility] AND [id number] 16:40:00 Test Item Value Reference Range Interpretation Comments UA Nitrite (test code Negative (09/13/17 10:40 = UA Nitrite) AM) [facility] TomballSARS-COV 2 AntigenSARS-COV 2 Antigen
--- NOTE | 2022-11-08 23:37 | ER ---
Nurse's Notes [facility] Name: El Ventura Age: 62 yrs Sex: Male : 1960 Arrival Date: 11/08/2022 Time: 23:21 Bed 4 Private MD: Diagnosis: Dental caries, unspecified;Cracked tooth;Dental pain Presentation: 11/08 23:29 Chief complaint: Spouse and/or significant other states: increase in jaw pain and kl swelling seen here x 3 days prior prescribed clindamycin 300mg spouse reports pain and swelling worse has appt with dentist on Friday. Coronavirus screen: Vaccine status: Patient reports receiving the 2nd dose of the covid vaccine. Ebola Screen: Patient negative for fever greater than or equal to 101.5 degrees Fahrenheit, and additional compatible Ebola Virus Disease symptoms. Initial Sepsis Screen: Does the patient meet any 2 criteria? No. Patient's initial sepsis screen is negative. Does the patient have a suspected source of infection? No. Patient's initial sepsis screen is negative. Risk Assessment: Do you want to hurt yourself or someone else? Patient reports no desire to harm self or others. 23:29 Method Of Arrival: Wheelchair kl 23:29 Acuity: ROBERT 4 kl Triage Assessment: 23:32 General: Appears uncomfortable, well groomed, well developed, Behavior is calm, kl cooperative, flat. Pain: Complains of pain in right jaw. EENT: swelling noted to right jaw. Historical: - Allergies: 23:31 PENICILLINS; kl - Home Meds: 23:31 aspirin 81 mg Oral chew 1 tab once daily [Active]; atorvastatin 40 mg Oral tab 1 tab kl nightly [Active]; metformin 500 mg Oral Tb24 1 tab once daily [Active]; Silace 50 mg/5 mL Oral liqd 10 mL 2 times per day [Active]; - PMHx: 23:31 CAD; CVA; Diabetes - NIDDM; heart stents; High Cholesterol; Hypertension; kl - Immunization history:: Adult Immunizations up to date. - Social history:: Smoking status: Patient denies any tobacco usage or history of. Screenin:48 [facility] ED Fall Risk Assessment (Adult) History of falling in the last 3 months, jb4 including since admission No falls in past 3 months (0 pts) Confusion or Disorientation No (0 pts) Intoxicated or Sedated No (0 pts) Impaired Gait No (0 pts) Mobility Assist Device Used No (0 pt) Altered Elimination No (0 pt) Score/Fall Risk Level 0 - 2 = Low Risk Oriented to surroundings, Maintained a safe environment. Abuse screen: Denies threats or abuse. Nutritional screening: No deficits noted. Tuberculosis screening: No symptoms or risk factors identified. Assessment: 23:30 General: Appears in no apparent distress. uncomfortable, Behavior is calm, cooperative, jb4 appropriate for age. Pain: Complains of pain in mouth Pain does not radiate. Unable to use pain scale. FLACC scale score is 6 out of 10. Neuro: Level of Consciousness is awake, alert, obeys commands, Oriented to Pt is non verbal. Cardiovascular: Patient's skin is warm and dry. Respiratory: Airway is patent Respiratory effort is even, unlabored, Respiratory pattern is regular, symmetrical. GI: No signs and/or symptoms were reported involving the gastrointestinal system. : No signs and/or symptoms were reported regarding the genitourinary system. EENT: swelling to the right side of the mouth noted. Derm: Skin is intact, Skin is pink, warm \T\ dry. Musculoskeletal: Circulation, motion, and sensation intact. Vital Signs: 23:29 BP 126 / 62; Pulse 75; Resp 17; Temp 97(TE); Pulse Ox 96% on R/A; kl ED Course: 23:21 Patient arrived in ED. ja2 23:25 Emre Cabrera DO is Attending Physician. ms3 23:28 Giovani Diallo, RN is Primary Nurse. jb4 23:31 Triage completed. 23:48 Patient has correct armband on for positive identification. Bed in low position. Call jb4 light in reach. Side rails up X 1. Client placed on continuous cardiac and pulse oximetry monitoring. NIBP monitoring applied. 23:48 No provider procedures requiring assistance completed. Patient did not have IV access jb4 during this emergency room visit. Administered Medications: No medications were administered Medication: 23:48 VIS not applicable for this client. jb4 Outcome: 23:36 Discharge ordered by . ms3 23:48 Discharged to home via wheelchair, with family. jb4 23:48 Condition: stable 23:48 Discharge instructions given to patient, family, Instructed on discharge instructions, follow up and referral plans. Demonstrated understanding of instructions, follow-up care. 23:50 Patient left the ED. jb4 Signatures: Carine Pastrana, RN Giovani Alexander RN RN jb4 Emre Cabrera DO DO ms3 Madison Kim2
--- NOTE | 2022-11-08 23:51 | EDPHYS ---
Physician Documentation [facility] Name: El Ventura Age: 62 yrs Sex: Male : 1960 Arrival Date: 11/08/2022 Time: 23:21 Bed 4 Private MD: ED Physician Emre Cabrera HPI: 11/08 23:49 This 62 yrs old Male presents to ER via Wheelchair with complaints of Facial ms3 Swelling, Toothache, Jaw Pain. 23:49 62-year-old male presents with his for dental infection. Patient's states ms3 they were seen in the emergency department 3 days prior. Patient is currently taking clindamycin 300 mg 3 times daily. Patient has an appointment on Friday with his dentist. Historical: - Allergies: 23:31 PENICILLINS; kl - Home Meds: 23:31 aspirin 81 mg Oral chew 1 tab once daily [Active]; atorvastatin 40 mg Oral tab 1 tab kl nightly [Active]; metformin 500 mg Oral Tb24 1 tab once daily [Active]; Silace 50 mg/5 mL Oral liqd 10 mL 2 times per day [Active]; - PMHx: 23:31 CAD; CVA; Diabetes - NIDDM; heart stents; High Cholesterol; Hypertension; kl - Immunization history:: Adult Immunizations up to date. - Social history:: Smoking status: Patient denies any tobacco usage or history of. ROS: 23:49 Constitutional: Negative for fever, and chills. Neck: Negative for injury, pain, and ms3 swelling, Cardiovascular: Negative for chest pain, and palpitations. Respiratory: Negative for shortness of breath, cough, wheezing, and pleuritic chest pain, Abdomen/GI: Negative for abdominal pain, nausea, vomiting, diarrhea, and constipation, MS/Extremity: Negative for injury and deformity, Skin: Negative for injury, rash, and discoloration. 23:49 ENT: Positive for Gum pain 23:49 All other systems are negative. Exam: 23:49 Constitutional: This is a well developed, well nourished patient who is awake, alert, ms3 and in no acute distress. Head/Face: Normocephalic, atraumatic. Neck: Trachea midline, no cervical lymphadenopathy. Supple, full range of motion without nuchal rigidity, or vertebral point tenderness. No Meningismus. Chest/axilla: Normal chest wall appearance and motion. Nontender with no deformity. Cardiovascular: Regular rate and rhythm with a normal S1 and S2. No gallops, murmurs, or rubs. Normal PMI, no JVD. No pulse deficits. Respiratory: Lungs have equal breath sounds bilaterally, clear to auscultation and percussion. No rales, rhonchi or wheezes noted. No increased work of breathing, no retractions or nasal flaring. Skin: Warm, dry with normal turgor. Normal color with no rashes, no lesions, and no evidence of cellulitis. MS/ Extremity: Pulses equal, no cyanosis. Neurovascular intact. Full, normal range of motion. 23:49 ENT: Mouth: Gums: reddened, swollen, Posterior pharynx: is normal, no acute changes, Dental exam: avulsion, dental caries, fractured teeth are noted, diffusely, gum swelling, that is mild, missing teeth, diffusely. Vital Signs: 23:29 BP 126 / 62; Pulse 75; Resp 17; Temp 97(TE); Pulse Ox 96% on R/A; kl MDM: 23:35 Patient medically screened. ms3 23:49 Differential diagnosis: dental caries, gingivitis, dental abscess. Data reviewed: vital ms3 signs, nurses notes. Historians other than the Patient: Spouse/Significant Other: Patient's . Care significantly affected by the following chronic conditions: Diabetes, Nonverbal, CVA. Counseling: I had a detailed discussion with the patient and/or guardian regarding: the historical points, exam findings, and any diagnostic results supporting the discharge/admit diagnosis, the need for outpatient follow up, to return to the emergency department if symptoms worsen or persist or if there are any questions or concerns that arise at home. ED course: Discussed physical exam findings with patient's and patient. Patient to continue taking clindamycin as discussed. Patient submental space soft, no erythema, no warmth. All questions were answered. Return precautions discussed include fevers, chills, nausea, vomiting, submental erythema, swelling, worsening condition, or any other concerns.. Administered Medications: No medications were administered Disposition: 11/09 04:03 Chart complete. ms3 Disposition Summary: 11/08/22 23:36 Discharge Ordered Location: Home ms3 Condition: Stable ms3 Diagnosis - Dental caries, unspecified ms3 - Cracked tooth ms3 - Dental pain ms3 Followup: ms3 - With: Private Physician - When: 2 - 3 days - Reason: Recheck today's complaints Discharge Instructions: - Discharge Summary Sheet ms3 - Dental Caries, Adult ms3 - Dental Pain ms3 Forms: - Medication Reconciliation Form ms3 - Thank You Letter ms3 - Antibiotic Education ms3 - Prescription Opioid Use ms3 Signatures: Carine Pastrana RN RN Emre Kulkarni DO DO ms3
[2022-11-09 01:06] VITALS: BP 126/62; TEMP 97; O2SAT 96
== END 2022-11-08 23:50 | disposition home or self-care (01) ==
LOC: ER 23:18
DX: K02.9 Dental caries, unspecified (principal); K03.81 Cracked tooth; I10 Essential (primary) hypertension; E11.9 Type 2 diabetes mellitus without complications; Z79.82 Long term (current) use of aspirin; Z95.818 Presence of other cardiac implants and grafts; Z88.0 Allergy status to penicillin; Z86.73 Personal history of transient ischemic attack (TIA), and cerebral infarction without residual deficits
CPT/HCPCS: 99281